=== PATIENT | female | born 1960 | race Caucasian/White ===

== ENCOUNTER 2021-01-24 18:21 | Inpatient (IN) | payer OTHER, SELFPAY ==
--- NOTE | ~2021-01-24 | XR_ITS ---
EXAMINATION: XR surgery orthopedic DATE: 01/25/2021 13:10 INDICATION: Intertrochanteric fracture of proximal left femur. TECHNIQUE: 4 intraoperative fluoroscopic spot views of proximal left femur were obtained. I was not p resent. Fluoroscopy exposure time was 99 seconds. COMPARISON: Left hip radiographs 01/24/2021 FINDINGS: There is a comminuted intertrochanteric fracture of proximal left femur status post open re duction internal fixation with antegrade intramedullary ken, femoral head/neck screw, and distal inte rlocking screw. The main distal fracture fragment demonstrates near-anatomic alignment. There is mild left hip osteoarthritis. IMPRESSION: 1. Comminuted intertrochanteric fracture of proximal left femur status post open reduction internal f ixation. Reviewed, dictated and finalized at location A. IMPRESSION: 1. Comminuted intertrochanteric fracture of proximal left femur status post ope n reduction internal fixation.
--- NOTE | ~2021-01-24 | US_ITS ---
US abdomen limited INDICATION: Elevated liver function tests PROCEDURE: Realtime right upper abdominal ultrasound. COMPARISON: No prior studies for comparison. FINDINGS: The pancreas is normal without focal mass or pancreatic ductal dilation. Liver echotexture is increased, consistent with fatty infiltration. Liver is enlarged. There is normal directional fl ow in the portal vein. The gallbladder is normal without stones, gallbladder wall thickening or pericholecystic fluid. Comm on bile duct measures 4 mm. No sonographic Solis's sign. There is a 1.9 cm right renal cyst. IMPRESSION: 1: Hepatomegaly with fatty infiltration. Reviewed, dictated and finalized at location A.
--- NOTE | ~2021-01-24 | CT_ITS ---
EXAMINATION: CTA abdomen pelvis DATE: 01/28/2021 21:22 INDICATION: Blood loss following left hip surgery. TECHNIQUE: Computed tomographic angiography (CTA) of the abdomen and pelvis was performed with 100 mL Omnipaque-350 intravenous contrast. Additional 3D reconstructions utilizing rotating maximum intensi ty projection (MIP) were performed. Automated exposure control and iterative reconstruction technique were employed. The dose-length product was 1033.35 mGy-cm. COMPARISON: None FINDINGS: Respiratory motion and some dependent basilar atelectasis at the bilateral lower lungs. Heart size is normal. No pericardial or pleural effusion. Diffuse hepatic steatosis. Gallbladder, spleen, pancreas , bilateral adrenal glands and kidneys are normal. Bowels including the appendix are normal. Small fa t-containing umbilical hernia. Bladder, anteverted uterus and bilateral adnexa are unremarkable. No f ree intraperitoneal gas or fluid. No pathologically enlarged abdominal or pelvic lymphadenopathy. Sev ere lower lumbar facet osteoarthritis. Minimal atherosclerotic plaque along the mild caliber abdominal aorta and bilateral common iliac isamar nate without hemodynamically significant stenosis. Tiny accessory right renal artery and early bifurc ation of the left renal artery essentially at the origin. Celiac, superior mesenteric and inferior me senteric arteries are normal. Prominent soft tissue swelling and subcutaneous edema, with some postoperative subcutaneous gas about the left hip. Antegrade intramedullary ken and interlocking femoral neck screw fixation of a comminu brendon intertrochanteric fracture the proximal left femur. There is superomedial distraction of both les ser trochanteric and greater trochanteric fragments which are not included within the fixation. While there May be a small amount of blood in the region of the fracture, no large likely hematomas apprec iated. No evident active contrast extravasation. IMPRESSION: 1. Expected appearance of postoperative change from an internally fixed comminuted intertrochanteric fracture the proximal left femur. No large hematoma appreciated. 2. Minimal atherosclerotic plaque along the normal caliber abdominal aorta and common iliac arteries. Otherwise unremarkable CT angiogram of the abdomen and pelvis. 3. Diffuse hepatic steatosis. 4. Small fat-containing umbilical hernia. Reviewed, dictated and finalized at location A. IMPRESSION: 1. Expected appearance of postoperative change from an internally fixed comminu brendon intertrochanteric fracture the proximal left femur. No large hematoma appre ciated. 2. Minimal atherosclerotic plaque along the normal caliber abdominal aorta and common iliac arteries. Otherwise unremarkable CT angiogram of the abdomen and p lu. 3. Diffuse hepatic steatosis. 4. Small fat-containing umbilical hernia.
--- NOTE | ~2021-01-24 | XR_ITS ---
EXAMINATION: XR hip LT 2V w AP pelvis DATE: 01/24/2021 19:00 INDICATION: g TECHNIQUE: Anteroposterior view of the pelvis and anteroposterior and cross-table lateral views of th e left hip were obtained. COMPARISON: None. FINDINGS: Comminuted intratrochanteric fracture of the proximal left femur with proximal migration and approxim ately 40 degrees varus angulation of the main distal diaphyseal fragment. There is also partially a f ew centimeter of proximal and medial distraction of both lesser trochanteric and greater trochanteric fragments. No other fractures identified. Mild bilateral hip osteoarthritis. Severe lower lumbar spo ndylosis. IMPRESSION: 1. Displaced and angulated comminuted intratrochanteric fracture of the proximal left femur. Reviewed, dictated and finalized at location A. IMPRESSION: 1. Displaced and angulated comminuted intratrochanteric fracture of the proxima l left femur.
--- NOTE | ~2021-01-24 | XR_ITS ---
EXAMINATION: XR hip LT min 2V DATE: 01/28/2021 13:54 INDICATION: Left hip pain and swelling 3 days post internal fixation of a comminuted fracture of the right hip TECHNIQUE: Anteroposterior and cross-table lateral views of the left hip were obtained. COMPARISON: Intraoperative images of the left hip from 01/25/2021 FINDINGS: Again seen is internal fixation of a comminuted intratrochanteric fracture of the proximal left hip w ith antegrade intramedullary ken, femoral neck dynamic compression screw and distal interlocking scre w fixation. Alignment of the femoral head neck and diaphyseal fragments remains near-anatomic. There is superomedial distraction of a separate lesser trochanteric and greater trochanteric fragments whic h are not included within the fixation. Mild left hip osteoarthritis. No other fractures identified. Skin herlinda along the lateral proximal left thigh with expected small amount of underlying postopera tive soft tissue gas. IMPRESSION: 1. Expected appearance post open reduction internal fixation of a comminuted intertrochanteric fractu re the proximal left femur. Reviewed, dictated and finalized at location A. IMPRESSION: 1. Expected appearance post open reduction internal fixation of a comminuted in tertrochanteric fracture the proximal left femur.
--- NOTE | ~2021-01-24 | US_ITS ---
EXAMINATION:US venous doppler LE BI INDICATION:Bilateral leg swelling TECHNIQUE: Multiple grayscale, color flow and Doppler images of the right and left lower extremity de ep venous systems were obtained and reviewed. COMPARISON:No prior studies for comparison. FINDINGS: The common femoral, superficial femoral and popliteal veins demonstrate normal respiratory variation, augmentation and compressibility. Color flow is also seen within the posterior tibial, pe roneal, greater saphenous and profunda veins. IMPRESSION: 1: No lower extremity deep venous thrombosis. Reviewed, dictated and finalized at location A.
--- NOTE | ~2021-01-24 | XR_ITS ---
EXAMINATION: XR chest 1V DATE: 01/24/2021 19:00 INDICATION: Fall TECHNIQUE: frontal view of the chest was obtained. COMPARISON: None FINDINGS: Small lung volumes with mild elevation of the left hemidiaphragm with minimal bibasilar atelectasis. No other airspace opacities, pulmonary edema, pleural effusion or pneumothorax. The cardiomediastinal silhouette is normal. No acute osseous abnormality. IMPRESSION: 1. Small lung volumes with minimal bibasilar atelectasis. Reviewed, dictated and finalized at location A.
[2021-01-24 18:25] VITALS: BP 125/85; PULSE 109; RESP 16; TEMP 36.7; O2SAT 96
[2021-01-24 18:38] VITALS: BP 132/85; PULSE 87; RESP 18; O2SAT 96
--- NOTE | 2021-01-24 19:01 | ECG_ITS ---
Measurements Intervals [place] Rate: 98 P: 62 MT: 158 QRS: 16 QRSD: 64 T: 9 QT: 331 QTc: 423 Interpretive Statements SINUS RHYTHM EARLY PRECORDIAL R/S TRANSITION LOW VOLTAGE- PRECORDIAL LEADS BASELINE ARTIFACT- I, II, III, AVR, AVL, AVF, V1-V6 BORDERLINE ECG Electronically Signed On 01-24-2021 20:11:21 CDT by Raúl Crocker D.O.
[2021-01-24] MEDS: HYDROcodone/acetaminophen (*CRX) 5-325 MG TABLET 1 TAB PO (19:08)
--- NOTE | 2021-01-24 19:08 | ED.FALL ---
HPI - Fall General Chief Complaint: Fall Stated Complaint: fall, left hip pain Time Seen by Provider: 01/24/21 18:36 Source: RN notes reviewed History of Present Illness HPI Narrative: Patient presents emergency department from home for left hip pain. Patient states she has been outside and pulling got out of her problems walking inside when she tripped over a crack in her patio she states she fell directly on her left hip at that time she states since that time she is been able to get up and ambulate on her left hip she denies taking medication for the pain she denies striking her head or any loss of consciousness she states she had mild scraping her left elbow but denies pain to the elbow patient denies any blood thinner use states she has seen Dr. Fatima before in the past Related Data Home Medications Medication Instructions Recorded Confirmed No Home Medications 01/24/21 01/24/21 Allergies Allergy/AdvReac Type Severity Reaction Status Date / Time aspirin Allergy Intermediate HIVES Verified 01/24/21 18:44 NSAIDS (Non-Steroidal Allergy Intermediate HIVES Verified 01/24/21 18:44 Anti-Inflamma Review of Systems Review of Systems: Gen.: Denies fevers or chills Eyes: Denies eye pain or visual change ENT: Denies congestion Respiratory: Denies shortness of breath or cough CV: Denies chest pain GI: Denies abdominal pain nausea, emesis or diarrhea Musculoskeletal: See HPI Neuro: Denies numbness, tingling, weakness or focal weakness Skin: Denies rash Except as documented, all other systems reviewed and negative PMFSH Past Medical History Medical History (Updated 01/24/21 @ 20:02 by Se Bowens DO) Patient denies significant medical history Social History Social History (Updated 01/24/21 @ 19:10 by Se Bowens DO) Smoking status: Never smoker Exam Narrative: APPEARANCE: No acute distress, nontoxic, resting in bed EYES: EOMI HEENT: Normocephalic, atraumatic, OMM RESPIRATORY: No respiratory distress Clear to auscultation bilaterally with no rhonchi wheezing or rales. CARDIOVASCULAR: Regular rate and rhythm without murmurs rubs or gallops. ABDOMINAL: Soft, nontender, nondistended, no rebound or guarding MUSCULOSKELETAl: Moves all extremities. No clubbing, cyanosis or edema. No tenderness of the bilateral upper extremities and the right lower extremity, tender palpation of the left hip pain with any movement of the hip, no tenderness left knee or ankle, dorsalis pedis pulse 2+ neurovascular intact NEURO: Awake and alert. Following commands, speech normal, no focal deficits SKIN:: Warm, dry. No rashes lesions superficial abrasion over the left posterior elbow no active bleeding or signs of infection PSYCHIATRIC: Normal affect/mood, Course Course Emergency Course: Called discussed with Dr. Fatima presentation work-up not currently available for orthopedic consult Discussed Dr. Seaman presentation and work-up agrees with consult at this time Discussed with TELLY Murrieta for Dr. Guzman presentation work-up agrees with admission at this time Discussed with patient her elevated LFTs. Repeat abdominal exam is soft nontender states she does drink daily beer and wine when asked how much she states enough states she only had one beer today Discussed with patient and family results of workup and diagnosis. Discussed need for admission. Patient and family understand and agree to current treatment plan Vital Signs Vital signs: Vital Signs Temperature 98.1 F 01/24/21 18:25 Pulse Rate 109 H 01/24/21 18:25 Respiratory Rate 16 01/24/21 18:25 Blood Pressure 125/85 01/24/21 18:25 Pulse Oximetry 96 01/24/21 18:25 Temperature 98.1 F 01/24/21 18:25 Pulse Rate 87 01/24/21 18:38 Respiratory Rate 18 01/24/21 18:38 Blood Pressure 132/85 01/24/21 18:38 Pulse Oximetry 96 01/24/21 18:38 MDM - Fall Lab Data Result diagrams: 01/24/21 19:36 01/24/21 19:36
[2021-01-24 19:44] LABS: Basophils Absolute Auto 0.1 K/mm3 (0.0-0.1); Basophils Percent Auto 1.8 % (0.2-1.2); Eosinophils Percent Auto 0.3 % (0-4.4); Immature Granulocyte Absolute 0.05 K/mm3 (0.00-0.031); Immature Granulocyte Percent A 0.8 % (0-0.5); Lymphocytes Absolute Auto 1.86 K/mm3 (0.9-3.2); Lymphocytes Percent Auto 30.8 % (18.3-44.2); Mean Corpuscular HGB Conc 32.6 g/dl (32-36); Mean Corpuscular Hemoglobin 32.4 pg (26-34); Mean Corpuscular Volume 99.5 fl (80-100); Mean Platelet Volume 9.9 fl (7.4-10.4); Monocytes Absolute Auto 0.6 K/mm3 (0.1-0.6); Monocytes Percent Auto 9.3 % (2.6-8.5); Neutrophils Absolute Auto 3.4 K/mm3 (1.3-6.7); Platelet Count Result 148 k/mm3 (150-375); Red Blood Count 4.32 M/mm3 (4.2-5.4); Red Cell Distribution Width 14.5 % (11.5-14.5)
[2021-01-24 19:53] LABS: Alanine Aminotransferase 73 U/L (4-35); Alkaline Phosphatase 153 U/L (38-126); Anion Gap 18 mmol/L (8-16); Aspartate Amino Transferase 161 U/L (14-36); Bilirubin,Total 1.3 mg/dL (0.2-1.3); Blood Urea Nitrogen 7 mg/dL (7-17); Calcium 8.9 mg/dL (8.4-10.2); Carbon Dioxide 23 mmol/L (22-30); Chloride 96 mmol/L (98-107); Estimated CRCL calculation 82 ml/min; Estimated Glomerular Filt Rate > 60; Glucose 95 mg/dL (65-110); Potassium 3.7 mmol/L (3.4-5.0); Sodium 137 mmol/L (137-145)
[2021-01-24 19:55] LABS: INR 0.9; Prothrombin Time 12.3 Seconds (11.1-14.7)
[2021-01-24 19:56] LABS: Partial Thromboplastin Time 25.4 SECONDS (22.3-36.8)
--- NOTE | 2021-01-24 20:23 | PC.NURSE ---
attempted to call report to floor. nurse unable to take report
--- NOTE | 2021-01-24 20:41 | PC.NURSE ---
attempted to call report to floor. nurse would not take report
--- NOTE | 2021-01-24 21:30 | PM.IMHP ---
H&P: HPI History of Present Illness Date/Time: 01/24/21 21:30 Chief Complaint: Left hip pain after fall. Narrative: This is a previously healthy 60-year-old female who presented to the emergency department earlier today via private vehicle from home for evaluation of left hip pain after a fall. While getting out of her swimming pool today she tripped on a crack in the deck causing her to fall directly onto her left hip. She was able to get up with help but could not bear weight due to pain and family members drove her to the hospital where she was found to have an acute displaced and angulated comminuted inter trochanteric fracture of the left proximal femur and she is being admitted in this setting. She sustained no other injuries in the fall and denies head trauma and loss of consciousness. No paresthesias, skin color, or temperature changes distal to the fracture site. Labs done on arrival to the emergency department showed elevation of her AST and ALT and with further questioning she does admit that she drinks daily and has had elevated LFTs in the past. She typically drinks 2 to 3 alcoholic beverages in evening but will drink quite a bit more on the weekends though she does not qualify. She denies ever having signs of symptoms of alcohol withdrawal. No history of seizures. No known history of cirrhosis or hepatitis. Review of Systems Review of Systems: Twelve systems were reviewed with pertinent positives and negatives as per HPI. No fever, chills, or sweats. No recent cold or flu symptoms. She denies exertional chest pain shortness of breath. No orthopnea or PND. She denies nausea, vomiting, diarrhea, and dysuria. No history of venous thromboembolism. Except as documented, all other systems were reviewed and are negative. [facility] Past Medical History Medical History (Updated 01/24/21 @ 23:50 by Glenny Hanna PA-C) Anxiety and depression Arthritis Daily consumption of alcohol Gastroesophageal reflux disease Hearing loss Surgical History Surgical History (Updated 01/24/21 @ 23:50 by Glenny Hanna PA-C) History of cataract extraction Family History Family History Father Pulmonary embolism Hypertension Diabetes mellitus Acute myocardial infarction Mother Hypercholesterolemia Social History Social History (Updated 01/24/21 @ 23:51 by Glenny Hanna PA-C) Social History: The patient lives in [place] with her . She smoked 1 to 1.5 packs of cigarettes a day for about 20 years and quit in 1999. She drinks 2 to 3 alcoholic beverages a night, typically beer or wine. She drinks heavier on the weekends, typically drinking mixed drinks although she does not quantify the amount that she typically drinks. No illicit substance use. She designates her Julis as her surrogate decision maker and she wishes to be a full code. Meds Home Medications and Allergies Home Medications Medication Instructions Recorded Confirmed Type No Home Medications 01/24/21 01/24/21 History Allergies Allergy/AdvReac Type Severity Reaction Status Date / Time aspirin Allergy Intermediate HIVES Verified 01/24/21 22:10 NSAIDS (Non-Steroidal Allergy Intermediate HIVES Verified 01/24/21 22:10 Anti-Inflamma Vital Signs Vital Signs - 24 hr 01/24/21 18:25 01/24/21 18:38 Temperature 98.1 F Pulse Rate 109 H 87 Respiratory Rate 16 18 Blood Pressure 125/85 132/85 Pulse Oximetry 96 96 Exam Narrative: General: Well-developed female supine in bed. She is hard of hearing. Weight: 77.9 kg. BMI: 29.5. HEENT: Normocephalic, atraumatic. PERRL, EOMI. Sclerae anicteric. Oral mucosa moist. Oropharynx clear. Neck: Supple. Respiratory: Lungs are clear to auscultation bilaterally. Cardiovascular: Regular rate and rhythm with S1-S2. Gastrointestinal: Abdomen is soft, protuberant, and nontender with positive bowel sounds. No obvious organome
--- NOTE | 2021-01-24 21:57 | ADMGEN ---
This patient, Reginaldo Morgan, was admitted to Medical Room 248-01. Patient/family oriented to hospital policies and general routines including ID bracelet, bed and alarms, visiting hours, pain management, procedures, bathroom and other care routines, personal items, smoking policy, room service/diet, and visiting hours. Information on how to activate the Rapid Response Team has been discussed. Patient/Family are encouraged to report perceived risks to care and to ask questions if they do not understand what they are told or what they should do.
[2021-01-24 22:00] VITALS: BP 128/68; PULSE 103; RESP 18; TEMP 36.7; O2SAT 95; BMI 29.5
[2021-01-24 22:19] LABS: Ethanol 199 mg/dL (<10)
[2021-01-24] MEDS: SODIUM CHLORIDE 0.9% IV 1,000 ML 80 ML IV CONT (22:25)
--- NOTE | 2021-01-24 22:38 | PM.CNOR ---
Assessment and Plan Assessment and plan (1) Closed displaced intertrochanteric fracture of left femur: Qualifiers: Encounter type: initial encounter Qualified Code(s): S72.142A - Displaced intertrochanteric fracture of left femur, initial encounter for closed fracture Code(s): S72.142A - Displaced intertrochanteric fracture of left femur, initial encounter for closed fracture Status: Acute Assessment and Plan: New patient evaluation for chief complaint left hip pain after fall. History, physical exam and radiographs reviewed with the patient.LT hip intertrochanteric fx. Discussed the condition, nature, etiology and course of natural history with the patient. Treatment options including surgical and nonoperative treatment were reviewed. Risks and benefits of each as well as alternatives reviewed. The patient's questions were answered. Conservative treatment ice, mechanical dvt px. Pt desires operative tx. Discussed nonoperative and operative treatment options with the patient. Risks and benefits of each as well as alternatives were reviewed. All of the patient's questions were answered. The risks of surgery reviewed including but not limited to: Neurovascular damage, wound complication, infection, blood clot, pulmonary embolus, stroke, myocardial infarction, and anesthetic risks up to and including . Continued pain and possible dysfunction were explained. Specific risks of the procedure including later recurrence of deformity. No guarantees were offered. If hardware used, discussed risk of failure/ breakage and possible need for removal. If complications occur, the patient understands the need for further treatment, possible further surgery. Patient verbalizes understanding and wishes to proceed. PLAN: Left hip reduction internal fixation with IM nail History of Present Illness HPI Consult date: 01/25/21 Requesting physician: Se Bowens DO Chief complaint: L Hip Fx Narrative: 60 yo woman fell at pool side at home on left hip. Unable to bear weight. No prior hip problems. Denies left leg numbness or tingling. Review of Systems Constitutional: Constitutional: Denies fever(s) Eyes: Eyes: Denies blurry vision ENT: Reports Normal hearing present Cardiovascular: Cardiovascular: Denies chest pain and Denies dyspnea Respiratory: Respiratory: Denies dyspnea and Denies wheezing Gastrointestinal: Gastrointestinal: Denies abdominal pain Genitourinary: Genitourinary: Denies urinary urgency Musculoskeletal: Musculoskeletal: Reports as per HPI and Denies numbness Integumentary/Breasts: Skin/Breast: Denies changing lesions and Denies sores Neurologic: Reports Normal hearing present, Denies behavioral changes, Denies confusion, Denies numbness and Denies convulsions Psychiatric: Psychiatric: Denies behavioral changes, Denies confusion and Denies hallucinations Endocrine: Endocrine: Denies heat intolerance Hematologic/Lymphatic: Hematologic/Lymphatic: Denies easy bleeding Allergic/Immunologic: Allergic/Immunologic: Denies wheezing [facility] Past Medical History Medical History Anxiety and depression Arthritis Daily consumption of alcohol Gastroesophageal reflux disease Hearing loss Surgical History Surgical History History of cataract extraction Family History Family History Father Pulmonary embolism Hypertension Diabetes mellitus Acute myocardial infarction Mother Hypercholesterolemia Social History Social History Social History: The patient lives in [place] with her . She smoked 1 to 1.5 packs of cigarettes a day for about 20 years and quit in 1999. She drinks 2 to 3 alcoholic beverages a night, typically beer or wine. She drinks heavier on
[2021-01-24 23:22] LABS: Hepatitis B Surface Antigen Negative (Negative)
[2021-01-24 23:28] LABS: HAV RESULT Negative (Negative); Hepatitis B Core IgM Result Negative (Negative)
[2021-01-24 23:40] LABS: Hepatitis C Virus Antibody Negative (Negative)
[2021-01-25] VITALS (11 sets, daily range): BP systolic 118–165; BP diastolic 52–92; PULSE 92–112; RESP 8–18; TEMP 36.1–36.9; O2SAT 93–100
[2021-01-25 00:33] LABS: Add Urine Microscopic? YES; Appearance Urine Clear (Clear); Bacteria Urine Trace /hpf; Bilirubin Urine Negative (Negative); Blood Urine 1+ (Negative); Color Urine Amber (Yellow); Glucose Urine UA Negative (Negative); Ketones Urine 1+ mg/dL (Negative); Leukocyte Esterase Ur 1+ LEU/UL (Negative); Mucus Urine Rare /lpf; Nitrate Urine Positive (Negative); Protein Urine 1+ mg/dL (Negative); Specific Grav Ur 1.016 (1.001-1.035); Squamous Epithelial Cell Urine Few /hpf (Few)
[2021-01-25 05:56] LABS: Basophils Absolute Auto 0.1 K/mm3 (0.0-0.1); Hematocrit 36.5 % (37.0-47.0); Hemoglobin 12.2 g/dL (12.0-15.0); Immature Granulocyte Absolute 0.05 K/mm3 (0.00-0.031); Immature Granulocyte Percent A 0.6 % (0-0.5); Lymphocytes Absolute Auto 1.53 K/mm3 (0.9-3.2); Lymphocytes Percent Auto 19.5 % (18.3-44.2); Mean Corpuscular HGB Conc 33.4 g/dl (32-36); Mean Corpuscular Hemoglobin 32.6 pg (26-34); Mean Corpuscular Volume 97.6 fl (80-100); Mean Platelet Volume 9.8 fl (7.4-10.4); Monocytes Absolute Auto 0.8 K/mm3 (0.1-0.6); Monocytes Percent Auto 9.8 % (2.6-8.5); Neutrophils Absolute Auto 5.4 K/mm3 (1.3-6.7); Neutrophils Percent Auto 69.1 % (45.5-73.1); Platelet Count Result 146 k/mm3 (150-375); Red Blood Count 3.74 M/mm3 (4.2-5.4); Red Cell Distribution Width 14.3 % (11.5-14.5); White Blood Count 7.9 K/mm3 (4.5-10.0)
[2021-01-25 06:05] LABS: Alanine Aminotransferase 62 U/L (4-35); Albumin Level 3.4 g/dL (3.5-5.1); Alkaline Phosphatase 122 U/L (38-126); Anion Gap 15 mmol/L (8-16); Aspartate Amino Transferase 114 U/L (14-36); Bilirubin,Total 1.2 mg/dL (0.2-1.3); Blood Urea Nitrogen 8 mg/dL (7-17); Calcium 8.8 mg/dL (8.4-10.2); Carbon Dioxide 19 mmol/L (22-30); Chloride 102 mmol/L (98-107); Estimated CRCL calculation 98 ml/min; Estimated Glomerular Filt Rate > 60; Glucose 69 mg/dL (65-110); Potassium 4.9 mmol/L (3.4-5.0); Sodium 136 mmol/L (137-145)
--- NOTE | 2021-01-25 07:32 | WPDHPUPDATE1 ---
History and Physical Update Update Date/Time: 01/25/21 07:32 History and Physical has been reviewed, including an updated exam of the patient. There are NO changes in the patient's condition. Risks, benefits, and alternatives have been discussed and questions answered. Patient agrees to proceed with procedure.
[2021-01-25] MEDS: MORPHINE SULFATE (*CRX) 4 MG/ML INJ IV PUSH ×2 (09:19→14:49)
[2021-01-25 10:07] LABS: Lactic Acid Reflex 2.6 mmol/L (0.7-2.1)
[2021-01-25] MEDS: TRANEXAMIC ACID 1,000MG/ISO100 1,000 MG/100 ML BAG 200 MG IVPB (11:46)
[2021-01-25] MEDS: ACETAMINOPHEN 500 MG TABLET 1000 MG PO (11:46)
--- NOTE | 2021-01-25 11:48 | WPDANESEPPF ---
Anes - Initial Pre Proc Eval Procedure: Operation Date: 01/25/21 12:00 Proposed Procedures p Left Intertrochanteric Nail(Left) - Jono Seaman MD Date/Time: 01/25/21 11:48 Surgeon: Divya Guzman MD Pre Op Diagnosis: L Hip Fx Patient Data Age: 60 Gender: F Height: 1.63 m Weight: 80.3 kg Last Vital Signs Temp 36.8 C 01/25/21 06:00 Pulse 97 01/25/21 06:00 Resp 18 01/25/21 06:00 BP 118/52 L 01/25/21 06:00 Pulse Ox 96 01/25/21 06:00 Allergies Allergy/AdvReac Type Severity Reaction Status Date / Time aspirin Allergy Intermediate HIVES Verified 01/24/21 22:10 NSAIDS (Non-Steroidal Allergy Intermediate HIVES Verified 01/24/21 22:10 Anti-Inflamma Home Medications Medication Instructions Recorded Confirmed Type No Home Medications 01/24/21 01/24/21 History Laboratory Tests 01/24/21 01/24/21 01/24/21 19:01 19:36 19:36 WBC 6.0 K/mm3 K/mm3 (4.5-10.0) RBC 4.32 M/mm3 M/mm3 (4.2-5.4) Hgb 14.0 g/dL g/dL (12.0-15.0) Hct 43.0 % % (37.0-47.0) MCV 99.5 fl fl (80-100) MCH 32.4 pg pg (26-34) MCHC 32.6 g/dl g/dl (32-36) RDW 14.5 % % (11.5-14.5) Plt Count 148 k/mm3 L k/mm3 (150-375) MPV 9.9 fl fl (7.4-10.4) Immature Gran % (Auto) 0.8 % H % (0-0.5) Neut % (Auto) 57.0 % % (45.5-73.1) Lymph % (Auto) 30.8 % % (18.3-44.2) [place] % (Auto) 9.3 % H % (2.6-8.5) Eos % (Auto) 0.3 % % (0-4.4) Baso % (Auto) 1.8 % H % (0.2-1.2) Lymph # (Auto) 1.86 K/mm3 K/mm3 (0.9-3.2) [place] # (Auto) 0.6 K/mm3 K/mm3 (0.1-0.6) Eos # (Auto) 0.0 K/mm3 K/mm3 (0-0.3) Baso # (Auto) 0.1 K/mm3 K/mm3 (0.0-0.1) Abs Immat Gran (auto) 0.05 K/mm3 H K/mm3 (0.00-0.031) Absolute Neuts (auto) 3.4 K/mm3 K/mm3 (1.3-6.7) Absolute Nucleated RBC 0.0 K/mm3 K/mm3 (0.0-0.012) Nucleated RBC % 0.0 % % (0.0-0.2) PT 12.3 Seconds Seconds (11.1-14.7) INR 0.9 APTT 25.4 SECONDS SECONDS (22.3-36.8) Sodium Potassium Chloride Carbon Dioxide Anion Gap BUN Creatinine Estim Creat Clear Calc Estimated GFR Glucose Lactic Acid Calcium Total Bilirubin Direct Bilirubin AST ALT Alkaline Phosphatase Total Protein Albumin Urine Color Urine Appearance Urine pH Ur Specific [place] Urine Protein Urine Glucose (UA) Urine Ketones Ur Blood (Man) Urine Nitrate Urine Bilirubin Urine Urobilinogen Leukocyte Esterase Rfl Urine RBC Urine WBC Ur Squamous Epith Cells Urine Bacteria Urine Mucus Ethyl Alcohol Hepatitis A IgM Ab Hep Bs Antigen Hep B Core IgM Ab Hepatitis C Ab Screen Blood Type B Positive Antibody Screen Negative 01/24/21 01/24/21 01/24/21 19:36 21:20 21:20 WBC RBC Hgb Hct MCV MCH MCHC RDW Plt Count MPV Immature Gran % (Auto) Neut % (Auto) Lymph % (Auto) [place] % (Auto) Eos % (Auto) Baso % (Auto) Lymph # (Auto) [place] # (Auto) Eos # (Auto) Baso # (Auto) Abs Immat Gran (auto) Absolute Neuts (auto) Absolute Nucleated RBC Nucleated RBC %
[2021-01-25] MEDS: LACTATED RINGERS 1,000 ML 30 ML IV CONT (11:49)
--- NOTE | 2021-01-25 11:50 | PC.NURSE ---
Patient to OR per bed at 1105 01/25/21.
[2021-01-25] MEDS: ceFAZolin 2 GM/D5W 50 ML 2 GM/50 ML BAG IVPB (12:00)
[2021-01-25] MEDS: BUPIVACAINE/EPINEPHRINE 0.5% 10 ML VIAL 50 ML INFILTRATE (12:26)
[2021-01-25 12:53] LABS: Reflex Lactic Acid Yes or No Add Lactic
[2021-01-25] MEDS: fentaNYL CITRATE INJ (*CRX) 100 MCG/2 ML VIAL 25 MCG IV PUSH (13:31)
--- NOTE | 2021-01-25 13:41 | W.PM.PROC2 ---
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 Intertrochanteric fracture with displacement. Patient desires operative treatment. Description of Procedure DESCRIPTION OF PROCEDURE: After informed consent the operative extremity was marked in the preoperative holding area. Patient received intravenous antibiotics. The patient was taken to the operative room, placed in the supine position, general anesthesia induced by the anesthesia team, and was placed on a fracture table with longitudinal traction applied to the left leg. The hip fracture was reduced to near anatomic position and verified with image intensification. A time-out was performed confirming the patient, site of the surgery and plan. The left lower extremity was prepped and draped sterilely from the knee to the iliac crest region using a ChloraPrep skin solution. Incision was made just proximal to greater trochanter down to the subcutaneous tissues. Hemostasis controlled with electrocautery. Blunt dissection through the fascia to the tip of the greater trochanter. A starter awl was placed at the tip of the greater trochanter into the medullary canal of the femur. This was checked with image intensification and was in good position. Intramedullary guide ken positioned. A one-step hand reaming done proximally. Intramedullary canal was reamed with a 12.5 millimeter flexible reamer. Measuring was then performed off of the guide ken. Neck angle selected off of preoperative radiographs temp plating. 125 degree 11.5 X 215mm Nail opened on the back table and assembled. This was then inserted over the guide ken to the correct depth. Guide ken removed. Lag screw was then placed with a stab incision over the lateral femur using a 10 blade knife. Blunt dissection down to the lateral side of the bone. Soft tissue protectors placed. Guide pin placed in the center center position of the femoral head and measured. 100millimeter x 10.5 millimeter lag screw placed to correct depth and verified with image intensification. Traction released from the leg and compression of the fracture performed with the external compression device. Proximal locking screw placed. Distal locking of the nail necessary due to instability in the intramedullary canal and proximal femur. Stab incision made lateral thigh. Blunt dissection down lateral side of the femur. Image intensification used to guide drill which was placed through the locking hole. Femur measured and the appropriate size screw placed. Image intensification confirmed the placement through the locking hole. Final image intensification confirm reduction of the fracture and placement of the hardware. Wounds then thoroughly irrigated with antibiotic solution. Fascia repaired with 0 Vicryl interrupted suture. Subcutaneous tissue repaired with 00 Vicryl interrupted suture and skin repaired with herlinda. Sterile dressings applied. Patient then awoke from anesthesia, extubated, taken to recovery room stable condition. All sponge, needle and instrument counts correct at the end the case. Implants Gabriele natural Nail 11.5 mm x 21.5 cm 125 degree angle, 10.5 x 100 mm lag screw, 5.0 x 35 mm locking screw Estimated Blood Loss 200 Drains No Packing No Pathology none sent Complications None Condition stable Disposition PACU
--- NOTE | 2021-01-25 13:46 | SUR.PHASEI ---
1343: Simple mask removed.
--- NOTE | 2021-01-25 14:01 | SUR.PREOP ---
1145; DR VARGAS NOTIFIED OF HOLDING PREOP DOSE OF KETOROLAC DUE TO PT REPORTS ALLERGY TO NSAIDS, HIVES.
[2021-01-25] MEDS: THIAMINE HCL INJ 100 MG, FOLIC ACID INJ 1 MG, MULTIVITAMINS-12 INJ VIAL 1 5 ML, MULTIVI... 125 MG IV CONT (14:48)
[2021-01-25] MEDS: NITROFURANTOIN MONOHYD MACROCR 100 MG CAP PO ×2 (14:49→20:15)
[2021-01-25 15:52] LABS: Lactic Acid 5.3 mmol/L (0.7-2.1)
[2021-01-25] MEDS: DOCUSATE SODIUM 100 MG CAPSULE PO (16:42)
[2021-01-25] MEDS: SODIUM CHLORIDE 0.9% IV 1,000 ML 999 ML IV CONT (16:42)
--- NOTE | 2021-01-25 19:50 | PM.IMPN ---
Progress Note: A&P Assessment and Plan (1) Gastroesophageal reflux disease: Code(s): K21.9 - Gastro-esophageal reflux disease without esophagitis Status: Acute (2) Elevated LFTs: Code(s): R79.89 - Other specified abnormal findings of blood chemistry Status: Acute (3) Daily consumption of alcohol: Code(s): Z78.9 - Other specified health status Status: Acute (4) Closed displaced intertrochanteric fracture of left femur: Qualifiers: Encounter type: initial encounter Qualified Code(s): S72.142A - Displaced intertrochanteric fracture of left femur, initial encounter for closed fracture Code(s): S72.142A - Displaced intertrochanteric fracture of left femur, initial encounter for closed fracture Status: Acute (5) Patient denies significant medical history: Status: Acute (6) Lactic acidosis: Code(s): E87.2 - Acidosis Status: Acute (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 She is hard of hearing. Weight: 77.9 kg. BMI: 29.5. HEENT: Normocephalic, atraumatic. PERRL, EOMI. Sclerae anicteric. Oral mucosa moist. Oropharynx clear. Neck: Supple. Respiratory: Lungs are clear to auscultation bilaterally. Cardiovascular: Regular rate and rhythm with S1-S2. Gastrointestinal: Abdomen is soft, protuberant, and nontender with positive bowel sounds. No obvious organomegaly. Skin: Warm and dry. Skin tear on the left elbow. Musculoskeletal: Tender to palpation in the left lateral hip. Left leg is short and externally rotated. She is neurovascular intact distal to the fracture site. Extremities: No cyanosis or clubbing. Trace lower extremity edema. Radial and pedal pulses intact. Neurological: Alert. Cranial nerves 2-12 are grossly intact. No gross focal deficits to casual conversation. Psychiatric: Appropriate mood and affect. Objective Data Vital Signs Vital Signs: Vital Signs - 24 hr 08/11/21 22:00 01/25/21 06:00 01/25/21 13:21 Temperature 98.0 F 98.2 F 97.0 F L Pulse Rate 103 H 97 108 H Respiratory Rate 18 18 14 Blood Pressure 128/68 118/52 L 146/85 H Pulse Oximetry 95 96 100 01/25/21 13:35 01/25/21 13:50 01/25/21 14:05 Temperature Pulse Rate 106 H 103 H 100 Respiratory Rate 8 L 12 12 Blood Pressure 156/84 H 165/86 H 153/86 H Pulse Oximetry 99 95 94 01/25/21 14:19 Temperature Pulse Rate 101 H Respiratory Rate 10 L Blood Pressure 154/80 H Pulse Oximetry 94 Intake/Output Intake/Output: Intake & Output 01/22/21 01/23/21 01/24/21 01/25/21 23:59 23:59 23:59 23:59 Intake Total 1250 Output Total 550 Balance 700 Meds/Results Medications: Active Medications Generic Name Dose Route Start Last Admin Trade Name Freq PRN Reason Stop Dose Admin Acetaminophen 650 mg 01/25/21 14:27 Acetaminophen 325 Mg Tablet PO Q6H PRN Mild Pain (1-3) or Fever Hydrocodone Bitart/Acetaminophen 1 tab 01/25/21 14:27 Hydrocodone/Acetaminophen (*Crx) 7.5-325 Mg Tablet PO Q3H PRN Pain Rated 4-6 Al Hydrox/Mg Hydrox/Simethicone 30 ml 01/25/21 14:27 Mag Hydrox/Al Hydrox/Simeth 30 Ml Udc PO Q6H PRN Indigestion Chlordiazepoxide HCl 25 mg 01/25/21 13:37 Chlordiazepoxide (*Crx) 25 Mg Capsule PO Q6H PRN Withdrawal Docusate Sodium 100 mg 01/25/21 17:00 01/25/21 16:42 Docusate Sodium 100 Mg Capsule PO 100 mg BID EMY Administration Famotidine 20 mg 01/25/21 21:00 Famotidine 20 Mg Tablet PO Q12HR [facility] Fondaparinux 2.5 mg
[2021-01-25 20:04] LABS: Lactic Acid Reflex 2.8 mmol/L (0.7-2.1)
[2021-01-25] MEDS: FAMOTIDINE 20 MG TABLET PO (20:15)
[2021-01-26 05:55] LABS: Basophils Percent Auto 0.2 % (0.2-1.2); Hematocrit 29.5 % (37.0-47.0); Hemoglobin 9.8 g/dL (12.0-15.0); Immature Granulocyte Absolute 0.11 K/mm3 (0.00-0.031); Immature Granulocyte Percent A 1.2 % (0-0.5); Lymphocytes Absolute Auto 1.14 K/mm3 (0.9-3.2); Mean Corpuscular HGB Conc 33.2 g/dl (32-36); Mean Corpuscular Hemoglobin 32.5 pg (26-34); Mean Corpuscular Volume 97.7 fl (80-100); Mean Platelet Volume 10.5 fl (7.4-10.4); Monocytes Absolute Auto 0.9 K/mm3 (0.1-0.6); Monocytes Percent Auto 9.4 % (2.6-8.5); Neutrophils Absolute Auto 7.3 K/mm3 (1.3-6.7); Neutrophils Percent Auto 77.2 % (45.5-73.1); Platelet Count Result 134 k/mm3 (150-375); Red Blood Count 3.02 M/mm3 (4.2-5.4); Red Cell Distribution Width 13.8 % (11.5-14.5); White Blood Count 9.5 K/mm3 (4.5-10.0)
[2021-01-26 06:00] VITALS: BP 140/73; PULSE 92; RESP 18; TEMP 36.5; O2SAT 96
[2021-01-26 06:10] LABS: Alanine Aminotransferase 43 U/L (4-35); Albumin Level 3.1 g/dL (3.5-5.1); Alkaline Phosphatase 99 U/L (38-126); Anion Gap 11 mmol/L (8-16); Aspartate Amino Transferase 65 U/L (14-36); Bilirubin,Total 1.3 mg/dL (0.2-1.3); Blood Urea Nitrogen 7 mg/dL (7-17); Calcium 7.9 mg/dL (8.4-10.2); Carbon Dioxide 21 mmol/L (22-30); Chloride 97 mmol/L (98-107); Estimated CRCL calculation 100 ml/min; Estimated Glomerular Filt Rate > 60; Glucose 115 mg/dL (65-110); Potassium 4.2 mmol/L (3.4-5.0); Sodium 129 mmol/L (137-145)
[2021-01-26] MEDS: MORPHINE SULFATE (*CRX) 4 MG/ML INJ IV PUSH (09:44)
[2021-01-26] MEDS: MAG HYDROX/AL HYDROX/SIMETH 30 ML UDC PO (09:48)
[2021-01-26] MEDS: chlordiazePOXIDE (*CRX) 25 MG CAPSULE 50 MG PO ×5 (09:48→21:23)
[2021-01-26] MEDS: THIAMINE HCL 200 MG/2 ML VIAL 100 MG IV PUSH ×3 (09:48→17:08)
[2021-01-26] MEDS: DOCUSATE SODIUM 100 MG CAPSULE PO (09:48)
[2021-01-26] MEDS: MAGNESIUM HYDROXIDE SUSP 30 ML UDC PO (09:48)
[2021-01-26] MEDS: FONDAPARINUX SODIUM 2.5 MG/0.5 ML SYRINGE SUB-Q (09:50)
[2021-01-26] MEDS: hydrOXYzine pamoate 25 MG CAPSULE 50 MG PO (09:50)
[2021-01-26] MEDS: FAMOTIDINE 20 MG TABLET PO ×2 (09:51→20:19)
[2021-01-26 10:00] VITALS: BP 148/74; PULSE 105; RESP 20; TEMP 36.5; O2SAT 99
[2021-01-26] MEDS: SODIUM CHLORIDE 0.9% IV 1,000 ML 100 ML IV CONT ×2 (10:17→20:18)
[2021-01-26 10:24] LABS: Magnesium 1.9 mg/dL (1.6-2.3); Phosphorus 1.5 mg/dL (2.5-4.5)
--- NOTE | 2021-01-26 10:43 | PM.PNORT ---
Progress Note: A&P Assessment and Plan (1) Closed displaced intertrochanteric fracture of left femur: Qualifiers: Encounter type: subsequent encounter Fracture healing: with routine healing Qualified Code(s): S72.142D - Displaced intertrochanteric fracture of left femur, subsequent encounter for closed fracture with routine healing Code(s): S72.142A - Displaced intertrochanteric fracture of left femur, initial encounter for closed fracture Status: Acute Assessment and Plan: Postoperative day 1 left hip intertrochanteric nail. Pain improved. Patient tolerating diet. Physical therapy / occupational therapy with weight-bearing as tolerated left leg. DVT prophylaxis. Pain control. Disposition when medically stable. Subjective Subjective Date/Time Seen: 01/26/21 10:43 Post Op day: 1 Principal diagnosis: Left hip fracture Interval history: patient awake and alert. Tolerating regular diet. Complains of mild left hip pain. Denies numbness or tingling. Exam Const: General: healthy appearing; No in distress or confusion Orientation/consciousness: patient oriented x3 and No confusion HENMT: Head: normal to inspection, normocephalic and atraumatic Eyes: Conjunctivae: conjunctivae normal Sclera: sclerae normal Resp: Effort & Inspection: normal respiratory effort and no audible wheezes Neuro: General: patient oriented x3 and No confusion Extrem: Left lower extremity: hip/thigh Details: tenderness Location: of the hip Location: laterally, swelling Location: of the hip ( Lateral, mild) and other ( dressing in place, clean dry and intact. Muscle soft.) and foot Details: toes with normal ROM, vascular exam Details: dorsalis pedis pulse present, posterior tibial pulse present and normal capillary refill and motor-sensory exam light-touch normal in all toes Psych: Affect: normal affect Objective Data Vital Signs Vital Signs: Vital Signs - 24 hr 01/25/21 13:21 01/25/21 13:35 01/25/21 13:50 Temperature 97.0 F L Pulse Rate 108 H 106 H 103 H Respiratory Rate 14 8 L 12 Blood Pressure 146/85 H 156/84 H 165/86 H Pulse Oximetry 100 99 95 01/25/21 14:05 01/25/21 14:19 01/25/21 14:40 Temperature 97.7 F Pulse Rate 100 101 H 100 Respiratory Rate 12 10 L 14 Blood Pressure 153/86 H 154/80 H 143/76 H Pulse Oximetry 94 94 93 01/25/21 14:55 01/25/21 15:25 01/25/21 16:25 Temperature 97.7 F 97.4 F L 97.7 F Pulse Rate 107 H 101 H 107 H Respiratory Rate 16 16 16 Blood Pressure 141/89 H 146/85 H 152/92 H Pulse Oximetry 96 95 99 01/25/21 22:00 01/26/21 06:00 01/26/21 10:00 Temperature 98.5 F 97.7 F 97.7 F Pulse Rate 112 H 92 105 H Respiratory Rate 18 18 20 Blood Pressure 139/63 140/73 148/74 H Pulse Oximetry 96 96 99 Intake/Output Intake/Output: Intake & Output 01/23/21 01/24/21 01/25/21 01/26/21 23:59 23:59 23:59 23:59 Intake Total 2800 690 Output Total 1350 550 Balance 1450 140 Meds/Results Medications: Active Medications Generic Name Dose Route Start Last Admin Trade Name Freq PRN Reason Stop Dose Admin Acetaminophen 650 mg 01/25/21 14:27 Acetaminophen 325 Mg Tablet PO Q6H PRN Mild Pain (1-3) or Fever Hydrocodone Bitart/Acetaminophen 1 tab 01/25/21 14:27 Hydrocodone/Acetaminophen (*Crx) 7.5-325 Mg Tablet PO Q3H PRN Pain Rated 4-6 Al Hydrox/Mg Hydrox/Simethicone 30 ml 01/25/21 14:27 01/26/21 09:48 Mag Hydrox/Al Hydrox/Simeth 30 Ml Udc PO 30 ml Q6H PRN Administration Indigestion Chlordiazepoxide HCl 50 mg 01/26/21 09:00 01/26/21 09:48 Chlordiazepoxide (*Crx) 25 Mg Capsule PO 01/27/21 07:00 50 mg QID EMY Administration Chlordiazepoxide HCl 50 mg 01/27/21 12:00 Chlordiazepoxide (*Crx) 25 Mg Capsule PO 01/28/21 12:00 TID EMY Chlordiazepoxide HCl 25 mg 01/28/21 16:00 Chlordiazepoxide (*Crx) 25 Mg Capsule PO 01/29/21 16:00 TID EMY Chlordiazepoxide HCl 25 mg 01/30/21 20
[2021-01-26 12:33] LABS: Anion Gap 11 mmol/L (8-16); Blood Urea Nitrogen 10 mg/dL (7-17); Calcium 8.3 mg/dL (8.4-10.2); Carbon Dioxide 20 mmol/L (22-30); Chloride 100 mmol/L (98-107); Estimated CRCL calculation 85 ml/min; Estimated Glomerular Filt Rate > 60; Glucose 169 mg/dL (65-110); Sodium 131 mmol/L (137-145)
[2021-01-26 13:05] LABS: Reflex Lactic Acid Yes or No Add Lactic
[2021-01-26 14:00] VITALS: BP 139/74; PULSE 105; RESP 18; TEMP 36.7; O2SAT 98
[2021-01-26 14:34] LABS: Lactic Acid 2.3 mmol/L (0.7-2.1)
--- NOTE | 2021-01-26 15:36 | WPDANESPN ---
Anes - Prog Note Post-Op Date/Time: 01/26/21 15:36 Cardiovascular status: normal Respiratory status: normal Airway patency: baseline Mental status: baseline Post-Op hydration status: normal Vital Signs: Last Vital Signs Temp 36.7 C 01/26/21 14:00 Pulse 105 H 01/26/21 14:00 Resp 18 01/26/21 14:00 BP 139/74 01/26/21 14:00 Pulse Ox 98 01/26/21 14:00 Pain Score (VAS): 06/25 I/O: Intake & Output 01/25/21 01/26/21 01/26/21 23:59 07:59 15:59 Intake Total 2510 450 480 Output Total 250 550 Balance 2260 -100 480 Laboratory Tests 01/26/21 05:07 01/26/21 09:46 01/25/21 01/25/21 01/26/21 15:20 19:39 05:07 WBC 9.5 RBC 3.02 L Hgb 9.8 L Hct 29.5 L MCV 97.7 MCH 32.5 MCHC 33.2 RDW 13.8 Plt Count 134 L MPV 10.5 H Immature Gran % (Auto) 1.2 H Neut % (Auto) 77.2 H Lymph % (Auto) 12.0 L Chaves % (Auto) 9.4 H Eos % (Auto) 0.0 Baso % (Auto) 0.2 Lymph # (Auto) 1.14 Chaves # (Auto) 0.9 H Eos # (Auto) 0.0 Baso # (Auto) 0.0 Abs Immat Gran (auto) 0.11 H Absolute Neuts (auto) 7.3 H Absolute Nucleated RBC 0.0 Nucleated RBC % 0.0 Sodium Potassium Chloride Carbon Dioxide Anion Gap BUN Creatinine Estim Creat Clear Calc Estimated GFR Glucose Lactic Acid 5.3 H* 2.8 H Calcium Phosphorus Magnesium Total Bilirubin AST ALT Alkaline Phosphatase Total Protein Albumin 01/26/21 01/26/21 01/26/21 05:07 09:46 09:53 WBC RBC Hgb Hct MCV MCH MCHC RDW Plt Count MPV Immature Gran % (Auto) Neut % (Auto) Lymph % (Auto) Chaves % (Auto) Eos % (Auto) Baso % (Auto) Lymph # (Auto) Chaves # (Auto) Eos # (Auto) Baso # (Auto) Abs Immat Gran (auto) Absolute Neuts (auto) Absolute Nucleated RBC Nucleated RBC % Sodium 129 L 131 L Potassium 4.2 4.0 Chloride 97 L 100 Carbon Dioxide 21 L 20 L Anion Gap 11 11 BUN 7 10 Creatinine 0.50 L 0.60 L Estim Creat Clear Calc 100 85 Estimated GFR > 60 > 60 Glucose 115 H 169 H Lactic Acid 3.0 H Calcium 7.9 L 8.3 L Phosphorus Magnesium Total Bilirubin 1.3 AST 65 H ALT 43 H Alkaline Phosphatase 99 Total Protein 6.0 L Albumin 3.1 L 01/26/21 01/26/21 09:53 14:12 WBC RBC Hgb Hct MCV MCH MCHC RDW Plt Count MPV Immature Gran % (Auto) Neut % (Auto) Lymph % (Auto) Chaves % (Auto) Eos % (Auto) Baso % (Auto) Lymph # (Auto) Chaves # (Auto) Eos # (Auto) Baso # (Auto) Abs Immat Gran (auto) Absolute Neuts (auto) Absolute Nucleated RBC Nucleated RBC % Sodium Potassium Chloride Carbon Dioxide Anion Gap BUN Creatinine Estim Creat Clear Calc Estimated GFR Glucose Lactic Acid 2.3 H Calcium Phosphorus 1.5 L Magnesium 1.9 Total Bilirubin AST ALT Alkaline Phosphatase Total Protein Albumin Microbiology 01/25/21 00:05 Urine Clean Catch Urine Culture - Final Escherichia Coli Post-procedural complaints: none Patient Feedback: Patient satisfied with anesthetic care.
[2021-01-26 16:00] VITALS: BP 139/74; PULSE 95
[2021-01-26 17:53] VITALS: BP 115/65; PULSE 102; RESP 18; TEMP 37.1; O2SAT 97
--- NOTE | 2021-01-26 17:56 | PM.IMPN ---
Progress Note: A&P Assessment and Plan (1) Dehydration: Code(s): E86.0 - Dehydration Status: Acute (2) Lactic acidosis: Code(s): E87.2 - Acidosis Status: Acute (3) Gastroesophageal reflux disease: Qualifiers: Esophagitis presence: with esophagitis Esophagitis bleeding: unspecified whether hemorrhage Qualified Code(s): K21.00 - Gastro-esophageal reflux disease with esophagitis, without bleeding Code(s): K21.9 - Gastro-esophageal reflux disease without esophagitis Status: Acute (4) Elevated LFTs: Code(s): R79.89 - Other specified abnormal findings of blood chemistry Status: Acute (5) Closed displaced intertrochanteric fracture of left femur: Qualifiers: Encounter type: subsequent encounter Fracture healing: with routine healing Qualified Code(s): S72.142D - Displaced intertrochanteric fracture of left femur, subsequent encounter for closed fracture with routine healing Code(s): S72.142A - Displaced intertrochanteric fracture of left femur, initial encounter for closed fracture Status: Acute (6) Hypophosphatemia: Code(s): E83.39 - Other disorders of phosphorus metabolism Status: Acute (7) UTI (urinary tract infection): Qualifiers: Urinary tract infection type: acute cystitis Hematuria presence: without hematuria Qualified Code(s): N30.00 - Acute cystitis without hematuria Code(s): N39.0 - Urinary tract infection, site not specified Status: Acute (8) Acute blood loss anemia: Code(s): D62 - Acute posthemorrhagic anemia Status: Acute (9) Tachycardia: Code(s): R00.0 - Tachycardia, unspecified Status: Acute Additional Plan Postop day status post left hip intramedullary nail to Intertrochanteric fracture with displacement: Continue pain medications Patient working with PT and OT and recommended home health therapy Please discuss with orthopedic surgery if the patient would need DVT prophylaxis post her surgery after going home Acute blood loss anemia: Will check hemoglobin in evening and a further decline is noted patient will be transfused 1 unit of PRBCs Possibly tachycardic because of above Hypophosphatemia: Will replace Lactic acidosis secondary to dehydration: Status post fluid replacement Noted to be down trending Will repeat anything as well UTI: Urinalysis concerning for urine infection patient reports my urinary symptoms as well Because of recent procedure requiring catheterization patient will be treated with IV Rocephin for 3 days Should the patient leave earlier she can be converted to p.o. antibiotics Alcohol withdrawal: Started on Librium taper Please discharge on tapering doses of Librium over a span of 5 days Time Spent With Patient Time with patient: 25 - 35 minutes Subjective Date/time seen: 01/26/21 17:56 60-year-old female with past medical history significant for alcohol abuse presented status post fall and resultant hip fracture. She is now status post surgery postop day 1. She appears to be now showing signs of withdrawal the tachycardia, and tremors. She is now being started on Librium taper and p.r.n. IV Ativan for elevated CIWA scores. Patient is being seen by Physical therapy and Occupational therapy and is being recommended home with home health therapy. She was also noted to have significant decline hemoglobin down to 9.8. If this continues to further drop then it is reasonable to consider secondary to acute blood loss anemia and not to hemodilution. He would need transfusion if tomorrow the hemoglobin further drops. She was also noted to have lactic acidosis secondary to dehydration and alcohol consumption. Which is not noted to be down trending. Transaminitis is also improving. She is also complaining of some urinary symptoms and will be started on Rocephin for UTI. E coli was seen to be growing in the urine. It is also reas
[2021-01-26 18:58] LABS: Hematocrit 23.8 % (37.0-47.0); Hemoglobin 8.1 g/dL (12.0-15.0)
[2021-01-26 21:40] VITALS: BP 119/59; PULSE 99; RESP 16; TEMP 36.6; O2SAT 96
[2021-01-27 02:00] VITALS: BP 110/59; PULSE 97; RESP 16; TEMP 36.9; O2SAT 95
[2021-01-27 05:45] VITALS: BP 122/63; PULSE 96; RESP 16; TEMP 36.7; O2SAT 95
[2021-01-27] MEDS: FONDAPARINUX SODIUM 2.5 MG/0.5 ML SYRINGE SUB-Q (09:41)
[2021-01-27] MEDS: FAMOTIDINE 20 MG TABLET PO ×2 (09:41→20:44)
[2021-01-27] MEDS: THIAMINE HCL 200 MG/2 ML VIAL 100 MG IV PUSH ×3 (09:41→16:53)
[2021-01-27] MEDS: SODIUM CHLORIDE 0.9% IV 1,000 ML 100 ML IV CONT ×3 (09:42→22:17)
[2021-01-27 10:31] LABS: Basophils Absolute Auto 0.1 K/mm3 (0.0-0.1); Basophils Percent Auto 0.8 % (0.2-1.2); Eosinophils Percent Auto 0.4 % (0-4.4); Hemoglobin 8.7 g/dL (12.0-15.0); Immature Granulocyte Absolute 0.13 K/mm3 (0.00-0.031); Immature Granulocyte Percent A 1.8 % (0-0.5); Immature Platelet Fraction Pct 4.9 % (0.9-11.2); Lymphocytes Absolute Auto 1.42 K/mm3 (0.9-3.2); Lymphocytes Percent Auto 19.4 % (18.3-44.2); Mean Corpuscular HGB Conc 33.5 g/dl (32-36); Mean Corpuscular Hemoglobin 33.5 pg (26-34); Mean Platelet Volume 10.3 fl (7.4-10.4); Monocytes Absolute Auto 0.7 K/mm3 (0.1-0.6); Monocytes Percent Auto 8.9 % (2.6-8.5); Neutrophils Percent Auto 68.7 % (45.5-73.1); Nucleated Red Blood Cells Perc 0.4 % (0.0-0.2); Platelet Count Result 134 k/mm3 (150-375); Red Cell Distribution Width 14.4 % (11.5-14.5); White Blood Count 7.3 K/mm3 (4.5-10.0)
[2021-01-27] MEDS: chlordiazePOXIDE (*CRX) 25 MG CAPSULE 50 MG PO ×2 (12:36→16:52)
[2021-01-27] MEDS: HYDROcodone/acetaminophen (*CRX) 7.5-325 MG TABLET 1 TAB PO ×2 (12:36→20:44)
[2021-01-27 13:37] VITALS: BP 113/61; PULSE 110; RESP 18; TEMP 37; O2SAT 100
--- NOTE | 2021-01-27 18:19 | PM.IMPN ---
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 Status: Acute (5) Lactic acidosis: Code(s): E87.2 - Acidosis Status: Acute (6) Gastroesophageal reflux disease: Qualifiers: Esophagitis presence: with esophagitis Esophagitis bleeding: unspecified whether hemorrhage Qualified Code(s): K21.00 - Gastro-esophageal reflux disease with esophagitis, without bleeding Code(s): K21.9 - Gastro-esophageal reflux disease without esophagitis Status: Acute (7) Daily consumption of alcohol: Code(s): Z78.9 - Other specified health status Status: Acute (8) Elevated LFTs: Code(s): R79.89 - Other specified abnormal findings of blood chemistry Status: Acute Additional Plan S/p left hip surgery with placement of inter trochanteric nail Postop day 2 Physical therapy and occupational therapy working with patient, to improve weight-bearing Advancing diet as tolerated, ondansetron p.r.n. 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 Subjective Date/time seen: 01/27/21 18:19 Interval history: Denies headache belly pain chest pain shortness of breath, bedbound, pain is severe but improving Review of Systems Review of Systems: All systems reviewed & are unremarkable except as noted in HPI and below Exam Narrative: General: healthy appearing; No in distress or confusion Orientation/consciousness: patient oriented x3 and No confusion HENMT Head: normal to inspection, normocephalic and atraumatic Eyes Conjunctivae: conjunctivae normal Sclera: sclerae normal Resp Effort & Inspection: normal respiratory effort and no audible wheezes Neuro General: patient oriented x3 and No confusion Extremity: Left lower extremity: hip/thigh Details: tenderness Location: of the hip Location: laterally, swelling Location: of the hip ( Lateral, mild) and other ( dressing in place, clean dry and intact. Muscle soft.) and foot Details: toes with normal ROM, vascular exam Details: dorsalis pedis pulse present, posterior tibial pulse present and normal capillary refill and motor-sensory exam light-touch normal in all toes Psych Affect: normal affect Objective Data Vital Signs Vital Signs: Vital Signs - 24 hr 01/26/21 21:40 01/27/21 02:00 01/27/21 05:45 Temperature 97.8 F 98.5 F 98.0 F Pulse Rate 99 97 96 Respiratory Rate 16 16 16 Blood Pressure 119/59 L 110/59 L 122/63 Pulse Oximetry 96 95 95 01/27/21 13:37 Temperature 98.6 F Pulse Rate 110 H Respiratory Rate 18 Blood Pressure 113/61 Pulse Oximetry 100 Intake/Output Intake/Output: Intake & Output 01/24/21 01/25/21 01/26/21 01/27/21 23:59 23:59 23:59 23:59 Intake Total 2800 2570 3480 Output Total 9341 283 9866 Balance 1450 2020 2180 Meds/Results Medications: Active Medications Generic Name Dose Route Start Last Admin Trade Name Freq PRN Reason Stop Dose Admin Acetaminophen 650 mg 01/25/21 14:27 Rudy
[2021-01-27 22:00] VITALS: BP 129/66; PULSE 99; RESP 16; TEMP 36.7; O2SAT 97
[2021-01-28] VITALS (15 sets, daily range): BP systolic 104–131; BP diastolic 60–72; PULSE 94–110; RESP 14–16; TEMP 36–38.3; O2SAT 90–100
[2021-01-28 05:55] LABS: Basophils Absolute Auto 0.1 K/mm3 (0.0-0.1); Basophils Percent Auto 1.1 % (0.2-1.2); Eosinophils Percent Auto 0.9 % (0-4.4); Immature Granulocyte Absolute 0.11 K/mm3 (0.00-0.031); Immature Granulocyte Percent A 2.4 % (0-0.5); Lymphocytes Absolute Auto 1.27 K/mm3 (0.9-3.2); Lymphocytes Percent Auto 27.5 % (18.3-44.2); Mean Corpuscular HGB Conc 33.7 g/dl (32-36); Mean Corpuscular Hemoglobin 32.9 pg (26-34); Mean Corpuscular Volume 97.6 fl (80-100); Monocytes Absolute Auto 0.5 K/mm3 (0.1-0.6); Monocytes Percent Auto 10.8 % (2.6-8.5); Neutrophils Absolute Auto 2.7 K/mm3 (1.3-6.7); Neutrophils Percent Auto 57.3 % (45.5-73.1); Nucleated Red Blood Cells Perc 0.6 % (0.0-0.2); Platelet Count Result 94 k/mm3 (150-375); Red Blood Count 2.07 M/mm3 (4.2-5.4); Red Cell Distribution Width 14.1 % (11.5-14.5); White Blood Count 4.6 K/mm3 (4.5-10.0)
[2021-01-28 06:05] LABS: Alanine Aminotransferase 27 U/L (4-35); Albumin Level 2.4 g/dL (3.5-5.1); Alkaline Phosphatase 95 U/L (38-126); Anion Gap 2 mmol/L (8-16); Aspartate Amino Transferase 60 U/L (14-36); Bilirubin,Total 0.8 mg/dL (0.2-1.3); Blood Urea Nitrogen 8 mg/dL (7-17); Calcium 7.4 mg/dL (8.4-10.2); Carbon Dioxide 27 mmol/L (22-30); Chloride 102 mmol/L (98-107); Estimated CRCL calculation 121 ml/min; Estimated Glomerular Filt Rate > 60; Glucose 92 mg/dL (65-110); Phosphorus 1.6 mg/dL (2.5-4.5); Potassium 3.1 mmol/L (3.4-5.0); Sodium 131 mmol/L (137-145)
[2021-01-28 06:07] LABS: Hematocrit 20.2 % (37.0-47.0); Hemoglobin 6.8 g/dL (12.0-15.0)
[2021-01-28] MEDS: POTASSIUM PHOS,M-BASIC-D-BASIC 20 MMOL in SODIUM CHLORIDE 0.9% IV 250 ML 64.17 MMOL IVPB (07:32)
[2021-01-28] MEDS: FAMOTIDINE 20 MG TABLET PO ×2 (08:44→21:30)
[2021-01-28] MEDS: THIAMINE HCL 200 MG/2 ML VIAL 100 MG IV PUSH ×3 (08:45→17:57)
[2021-01-28] MEDS: FONDAPARINUX SODIUM 2.5 MG/0.5 ML SYRINGE SUB-Q (08:45)
[2021-01-28] MEDS: chlordiazePOXIDE (*CRX) 25 MG CAPSULE 50 MG PO (08:46)
[2021-01-28] MEDS: SODIUM CHLORIDE 0.9% IV 250 ML 30 ML IV CONT ×2 (11:15→18:42)
[2021-01-28] MEDS: HYDROcodone/acetaminophen (*CRX) 7.5-325 MG TABLET 1 TAB PO (11:15)
--- NOTE | 2021-01-28 12:28 | PC.NURSE ---
Notified Dr Seaman of pt's increased pain in left hip, swelling, & drainage to dressing.
[2021-01-28] MEDS: chlordiazePOXIDE (*CRX) 25 MG CAPSULE PO ×2 (15:04→17:56)
--- NOTE | 2021-01-28 16:01 | PCPTNOTE ---
Attempted to see patient at 1330, patient preparing to have xray. Physical Therapist advised to wait until xray has been read to continue with physical therapy treatments. Will attempt therapy again tomorrow.
--- NOTE | 2021-01-28 16:20 | PM.IMPN ---
Progress Note: A&P Assessment and Plan (1) UTI (urinary tract infection): Qualifiers: Urinary tract infection type: acute cystitis Hematuria presence: without hematuria Qualified Code(s): N30.00 - Acute cystitis without hematuria Code(s): N39.0 - Urinary tract infection, site not specified Status: Acute (2) Gastroesophageal reflux disease: Qualifiers: Esophagitis presence: with esophagitis Esophagitis bleeding: unspecified whether hemorrhage Qualified Code(s): K21.00 - Gastro-esophageal reflux disease with esophagitis, without bleeding Code(s): K21.9 - Gastro-esophageal reflux disease without esophagitis Status: Acute (3) Daily consumption of alcohol: Code(s): Z78.9 - Other specified health status Status: Acute (4) Anemia: Code(s): D64.9 - Anemia, unspecified Status: Acute Additional Plan Normocytic anemia -Hemoglobin dropped from 8.1 to 6.8 today. no obvious sign of bleeding, denies melena hematochezia, hematuria hematemesis hemoptysis or epistaxis -After stabilizing yesterday, patient overnight had another drop in hemoglobin, transfused another 2 units today, will obtain several labs to workup anemia including Ferritin TIBC total bili reticulocyte count etc. -Some concern regarding operative site, and as such will obtain contrast enhanced CT to investigate internal bleeding; also angiogram to investigate vascular wall compromise or other source of bleed -hold anticoagulation in setting of active bleed from unknown origin S/p left hip surgery with placement of inter trochanteric nail Postop day 3 Physical therapy and occupational therapy working with patient, to improve weight-bearing Advancing diet as tolerated, ondansetron p.r.n. Morphine on for pain hold anticoagulation given active bleed UTI, symptomatic Leukocyte esterase in urinalysis, however no growth in culture Continue ceftriaxone daily, to complete 7 day course History of alcoholism Unaware of exact date of last drink [facility] protocol ordered for withdrawal symptoms Subjective Date/time seen: 01/28/21 16:20 no acute medical complaints, lying comfortably in bed, denies seeing any blood in stool or urine Review of Systems Review of Systems: All systems reviewed & are unremarkable except as noted in HPI and below Exam Narrative: General: healthy appearing; No in distress or confusion Orientation/consciousness: patient oriented x3 and No confusion HENMT Head: normal to inspection, normocephalic and atraumatic Eyes Conjunctivae: conjunctivae normal Sclera: sclerae normal Resp Effort & Inspection: normal respiratory effort and no audible wheezes Neuro General: patient oriented x3 and No confusion Extremity: Left lower extremity: hip/thigh Details: tenderness Location: of the hip Location: laterally, swelling Location: of the hip ( Lateral, mild) and other ( dressing in place, clean dry and intact. Muscle soft.) and foot Details: toes with normal ROM, vascular exam Details: dorsalis pedis pulse present, posterior tibial pulse present and normal capillary refill and motor-sensory exam light-touch normal in all toes Psych Affect: normal affect Objective Data Vital Signs Vital Signs: Vital Signs - 24 hr 01/27/21 22:00 01/28/21 06:00 01/28/21 11:10 Temperature 98.0 F 96.8 F L 98 F Pulse Rate 99 97 110 H Pulse Rate [Left Pedal (Dorsalis Pedis)] Pulse Rate [Left Posterior Tibial Palpation] Respiratory Rate 16 16 16 Blood Pressure 129/66 104/60 123/65 Pulse Oximetry 97 90 100 01/28/21 11:20 01/28/21 11:26 01/28/21 12:00 Temperature 98.6 F Pulse Rate 110 H 107 H Pulse Rate [Left Pedal (Dorsalis Pedis)] 95 95 Pulse Rate [Left Posterior Tibial Palpation] 95 95 Respiratory Rate 16 16 Blood Pressure 123/65 121/62 121/62 Pulse Oximetry 100 97 01/28/21 12:15 01/28/21 14:05 Temperature 98.6 F 98.6 F Pulse Rate 94 Pulse Rate [Left Pedal (Dorsalis Pedis)] Pulse
[2021-01-28] MEDS: SODIUM CHLORIDE 0.9% IV 1,000 ML 100 ML IV CONT (17:54)
[2021-01-28] MEDS: POTASSIUM CHLORIDE 20 MEQ TABLET 40 MEQ PO (17:55)
[2021-01-28] MEDS: DOCUSATE SODIUM 100 MG CAPSULE PO (17:57)
[2021-01-28 18:04] LABS: Basophils Percent Auto 0.8 % (0.2-1.2); Eosinophils Percent Auto 0.6 % (0-4.4); Hematocrit 26.8 % (37.0-47.0); Hemoglobin 8.7 g/dL (12.0-15.0); Immature Granulocyte Absolute 0.12 K/mm3 (0.00-0.031); Immature Granulocyte Percent A 2.3 % (0-0.5); Lymphocytes Absolute Auto 1.56 K/mm3 (0.9-3.2); Lymphocytes Percent Auto 30.3 % (18.3-44.2); Mean Corpuscular HGB Conc 32.5 g/dl (32-36); Mean Corpuscular Hemoglobin 31.8 pg (26-34); Mean Corpuscular Volume 97.8 fl (80-100); Mean Platelet Volume 9.6 fl (7.4-10.4); Monocytes Absolute Auto 0.5 K/mm3 (0.1-0.6); Monocytes Percent Auto 8.7 % (2.6-8.5); Neutrophils Percent Auto 57.3 % (45.5-73.1); Nucleated Red Blood Cells Perc 0.4 % (0.0-0.2); Platelet Count Result 99 k/mm3 (150-375); Red Blood Count 2.74 M/mm3 (4.2-5.4); Red Cell Distribution Width 16.7 % (11.5-14.5); White Blood Count 5.2 K/mm3 (4.5-10.0)
[2021-01-28 18:05] LABS: Immature Reticulocyte Fraction 40.7 % (3.0-15.9); Reticulocyte Hemoglobin Conten 37.3 pg (28.2-35.7); Reticulocyte Percent 3.22 % (0.7-4.3); Reticulocytes Absolute 0.09 B/L (32.2-175.7)
[2021-01-28 18:12] LABS: Bilirubin,Total 1.3 mg/dL (0.2-1.3); Lactate Dehydrogenase 745 U/L (313-618)
[2021-01-28 19:02] LABS: Iron 49 ug/dL (37-170)
[2021-01-28 19:10] LABS: Percent Iron Saturation 26 % (20-50)
[2021-01-28 20:06] LABS: Folic Acid 2.8 ng/mL (2.76->20)
[2021-01-29 00:03] VITALS: TEMP 37.3
[2021-01-29] MEDS: HYDROcodone/acetaminophen (*CRX) 7.5-325 MG TABLET 1 TAB PO (03:34)
[2021-01-29 03:59] LABS: Free T4 Free Thyroxine Reflex 1.22 ng/dL (0.78-2.19)
[2021-01-29 05:08] LABS: Total Triiodothyronine (T3) 1.19 NG/ML (0.97-1.69)
[2021-01-29 06:00] VITALS: BP 103/56; PULSE 77; RESP 16; TEMP 36.3; O2SAT 94
[2021-01-29 06:07] LABS: Basophils Absolute Auto 0.1 K/mm3 (0.0-0.1); Basophils Percent Auto 1.4 % (0.2-1.2); Eosinophils Percent Auto 0.8 % (0-4.4); Hematocrit 28.1 % (37.0-47.0); Hemoglobin 9.4 g/dL (12.0-15.0); Immature Granulocyte Absolute 0.17 K/mm3 (0.00-0.031); Immature Granulocyte Percent A 3.3 % (0-0.5); Lymphocytes Absolute Auto 1.22 K/mm3 (0.9-3.2); Lymphocytes Percent Auto 23.7 % (18.3-44.2); Mean Corpuscular HGB Conc 33.5 g/dl (32-36); Mean Corpuscular Hemoglobin 32.1 pg (26-34); Mean Corpuscular Volume 95.9 fl (80-100); Mean Platelet Volume 9.8 fl (7.4-10.4); Monocytes Absolute Auto 0.8 K/mm3 (0.1-0.6); Monocytes Percent Auto 14.6 % (2.6-8.5); Neutrophils Absolute Auto 2.9 K/mm3 (1.3-6.7); Neutrophils Percent Auto 56.2 % (45.5-73.1); Platelet Count Result 110 k/mm3 (150-375); Red Blood Count 2.93 M/mm3 (4.2-5.4); Red Cell Distribution Width 17.4 % (11.5-14.5); White Blood Count 5.1 K/mm3 (4.5-10.0)
[2021-01-29 06:30] LABS: Alanine Aminotransferase 27 U/L (4-35); Albumin Level 2.4 g/dL (3.5-5.1); Alkaline Phosphatase 102 U/L (38-126); Anion Gap 2 mmol/L (8-16); Aspartate Amino Transferase 58 U/L (14-36); Bilirubin,Total 1.2 mg/dL (0.2-1.3); Blood Urea Nitrogen 9 mg/dL (7-17); Calcium 8.1 mg/dL (8.4-10.2); Carbon Dioxide 24 mmol/L (22-30); Chloride 106 mmol/L (98-107); Estimated CRCL calculation 121 ml/min; Estimated Glomerular Filt Rate > 60; Glucose 92 mg/dL (65-110); Magnesium 1.8 mg/dL (1.6-2.3); Phosphorus 3.3 mg/dL (2.5-4.5); Potassium 3.7 mmol/L (3.4-5.0); Sodium 132 mmol/L (137-145)
--- NOTE | 2021-01-29 07:50 | PM.IMPN ---
Progress Note: A&P Assessment and Plan (1) UTI (urinary tract infection): Qualifiers: Urinary tract infection type: acute cystitis Hematuria presence: without hematuria Qualified Code(s): N30.00 - Acute cystitis without hematuria Code(s): N39.0 - Urinary tract infection, site not specified Status: Acute (2) Gastroesophageal reflux disease: Qualifiers: Esophagitis presence: with esophagitis Esophagitis bleeding: unspecified whether hemorrhage Qualified Code(s): K21.00 - Gastro-esophageal reflux disease with esophagitis, without bleeding Code(s): K21.9 - Gastro-esophageal reflux disease without esophagitis Status: Acute (3) Daily consumption of alcohol: Code(s): Z78.9 - Other specified health status Status: Acute (4) Anemia: Code(s): D64.9 - Anemia, unspecified Status: Acute Additional Plan Acute Normocytic anemia, unclear etiology Chronic Anemia - possibly related to hepatic steatosis & chronic alcoholism -Hemoglobin has been variable over hospital course -no obvious sign of external bleeding, denies melena hematochezia, hematuria hematemesis hemoptysis or epistaxis; nursing staff has not noted bleeding -CT angiogram not identified any source of bleed, and also did not appreciate any hematoma -Iron studies do not indicate iron deficiency, reticulocyte count elevated -LDH elevated, and haptoglobin pending -not leukopenic, and platelets 100-150 -will obtain autoimmune studies for hemolysis w/up and if unremarkable, possible hematology consult for bone marrow biopsy -hold anticoagulation in setting of acute on chronic anemia of unknown etiology S/p left hip surgery with placement of inter trochanteric nail Postop day 3 Physical therapy and occupational therapy working with patient, to improve weight-bearing Advancing diet as tolerated, ondansetron p.r.n. Morphine on for pain hold anticoagulation given active bleed UTI, symptomatic Leukocyte esterase in urinalysis, however no growth in culture Continue ceftriaxone daily, to complete 7 day course, currently day 4 History of alcoholism Unaware of exact date of last drink [facility] protocol ordered for withdrawal symptoms no signs of withdrawal today Subjective Date/time seen: 01/29/21 07:50 No acute medical complaints. No overt signs of bleeding Review of Systems Review of Systems: All systems reviewed & are unremarkable except as noted in HPI and below Exam Narrative: General: healthy appearing; No in distress or confusion Orientation/consciousness: patient oriented x3 and No confusion HENWA Head: normal to inspection, normocephalic and atraumatic Eyes Conjunctivae: conjunctivae normal Sclera: sclerae normal Resp Effort & Inspection: normal respiratory effort and no audible wheezes Neuro General: patient oriented x3 and No confusion Extremity: Left lower extremity: hip/thigh Details: tenderness Location: of the hip Location: laterally, swelling Location: of the hip ( Lateral, mild) and other ( dressing in place, clean dry and intact. Muscle soft.) and foot Details: toes with normal ROM, vascular exam Details: dorsalis pedis pulse present, posterior tibial pulse present and normal capillary refill and motor-sensory exam light-touch normal in all toes Psych Affect: normal affect Objective Data Vital Signs Vital Signs: Vital Signs - 24 hr 01/28/21 11:10 01/28/21 11:20 01/28/21 11:26 Temperature 98 F 98.6 F Pulse Rate 110 H 110 H 107 H Pulse Rate [Left Pedal (Dorsalis Pedis)] 95 Pulse Rate [Left Posterior Tibial Palpation] 95 Respiratory Rate 16 16 16 Blood Pressure 123/65 123/65 121/62 Pulse Oximetry 100 100 97 01/28/21 12:00 01/28/21 12:15 01/28/21 14:00 Temperature 98.6 F 98.3 F Pulse Rate 94 Pulse Rate [Left Pedal (Dorsalis Pedis)] 95 Pulse Rate [Left Posterior Tibial Palpation] 95 Respiratory Rate 16 Blood Pressure 121/62 115/61 Pulse Oximetry 97 01/28/21 14:0
[2021-01-29] MEDS: MORPHINE SULFATE (*CRX) 4 MG/ML INJ IV PUSH ×2 (09:41→13:50)
[2021-01-29] MEDS: chlordiazePOXIDE (*CRX) 25 MG CAPSULE PO ×2 (09:42→17:15)
[2021-01-29] MEDS: FAMOTIDINE 20 MG TABLET PO ×2 (09:42→20:38)
[2021-01-29] MEDS: DOCUSATE SODIUM 100 MG CAPSULE PO ×2 (09:43→17:16)
[2021-01-29] MEDS: THIAMINE HCL 200 MG/2 ML VIAL 100 MG IV PUSH ×3 (09:43→17:16)
[2021-01-29] MEDS: SODIUM CHLORIDE 0.9% IV 1,000 ML 100 ML IV CONT (09:43)
[2021-01-29] MEDS: PHARMACIST COMMUNICATION ORDER 1 EACH XX (12:38)
[2021-01-29 13:54] VITALS: BP 117/94; PULSE 97; RESP 18; TEMP 36.6; O2SAT 98
--- NOTE | 2021-01-29 14:32 | PM.PNORT ---
Progress Note: A&P Assessment and Plan (1) Closed displaced intertrochanteric fracture of left femur: Qualifiers: Encounter type: subsequent encounter Fracture healing: with routine healing Qualified Code(s): S72.142D - Displaced intertrochanteric fracture of left femur, subsequent encounter for closed fracture with routine healing Code(s): S72.142A - Displaced intertrochanteric fracture of left femur, initial encounter for closed fracture Status: Acute Assessment and Plan: POD 4, left hip intertrochanteric nail. Pain with therapy and ambulation. Patient tolerating diet. Xrays yesterday- good alignment, no interval changes. Physical therapy / occupational therapy with weight-bearing as tolerated left leg. DVT prophylaxis on hold due to anemia and wound drainage- should help decrease drainage. H/H stable at this point after transfusion. Suspect acute blood loss from fracture and surgery. Pain control. Appears to be muscle pain from fx. Hold ordering muscle relaxant due to Librium. Disposition when medically stable. may benefit from rehab prior to going home due to weakness and inability to progress to independent ambulation Subjective Subjective Date/Time Seen: 01/29/21 14:32 Post Op day: 4 Principal diagnosis: LT hip fx Interval history: Awake, alert. C/O pain left hip witth movement and weight bearing. Slow progress with PT/OT. Exam Const: General: healthy appearing; No in distress or confusion Orientation/consciousness: patient oriented x3 and No confusion HENMT: Head: normal to inspection, normocephalic and atraumatic Eyes: Conjunctivae: conjunctivae normal Sclera: sclerae normal Resp: Effort & Inspection: normal respiratory effort and no audible wheezes Neuro: General: patient oriented x3 and No confusion Extrem: Left lower extremity: hip/thigh Details: tenderness Location: of the hip Location: laterally, swelling Location: of the hip ( Lateral, mild) and other ( dressing in place, serous drainage noted. Muscle soft.) and foot Details: toes with normal ROM, vascular exam Details: dorsalis pedis pulse present, posterior tibial pulse present and normal capillary refill and motor-sensory exam light-touch normal in all toes Psych: Affect: normal affect Objective Data Vital Signs Vital Signs: Vital Signs - 24 hr 01/28/21 18:25 01/28/21 18:30 01/28/21 18:45 Temperature 98.6 F 99.3 F 98.4 F Pulse Rate 94 100 98 Pulse Rate [Left Posterior Tibial Palpation] Respiratory Rate 14 14 14 Blood Pressure 115/61 131/65 125/67 Pulse Oximetry 97 98 97 01/28/21 20:00 01/28/21 20:30 01/28/21 22:00 Temperature 100.9 F H 100.9 F H Pulse Rate 94 94 Pulse Rate [Left Posterior Tibial Palpation] 95 Respiratory Rate 16 16 Blood Pressure 131/72 131/72 Pulse Oximetry 99 99 01/28/21 22:26 01/29/21 00:03 01/29/21 06:00 Temperature 100.2 F H 99.2 F 97.3 F L Pulse Rate 77 Pulse Rate [Left Posterior Tibial Palpation] Respiratory Rate 16 Blood Pressure 103/56 L Pulse Oximetry 94 01/29/21 13:54 Temperature 97.9 F Pulse Rate 97 Pulse Rate [Left Posterior Tibial Palpation] Respiratory Rate 18 Blood Pressure 117/94 H Pulse Oximetry 98 Intake/Output Intake/Output: Intake & Output 01/26/21 01/27/21 01/28/21 01/29/21 23:59 23:59 23:59 23:59 Intake Total 2570 4770 3120 1560 Output Total 550 1500 550 400 Balance 2020 3270 2570 1160 Meds/Results Medications: Active Medications Generic Name Dose Route Start Last Admin Trade Name Freq PRN Reason Stop Dose Admin Acetaminophen 650 mg 01/25/21 14:27 Acetaminophen 325 Mg Tablet PO Q6H PRN Mild Pain (1-3) or Fever Hydrocodone Bitart/Acetaminophen 1 tab 01/25/21 14:27 01/29/21 03:34 Hydrocodone/Acetaminophen (*Crx) 7.5-325 Mg Tablet PO 1 tab Q3H PRN Administration Pain Rated 4-6 Al Hydrox/Mg Hydrox/Simethicone 30 ml 01/25/21 14:27 01/26/21 09:48 Mag Hydrox/Al Hydrox/Simeth
--- NOTE | 2021-01-29 14:38 | PCPTNOTE ---
Attempted to see patient for PT, however patient refused. Patient reported she can't right now and that she just wants to rest. Encouraged patient to participate in exercises, patient continued to refuse.
[2021-01-29 22:00] VITALS: BP 114/58; PULSE 108; RESP 20; TEMP 36.4; O2SAT 97
[2021-01-30] VITALS (7 sets, daily range): BP systolic 114–130; BP diastolic 61–65; PULSE 69–100; RESP 16–18; TEMP 36.1–37.9; O2SAT 97–100
[2021-01-30] MEDS: SODIUM CHLORIDE 0.9% IV 1,000 ML 100 ML IV CONT (04:52)
[2021-01-30 05:45] LABS: Basophils Absolute Auto 0.1 K/mm3 (0.0-0.1); Basophils Percent Auto 0.8 % (0.2-1.2); Eosinophils Absolute Auto 0.1 K/mm3 (0-0.3); Eosinophils Percent Auto 1.1 % (0-4.4); Hematocrit 32.6 % (37.0-47.0); Hemoglobin 10.4 g/dL (12.0-15.0); Immature Granulocyte Percent A 1.4 % (0-0.5); Lymphocytes Percent Auto 21.6 % (18.3-44.2); Mean Corpuscular HGB Conc 31.9 g/dl (32-36); Mean Corpuscular Hemoglobin 31.6 pg (26-34); Mean Corpuscular Volume 99.1 fl (80-100); Mean Platelet Volume 9.8 fl (7.4-10.4); Monocytes Absolute Auto 0.8 K/mm3 (0.1-0.6); Monocytes Percent Auto 10.4 % (2.6-8.5); Neutrophils Absolute Auto 4.8 K/mm3 (1.3-6.7); Neutrophils Percent Auto 64.7 % (45.5-73.1); Platelet Count Result 154 k/mm3 (150-375); Red Blood Count 3.29 M/mm3 (4.2-5.4); Red Cell Distribution Width 17.7 % (11.5-14.5); White Blood Count 7.4 K/mm3 (4.5-10.0)
[2021-01-30 06:09] LABS: Alanine Aminotransferase 30 U/L (4-35); Alkaline Phosphatase 121 U/L (38-126); Anion Gap 7 mmol/L (8-16); Aspartate Amino Transferase 60 U/L (14-36); Bilirubin,Total 1.4 mg/dL (0.2-1.3); Blood Urea Nitrogen 6 mg/dL (7-17); Calcium 8.2 mg/dL (8.4-10.2); Carbon Dioxide 24 mmol/L (22-30); Chloride 100 mmol/L (98-107); Estimated CRCL calculation 100 ml/min; Estimated Glomerular Filt Rate > 60; Glucose 93 mg/dL (65-110); Magnesium 1.9 mg/dL (1.6-2.3); Phosphorus 3.3 mg/dL (2.5-4.5); Potassium 3.6 mmol/L (3.4-5.0); Sodium 131 mmol/L (137-145)
[2021-01-30] MEDS: DOCUSATE SODIUM 100 MG CAPSULE PO ×2 (08:06→17:42)
[2021-01-30] MEDS: FAMOTIDINE 20 MG TABLET PO ×2 (08:06→20:31)
[2021-01-30] MEDS: THIAMINE HCL 200 MG/2 ML VIAL 100 MG IV PUSH (08:07)
[2021-01-30] MEDS: chlordiazePOXIDE (*CRX) 25 MG CAPSULE PO (08:10)
[2021-01-30] MEDS: HYDROcodone/acetaminophen (*CRX) 7.5-325 MG TABLET 1 TAB PO (08:10)
--- NOTE | 2021-01-30 12:23 | PM.IMPN ---
Progress Note: A&P Assessment and Plan (1) UTI (urinary tract infection): Qualifiers: Urinary tract infection type: acute cystitis Hematuria presence: without hematuria Qualified Code(s): N30.00 - Acute cystitis without hematuria Code(s): N39.0 - Urinary tract infection, site not specified Status: Acute (2) Gastroesophageal reflux disease: Qualifiers: Esophagitis presence: with esophagitis Esophagitis bleeding: unspecified whether hemorrhage Qualified Code(s): K21.00 - Gastro-esophageal reflux disease with esophagitis, without bleeding Code(s): K21.9 - Gastro-esophageal reflux disease without esophagitis Status: Acute (3) Daily consumption of alcohol: Code(s): Z78.9 - Other specified health status Status: Acute (4) Anemia: Code(s): D64.9 - Anemia, unspecified Status: Acute Additional Plan Acute Normocytic anemia, unclear etiology Chronic Anemia - possibly related to hepatic steatosis & chronic alcoholism -Hemoglobin has been variable over hospital course -no obvious sign of external bleeding, denies melena hematochezia, hematuria hematemesis hemoptysis or epistaxis; nursing staff has not noted bleeding -CT angiogram not identified any source of bleed, and also did not appreciate any hematoma -Iron studies do not indicate iron deficiency, reticulocyte count elevated -LDH elevated, and haptoglobin pending -not leukopenic, and platelets 100-150 -will obtain autoimmune studies for hemolysis w/up and if unremarkable, possible hematology consult for bone marrow biopsy -hold anticoagulation in setting of acute on chronic anemia of unknown etiology S/p left hip surgery with placement of inter trochanteric nail Postop day 3 Physical therapy and occupational therapy working with patient, to improve weight-bearing Advancing diet as tolerated, ondansetron p.r.n. Morphine on for pain hold anticoagulation given active bleed UTI, symptomatic Leukocyte esterase in urinalysis, however no growth in culture Continue ceftriaxone daily, to complete 7 day course, currently day 4 History of alcoholism Unaware of exact date of last drink [facility] protocol ordered for withdrawal symptoms no signs of withdrawal today 01/30/21 12:23 patient is 60-year-old female status post fall and fracture of the left hip CT scan showed an acute displaced and angulated comminuted inter trochanteric fracture of the left proximal femur patient was seen by surgery and had a left hip intertrochanteric nail POD#4 today patient states she was able to ambulate in the room and to the door but it was painful, patient is encouraged to participate in physical therapy and patient will benefit acute rehab before going home, patient also has a history of alcohol being monitor with CIWA protocol and Librium, no sign of withdrawal, will continue to monitor will have PT OT work with the patient, patient will benefit going to rehab before going home. Subjective Date/time seen: 01/30/21 12:23 patient is 60-year-old female status post fall and fracture of the left hip CT scan showed an acute displaced and angulated comminuted inter trochanteric fracture of the left proximal femur patient was seen by surgery and had a left hip intertrochanteric nail POD#4 today patient states she was able to ambulate in the room and to the door but it was painful, patient is encouraged to participate in physical therapy and patient will benefit acute rehab before going home, patient also has a history of alcohol being monitor with [facility]WA protocol and Librium, no sign of withdrawal, will continue to monitor will have PT OT work with the patient, patient will benefit going to rehab before going home. Review of Systems Review of Systems: All systems reviewed & are unremarkable except as noted in HPI and below Exam Narrative: Patient is comfortable, NAD HEENT: eyes are clear and none icteric LUNGS:normal respiratory efforts HEART: ABD
--- NOTE | 2021-01-30 16:20 | PM.PNORT ---
Progress Note: A&P Assessment and Plan (1) Closed displaced intertrochanteric fracture of left femur: Qualifiers: Encounter type: subsequent encounter Fracture healing: with routine healing Qualified Code(s): S72.142D - Displaced intertrochanteric fracture of left femur, subsequent encounter for closed fracture with routine healing Code(s): S72.142A - Displaced intertrochanteric fracture of left femur, initial encounter for closed fracture Status: Acute Assessment and Plan: POD 5, left hip intertrochanteric nail. Pain with therapy and ambulation. now complains of pain at night with sleep. Patient tolerating diet. Physical therapy / occupational therapy with weight-bearing as tolerated left leg. DVT prophylaxis on hold due to anemia and wound drainage- should help decrease drainage. Wound drainage slightly improved. H/H stable at this point after transfusion. Suspect acute blood loss from fracture and surgery. Pain control. Appears to be muscle pain from fx. Hold ordering muscle relaxant due to Librium. We will see about adding something for sleep. Disposition when medically stable. may benefit from rehab prior to going home due to weakness and inability to progress to independent ambulation Subjective Subjective Date/Time Seen: 01/30/21 16:20 Post Op day: 5 Principal diagnosis: Left hip intertrochanteric fracture Interval history: pain at night with sleeping. Exam Const: General: healthy appearing; No in distress or confusion Orientation/consciousness: patient oriented x3 and No confusion HENMT: Head: normal to inspection, normocephalic and atraumatic Eyes: Conjunctivae: conjunctivae normal Sclera: sclerae normal Resp: Effort & Inspection: normal respiratory effort and no audible wheezes Neuro: General: patient oriented x3 and No confusion Extrem: Left lower extremity: hip/thigh Details: tenderness Location: of the hip Location: laterally, swelling Location: of the hip ( Lateral, mild) and other ( dressing in place, serous drainage noted. Muscle soft.) and foot Details: toes with normal ROM, vascular exam Details: dorsalis pedis pulse present, posterior tibial pulse present and normal capillary refill and motor-sensory exam light-touch normal in all toes Psych: Affect: normal affect Objective Data Vital Signs Vital Signs: Vital Signs - 24 hr 01/29/21 22:00 01/30/21 06:00 01/30/21 08:00 Temperature 97.6 F 98.9 F Pulse Rate 108 H 69 Pulse Rate [Left Pedal (Dorsalis Pedis)] 80 Pulse Rate [Left Posterior Tibial Palpation] 80 Respiratory Rate 20 18 Blood Pressure 114/58 L 114/65 Pulse Oximetry 97 97 01/30/21 14:30 Temperature 97.0 F L Pulse Rate 88 Pulse Rate [Left Pedal (Dorsalis Pedis)] Pulse Rate [Left Posterior Tibial Palpation] Respiratory Rate 16 Blood Pressure 130/65 Pulse Oximetry 100 Intake/Output Intake/Output: Intake & Output 01/27/21 01/28/21 01/29/21 01/30/21 23:59 23:59 23:59 23:59 Intake Total 4770 3120 3250 880 Output Total 9782 019 6842 2050 Balance 3270 2570 2200 -1170 Meds/Results Medications: Active Medications Generic Name Dose Route Start Last Admin Trade Name Freq PRN Reason Stop Dose Admin Acetaminophen 650 mg 01/25/21 14:27 Acetaminophen 325 Mg Tablet PO Q6H PRN Mild Pain (1-3) or Fever Hydrocodone Bitart/Acetaminophen 1 tab 01/25/21 14:27 01/30/21 08:10 Hydrocodone/Acetaminophen (*Crx) 7.5-325 Mg Tablet PO 1 tab Q3H PRN Administration Pain Rated 4-6 Al Hydrox/Mg Hydrox/Simethicone 30 ml 01/25/21 14:27 01/26/21 09:48 Mag Hydrox/Al Hydrox/Simeth 30 Ml Udc PO 30 ml Q6H PRN Administration Indigestion Chlordiazepoxide HCl 25 mg 01/30/21 09:00 01/30/21 08:10 Chlordiazepoxide (*Crx) 25 Mg Capsule PO 25 mg DAILY EMY Administration Docusate Sodium 100 mg 01/25/21 17:00 01/30/21 08:06 Docusate Sodium 100 Mg Capsule PO 100 mg BID EMY Administration Famot
[2021-01-30] MEDS: ACETAMINOPHEN 325 MG TABLET 650 MG PO (21:53)
[2021-01-31 02:34] LABS: IFOB Positive Control Positive; Immunochemical Fecal Occult Bl Negative (N)
[2021-01-31 06:00] VITALS: BP 115/70; PULSE 92; RESP 14; TEMP 36.9; O2SAT 99
[2021-01-31 08:10] LABS: Glucose Point of Care 103 mg/dl (65-105)
[2021-01-31 08:44] LABS: Hematocrit 30.1 % (37.0-47.0); Hemoglobin 9.6 g/dL (12.0-15.0); Mean Corpuscular HGB Conc 31.9 g/dl (32-36); Mean Corpuscular Volume 100.3 fl (80-100); Mean Platelet Volume 9.8 fl (7.4-10.4); Platelet Count Result 151 k/mm3 (150-375); White Blood Count 5.4 K/mm3 (4.5-10.0)
--- NOTE | 2021-01-31 08:46 | PCPTNOTE ---
Attempted to see patient for PT, however patient refused due to wanting to eat her breakfast.
[2021-01-31 09:00] LABS: Anion Gap 4 mmol/L (8-16); Blood Urea Nitrogen 4 mg/dL (7-17); Calcium 8.2 mg/dL (8.4-10.2); Carbon Dioxide 24 mmol/L (22-30); Chloride 104 mmol/L (98-107); Estimated CRCL calculation 121 ml/min; Estimated Glomerular Filt Rate > 60; Glucose 100 mg/dL (65-110); Magnesium 1.7 mg/dL (1.6-2.3); Potassium 3.5 mmol/L (3.4-5.0); Sodium 132 mmol/L (137-145)
[2021-01-31] MEDS: HYDROcodone/acetaminophen (*CRX) 7.5-325 MG TABLET 1 TAB PO ×3 (09:39→18:30)
[2021-01-31] MEDS: THIAMINE HCL 100 MG TABLET PO (09:39)
[2021-01-31] MEDS: FAMOTIDINE 20 MG TABLET PO (09:40)
[2021-01-31] MEDS: DOCUSATE SODIUM 100 MG CAPSULE PO ×2 (09:40→16:59)
[2021-01-31] MEDS: chlordiazePOXIDE (*CRX) 25 MG CAPSULE PO (09:42)
[2021-01-31] MEDS: SODIUM CHLORIDE 0.9% IV 1,000 ML 100 ML IV CONT (12:59)
[2021-01-31 14:00] VITALS: BP 122/69; PULSE 85; RESP 14; TEMP 36.5; O2SAT 99
--- NOTE | 2021-01-31 15:50 | PM.DS ---
DS: Admitting Diagnosis Admitting Diagnosis Chief Complaint: Left hip pain after fall. DS: Discharge Diagnosis Discharge Diagnosis (1) UTI (urinary tract infection): Qualifiers: Urinary tract infection type: acute cystitis Hematuria presence: without hematuria Qualified Code(s): N30.00 - Acute cystitis without hematuria Code(s): N39.0 - Urinary tract infection, site not specified Status: Acute (2) Gastroesophageal reflux disease: Qualifiers: Esophagitis presence: with esophagitis Esophagitis bleeding: unspecified whether hemorrhage Qualified Code(s): K21.00 - Gastro-esophageal reflux disease with esophagitis, without bleeding Code(s): K21.9 - Gastro-esophageal reflux disease without esophagitis Status: Acute (3) Daily consumption of alcohol: Code(s): Z78.9 - Other specified health status Status: Acute (4) Anemia: Code(s): D64.9 - Anemia, unspecified Status: Acute DS: Summary Hospital Course Reason for hospitalization: Chief Complaint: Left hip pain after fall. Narrative: This is a previously healthy 60-year-old female who presented to the emergency department earlier today via private vehicle from home for evaluation of left hip pain after a fall. While getting out of her swimming pool today she tripped on a crack in the deck causing her to fall directly onto her left hip. She was able to get up with help but could not bear weight due to pain and family members drove her to the hospital where she was found to have an acute displaced and angulated comminuted inter trochanteric fracture of the left proximal femur and she is being admitted in this setting. She sustained no other injuries in the fall and denies head trauma and loss of consciousness. No paresthesias, skin color, or temperature changes distal to the fracture site. Labs done on arrival to the emergency department showed elevation of her AST and ALT and with further questioning she does admit that she drinks daily and has had elevated LFTs in the past. She typically drinks 2 to 3 alcoholic beverages in evening but will drink quite a bit more on the weekends though she does not qualify. She denies ever having signs of symptoms of alcohol withdrawal. No history of seizures. No known history of cirrhosis or hepatitis. Hospital Course: Acute Normocytic anemia, unclear etiology Chronic Anemia - possibly related to hepatic steatosis & chronic alcoholism -Hemoglobin has been variable over hospital course -no obvious sign of external bleeding, denies melena hematochezia, hematuria hematemesis hemoptysis or epistaxis; nursing staff has not noted bleeding -CT angiogram not identified any source of bleed, and also did not appreciate any hematoma -Iron studies do not indicate iron deficiency, reticulocyte count elevated -LDH elevated, and haptoglobin pending -not leukopenic, and platelets 100-150 -will obtain autoimmune studies for hemolysis w/up and if unremarkable, possible hematology consult for bone marrow biopsy -hold anticoagulation in setting of acute on chronic anemia of unknown etiology S/p left hip surgery with placement of inter trochanteric nail Postop day 3 Physical therapy and occupational therapy working with patient, to improve weight-bearing Advancing diet as tolerated, ondansetron p.r.n. Morphine on for pain hold anticoagulation given active bleed UTI, symptomatic Leukocyte esterase in urinalysis, however no growth in culture Continue ceftriaxone daily, to complete 7 day course, currently day 4 History of alcoholism Unaware of exact date of last drink [facility] protocol ordered for withdrawal symptoms no signs of withdrawal today 01/30/21 12:23 patient is 60-year-old female status post fall and fracture of the left hip CT scan showed an acute displaced and angulated comminuted inter trochanteric fracture of the left proximal femur patient was seen by surgery and had a left hip intertrochanteric nail POD#4
[2021-01-31 16:12] LABS: EDCOVIDSCREEN Negative (Negative)
[2021-01-31 20:24] LABS: Haptoglobin 240 mg/dL (43-212)
[2021-02-02 01:32] LABS: Osmolality, Urine 584 mOsm/kg (50-1200)
== END 2021-01-31 18:30 | DRG 481 ==
LOC: ANHED 18:49 → ANH2MED 19:50
PROVIDERS: Internal Medicine; Orthopaedic Surgery; Physician Assistant; Admitting Provider Hospitalist; Emergency Provider Emergency Medicine; Visit Provider Family Medicine
PROC: 0QS736Z Reposition Left Upper Femur with Intramedullary Internal Fixation Device, Percutaneous Approach (ICD-10-PCS; CPT 27245; principal; 2021-01-25 12:00)
DX: S72.142A Displaced intertrochanteric fracture of left femur, initial encounter for closed fracture (principal); E87.2 Acidosis; D68.2 Hereditary deficiency of other clotting factors; F10.139 Alcohol abuse with withdrawal, unspecified; N30.00 Acute cystitis without hematuria; B96.20 Unspecified Escherichia coli [E. coli] as the cause of diseases classified elsewhere; W01.0XXA Fall on same level from slipping, tripping and stumbling without subsequent striking against object, initial encounter; Z20.822 Contact with and (suspected) exposure to COVID-19; D64.9 Anemia, unspecified; E83.39 Other disorders of phosphorus metabolism; R00.0 Tachycardia, unspecified; E86.0 Dehydration; M19.90 Unspecified osteoarthritis, unspecified site; K21.00 Gastro-esophageal reflux disease with esophagitis, without bleeding; R79.89 Other specified abnormal findings of blood chemistry; Z78.9 Other specified health status; Z87.891 Personal history of nicotine dependence
CPT/HCPCS: 36415; 36430; 71045; 73502; 74174; 76705; 80048; 80053; 80074; 80076; 80307; 81001; 82247; 82274; 82607; 82728; 82746; 82948; 83010; 83540; 83550; 83605; 83615; 83735; 83935; 84100; 84439; 84443; 84480; 85014; 85018; 85025; 85027; 85046; 85055; 85610; 85730; 86850; 86880; 86900; 86901; 86920; 87040; 87077; 87086; 87088; 87186; 87426; 93005; 93970; 97110; 97116; 97161; 97165; 97530; 97535; 99285; A9270; C1713; C9803; G0378; J0690; J0696; J1100; J1652; J2270; J2405; J2704; J3010; J3411; J3475; J7030; J7050; J7120; P9016; Q9967

== ENCOUNTER → 2022-09-20 12:53 | Outpatient (CLI) | payer OTHER, SELFPAY ==
--- NOTE | ~2022-09-20 | US_ITS ---
EXAMINATION:US venous doppler LE LT INDICATION:Localized edema TECHNIQUE: Multiple grayscale, color flow and Doppler images of the left lower extremity deep venous systems were obtained and reviewed. COMPARISON:02/01/2020 FINDINGS: The common femoral, superficial femoral and popliteal veins demonstrate normal respiratory variation, augmentation and compressibility. Color flow is also seen within the posterior tibial, pe roneal, greater saphenous and profunda veins. IMPRESSION: 1: No lower extremity deep venous thrombosis. Reviewed, dictated and finalized at location A.
== END ==
PROVIDERS: PCP Family Medicine; Visit Provider Physician Assistant Medical
DX: R60.0 Localized edema (principal)
CPT/HCPCS: 93971

== ENCOUNTER 2022-10-24 10:21 | Outpatient (CLI) | payer OTHER, SELFPAY ==
--- NOTE | 2022-10-24 12:00 | NEURO_ITS ---
Impression: Patient reports a history of numbness in bilateral lower extremities. 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 # Chronic neurogenic changes in bilateral EDB, which also supports presence of axonal involvement. # Clinical correlation recommended. Nerve Conduction Studies Anti Sensory Summary Table Stim Site NR Peak (ms) P-T Amp (?V) Site1 Site2 Delta-P (ms) Dist (cm) Noe (m/s) Left Sup Fibular Anti Sensory (Ant Lat Mall) 14 cm 3.7 3.6 14 cm Ant Lat Mall 3.7 16.0 43 Right Sup Fibular Anti Sensory (Ant Lat Mall) 14 cm 4.0 18.3 14 cm Ant Lat Mall 4.0 16.0 40 Left Sural Anti Sensory (Lat Mall) Calf 4.8 3.8 Calf Lat Mall 4.8 16.0 33 Right Sural Anti Sensory (Lat Mall) Calf 3.8 4.9 Calf Lat Mall 3.8 16.0 42 Motor Summary Table Stim Site NR Onset (ms) O-P Amp (mV) Site1 Site2 Delta-0 (ms) Dist (cm) Noe (m/s) Left Peroneal Motor (Vastus Med) Ankle 3.9 1.2 Popit Ankle 48.0 Popit NR B Fib Ankle 6.5 35.0 54 B Fib 10.4 0.5 Right Peroneal Motor (Vastus Med) Ankle 4.7 1.0 Popit Ankle 10.1 44.0 44 Popit 14.8 1.1 B Fib Ankle 6.9 33.0 48 B Fib 11.6 1.0 Left Tibial Motor (Abd Pisano Brev) Ankle 4.5 2.1 Knee Ankle 9.6 42.0 44 Knee 14.1 1.5 Right Tibial Motor (Abd Pisano Brev) Ankle 4.7 1.1 Knee Ankle 9.2 44.0 48 Knee 13.9 0.9 F Wave Studies NR F-Lat (ms) L-R F-Lat (ms) Left Peroneal (Mrkrs) (EDB) 53.86 0.35 Right Peroneal (Mrkrs) (EDB) 53.51 0.35 Left Tibial (Mrkrs) (Abd Hallucis) 54.05 0.24 Right Tibial (Mrkrs) (Abd Hallucis) 53.80 0.24 EMG Side Muscle Nerve Root Ins Act Fibs Amp Dur Recrt Comment Right AntTibialis Dp Br Fibular L4-5 Nml Nml Nml Nml Nml Right Gastroc Tibial S1-2 Nml Nml Nml Nml Nml Right Fibularis Long Sup Br Fibular L5-S1 Nml Nml Nml Nml Nml Right Flex Dig Long Tibial L5-S2 Nml Nml Nml Nml Nml Right Ext Dig Brev Dp Br Fibular L5, S1 Nml Nml Nml Nml Reduced Left AntTibialis Dp Br Fibular L4-5 Nml Nml Nml Nml Nml Left Gastroc Tibial S1-2 Nml Nml Nml Nml Nml Left Fibularis Long Sup Br Fibular L5-S1 Nml Nml Nml Nml Nml Left Flex Dig Long Tibial L5-S2 Nml Nml Nml Nml Nml Left Ext Dig Brev Dp Br Fibular L5, S1 Nml Nml Nml Nml Reduced MTDD
== END 2022-10-24 10:22 | disposition home or self-care (01) ==
LOC: ANHNEURO 10:22
PROVIDERS: PCP Family Medicine; Visit Provider Physician Assistant Medical
DX: R20.0 Anesthesia of skin (principal); R20.2 Paresthesia of skin
CPT/HCPCS: 95886; 95910

== ENCOUNTER 2022-10-29 13:52 | Outpatient (CLI) | payer OTHER, SELFPAY ==
--- NOTE | ~2022-10-29 | US_ITS ---
US arterial ankle brachial ind INDICATION: Right foot pain TECHNIQUE: Segmental pressures and plethysmographic and Doppler waveforms of the brachial and lower e xtremity arteries were obtained. COMPARISON: None. FINDINGS: Right and left brachial artery pressures of 127 mm Hg and 133 mm Hg, respectively, are concordant (no rmal difference <= 30 mmHg). The right ankle-brachial index (GEENA) is 1.02 (normal >= 0.9-1.0). The right great toe-brachial index (TBI) is 0.51 (normal >= 0.60). The left GEENA is 1.05. The left TBI is 0.38. IMPRESSION: 1. Normal bilateral ankle-brachial indices. 2: Diminished bilateral toe brachial indices, consistent with peripheral arterial disease. Reviewed, dictated and finalized at location L. IMPRESSION: 1. Normal bilateral ankle-brachial indices. 2: Diminished bilateral toe brachial indices, consistent with peripheral arteri al disease.
== END 2022-10-29 13:53 | disposition home or self-care (01) ==
PROVIDERS: PCP Family Medicine; Visit Provider Physician Assistant Medical
DX: M79.671 Pain in right foot (principal); M79.672 Pain in left foot; R20.0 Anesthesia of skin; R20.2 Paresthesia of skin
CPT/HCPCS: 93922

== ENCOUNTER 2022-12-12 06:55 | Day surgery (SDC) | payer OTHER, SELFPAY ==
[2022-11-08 09:48] VITALS: BMI 25.4
[2022-11-20 13:27] VITALS: BMI 23.8
--- NOTE | 2022-11-20 13:50 | PC.NURSE ---
Pt sounded possibly under the influence during preop interview.
--- NOTE | 2022-12-11 12:41 | WPDANESEPPF ---
Anes - Initial Pre Proc Eval Procedure: Operation Date: 12/12/22 08:30 Proposed Procedures p Colonoscopy - César Ybarra MD Date/Time: 12/11/22 12:41 Surgeon: César Ybarra MD Pre Op Diagnosis: History of Colon Polyps Patient Data Age: 62 Gender: F Height: 1.63 m Weight: 63 kg Allergies Allergy/AdvReac Type Severity Reaction Status Date / Time aspirin Allergy Intermediate HIVES Verified 12/12/22 07:35 NSAIDS (Non-Steroidal Allergy Intermediate HIVES Verified 12/12/22 07:35 Anti-Inflamma Home Medications Medication Instructions Recorded Confirmed Type calcium carb-vit D3-magnesium 1 tab-cap PO DAILY 03/29/21 12/12/22 History multivitamin 1 tablet PO DAILY 09/17/22 12/12/22 History tumeric 100 mg-jarod 150 mg-olive 1 cap PO DAILY 09/17/22 12/12/22 History 50 mg-oreg 150 mg-caprylate capsule sodium,potassium,mag sulfates 17.5 See Rx Instructions PO .COMPLEX 11/08/22 12/12/22 Rx gram-3.13 gram-1.6 gram oral soln #354 mL (Suprep Bowel Prep Kit) Patient hx anesthesia problems: none Family hx anesthesia problems: none Results Review: All pre-operative results and documents have been reviewed as part of the pre-operative evaluation. FORMERLY [facility], [facility] Past Medical History Medical History Alcoholism Anxiety Anxiety and depression Arthritis Bilateral lower extremity edema Daily consumption of alcohol Degenerative arthritis of left knee Gastroesophageal reflux disease Hearing loss Sprain of collateral ligament of left knee Vision loss Surgical History Surgical History History of cataract extraction History of hip surgery Left Hip fracture surgery IM nail on 01/25/[address] Seaman Family History Family History Father Pulmonary embolism Hypertension Diabetes mellitus Acute myocardial infarction Alcoholism Mother Hypercholesterolemia Sibling Alcoholism Grandparent Alcoholism Other Arthritis Asthma Carcinoma of colon Cerebrovascular accident Depression HLD (hyperlipidemia) Heart disease Skin cancer Social History Social History Social History: The patient lives in [place] with her . She smoked 1/2 pack of cigarettes a day for about 20 years and quit in 12/1999. She drinks 2 to 3 alcoholic beverages a night, typically beer or wine. She drinks heavier on the weekends, typically drinking mixed drinks although she does not quantify the amount that she typically drinks. No illicit substance use. She designates her Jluis as her surrogate decision maker and she wishes to be a full code. Smoking packs per day: 1 Smoking cigarettes per day: 20.0 Years smoked: 25 Smoking pack-years: 25.00 Smoking status: Former smoker Tobacco type: cigarettes Second hand tobacco smoke exposure: No Alcohol intake: current Alcohol use details: PT HAS ALCOHOLISM, STATES SHE CURRENTLY QUIT AND ONLY DRINKS 2-3 TIMES PER WEEK. PT SOUNDED UNDER THE INFLUENCE DURING PREOP INTERVIEW Substance use: former Substance use type: marijuana Last use: 1984 Lack of Transportation: No Lack of Food: Never True Current Housing: I Have Housing Concerned About Future Housing: No Difficulty Paying Gas/Electric Bills: No Difficulty Paying for Meds: No Currently Unemployed: No Education: High School Diploma/GED Difficulty w/ Childcare or Family Care: No Living arrangements: with family Occupation/Education: other Gender identity (if verbalized by the patient): Female Sexual Orientation (if Verbalized by the Patient): Straight or Heterosexual Spiritual care concerns: No Agree to blood products: Yes Adrián French Final PreProcedure Day of Procedure 12/11/22 12:41 Patient weight: normal Heart: regular rate and rhyt
[2022-12-12 07:36] VITALS: BP 163/93; PULSE 85; RESP 18; TEMP 37.2; O2SAT 100
[2022-12-12] MEDS: LACTATED RINGERS 1,000 ML 150 ML IV CONT (07:46)
--- NOTE | 2022-12-12 08:07 | PM.HPGS ---
History of Present Illness History of Present Illness Consent: Risks, benefits, and alternatives have been discussed and questions answered. Patient agrees to proceed with procedure. Chief complaint: History of Colon Polyps Narrative: Reginaldo Morgan is a 62 year old female Presents for screening colonoscopy. Patient has a history of benign adenomatous colon polyp removed from the colon in 2017. Patient's current weight appetite and bowel movements are normal. She denies abdominal pain. She has had no bleeding. Family history is significant for grandparent that had colon cancer. Patient presents today for screening colonoscopy. Review of Systems Review of Systems: Review of systems noncontributory. [facility] Past Medical History Medical History Alcoholism Anxiety Anxiety and depression Arthritis Bilateral lower extremity edema Daily consumption of alcohol Degenerative arthritis of left knee Gastroesophageal reflux disease Hearing loss Sprain of collateral ligament of left knee Vision loss Surgical History Surgical History History of cataract extraction History of hip surgery Left Hip fracture surgery IM nail on 01/25/[address] 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 She smoked 1/2 pack of cigarettes a day for about 20 years and quit in 12/1999. She drinks 2 to 3 alcoholic beverages a night, typically beer or wine. She drinks heavier on the weekends, typically drinking mixed drinks although she does not quantify the amount that she typically drinks. No illicit substance use. She designates her Jluis as her surrogate decision maker and she wishes to be a full code. Smoking packs per day: 1 Smoking cigarettes per day: 20.0 Years smoked: 25 Smoking pack-years: 25.00 Smoking status: Former smoker Tobacco type: cigarettes Second hand tobacco smoke exposure: No Alcohol intake: current Alcohol use details: PT HAS ALCOHOLISM, STATES SHE CURRENTLY QUIT AND ONLY DRINKS 2-3 TIMES PER WEEK. PT SOUNDED UNDER THE INFLUENCE DURING PREOP INTERVIEW Substance use: former Substance use type: marijuana Last use: 1984 Lack of Transportation: No Lack of Food: Never True Current Housing: I Have Housing Concerned About Future Housing: No Difficulty Paying Gas/Electric Bills: No Difficulty Paying for Meds: No Currently Unemployed: No Education: High School Diploma/GED Difficulty w/ Childcare or Family Care: No Living arrangements: with family Occupation/Education: other Gender identity (if verbalized by the patient): Female Sexual Orientation (if Verbalized by the Patient): Straight or Heterosexual Spiritual care concerns: No Agree to blood products: Yes Meds Home Medications and Allergies Home Medications Medication Instructions Recorded Confirmed Type calcium carb-vit D3-magnesium 1 tab-cap PO DAILY 03/29/21 12/12/22 History multivitamin 1 tablet PO DAILY 09/17/22 12/12/22 History tumeric 100 mg-jarod 150 mg-olive 1 cap PO DAILY 09/17/22 12/12/22 History 50 mg-oreg 150 mg-caprylate capsule sodium,potassium,mag sulfates 17.5 See Rx Instructions PO .COMPLEX 11/08/22 12/12/22 Rx gram-3.13 gram-1.6 gram oral soln #354 mL (Suprep Bowel Prep Kit) Allergies Allergy/AdvReac Type Severity Reaction Status Date / Time aspir
[2022-12-12 08:54] VITALS: BP 113/85; PULSE 97; RESP 16; O2SAT 98
[2022-12-12 09:04] VITALS: BP 142/86; PULSE 88; RESP 16; O2SAT 100
[2022-12-12 09:14] VITALS: BP 151/83; PULSE 82; RESP 18; O2SAT 100
--- NOTE | 2022-12-12 13:36 | WPDANESPN ---
Anes - Prog Note Post-Op Date/Time: 12/12/22 13:36 Cardiovascular status: normal Respiratory status: normal Airway patency: baseline Mental status: baseline Post-Op hydration status: normal Vital Signs: Last Vital Signs Temp 37.2 C 12/12/22 07:36 Pulse 82 12/12/22 09:14 Resp 18 12/12/22 09:14 BP 151/83 H 12/12/22 09:14 Pulse Ox 100 12/12/22 09:14 O2 Del Method Room Air 12/12/22 09:14 Pain Score (VAS): 0 I/O: Intake & Output 12/11/22 12/12/22 12/12/22 23:59 07:59 15:59 Intake Total 850 Balance 850 Post-procedural complaints: none Patient Feedback: Patient satisfied with anesthetic care. Other Findings: Patient vital signs back to baseline. Patient denies nausea and vomiting. Patient's pain under control. Patient OK for discharge.
== END 2022-12-12 09:30 | disposition home or self-care (01) ==
PROVIDERS: Visit Provider Internal Medicine Gastroenterology
PROC: 0DJD8ZZ Inspection of Lower Intestinal Tract, Via Natural or Artificial Opening Endoscopic (ICD-10-PCS; CPT 45378; principal; 2022-12-12 08:30)
DX: Z86.010 Personal history of colon polyps (principal)
CPT/HCPCS: 45385

== ENCOUNTER 2022-12-12 09:00 | Outpatient (NON) | payer OTHER, SELFPAY | END 2022-12-12 09:01 | disposition home or self-care (01) | LOC: ANHLAB 12-13 07:23 | PROVIDERS: Visit Provider Internal Medicine Gastroenterology | DX: Z86.010 Personal history of colon polyps (principal) | CPT/HCPCS: 88305 ==

== ENCOUNTER 2023-01-15 13:01 | Outpatient (CLI) | payer OTHER, SELFPAY ==
--- NOTE | ~2023-01-15 | DEXA_ITS ---
Bone Density Report Name: HA BROCK Age: 62 Sex: Female Ethnicity: White Date of : 1960 Indication: postmenopausal; screening for osteoporosis; height loss; prior fracture; Referring Provider: MARCOS MONAE Study: Bone densitometry was performed. Exam Date: January 15, 2023 Accession number: [id number] Bone Density: Region BMD T-score Z-score Classification AP Spine(L1, L3) 1.013 0.0 1.6 Normal Femoral Neck (Right) 0.634 -1.9 -0.5 Osteopenia Total Hip (Right) 0.833 -0.9 0.3 Normal World Health Organization criteria for BMD impression classify patients as: Normal (T-score at or above -1.0), Osteopenia (T-score between -1.0 and -2.5), or Osteoporosis (T-score at or below -2.5). 10-year Fracture Risk(1): Major Osteoporotic Fracture 17% Hip Fracture 2.4% Reported Risk Factors: [place] (), Neck BMD=0.634, BMI=24.6, previous fracture (1) FRAX(R) Version 3.08. Fracture probability calculated for an untreated patient. Fracture probability may be lower if the patient has received treatment. Clinical Information Provided by Patient: Has had a low trauma fracture Patient maximum height was 67 Menopause Age: 51 No regular weight bearing exercise Drinks caffeinated beverages Onset of menses at age 10 Number of children 0 Impression: The patient has low bone mass, based on the Right Femoral Neck T-score. The patient has an estimated ten-year risk of hip fracture of 2.4% and an estimated ten-year risk of major fracture of 17%, based on the WHO FRAX algorithm. The patient has risk factors, including: previous fracture. Discussion: BONE DENSITY IS LOW AT ONE OR MORE SKELETAL SITES. This patient's lowest T-score is low at one or more skeletal sites. It meets the World Health Organization's (WHO) criteria for ?low bone mass? (T-score between -1.0 and -2.5). The patient's 10-year risk of fracture as calculated by FRAX is less than the threshold where pharmacological therapy is recommended by the National Osteoporosis Foundation (NOF). However, all treatment decisions require clinical judgment and consideration of individual patient factors, including patient preferences, comorbidities, previous drug use, risk factors not captured in the FRAX model (e.g., frailty, falls, vitamin D deficiency, increased bone turnover, interval significant decline in bone density) and possible under or overestimation of fracture risk by FRAX. The patient should follow a healthful lifestyle (good nutrition with adequate calcium and vitamin D, and appropriate weight-bearing exercise). Follow-Up: Consider repeating this study in 2 to 3 years to reassess this patient's status, or sooner if there is some new clinical indication. Reported by: JOSE on 01/15/2023 1:44:00 PM. Reviewed, dictated an
--- NOTE | ~2023-01-15 | MM_ITS ---
EXAMINATION: MM screening tisha BI w erna HISTORY: Screening mammogram TECHNIQUE: Craniocaudal and mediolateral oblique 3-D tomosynthesis images were obtained and synthetic 2-D images were generated. CAD analysis was submitted and interpreted. COMPARISON: No prior mammogram is available for comparison at this institution. BREAST PARENCHYMAL COMPOSITION: The breasts are heterogeneously dense, which may obscure small masses . FINDINGS: There is no evidence of suspicious mass, calcification, or architectural distortion to sugg est malignancy in either breast. There has been no suspicious interval change. IMPRESSION: 1. No mammographic evidence of malignancy. 2. Recommend routine screening mammography in one year. BI-RADS Category 1: Negative Reviewed, dictated and finalized at location A.
== END 2023-01-15 13:02 | disposition home or self-care (01) ==
LOC: ANHIMG 13:03
PROVIDERS: PCP Family Medicine; Visit Provider Physician Assistant Medical
DX: Z12.31 Encounter for screening mammogram for malignant neoplasm of breast (principal); N95.1 Menopausal and female climacteric states; M85.851 Other specified disorders of bone density and structure, right thigh
CPT/HCPCS: 77063; 77067; 77080

== ENCOUNTER 2023-12-10 11:27 | Inpatient (IN) | payer MEDICARE, SELFPAY ==
[2023-12-10] VITALS (18 sets, daily range): BP systolic 126–164; BP diastolic 66–89; PULSE 101–104; RESP 17–20; TEMP 37.2–37.5; O2SAT 92–97
--- NOTE | ~2023-12-10 | CT_ITS ---
EXAMINATION: CT lumbar spine wo con DATE: 12/10/2023 14:11 INDICATION: Fall. Left hip pain. TECHNIQUE: Computed tomography (CT) of the lumbar spine was performed without intravenous contrast. A utomated exposure control and iterative reconstruction technique were employed. The dose-length produ ct was 467.02 mGy-cm. COMPARISON: None FINDINGS: There is diffuse hepatic steatosis. There is a 2 mm stone in left kidney. There is a fractu re of left L5 transverse process. There is a nondisplaced fracture of the left sacral ala. There is a nondisplaced fracture of the adjacent left ilium. Bone alignment is normal. Vertebral body heights a re normal. There is mildly decreased disc height at L4-L5. The following disc levels are specifically discussed: L1-L2: There is a left foraminal protrusion. There is mild bilateral facet joint osteoarthritis. Ther e is mild left neural foraminal stenosis. There is no central canal stenosis. L2-L3: The disc is bulging. There is moderate bilateral facet joint osteoarthritis. There is mild lukas ateral neural foraminal stenosis. There is mild central canal stenosis. L3-L4: The disc is bulging. There is severe bilateral facet joint osteoarthritis. There is moderate r ight and mild left neural foraminal stenosis. There is moderate central canal stenosis. L4-L5: The disc is bulging. There is severe bilateral facet joint osteoarthritis. There is mild bilat eral neural foraminal stenosis. There is mild central canal stenosis. L5-S1: The disc does not extend beyond the endplate margin. There is severe bilateral facet joint ost eoarthritis. There is no neural foraminal stenosis. There is no central canal stenosis. IMPRESSION: 1. Fractures of the left L5 transverse process, left sacral ala, and left ilium. 2. Mild lumbar spondylosis. Reviewed, dictated and finalized at location A. IMPRESSION: 1. Fractures of the left L5 transverse process, left sacral ala, and left ilium . 2. Mild lumbar spondylosis.
--- NOTE | ~2023-12-10 | CT_ITS ---
EXAMINATION: CT hip LT wo con DATE: 12/10/2023 14:12 INDICATION: Left hip pain. Fall. TECHNIQUE: Computed tomography (CT) of the left hip was performed without intravenous contrast. Autom ated exposure control and iterative reconstruction technique were employed. The dose-length product w as 713.16 mGy-cm. COMPARISON: Left hip radiographs 12/10/2023 FINDINGS: There is an old healed fracture of proximal left femur with internal fixation. There are no ndisplaced fractures of the left sacral ala and left ilium. There is moderate left hip osteoarthritis . There are fractures of the left superior and inferior pubic rami. IMPRESSION: 1. Nondisplaced fractures of the left sacral ala and left ilium. 2. Fractures of left superior and inferior pubic rami. 3. Moderate left hip osteoarthritis. Reviewed, dictated and finalized at location A.
--- NOTE | ~2023-12-10 | US_ITS ---
EXAMINATION: US abdomen complete DATE: 12/12/2023 07:44 INDICATION: Thrombocytopenia TECHNIQUE: Multiple grayscale and Doppler ultrasound images of the abdomen were obtained. COMPARISON: None FINDINGS: The pancreatic head and body are normal in appearance. The pancreatic tail is not visualized. Visual ized proximal to mid abdominal aorta and inferior vena cava are normal. Liver has normal contour, wit h a smooth surface. There is increased parenchymal echogenicity and coarsened echotexture consistent with diffuse hepatic steatosis. No liver lesion identified. No intrahepatic biliary duct dilation diaz spected. Portal venous flow was seen in the hepatopetal, normal direction and has normal Doppler wave form. The gallbladder is normal in appearance. There is no cholelithiasis. The common bile duct santosh ures 2 mm, which is normal. Sonographic Solis sign was reported as positive by the cancellation clerk. Ther e is normal renal contour and echogenicity bilaterally. The right kidney measures 11.5 x 6.1 x 5.1 cm and the left 10.7 x 2.9 x 4.8 cm. There are couple anechoic exophytic cysts at the right kidney santosh uring up to 1.4 cm. There is no hydronephrosis. Normal spleen measuring up to 9.3 cm in maximal lengt h. IMPRESSION: 1. Nonspecific positive sonographic Solis sign but with normal gallbladder with no cholelithiasis. T here is continued clinical concern for acute cholecystitis could consider HIDA scan for further evalu ation. 2. Diffuse hepatic steatosis. Reviewed, dictated and finalized at location B. IMPRESSION: 1. Nonspecific positive sonographic Solis sign but with normal gallbladder wit h no cholelithiasis. There is continued clinical concern for acute cholecystiti s could consider HIDA scan for further evaluation. 2. Diffuse hepatic steatosis.
--- NOTE | ~2023-12-10 | XR_ITS ---
EXAMINATION: XR hip LT min 2V DATE: 12/10/2023 11:59 INDICATION: Left hip pain post fall TECHNIQUE: Anteroposterior and frog-leg lateral views of the left hip were obtained. COMPARISON: 05/09/2021 FINDINGS: Prominent soft tissue swelling with increased subfalcine is density overlying the lateral malleolus s uggesting subcutaneous hematoma related to reported trauma. Stable appearance of couple old healed in tertrochanteric fracture the proximal left femur which is fixed with an antegrade intramedullary ken and femoral neck dynamic compression screw and distal interlocking screw fixation. No acute fractures identified. Mild left hip and sacroiliac osteoarthritis. Severe lower lumbar facet osteoarthritis. IMPRESSION: 1. Stable appearance of an old healed internally fixed intertrochanteric fracture the proximal left f emur. No acute osseous abnormality. 2. Prominent soft tissue swelling with likely subcutaneous hematoma overlying the left greater trocha nter. Reviewed, dictated and finalized at location B. IMPRESSION: 1. Stable appearance of an old healed internally fixed intertrochanteric fractu re the proximal left femur. No acute osseous abnormality. 2. Prominent soft tissue swelling with likely subcutaneous hematoma overlying t he left greater trochanter.
[2023-12-10] MEDS: MORPHINE SULFATE (*CRX) 4 MG/ML INJ IV PUSH (12:46)
[2023-12-10] MEDS: ONDANSETRON INJ 4 MG/2 ML VIAL IV PUSH (12:47)
--- NOTE | 2023-12-10 12:47 | ED.FALL ---
HPI - Fall General Chief Complaint: Fall Stated Complaint: L hip pain, fall Time Seen by Provider: 12/10/23 12:09 History of Present Illness HPI Narrative: Patient is a 63-year-old female who presents to the emergency department this afternoon complaining of lower left-sided back pain and left hip pain. Patient states that yesterday she fell while she was out running errands. Patient was going down a ramp and accidentally stepped on a crack in the pavement causing her to fall backward. Patient landed on her left hip. She admits that she hit the left side of her glasses on the ground and sustained a small abrasion to the corner of her left eyebrow but denies any loss of consciousness, denies any headaches and denies any blood thinner use. Patient states that yesterday she was fine and she was ambulating using her can like she normally does without any difficulty but this morning she woke up and she was in a lot of pain limits arm her mobility. She denies any additional symptoms or concerns at this time. Related Data Home Medications Medication Instructions Recorded Confirmed calcium carb-vit D3-magnesium 1 tab-cap PO DAILY 03/29/21 12/12/22 multivitamin 1 tablet PO DAILY 09/17/22 12/12/22 turmeric 100 mg-jarod 150 1 cap PO DAILY 09/17/22 12/12/22 mg-olive 50 mg-oreg 150 mg-capryl capsule Allergies Allergy/AdvReac Type Severity Reaction Status Date / Time aspirin Allergy Intermediate HIVES Verified 12/10/23 11:41 NSAIDS (Non-Steroidal Allergy Intermediate HIVES Verified 12/10/23 11:41 Anti-Inflamma Review of Systems Review of Systems: All systems are reviewed and are negative unless stated otherwise in the HPI. FORMERLY [facility] Past Medical History Medical History Alcoholism Anxiety Anxiety and depression Arthritis Bilateral lower extremity edema Daily consumption of alcohol Degenerative arthritis of left knee Gastroesophageal reflux disease Hearing loss Sprain of collateral ligament of left knee Vision loss Surgical History Surgical History History of cataract extraction History of hip surgery Left Hip fracture surgery IM nail on 01/25/[address] Seaman Family History Family History Father Pulmonary embolism Hypertension Diabetes mellitus Acute myocardial infarction Alcoholism Mother Hypercholesterolemia Sibling Alcoholism Grandparent Alcoholism Other Arthritis Asthma Carcinoma of colon Cerebrovascular accident Depression HLD (hyperlipidemia) Heart disease Skin cancer Social History Social History Social History: The patient lives in [place] with her . She smoked 1/2 pack of cigarettes a day for about 20 years and quit in 12/1999. She drinks 2 to 3 alcoholic beverages a night, typically beer or wine. She drinks heavier on the weekends, typically drinking mixed drinks although she does not quantify the amount that she typically drinks. No illicit substance use. She designates her Jluis as her surrogate decision maker and she wishes to be a full code. Smoking packs per day: 1 Smoking cigarettes per day: 20.0 Years smoked: 25 Smoking pack-years: 25.00 Smoking status: Former smoker Tobacco type: cigarettes Second hand tobacco smoke exposure: No Alcohol intake: current Alcohol use details: PT HAS ALCOHOLISM, STATES SHE CURRENTLY QUIT AND ONLY DRINKS 2-3 TIMES PER WEEK. PT SOUNDED UNDER THE INFLUENCE DURING PREOP INTERVIEW Substance use: former Substance use type: marijuana Last use: 1984 Lack of Transportation: No Lack of Food: Never True Current Housing: I Have Housing Concerned About Future Housing: No Difficulty Paying Gas/Electric Bills: No Difficulty Paying for Meds: No Currently Unemployed: N
--- NOTE | 2023-12-10 13:47 | PC.NURSE ---
Patient reports being in too much pain to walk.
--- NOTE | 2023-12-10 15:48 | PM.IMHP ---
H&P: HPI History of Present Illness Date/Time: 12/10/23 15:48 Chief Complaint: Fall Narrative: 63 y/o F presents here with left hip swelling and lower back pain post-fall with PMH of heavy alcohol use, anxiety/depression, and GERD. The patient presents here from home for further evaluation of left hip swelling and lower left-sided back pain. Patient reports that she was out running errands yesterday when she slipped on a crack (foot or cane caught it) in the pavement causing her to fall forwards. Fell onto her left side. Has abrasion to her left elbow. She reports falling onto her left hip, hit her glasses but not her head on the pavement, and no loss of consciousness. She reports she was able to ambulate yesterday after the fall, uses a cane at baseline, but began having difficulty this morning when she woke up she tried to get up to the restroom she required assistance from her . Unable to ambulate on her own. The patient is not on a blood thinner. She denies headaches, nausea, vomiting, or syncope. Reports 1 glass of wine daily, occasionally has an additional beer on the weekend, last drank heavily in 2020. Denies history of tremor, hallucinations, seizures with alcohol cessation. Last drink on 12/06. Initial VS at presentation: 99? F, HR 102, RR 17 164/89, and 97% on RA. ED workup showed: hip XR showed stable appearance of an old healing internally fixed intratrochanteric fracture of the proximal left femur and prominent soft tissue swelling with likely subcutaneous hematoma overlying the left greater trochanter. CT lumbar spine showed fractures of the left L5 transverse process fracture, left sacral ala, and left iliac and mild lumbar spondylosis. CT of the hip showed nondisplaced fractures of the left sacral ala in the left ilium, fractures the left superior and inferior pubic rami, and moderate left hip osteoarthritis. Review of Systems Review of Systems: All systems reviewed & are unremarkable except as noted in HPI and below PMFSH Past Medical History Medical History Anxiety Anxiety and depression Arthritis Bilateral lower extremity edema Daily consumption of alcohol Degenerative arthritis of left knee Gastroesophageal reflux disease Hearing loss History of heavy alcohol consumption Sprain of collateral ligament of left knee Vision loss Surgical History Surgical History History of cataract extraction History of hip surgery Left Hip fracture surgery IM nail on 01/25/[address] Seaman Family History Family History Father Pulmonary embolism Hypertension Diabetes mellitus Acute myocardial infarction Alcoholism Mother Hypercholesterolemia Sibling Alcoholism Grandparent Alcoholism Other Arthritis Asthma Carcinoma of colon Cerebrovascular accident Depression HLD (hyperlipidemia) Heart disease Skin cancer Social History Social History Social History: The patient lives in [place] with her . She smoked 1/2 pack of cigarettes a day for about 20 years and quit in 12/1999. She drinks 2 to 3 alcoholic beverages a night, typically beer or wine. She drinks heavier on the weekends, typically drinking mixed drinks although she does not quantify the amount that she typically drinks. No illicit substance use. She designates her Jluis as her surrogate decision maker and she wishes to be a full code. Smoking packs per day: 1 Smoking cigarettes per day: 20.0 Years smoked: 20 Smoking pack-years: 20.00 Smoking status: Former smoker Tobacco type: cigarettes Second hand tobacco smoke exposure: No Alcohol intake: current Drinks per week: 9 Alcohol use details: PT HAS ALCOHOLISM, STATES SHE CURRENTLY QUIT AND ONLY DRINKS 2-3 TIMES PER WEEK. PT
--- NOTE | 2023-12-10 17:23 | ADMGEN ---
This patient, Reginaldo Morgan, was admitted to [facility] Surg Room 324-02. Patient/family oriented to hospital policies and general routines including ID bracelet, bed and alarms, visiting hours, pain management, procedures, bathroom and other care routines, personal items, smoking policy, room service/diet, and visiting hours. Information on how to activate the Rapid Response Team has been discussed. Patient/Family are encouraged to report perceived risks to care and to ask questions if they do not understand what they are told or what they should do.
--- NOTE | 2023-12-10 19:31 | WPDNEUROSGCN ---
Assessment and Plan Assessment and plan (1) Lumbar transverse process fracture: Code(s): S32.009A - Unspecified fracture of unspecified lumbar vertebra, initial encounter for closed fracture Status: Acute Assessment and Plan: Reginaldo is a 63-year-old female with pelvic and sacral fractures and also a left L5 transverse process fracture. The transverse process fracture is meaningless clinically other than the potential for it to cause pain. A brace can be helpful for pain control but does not really affect healing. There are no restrictions with regards to the transverse process fracture and treatment is symptomatic with medications and time for it to heal and become less painful. Consult date: 12/10/23 Reason for consult: Left L5 transverse process fracture HPI: Reginaldo Morgan is a 63 year old female who experienced a fall the day before admission while she was running errands. She tripped on a crack in the sidewalk a ramp and fell backwards. She fell onto her buttocks and hip area on the left and she is complaining of pain in that location mostly. She was brought to the emergency room at [facility] where evaluation revealed a sacral alar fracture on the left and various pelvic fractures as well as a L5 transverse process fracture on the left. She has not been able to ambulate because of the discomfort. She is not experiencing new bowel or bladder difficulty or other constitutional problems. She does not note any difference in strength or sensation in either lower extremity. She states that she has some neuropathy and a relative stocking distribution numbness. Pain is severe and limiting especially if she tries to bear weight. Review of Systems Review of Systems: Patient denies shortness of breath, cough, fever, chills, nausea, vomiting, weight loss, weight gain, chest pain, dysuria. She has back, pelvic and hip pain left greater than right. Her review systems is otherwise negative on 12 systems except as noted elsewhere. 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 She smoked 1/2 pack of cigarettes a day for about 20 years and quit in 12/1999. She drinks 2 to 3 alcoholic beverages a night, typically beer or wine. She drinks heavier on the weekends, typically drinking mixed drinks although she does not quantify the amount that she typically drinks. No illicit substance use. She designates her Jluis as her surrogate decision maker and she wishes to be a full code. Smoking packs per day: 1 Smoking cigarettes per day: 20.0 Years smoked: 20 Smoking pack-years: 20.00 Smoking status: Former smoker Tobacco type: cigarettes Second hand tobacco smoke exposure: No Alcohol intake: current Drinks per week: 9 Alcohol use details: PT HAS ALCOHOLISM, STATES SHE CURRENTLY QUIT AND ONLY DRINKS 2-3 TIMES PER WEEK. PT SOUNDED UNDER T
[2023-12-10] MEDS: HYDROcodone/acetaminophen (*CRX) 5-325 MG TABLET 1 TAB PO (20:18)
[2023-12-11] MEDS: HYDROcodone/acetaminophen (*CRX) 5-325 MG TABLET 1 TAB PO ×2 (04:17→12:17)
[2023-12-11 05:15] LABS: Basophils Absolute Auto 0.1 K/mm3 (0.0-0.1); Basophils Percent Auto 1.3 % (0.2-1.2); Eosinophils Absolute Auto 0.1 K/mm3 (0-0.3); Eosinophils Percent Auto 1.7 % (0-4.4); Hematocrit 31.5 % (37.0-47.0); Hemoglobin 10.5 g/dL (12.0-15.0); Immature Granulocyte Absolute 0.03 K/mm3 (0.00-0.031); Immature Granulocyte Percent A 0.6 % (0-0.5); Immature Platelet Fraction Pct 5.4 % (0.9-11.2); Lymphocytes Absolute Auto 0.74 K/mm3 (0.9-3.2); Lymphocytes Percent Auto 15.9 % (18.3-44.2); Mean Corpuscular HGB Conc 33.3 g/dl (32-36); Mean Corpuscular Hemoglobin 32.2 pg (26-34); Mean Corpuscular Volume 96.6 fl (80-100); Mean Platelet Volume 10.4 fl (7.4-10.4); Monocytes Absolute Auto 0.6 K/mm3 (0.1-0.6); Neutrophils Absolute Auto 3.2 K/mm3 (1.3-6.7); Neutrophils Percent Auto 68.5 % (45.5-73.1); Platelet Count Result 94 k/mm3 (150-375); Red Blood Count 3.26 M/mm3 (4.2-5.4); White Blood Count 4.7 K/mm3 (4.5-10.0)
[2023-12-11 05:23] LABS: Anion Gap 5 mmol/L (4-12); Blood Urea Nitrogen 8 mg/dL (7-17); Calcium 8.4 mg/dL (8.4-10.2); Carbon Dioxide 30 mmol/L (22-30); Chloride 97 mmol/L (98-107); Estimated CRCL calculation 98 ml/min; Estimated Glomerular Filt Rate > 60; Glucose 106 mg/dL (65-110); Potassium 3.1 mmol/L (3.4-5.0); Sodium 132 mmol/L (137-145)
[2023-12-11 06:00] VITALS: BP 114/68; PULSE 90; RESP 18; TEMP 37; O2SAT 96
--- NOTE | 2023-12-11 07:34 | PM.IMPN ---
Progress Note: A&P Assessment and Plan (1) Fall: Code(s): W19.XXXA - Unspecified fall, initial encounter Status: Acute Assessment and Plan: Patient had a mechanical ground level fall while running errands when she tripped on a crack of the pavement. She denies LOC, hitting her head, and lightheadedness/dizziness prior to fall. - Hip XR 1. Stable appearance of an old healed internally fixed intertrochanteric fracture the proximal left femur. No acute osseous abnormality. 2. Prominent soft tissue swelling with likely subcutaneous hematoma overlying the left greater trochanter. - Hip CT 1. Nondisplaced fractures of the left sacral ala and left ilium. 2. Fractures of left superior and inferior pubic rami. 3. Moderate left hip osteoarthritis. - Lumbar CT 1. Fractures of the left L5 transverse process, left sacral ala, and left ilium. 2. Mild lumbar spondylosis. - PT/OT (2) Closed fracture of left inferior pubic ramus: Qualifiers: Encounter type: initial encounter Qualified Code(s): S32.592A - Other specified fracture of left pubis, initial encounter for closed fracture Code(s): S32.592A - Other specified fracture of left pubis, initial encounter for closed fracture Status: Acute Assessment and Plan: Patient had a mechanical ground level fall while running errands. - Hip XR 1. Stable appearance of an old healed internally fixed intertrochanteric fracture the proximal left femur. No acute osseous abnormality. 2. Prominent soft tissue swelling with likely subcutaneous hematoma overlying the left greater trochanter. - Hip CT 1. Nondisplaced fractures of the left sacral ala and left ilium. 2. Fractures of left superior and inferior pubic rami. 3. Moderate left hip osteoarthritis. - ortho consulted. ED spoke with on-call ortho provider, nonoperative at this time, pain control - pain control: Tylenol, [place], Morphine - PT/OT eval and treat (3) Closed fracture of left superior pubic ramus: Qualifiers: Encounter type: initial encounter Qualified Code(s): S32.512A - Fracture of superior rim of left pubis, initial encounter for closed fracture Code(s): S32.512A - Fracture of superior rim of left pubis, initial encounter for closed fracture Status: Acute Assessment and Plan: - see closed fracture of left inferior pubic ramus #1 (4) Fracture of ilium, left: Qualifiers: Encounter type: initial encounter Fracture alignment: nondisplaced Fracture morphology: unspecified fracture morphology Fracture type: closed Qualified Code(s): S32.302A - Unspecified fracture of left ilium, initial encounter for closed fracture Code(s): S32.302A - Unspecified fracture of left ilium, initial encounter for closed fracture Status: Acute Assessment and Plan: - see closed fracture of left inferior pubic ramus #1 (5) Lumbar transverse process fracture: Qualifiers: Encounter type: initial encounter Fracture type: closed Qualified Code(s): S32.009A - Unspecified fracture of unspecified lumbar vertebra, initial encounter for closed fracture Code(s): S32.009A - Unspecified fracture of unspecified lumbar vertebra, initial encounter for closed fracture Status: Acute Assessment and Plan: - Lumbar CT 1. Fractures of the left L5 transverse process, left sacral ala, and left ilium. 2. Mild lumbar spondylosis. - Neurosurgery consulted. - States brace can be helpful for pain control, but does not affect healing. No restrictions at this time. Treatment remains symptomatic. - Pain control: Tylenol, [place], Morphine - PT/OT Time Spent With Patient Time with patient: 25 - 35 minutes Subjective Date/time seen: 12/11/23 07:34 Interval history: 63 year old female with past medical history of anxiety/depression, GERD, osteopenia, and alcohol use presents to the hospital for left hip swelling, lower back pain, an
[2023-12-11] MEDS: MULTIVITAMINS THERAPEUTIC TAB (*BKC) 1 TABLET PO (08:51)
[2023-12-11] MEDS: VITAMIN B COMPLEX CAPSULE 1 CAP PO (08:52)
[2023-12-11] MEDS: FOLIC ACID 1 MG TABLET PO (08:52)
[2023-12-11] MEDS: TAMSULOSIN HCL 0.4 MG CAPSULE PO (08:52)
[2023-12-11 09:00] VITALS: PULSE 90; RESP 18; O2SAT 95
[2023-12-11 09:12] VITALS: O2SAT 95
[2023-12-11 14:00] VITALS: BP 132/63; PULSE 99; RESP 18; TEMP 37.2; O2SAT 96
[2023-12-11 14:12] LABS: INR 1.1; Prothrombin Time 14.1 Seconds (11.1-14.7)
[2023-12-11 14:32] LABS: Vitamin D 25 Hydroxy 17.7 ng/mL
[2023-12-11 16:47] LABS: Appearance Urine Clear (Clear); Bacteria Urine Rare /hpf; Bilirubin Urine Negative (Negative); Blood Urine Negative (Negative); Color Urine Yellow (Yellow); Glucose Urine UA Negative (Negative); Ketones Urine Negative (Negative); Leukocyte Esterase Ur Trace LEU/UL (Negative); Need Manual Microscopic Reviewed; Nitrate Urine Negative (Negative); Non Pathogenic Casts 0-2; Protein Urine Negative (Negative); RBC Urine 0-2 /hpf (0-2); Specific Grav Ur 1.006 (1.001-1.035); Squamous Epithelial Cell Urine None Seen /hpf (Few); WBC Urine 0-5 /hpf (0-3)
[2023-12-11 16:48] LABS: Add Urine Microscopic? YES
--- NOTE | 2023-12-11 17:07 | PM.CNOR ---
Assessment and Plan Assessment and plan (1) Closed fracture of left inferior pubic ramus: Qualifiers: Encounter type: initial encounter Qualified Code(s): S32.592A - Other specified fracture of left pubis, initial encounter for closed fracture Code(s): S32.592A - Other specified fracture of left pubis, initial encounter for closed fracture Status: Acute Assessment and Plan: Patient is a 63-year-old female who came to the emergency room yesterday reporting that she had fallen on the sidewalk the day before and following this she was able to move around a bit but then yesterday her pain became excruciating and she found she could bear weight on left leg. In the emergency room she had x-rays and CT scan of left hip which demonstrated a mildly distracted complete fracture of the left sacral ala vertical and nondisplaced fractures of the medial aspect of the left superior and inferior pubic rami. She also had a transverse process fracture at L5-5 believe and the neurosurgery department is watching that. On exam today she reports that she has a moderate amount of pain and she would like to have something stronger for pain. I have put her on scheduled Tylenol 650 mg Q 6 hours and oxycodone 2.5 mg q.4 hours scheduled and 5 mg additional oxycodone q.4 hours p.r.n. pain 710. She is able wiggle her toes on the left she has normal sensation and 2+ dorsalis pedis pulse. She had minimal swelling over lateral aspect left hip but apparently yesterday she had a fair amount of swelling patient reports that has gone down. She has healed incisions from where she underwent trochanteric nail fixation in 2020 which did well clinically. I have recommended that she be touch weight-bearing and explained to her that this will take approximately 6 weeks heal. I do not know how well she will be able to cope with this restriction at home and we will see how she does over the next couple of days with therapy. She may require group home placement for care while she recovers and physical therapy. She has a history of alcoholism. Her protime was normal at 14.1 INR 1.1. Renal function was normal. Her last CMP was 1 year ago at least on the [facility] EMR and will ask for a repeat CMP tomorrow recheck for her liver enzymes bilirubin. Her hemoglobin is low again at 10.5. In September 2022 of was 12.9. Two thousand twenty-one she had severe anemia and required multiple transfusions. Her platelets are low at only 94,000. Check another CBC tomorrow. Anticoagulation may carry risk of bleeding with her low platelets and anemia but with no anticoagulation she is at high risk for DVT. I would predict she is going to be fairly in mobile for several weeks. I would recommend that we ask Dr. Ingram loft rigger to give his recommendation on with the best strategy for DVT prophylaxis will be in this patient. She is wearing SCDs at this time for mechanical prophylaxis. Her 25 hydroxy vitamin-D level was very low at 17.7. Will initiate ergo calciferol treatment and also start calcium plus vitamin-D. The computer notes there is a risk of cross reactivity between ergo calciferol and aspirin in patients with a history of hives with aspirin. I think it would be appropriate to try this and see as not giving her aspirin increases her risk of nonunion of these fractures and she may have no allergic reaction. The patient does have a reaction than the ergo calciferol will have to be stopped (2) Closed fracture of left superior pubic ramus: Qualifiers: Encounter type: initial encounter Qualified Code(s): S32.512A - Fracture of superior rim of left pubis, initial encounter for closed fracture Code(s): S32.512A - Fracture of superior rim of left pubis, initial encounter for closed fracture Status: Acute (3) Fracture of sacrum: Qualifiers: Encounter type: initial encounter Zone of sacrum fracture: unspecified portion of sacrum Fracture
[2023-12-11] MEDS: ACETAMINOPHEN 325 MG TABLET 650 MG PO ×2 (18:11→21:46)
[2023-12-11] MEDS: oxyCODONE HCL (*CRX) 2.5 MG TAB IR PO ×2 (18:11→21:46)
[2023-12-11 21:32] VITALS: BP 125/68; PULSE 106; RESP 16; TEMP 36.6; O2SAT 96
[2023-12-12] MEDS: oxyCODONE HCL (*CRX) 2.5 MG TAB IR PO ×6 (01:40→20:47)
[2023-12-12 04:35] VITALS: BP 138/78; PULSE 97; RESP 18; TEMP 36.1; O2SAT 95
[2023-12-12] MEDS: ACETAMINOPHEN 325 MG TABLET 650 MG PO ×3 (05:50→21:13)
[2023-12-12 06:15] LABS: Basophils Absolute Auto 0.1 K/mm3 (0.0-0.1); Basophils Percent Auto 1.1 % (0.2-1.2); Eosinophils Absolute Auto 0.1 K/mm3 (0-0.3); Eosinophils Percent Auto 1.7 % (0-4.4); Hematocrit 33.7 % (37.0-47.0); Hemoglobin 11.3 g/dL (12.0-15.0); Immature Granulocyte Absolute 0.04 K/mm3 (0.00-0.031); Immature Granulocyte Percent A 0.9 % (0-0.5); Immature Platelet Fraction Pct 6.9 % (0.9-11.2); Lymphocytes Absolute Auto 0.89 K/mm3 (0.9-3.2); Mean Corpuscular HGB Conc 33.5 g/dl (32-36); Mean Corpuscular Hemoglobin 32.5 pg (26-34); Mean Corpuscular Volume 96.8 fl (80-100); Mean Platelet Volume 10.5 fl (7.4-10.4); Monocytes Absolute Auto 0.5 K/mm3 (0.1-0.6); Monocytes Percent Auto 10.9 % (2.6-8.5); Neutrophils Absolute Auto 3.1 K/mm3 (1.3-6.7); Neutrophils Percent Auto 66.4 % (45.5-73.1); Platelet Count Result 108 k/mm3 (150-375); Red Blood Count 3.48 M/mm3 (4.2-5.4); Red Cell Distribution Width 13.8 % (11.5-14.5); White Blood Count 4.7 K/mm3 (4.5-10.0)
[2023-12-12 06:31] LABS: Alanine Aminotransferase 25 U/L (6-35); Albumin Level 3.6 g/dL (3.5-5.1); Alkaline Phosphatase 107 U/L (38-126); Anion Gap 9 mmol/L (4-12); Aspartate Amino Transferase 46 U/L (14-36); Bilirubin,Total 1.7 mg/dL (0.2-1.3); Blood Urea Nitrogen 6 mg/dL (7-17); Calcium 8.8 mg/dL (8.4-10.2); Carbon Dioxide 29 mmol/L (22-30); Chloride 95 mmol/L (98-107); Estimated CRCL calculation 98 ml/min; Estimated Glomerular Filt Rate > 60; Glucose 93 mg/dL (65-110); Potassium 3.4 mmol/L (3.4-5.0); Sodium 133 mmol/L (137-145)
--- NOTE | 2023-12-12 07:10 | PM.IMPN ---
Progress Note: A&P Assessment and Plan (1) Fall: Code(s): W19.XXXA - Unspecified fall, initial encounter Status: Acute Assessment and Plan: Patient had a mechanical ground level fall while running errands when she tripped on a crack of the pavement. She denies LOC, hitting her head, and lightheadedness/dizziness prior to fall. - Hip XR 1. Stable appearance of an old healed internally fixed intertrochanteric fracture the proximal left femur. No acute osseous abnormality. 2. Prominent soft tissue swelling with likely subcutaneous hematoma overlying the left greater trochanter. - Hip CT 1. Nondisplaced fractures of the left sacral ala and left ilium. 2. Fractures of left superior and inferior pubic rami. 3. Moderate left hip osteoarthritis. - Lumbar CT 1. Fractures of the left L5 transverse process, left sacral ala, and left ilium. 2. Mild lumbar spondylosis. - PT/OT recommending SNF, care coordination following (2) Closed fracture of left inferior pubic ramus: Qualifiers: Encounter type: initial encounter Qualified Code(s): S32.592A - Other specified fracture of left pubis, initial encounter for closed fracture Code(s): S32.592A - Other specified fracture of left pubis, initial encounter for closed fracture Status: Acute Assessment and Plan: Patient had a mechanical ground level fall while running errands. - Hip XR 1. Stable appearance of an old healed internally fixed intertrochanteric fracture the proximal left femur. No acute osseous abnormality. 2. Prominent soft tissue swelling with likely subcutaneous hematoma overlying the left greater trochanter. - Hip CT 1. Nondisplaced fractures of the left sacral ala and left ilium. 2. Fractures of left superior and inferior pubic rami. 3. Moderate left hip osteoarthritis. - ortho consulted. N - Nonoperative at this time, pain control, PT/OT - pain control: Tylenol, Morphine, oxy - PT/OT eval and treat, touch weight-bearing per ortho - Care coordination following for potential placement (3) Closed fracture of left superior pubic ramus: Qualifiers: Encounter type: initial encounter Qualified Code(s): S32.512A - Fracture of superior rim of left pubis, initial encounter for closed fracture Code(s): S32.512A - Fracture of superior rim of left pubis, initial encounter for closed fracture Status: Acute Assessment and Plan: - see closed fracture of left inferior pubic ramus #1 (4) Fracture of ilium, left: Qualifiers: Encounter type: initial encounter Fracture alignment: nondisplaced Fracture morphology: unspecified fracture morphology Fracture type: closed Qualified Code(s): S32.302A - Unspecified fracture of left ilium, initial encounter for closed fracture Code(s): S32.302A - Unspecified fracture of left ilium, initial encounter for closed fracture Status: Acute Assessment and Plan: - see closed fracture of left inferior pubic ramus #1 (5) Lumbar transverse process fracture: Qualifiers: Encounter type: initial encounter Fracture type: closed Qualified Code(s): S32.009A - Unspecified fracture of unspecified lumbar vertebra, initial encounter for closed fracture Code(s): S32.009A - Unspecified fracture of unspecified lumbar vertebra, initial encounter for closed fracture Status: Acute Assessment and Plan: - Lumbar CT 1. Fractures of the left L5 transverse process, left sacral ala, and left ilium. 2. Mild lumbar spondylosis. - Neurosurgery consulted. - States brace can be helpful for pain control, but does not affect healing. No restrictions at this time. Treatment remains symptomatic. - Pain control: Tylenol, Morphine, Oxy - PT/OT (6) Thrombocytopenia: Code(s): D69.6 - Thrombocytopenia, unspecified Status: Acute Assessment and Plan: Appears chronic, as patient is noted to have thrombocytopenia all the
[2023-12-12 07:40] LABS: Iron 28 ug/dL (37-170)
[2023-12-12 08:16] LABS: Percent Iron Saturation 17 % (20-50)
[2023-12-12] MEDS: MULTIVITAMINS THERAPEUTIC TAB (*BKC) 1 TABLET PO (08:40)
[2023-12-12] MEDS: VITAMIN B COMPLEX CAPSULE 1 CAP PO (08:40)
[2023-12-12] MEDS: TAMSULOSIN HCL 0.4 MG CAPSULE PO (08:40)
[2023-12-12] MEDS: FOLIC ACID 1 MG TABLET PO (08:40)
[2023-12-12] MEDS: CALCIUM CITRATE 315 MG/VITAMIN D 6.25 MCG (250 UNITS) TAB 1 TABLET PO ×2 (08:41→16:22)
[2023-12-12] MEDS: ERGOCALCIFEROL 50,000 UNITS CAPSULE 50000 UNITS PO (08:41)
[2023-12-12 08:47] LABS: Folic Acid 8.6 ng/mL (2.76->20)
--- NOTE | 2023-12-12 09:54 | PDONCCN ---
HPI - Date of Consult Date/Time: 12/12/23 14:42 <CindyTristanAllison - 12/12/23 14:47> 12/12/23 09:54 <Yu Ibrahim 12/12/23 10:03> Requesting Physician: Sofia Ball PA-C <CindyTristanAllison - 12/12/23 14:47> Sofia Ball PA-C <Yu Ibrahim 12/12/23 10:03> Primary Care Provider: UNKNOWN,DOCTOR <CindyTristanAllison - 12/12/23 14:47> UNKNOWN,DOCTOR <Yu Ibrahim 12/12/23 10:03> - Consult Narrative Reason for consult: Thrombocytopenia, Anemia, DVT prophylaxis <Yu Ibrahim 12/12/23 10:03> Narrative: Reginaldo Morgan is a 63 year old female <CindyTristanAllison - 12/12/23 14:47> Reginaldo Morgan is a 63 year old female with a past medical history of GERD, anxiety/depression, CURYUNG, who was admitted s/p fall. She was found to have multiple fractures in the lumbar spine, and hip with spondylosis. Surgery is recommending brace and time for healing, but there is concern for immobility and potential risk of DVT formation. She allergic to aspirin. She has a history of heavy alcohol use in the past and reports daily alcohol use now. She is unsure of her history of thrombocytopenia, and denies seeing a GI specialist for past diagnoses of hepatomegaly. She reports having iron deficiency in the past, but has not been on iron supplements. She states her last colonoscopy was a few months ago without any findings of bleeding. Labs today are notable for WBC 4.7, Hgb 11.3, Hct 33.7, Plt 108,000, Iron 28 % sat 17 Ferritin 464. <Yu Ibrahim 12/12/23 13:00> Review of Systems - Review of Systems All systems reviewed & are unremarkable except as noted in HPI and bel <Yu Ibrahim 12/12/23 10:03> [facility] Medical History: Medical History (Last Reviewed 12/10/23 @ 23:42 by Haily Powers APRN) Anxiety Anxiety and depression Arthritis Bilateral lower extremity edema Daily consumption of alcohol Degenerative arthritis of left knee Gastroesophageal reflux disease Hearing loss History of heavy alcohol consumption Sprain of collateral ligament of left knee Vision loss <Tristan White - 12/12/23 14:47> Medical History (Last Reviewed 12/10/23 @ 23:42 by Haily Powers APRN) Anxiety Anxiety and depression Arthritis Bilateral lower extremity edema Daily consumption of alcohol Degenerative arthritis of left knee Gastroesophageal reflux disease Hearing loss History of heavy alcohol consumption Sprain of collateral ligament of left knee Vision loss <Yu Ibrahim - 12/12/23 10:03> Surgical History: Surgical History (Last Reviewed 12/10/23 @ 23:42 by Haily Powers APRN) History of cataract extraction History of hip surgery Left Hip fracture surgery IM nail on 01/25/[address] Seaman <Tristan White - 12/12/23 14:47> Surgical History (Last Reviewed 12/10/23 @ 23:42 by Haily Powers APRN) History of cataract extraction History of hip surgery Left Hip fracture surgery IM nail on 01/25/[address] Seaman <Yu Ibrahim - 12/12/23 10:03> Family History: Family History (Last Reviewed 12/10/23 @ 23:42 by Haily Powers APRN) Father Pulmonary embolism Hypertension Diabetes mellitus Acute myocardial infarction Alcoholism Mother Hypercholesterolemia Sibling Alcoholism Grandparent Alcoholism Other Arthritis Asthma Carcinoma of colon Cerebrovascular accident Depression HLD (hyperlipidemia) Heart disease Skin cancer <Tristan White - 12/12/23 14:47> Family History (Last Reviewed 12/10/23 @ 23:42 by Haily Powers APRN) Father Pulmonary embolism Hypertension Diabetes mellitus Acute myocardial infarction Alcoholism Mother Hypercholesterolemia Sibling Alcoholism Grandparent Alcoholism Other Arthritis Asthma Carcinoma of colon Cerebrovascular accident Depression HLD (hyperlipidemia) Heart disease
[2023-12-12 14:00] VITALS: BP 132/61; PULSE 113; RESP 18; TEMP 36.8; O2SAT 94
[2023-12-12] MEDS: IRON SUCROSE COMPLEX 400 MG, IRON SUCROSE COMPLEX 100 MG in SODIUM CHLORIDE 0.9% IV 250 ML 78.57 MG IVPB (14:02)
[2023-12-12] MEDS: FERROUS SULFATE 325 MG TABLET DR PO (16:22)
[2023-12-12 20:40] VITALS: BP 111/73; PULSE 95; RESP 20; TEMP 36; O2SAT 93
[2023-12-12 20:45] VITALS: PULSE 113; RESP 18; O2SAT 94
[2023-12-12] MEDS: APIXABAN 2.5 MG TABLET PO (20:47)
[2023-12-12 23:11] VITALS: O2SAT 93
[2023-12-13] MEDS: oxyCODONE HCL (*CRX) 2.5 MG TAB IR PO ×6 (01:44→20:20)
[2023-12-13 05:00] VITALS: BP 128/92; PULSE 92; RESP 20; TEMP 37.2; O2SAT 94
[2023-12-13 06:43] LABS: Alanine Aminotransferase 21 U/L (6-35); Albumin Level 3.2 g/dL (3.5-5.1); Alkaline Phosphatase 100 U/L (38-126); Anion Gap 6 mmol/L (4-12); Aspartate Amino Transferase 42 U/L (14-36); Bilirubin,Total 1.4 mg/dL (0.2-1.3); Blood Urea Nitrogen 6 mg/dL (7-17); Calcium 8.9 mg/dL (8.4-10.2); Carbon Dioxide 30 mmol/L (22-30); Chloride 97 mmol/L (98-107); Estimated CRCL calculation 98 ml/min; Estimated Glomerular Filt Rate > 60; Glucose 98 mg/dL (65-110); Potassium 3.6 mmol/L (3.4-5.0); Sodium 133 mmol/L (137-145)
[2023-12-13 06:46] LABS: Basophils Absolute Auto 0.1 K/mm3 (0.0-0.1); Basophils Percent Auto 1.4 % (0.2-1.2); Eosinophils Absolute Auto 0.1 K/mm3 (0-0.3); Eosinophils Percent Auto 2.1 % (0-4.4); Hematocrit 32.2 % (37.0-47.0); Immature Granulocyte Absolute 0.03 K/mm3 (0.00-0.031); Immature Granulocyte Percent A 0.7 % (0-0.5); Immature Platelet Fraction Pct 6.6 % (0.9-11.2); Lymphocytes Absolute Auto 0.74 K/mm3 (0.9-3.2); Lymphocytes Percent Auto 17.5 % (18.3-44.2); Mean Corpuscular HGB Conc 34.2 g/dl (32-36); Mean Corpuscular Hemoglobin 32.9 pg (26-34); Mean Corpuscular Volume 96.4 fl (80-100); Mean Platelet Volume 10.9 fl (7.4-10.4); Monocytes Absolute Auto 0.6 K/mm3 (0.1-0.6); Monocytes Percent Auto 14.7 % (2.6-8.5); Neutrophils Absolute Auto 2.7 K/mm3 (1.3-6.7); Neutrophils Percent Auto 63.6 % (45.5-73.1); Platelet Count Result 123 k/mm3 (150-375); Red Blood Count 3.34 M/mm3 (4.2-5.4); Red Cell Distribution Width 13.6 % (11.5-14.5); White Blood Count 4.2 K/mm3 (4.5-10.0)
--- NOTE | 2023-12-13 07:51 | P.PNIM_ITS ---
Progress Note: A&P Assessment and Plan (1) Fall: Code(s): W19.XXXA - Unspecified fall, initial encounter Status: Acute Assessment and Plan: Patient had a mechanical ground level fall while running errands when she tripped on a crack of the pavement. She denies LOC, hitting her head, and lightheadedness/dizziness prior to fall. - Hip XR 1. Stable appearance of an old healed internally fixed intertrochanteric fracture the proximal left femur. No acute osseous abnormality. 2. Prominent soft tissue swelling with likely subcutaneous hematoma overlying the left greater trochanter. - Hip CT 1. Nondisplaced fractures of the left sacral ala and left ilium. 2. Fractures of left superior and inferior pubic rami. 3. Moderate left hip osteoarthritis. - Lumbar CT 1. Fractures of the left L5 transverse process, left sacral ala, and left ilium. 2. Mild lumbar spondylosis. - PT/OT recommending SNF, care coordination following (2) Closed fracture of left inferior pubic ramus: Qualifiers: Encounter type: initial encounter Qualified Code(s): S32.592A - Other specified fracture of left pubis, initial encounter for closed fracture Code(s): S32.592A - Other specified fracture of left pubis, initial encounter for closed fracture Status: Acute Assessment and Plan: Patient had a mechanical ground level fall while running errands. - Hip XR 1. Stable appearance of an old healed internally fixed intertrochanteric fracture the proximal left femur. No acute osseous abnormality. 2. Prominent soft tissue swelling with likely subcutaneous hematoma overlying the left greater trochanter. - Hip CT 1. Nondisplaced fractures of the left sacral ala and left ilium. 2. Fractures of left superior and inferior pubic rami. 3. Moderate left hip osteoarthritis. - ortho consulted. - Nonoperative at this time, pain control, PT/OT - pain control: Tylenol, Morphine, oxy - PT/OT eval and treat, touch weight-bearing per ortho - Care coordination following for potential placement (3) Closed fracture of left superior pubic ramus: Qualifiers: Encounter type: initial encounter Qualified Code(s): S32.512A - Fracture of superior rim of left pubis, initial encounter for closed fracture Code(s): S32.512A - Fracture of superior rim of left pubis, initial encounter for closed fracture Status: Acute Assessment and Plan: - see closed fracture of left inferior pubic ramus #2 (4) Fracture of ilium, left: Qualifiers: Encounter type: initial encounter Fracture alignment: nondisplaced Fracture morphology: unspecified fracture morphology Fracture type: closed Qualified Code(s): S32.302A - Unspecified fracture of left ilium, initial encounter for closed fracture Code(s): S32.302A - Unspecified fracture of left ilium, initial encounter for closed fracture Status: Acute Assessment and Plan: - see closed fracture of left inferior pubic ramus #2 (5) Lumbar transverse process fracture: Qualifiers: Encounter type: initial encounter Fracture type: closed Qualified Code(s): S32.009A - Unspecified fracture of unspecified lumbar vertebra, initial encounter for closed fracture Code(s): S32.009A - Unspecified fracture of unspecified lumbar vertebra, initial encounter for closed fracture Status: Acute Assessment and Plan: - Lumbar CT 1. Fractures of the left L5 transverse process, left sacral ala, and left ilium. 2. Mild lumbar spondylosis. - Neurosurgery consulted. - States brace
[2023-12-13] MEDS: CALCIUM CITRATE 315 MG/VITAMIN D 6.25 MCG (250 UNITS) TAB 1 TABLET PO ×2 (08:49→17:33)
[2023-12-13] MEDS: FOLIC ACID 1 MG TABLET PO (08:49)
[2023-12-13] MEDS: FERROUS SULFATE 325 MG TABLET DR PO ×2 (08:49→17:33)
[2023-12-13] MEDS: APIXABAN 2.5 MG TABLET PO ×2 (08:49→20:20)
[2023-12-13] MEDS: VITAMIN B COMPLEX CAPSULE 1 CAP PO (08:49)
[2023-12-13] MEDS: MULTIVITAMINS THERAPEUTIC TAB (*BKC) 1 TABLET PO (08:49)
[2023-12-13] MEDS: TAMSULOSIN HCL 0.4 MG CAPSULE PO (08:49)
[2023-12-13] MEDS: ACETAMINOPHEN 325 MG TABLET 650 MG PO (10:48)
--- NOTE | 2023-12-13 11:59 | PM.PNORT ---
Progress Note: A&P Assessment and Plan (1) Fracture of sacrum: Qualifiers: Encounter type: initial encounter Fracture type: closed Zone of sacrum fracture: unspecified portion of sacrum Qualified Code(s): S32.10XA - Unspecified fracture of sacrum, initial encounter for closed fracture Code(s): S32.10XA - Unspecified fracture of sacrum, initial encounter for closed fracture Status: Acute Assessment and Plan: Patient is hospital day number we are following her left sacral ala fracture which is mildly by 2 or 3 mm and non the medial aspects of left inferior and superior pubic rami. States her pain is much better controlled. She has been receiving the oxycodone 2.5 mg every 4 hours on a scheduled basis. She has not needed any oxycodone therefore we will discontinue that supplement as well as the morphine at this time. Significant steatosis of the liver this mild elevation of bili and AST is slightly elevated. I am going to reduce her Tylenol a little bit and recommend 500 mg 3 times a day and we will order this as needed at time of discharge but continue scheduled here Her platelets have improved to 123,000 hundred twenty three thousand now. Her hemoglobin has been stable. Dr. Ingram has recommended Eliquis 2.5 mg q.12 hours for DVT prophylaxis and I have entered that in the discharge summary for 6 weeks and I have ordered Ali CBC. If the platelets drop below 100,000 the Eliquis should be held. Unfortunately that would put her at increased risk for DVT. This will need to be monitored closely. Patient has not had a bowel movement yet. I have lacks and scheduled Colace. She does not feel distended or constipated at this time and her belly feels normal currently. She is actually up in the chair eating. She states she is able to transfer and pivot touch weight-bearing on the left leg independently with observe in sub the nurse or physical therapist. She is planning to go to the rehab facility for her convalescence. She states there is no way that she could be at home she would not have enough help. I have ordered the CT code own 2.5 mg tablets. I have also ordered 3 more doses of 50,000 ergo calciferol as she had low 25 hydroxy vitamin-D and we will order Citracal plus D twice daily discharge as well. I would like to see her in the office in 3 and half weeks. 35 minutes were spent in total care of this patient today . (2) Closed fracture of left inferior pubic ramus: Qualifiers: Encounter type: initial encounter Qualified Code(s): S32.592A - Other specified fracture of left pubis, initial encounter for closed fracture Code(s): S32.592A - Other specified fracture of left pubis, initial encounter for closed fracture Status: Acute (3) Closed fracture of left superior pubic ramus: Qualifiers: Encounter type: initial encounter Qualified Code(s): S32.512A - Fracture of superior rim of left pubis, initial encounter for closed fracture Code(s): S32.512A - Fracture of superior rim of left pubis, initial encounter for closed fracture Status: Acute Subjective Subjective Date/Time Seen: 12/13/23 11:59 Objective Data Vital Signs Vital Signs: Vital Signs - 24 hr 12/12/23 14:00 12/12/23 20:45 12/12/23 20:40 Temperature 36.8 C 36.0 C L Pulse Rate 113 H 113 H 95 Respiratory Rate 18 18 20 Blood Pressure 132/61 111/73 Pulse Oximetry 94 94 93 Oxygen Delivery Room Air 12/12/23 23:11 12/13/23 05:00 12/13/23 08:50 Temperature 37.2 C Pulse Rate 92 Respiratory Rate 20 Blood Pressure 128/92 H Pulse Oximetry 93 94 Oxygen Delivery Room Air Room Air Intake/Output Intake/Output: Intake & Output 12/10/23 12/11/23 12/12/23 12/13/23 23:59 23:59 23:59 23:59 Intake Total 1440 0 440 Output Total 1999 850 600 Balance -560 1200 -160 Meds/Results Medications: Active Medications Generic Name Dose Route Start Last Admin
[2023-12-13 14:00] VITALS: BP 129/78; PULSE 98; RESP 18; TEMP 36.1; O2SAT 94
[2023-12-13] MEDS: ACETAMINOPHEN 500 MG TABLET PO ×2 (14:00→22:35)
[2023-12-13 19:47] VITALS: BP 128/78; PULSE 100; RESP 16; TEMP 36.6; O2SAT 97
[2023-12-13 20:18] VITALS: PULSE 100; RESP 16; O2SAT 97
[2023-12-13] MEDS: DOCUSATE SODIUM 100 MG CAPSULE PO (20:20)
[2023-12-14] MEDS: oxyCODONE HCL (*CRX) 2.5 MG TAB IR PO ×5 (04:10→20:10)
[2023-12-14 04:51] VITALS: BP 153/78; PULSE 94; RESP 18; TEMP 36.4; O2SAT 95
[2023-12-14 06:15] LABS: Basophils Absolute Auto 0.1 K/mm3 (0.0-0.1); Basophils Percent Auto 1.5 % (0.2-1.2); Eosinophils Absolute Auto 0.1 K/mm3 (0-0.3); Hemoglobin 10.8 g/dL (12.0-15.0); Immature Granulocyte Absolute 0.03 K/mm3 (0.00-0.031); Immature Granulocyte Percent A 0.8 % (0-0.5); Immature Platelet Fraction Pct 5.8 % (0.9-11.2); Lymphocytes Absolute Auto 0.73 K/mm3 (0.9-3.2); Lymphocytes Percent Auto 18.6 % (18.3-44.2); Mean Corpuscular HGB Conc 33.8 g/dl (32-36); Mean Corpuscular Hemoglobin 32.4 pg (26-34); Mean Corpuscular Volume 96.1 fl (80-100); Mean Platelet Volume 10.6 fl (7.4-10.4); Monocytes Absolute Auto 0.5 K/mm3 (0.1-0.6); Monocytes Percent Auto 13.5 % (2.6-8.5); Neutrophils Absolute Auto 2.5 K/mm3 (1.3-6.7); Neutrophils Percent Auto 63.6 % (45.5-73.1); Platelet Count Result 138 k/mm3 (150-375); Red Blood Count 3.33 M/mm3 (4.2-5.4); Red Cell Distribution Width 13.8 % (11.5-14.5); White Blood Count 3.9 K/mm3 (4.5-10.0)
[2023-12-14] MEDS: ACETAMINOPHEN 500 MG TABLET PO ×3 (06:22→20:10)
[2023-12-14 06:45] LABS: Alanine Aminotransferase 19 U/L (6-35); Albumin Level 3.2 g/dL (3.5-5.1); Alkaline Phosphatase 105 U/L (38-126); Anion Gap 5 mmol/L (4-12); Aspartate Amino Transferase 43 U/L (14-36); Bilirubin,Total 1.1 mg/dL (0.2-1.3); Blood Urea Nitrogen 6 mg/dL (7-17); Carbon Dioxide 31 mmol/L (22-30); Chloride 99 mmol/L (98-107); Estimated CRCL calculation 98 ml/min; Estimated Glomerular Filt Rate > 60; Glucose 101 mg/dL (65-110); Potassium 3.2 mmol/L (3.4-5.0); Sodium 135 mmol/L (137-145)
[2023-12-14] MEDS: polyethylene glycoL 3350 17 GM POWD.PACK PO (08:49)
[2023-12-14] MEDS: POTASSIUM CHLORIDE 20 MEQ ER TABLET 40 MEQ PO (08:49)
[2023-12-14] MEDS: DOCUSATE SODIUM 100 MG CAPSULE PO ×2 (08:50→20:10)
[2023-12-14] MEDS: TAMSULOSIN HCL 0.4 MG CAPSULE PO (08:50)
[2023-12-14] MEDS: MULTIVITAMINS THERAPEUTIC TAB (*BKC) 1 TABLET PO (08:50)
[2023-12-14] MEDS: VITAMIN B COMPLEX CAPSULE 1 CAP PO (08:50)
[2023-12-14] MEDS: FOLIC ACID 1 MG TABLET PO (08:50)
[2023-12-14] MEDS: CALCIUM CITRATE 315 MG/VITAMIN D 6.25 MCG (250 UNITS) TAB 1 TABLET PO ×2 (08:50→16:29)
[2023-12-14] MEDS: FERROUS SULFATE 325 MG TABLET DR PO ×2 (08:50→16:29)
[2023-12-14] MEDS: APIXABAN 2.5 MG TABLET PO ×2 (08:50→20:10)
--- NOTE | 2023-12-14 13:57 | PM.IMPN ---
Progress Note: A&P Assessment and Plan (1) Fall: Code(s): W19.XXXA - Unspecified fall, initial encounter Status: Acute Assessment and Plan: Patient had a mechanical ground level fall while running errands when she tripped on a crack of the pavement. She denies LOC, hitting her head, and lightheadedness/dizziness prior to fall. - Hip XR 1. Stable appearance of an old healed internally fixed intertrochanteric fracture the proximal left femur. No acute osseous abnormality. 2. Prominent soft tissue swelling with likely subcutaneous hematoma overlying the left greater trochanter. - Hip CT 1. Nondisplaced fractures of the left sacral ala and left ilium. 2. Fractures of left superior and inferior pubic rami. 3. Moderate left hip osteoarthritis. - Lumbar CT 1. Fractures of the left L5 transverse process, left sacral ala, and left ilium. 2. Mild lumbar spondylosis. - PT/OT recommending SNF vs [facility], care coordination following (2) Closed fracture of left inferior pubic ramus: Qualifiers: Encounter type: initial encounter Qualified Code(s): S32.592A - Other specified fracture of left pubis, initial encounter for closed fracture Code(s): S32.592A - Other specified fracture of left pubis, initial encounter for closed fracture Status: Acute Assessment and Plan: Patient had a mechanical ground level fall while running errands. - Hip XR 1. Stable appearance of an old healed internally fixed intertrochanteric fracture the proximal left femur. No acute osseous abnormality. 2. Prominent soft tissue swelling with likely subcutaneous hematoma overlying the left greater trochanter. - Hip CT 1. Nondisplaced fractures of the left sacral ala and left ilium. 2. Fractures of left superior and inferior pubic rami. 3. Moderate left hip osteoarthritis. - ortho consulted. - Nonoperative at this time, pain control, PT/OT - pain control: Tylenol, Morphine, oxy - PT/OT eval and treat, touch weight-bearing per ortho - Care coordination following for potential placement (3) Closed fracture of left superior pubic ramus: Qualifiers: Encounter type: initial encounter Qualified Code(s): S32.512A - Fracture of superior rim of left pubis, initial encounter for closed fracture Code(s): S32.512A - Fracture of superior rim of left pubis, initial encounter for closed fracture Status: Acute Assessment and Plan: - see closed fracture of left inferior pubic ramus #2 (4) Fracture of ilium, left: Qualifiers: Encounter type: initial encounter Fracture alignment: nondisplaced Fracture morphology: unspecified fracture morphology Fracture type: closed Qualified Code(s): S32.302A - Unspecified fracture of left ilium, initial encounter for closed fracture Code(s): S32.302A - Unspecified fracture of left ilium, initial encounter for closed fracture Status: Acute Assessment and Plan: - see closed fracture of left inferior pubic ramus #2 (5) Lumbar transverse process fracture: Qualifiers: Encounter type: initial encounter Fracture type: closed Qualified Code(s): S32.009A - Unspecified fracture of unspecified lumbar vertebra, initial encounter for closed fracture Code(s): S32.009A - Unspecified fracture of unspecified lumbar vertebra, initial encounter for closed fracture Status: Acute Assessment and Plan: - Lumbar CT 1. Fractures of the left L5 transverse process, left sacral ala, and left ilium. 2. Mild lumbar spondylosis. - Neurosurgery consulted. - States brace can be helpful for pain control, but does not affect healing. No restrictions at this time. Treatment remains symptomatic. - Pain control: Tylenol, Morphine, Oxy - PT/OT (6) Thrombocytopenia: Code(s): D69.6 - Thrombocytopenia, unspecified Status: Acute Assessment and Plan: Appears chronic, as patient is noted to have thrombocytopenia all
[2023-12-14 14:00] VITALS: BP 148/68; PULSE 86; RESP 19; TEMP 36.4; O2SAT 95
[2023-12-14 20:08] VITALS: BP 130/70; PULSE 99; RESP 20; TEMP 36.4; O2SAT 98
[2023-12-15] MEDS: oxyCODONE HCL (*CRX) 2.5 MG TAB IR PO ×4 (01:20→13:22)
[2023-12-15 03:37] VITALS: BP 128/68; PULSE 84; RESP 16; TEMP 36.9; O2SAT 96
[2023-12-15 04:20] LABS: Basophils Absolute Auto 0.1 K/mm3 (0.0-0.1); Basophils Percent Auto 1.7 % (0.2-1.2); Eosinophils Absolute Auto 0.1 K/mm3 (0-0.3); Eosinophils Percent Auto 3.1 % (0-4.4); Hematocrit 30.6 % (37.0-47.0); Hemoglobin 10.2 g/dL (12.0-15.0); Immature Granulocyte Absolute 0.02 K/mm3 (0.00-0.031); Immature Granulocyte Percent A 0.6 % (0-0.5); Lymphocytes Absolute Auto 0.97 K/mm3 (0.9-3.2); Lymphocytes Percent Auto 27.1 % (18.3-44.2); Mean Corpuscular HGB Conc 33.3 g/dl (32-36); Mean Corpuscular Hemoglobin 32.2 pg (26-34); Mean Corpuscular Volume 96.5 fl (80-100); Mean Platelet Volume 10.7 fl (7.4-10.4); Monocytes Absolute Auto 0.5 K/mm3 (0.1-0.6); Neutrophils Absolute Auto 1.9 K/mm3 (1.3-6.7); Neutrophils Percent Auto 53.5 % (45.5-73.1); Platelet Count Result 144 k/mm3 (150-375); Red Blood Count 3.17 M/mm3 (4.2-5.4); Red Cell Distribution Width 14.1 % (11.5-14.5); White Blood Count 3.6 K/mm3 (4.5-10.0)
[2023-12-15 04:37] LABS: Alanine Aminotransferase 19 U/L (6-35); Albumin Level 2.9 g/dL (3.5-5.1); Alkaline Phosphatase 113 U/L (38-126); Anion Gap 3 mmol/L (4-12); Aspartate Amino Transferase 44 U/L (14-36); Blood Urea Nitrogen 6 mg/dL (7-17); Calcium 8.9 mg/dL (8.4-10.2); Carbon Dioxide 30 mmol/L (22-30); Chloride 101 mmol/L (98-107); Estimated CRCL calculation 81 ml/min; Estimated Glomerular Filt Rate > 60; Glucose 101 mg/dL (65-110); Sodium 134 mmol/L (137-145)
[2023-12-15] MEDS: ACETAMINOPHEN 500 MG TABLET PO (05:47)
[2023-12-15 08:00] VITALS: PULSE 84; RESP 16; O2SAT 96
[2023-12-15] MEDS: TAMSULOSIN HCL 0.4 MG CAPSULE PO (09:27)
[2023-12-15] MEDS: MULTIVITAMINS THERAPEUTIC TAB (*BKC) 1 TABLET PO (09:27)
[2023-12-15] MEDS: APIXABAN 2.5 MG TABLET PO (09:27)
[2023-12-15] MEDS: CALCIUM CITRATE 315 MG/VITAMIN D 6.25 MCG (250 UNITS) TAB 1 TABLET PO (09:27)
[2023-12-15] MEDS: VITAMIN B COMPLEX CAPSULE 1 CAP PO (09:27)
[2023-12-15] MEDS: FOLIC ACID 1 MG TABLET PO (09:27)
[2023-12-15] MEDS: LACTULOSE 20 GM/30 ML UDC PO (09:27)
[2023-12-15] MEDS: DOCUSATE SODIUM 100 MG CAPSULE PO (09:27)
[2023-12-15] MEDS: FERROUS SULFATE 325 MG TABLET DR PO (09:27)
[2023-12-15] MEDS: polyethylene glycoL 3350 17 GM POWD.PACK PO (09:27)
--- NOTE | 2023-12-15 11:14 | PM.PNORT ---
Progress Note: A&P Assessment and Plan (1) Closed fracture of left inferior pubic ramus: Qualifiers: Encounter type: initial encounter Qualified Code(s): S32.592A - Other specified fracture of left pubis, initial encounter for closed fracture Code(s): S32.592A - Other specified fracture of left pubis, initial encounter for closed fracture Status: Acute Assessment and Plan: Patient is doing well. Complains that she was up in the chair little bit too much yesterday 7 hours and became a little bit stiff but otherwise she is transferring well. Her platelets have been stable and they are now 144,000. White count 3.6 mildly low hemoglobin 10.2 and stable. Patient is on Eliquis 2.5 mg q.12 hours for DVT prophylaxis. I would like to see her in the office in approximately 3 and half weeks. (2) Closed fracture of left superior pubic ramus: Qualifiers: Encounter type: initial encounter Qualified Code(s): S32.512A - Fracture of superior rim of left pubis, initial encounter for closed fracture Code(s): S32.512A - Fracture of superior rim of left pubis, initial encounter for closed fracture Status: Acute (3) Fracture of sacrum: Qualifiers: Encounter type: initial encounter Zone of sacrum fracture: unspecified portion of sacrum Fracture type: closed Qualified Code(s): S32.10XA - Unspecified fracture of sacrum, initial encounter for closed fracture Code(s): S32.10XA - Unspecified fracture of sacrum, initial encounter for closed fracture Status: Acute Subjective Subjective Date/Time Seen: 12/15/23 11:14 Objective Data Vital Signs Vital Signs: Vital Signs - 24 hr 12/14/23 14:00 12/14/23 20:08 12/15/23 03:37 Temperature 36.4 C 36.4 C 36.9 C Pulse Rate 86 99 84 Respiratory Rate 19 20 16 Blood Pressure 148/68 H 130/70 128/68 Pulse Oximetry 95 98 96 Intake/Output Intake/Output: Intake & Output 12/12/23 12/13/23 12/14/23 12/15/23 23:59 23:59 23:59 23:59 Intake Total 2050 1283 610 510 Output Total 378 561 8472 600 Balance 1200 683 -570 -90 Meds/Results Medications: Active Medications Generic Name Dose Route Start Last Admin Trade Name Radha PRN Reason Stop Dose Admin Acetaminophen 500 mg 12/13/23 15:00 12/15/23 05:47 Acetaminophen 500 Mg Tablet PO 500 mg Q8HR EMY Administration Apixaban 2.5 mg 12/12/23 21:00 12/15/23 09:27 Apixaban 2.5 Mg Tablet PO 2.5 mg Q12HR EMY Administration Calcium Citrate 1 tablet 12/12/23 09:00 12/15/23 09:27 Calcium Citrate 315 Mg/Vitamin D 6.25 Mcg (250 Units) Tab PO 1 tablet BID EMY Administration Docusate Sodium 100 mg 12/13/23 21:00 12/15/23 09:27 Docusate Sodium 100 Mg Capsule PO 100 mg Q12HR EMY Administration Ergocalciferol 50,000 units 12/12/23 09:00 12/12/23 08:41 Ergocalciferol 50,000 Units Capsule PO 12/26/23 09:01 50,000 units WEEKLY EMY Administration Ferrous Sulfate 325 mg 12/12/23 17:00 12/15/23 09:27 Ferrous Sulfate [address] PO 325 mg BID EMY Administration Folic Acid 1 mg 12/11/23 09:00 12/15/23 09:27 Folic Acid 1 Mg Tablet PO 1 mg DAILY EMY Administration Lactulose 20 gm 12/15/23 09:00 12/15/23 09:27 Lactulose 20 Gm/30 Ml Udc PO 20 gm QAM EMY Administration Multivitamins Therapeutic 1 tablet 12/11/23 09:00 12/15/23 09:27 Multivitamins Therapeutic Tab (*Bkc) PO 1 tablet DAILY EMY Administration Oxycodone HCl 2.5 mg 12/11/23 17:00 12/15/23 09:27 Oxycodone Hcl (*Crx) 2.5 Mg Tab Ir PO 2.5 mg Q4H EMY Administration Polyethylene Glycol 17 gm 12/14/23 09:00 12/15/23 09:27 Polyethylene Glycol 3350 17 Gm Powd.Pack PO 17 gm QAM EMY Administration Tamsulosin HCl 0.4 mg 12/11/23 09:00 12/15/23 09:27 Tamsulosin Hcl 0.4 Mg Capsule PO 0.4 mg QAM EMY Administration Vitamin B Complex 1 cap 12/11/23 09:00 12/15/23 09:27 Vitamin B Complex Capsule PO
--- NOTE | 2023-12-15 13:36 | PM.DS ---
DS: Admitting Diagnosis Discharge Date 12/15/23 Admitting Diagnosis Fall Closed fracture of left inferior pubic ramus Closed fracture of left superior pubic ramus Fracture of ileum, left Lumbar transverse process fracture Thrombocytopenia Iron deficiency anemia DS: Discharge Diagnosis Discharge Diagnosis (1) Fall: Code(s): W19.XXXA - Unspecified fall, initial encounter Status: Acute (2) Closed fracture of left inferior pubic ramus: Qualifiers: Encounter type: initial encounter Qualified Code(s): S32.592A - Other specified fracture of left pubis, initial encounter for closed fracture Code(s): S32.592A - Other specified fracture of left pubis, initial encounter for closed fracture Status: Acute (3) Closed fracture of left superior pubic ramus: Qualifiers: Encounter type: initial encounter Qualified Code(s): S32.512A - Fracture of superior rim of left pubis, initial encounter for closed fracture Code(s): S32.512A - Fracture of superior rim of left pubis, initial encounter for closed fracture Status: Acute (4) Fracture of ilium, left: Qualifiers: Encounter type: initial encounter Fracture alignment: nondisplaced Fracture morphology: unspecified fracture morphology Fracture type: closed Qualified Code(s): S32.302A - Unspecified fracture of left ilium, initial encounter for closed fracture Code(s): S32.302A - Unspecified fracture of left ilium, initial encounter for closed fracture Status: Acute (5) Lumbar transverse process fracture: Qualifiers: Encounter type: initial encounter Fracture type: closed Qualified Code(s): S32.009A - Unspecified fracture of unspecified lumbar vertebra, initial encounter for closed fracture Code(s): S32.009A - Unspecified fracture of unspecified lumbar vertebra, initial encounter for closed fracture Status: Acute (6) Thrombocytopenia: Code(s): D69.6 - Thrombocytopenia, unspecified Status: Acute (7) Iron deficiency anemia: Code(s): D50.9 - Iron deficiency anemia, unspecified Status: Acute DS: Summary Hospital Course Reason for hospitalization: Fall Closed fracture of left inferior pubic ramus Closed fracture of left superior pubic ramus Fracture of ileum, left Lumbar transverse process fracture Thrombocytopenia Iron deficiency anemia Hospital Course: 63 year old female with past medical history of anxiety/depression, GERD, osteopenia, and alcohol use presents to the hospital for left hip swelling, lower back pain, and decreased mobility following a fall. Imaging revealed nondisplaced fractures of the left sacral ala and left ilium and fractures of left superior and inferior pubic rami. As well as a left L5 transverse process fracture. Ortho and neurosurgery were consulted and recommended nonoperative management of pain control and PT/OT for all fractures. Throughout admission patient continued to work with PT/OT and her pain was well controlled on the pain regimen. Per ortho patient is to continue touch weight-bearing on left foot and quad sets, but no heel slides yet. Patient continued to have thrombocytopenia on daily labs. Heme/onc consulted for DVT ppx recommendations and to further evaluate. Patient was started on Eliquis 2.5 mg BID as DVT ppx. This medication is to be held if her platelets < 100,000. She is to undergo weekly CBC to assess platelet levels. Patient was also noted to have iron deficiency anemia and started on iron supplements. She is to call for an appointment to follow up with heme/onc outpatient. Patient is to follow up with Dr. Moya in the office in 3.5 weeks. Prior to discharge patient had stable vital signs and denied chest pain, shortness of breath, nausea/vomiting, and changes in bowel/bladder. Patient discharged to [facility] in stable condition. She is to follow up with her PCP in 1 week, Dr. Moya in 3.5 weeks and call to follow up with Dr. Head
[2023-12-15 14:00] VITALS: BP 138/78; PULSE 100; RESP 16; TEMP 37.1; O2SAT 97
[2023-12-16 11:28] LABS: Methylmalonic Acid 74 nmol/L (69-390)
[2023-12-17 17:23] LABS: Platelet Antibody, Direct NEGATIVE (NEGATIVE)
[2023-12-19 13:02] LABS: Soluble Transferrin Receptor 1.16 mg/L (0.76-1.76)
== END 2023-12-15 17:00 | DRG 552 ==
LOC: ANHED 15:36 → ANH3MEDSUR 16:19
PROVIDERS: Nurse Practitioner Family; Orthopaedic Surgery; Physician Assistant Surgical; Student in an Organized Health Care Education/Training Program; Admitting Provider Hospitalist; Emergency Provider Emergency Medicine; Visit Provider Internal Medicine
DX: S32.059A Unspecified fracture of fifth lumbar vertebra, initial encounter for closed fracture (principal); S32.512A Fracture of superior rim of left pubis, initial encounter for closed fracture; S32.592A Other specified fracture of left pubis, initial encounter for closed fracture; S32.302A Unspecified fracture of left ilium, initial encounter for closed fracture; S00.212A Abrasion of left eyelid and periocular area, initial encounter; D69.6 Thrombocytopenia, unspecified; D50.9 Iron deficiency anemia, unspecified; W18.39XA Other fall on same level, initial encounter; F41.8 Other specified anxiety disorders; K21.9 Gastro-esophageal reflux disease without esophagitis; M85.80 Other specified disorders of bone density and structure, unspecified site; M19.90 Unspecified osteoarthritis, unspecified site; F10.20 Alcohol dependence, uncomplicated; Z98.49 Cataract extraction status, unspecified eye; Z87.891 Personal history of nicotine dependence
CPT/HCPCS: 36415; 72131; 73502; 73700; 76700; 80048; 80053; 81001; 82306; 82607; 82728; 82746; 83540; 83550; 83921; 84238; 85025; 85055; 85610; 86023; 96374; 96375; 97110; 97161; 97166; 97530; 97535; 99285; A9270; J1756; J2270; J2405; J7050

== ENCOUNTER 2024-02-10 14:44 | Outpatient (CLI) | payer MEDICARE, SELFPAY ==
[2024-02-10 15:16] LABS: Basophils Absolute Auto 0.1 K/mm3 (0.0-0.1); Basophils Percent Auto 0.8 % (0.2-1.2); Eosinophils Absolute Auto 0.1 K/mm3 (0-0.3); Eosinophils Percent Auto 1.1 % (0-4.4); Hematocrit 37.1 % (37.0-47.0); Hemoglobin 12.2 g/dL (12.0-15.0); Immature Granulocyte Absolute 0.02 K/mm3 (0.00-0.031); Immature Granulocyte Percent A 0.2 % (0-0.5); Lymphocytes Absolute Auto 2.29 K/mm3 (0.9-3.2); Lymphocytes Percent Auto 25.7 % (18.3-44.2); Mean Corpuscular HGB Conc 32.9 g/dl (32-36); Mean Corpuscular Hemoglobin 29.8 pg (26-34); Mean Corpuscular Volume 90.5 fl (80-100); Monocytes Absolute Auto 0.5 K/mm3 (0.1-0.6); Monocytes Percent Auto 5.2 % (2.6-8.5); Platelet Count Result 233 k/mm3 (150-375); Red Cell Distribution Width 12.9 % (11.5-14.5); White Blood Count 8.9 K/mm3 (4.5-10.0)
[2024-02-10 16:32] LABS: Alanine Aminotransferase 13 U/L (6-35); Albumin Level 4.6 g/dL (3.5-5.1); Alkaline Phosphatase 110 U/L (38-126); Anion Gap 11 mmol/L (4-12); Aspartate Amino Transferase 32 U/L (14-36); Bilirubin,Total 0.5 mg/dL (0.2-1.3); Blood Urea Nitrogen 9 mg/dL (7-17); Calcium 9.8 mg/dL (8.4-10.2); Carbon Dioxide 30 mmol/L (22-30); Chloride 97 mmol/L (98-107); Cholesterol 248 mg/dL (0-200); Estimated Glomerular Filt Rate > 60; Glucose 103 mg/dL (65-110); HDL Direct 62 mg/dL; Iron 57 ug/dL (37-170); Potassium 3.8 mmol/L (3.4-5.0); Sodium 138 mmol/L (137-145); Triglycerides 168 mg/dL (<150)
[2024-02-10 16:33] LABS: Lactate Dehydrogenase 182 U/L (120-246)
[2024-02-10 16:44] LABS: LDL Cholesterol Direct 130 mg/dL
[2024-02-10 16:45] LABS: Percent Iron Saturation 26 % (20-50)
[2024-02-10 16:48] LABS: Free T4 Free Thyroxine 1.33 ng/mL (0.78-2.19)
[2024-02-10 19:49] LABS: Folic Acid > 20.0 ng/mL (2.76->20)
[2024-02-13 12:32] LABS: Methylmalonic Acid 155 nmol/L (69-390)
[2024-02-16 11:18] LABS: Soluble Transferrin Receptor 1.46 mg/L (0.76-1.76)
== END 2024-02-10 14:45 | disposition home or self-care (01) ==
LOC: ANHLAB 14:49
PROVIDERS: Nurse Practitioner Family; Student in an Organized Health Care Education/Training Program; PCP Family Medicine; Visit Provider Internal Medicine Hematology & Oncology
DX: D69.6 Thrombocytopenia, unspecified (principal); D50.9 Iron deficiency anemia, unspecified; R53.83 Other fatigue; F10.20 Alcohol dependence, uncomplicated
CPT/HCPCS: 36415; 80053; 80061; 82607; 82728; 82746; 83540; 83550; 83615; 83921; 84238; 84439; 84443; 85025

== ENCOUNTER 2024-05-18 10:52 | Outpatient (CLI) | payer MEDICARE, SELFPAY ==
[2024-05-18 11:12] LABS: Basophils Absolute Auto 0.1 K/mm3 (0.0-0.1); Basophils Percent Auto 1.2 % (0.2-1.2); Eosinophils Absolute Auto 0.1 K/mm3 (0-0.3); Eosinophils Percent Auto 1.2 % (0-4.4); Hematocrit 39.9 % (37.0-47.0); Hemoglobin 13.4 g/dL (12.0-15.0); Immature Granulocyte Absolute 0.02 K/mm3 (0.00-0.031); Immature Granulocyte Percent A 0.3 % (0-0.5); Immature Platelet Fraction Pct 4.7 % (0.9-11.2); Lymphocytes Absolute Auto 1.46 K/mm3 (0.9-3.2); Mean Corpuscular HGB Conc 33.6 g/dl (32-36); Mean Corpuscular Hemoglobin 32.1 pg (26-34); Mean Corpuscular Volume 95.7 fl (80-100); Mean Platelet Volume 9.7 fl (7.4-10.4); Monocytes Absolute Auto 0.6 K/mm3 (0.1-0.6); Monocytes Percent Auto 10.1 % (2.6-8.5); Neutrophils Absolute Auto 3.6 K/mm3 (1.3-6.7); Neutrophils Percent Auto 62.2 % (45.5-73.1); Platelet Count Result 135 k/mm3 (150-375); Red Blood Count 4.17 M/mm3 (4.2-5.4); Red Cell Distribution Width 13.9 % (11.5-14.5); White Blood Count 5.8 K/mm3 (4.5-10.0)
[2024-05-18 12:58] LABS: Iron 99 ug/dL (37-170)
[2024-05-18 13:01] LABS: Alanine Aminotransferase 45 U/L (6-35); Albumin Level 4.4 g/dL (3.5-5.1); Alkaline Phosphatase 120 U/L (38-126); Anion Gap 5 mmol/L (4-12); Aspartate Amino Transferase 106 U/L (14-36); Bilirubin,Total 1.2 mg/dL (0.2-1.3); Blood Urea Nitrogen 10 mg/dL (7-17); Calcium 9.4 mg/dL (8.4-10.2); Carbon Dioxide 31 mmol/L (22-30); Chloride 99 mmol/L (98-107); Estimated Glomerular Filt Rate > 60; Glucose 95 mg/dL (65-110); Lactate Dehydrogenase 244 U/L (120-246); Potassium 3.7 mmol/L (3.4-5.0); Sodium 135 mmol/L (137-145)
[2024-05-18 13:08] LABS: Percent Iron Saturation 41 % (20-50)
[2024-05-18 14:08] LABS: Folic Acid > 20.0 ng/mL (2.76->20)
[2024-05-22 05:49] LABS: Methylmalonic Acid 99 nmol/L (69-390)
== END 2024-05-18 10:53 | disposition home or self-care (01) ==
LOC: ANHLAB 10:53
PROVIDERS: PCP Family Medicine; Visit Provider Internal Medicine Hematology & Oncology
DX: D69.6 Thrombocytopenia, unspecified (principal); D50.9 Iron deficiency anemia, unspecified
CPT/HCPCS: 36415; 80053; 82607; 82728; 82746; 83540; 83550; 83615; 83921; 84238; 85025; 85055

== ENCOUNTER 2024-06-02 15:43 | Emergency (ER) | payer MEDICARE, SELFPAY ==
--- NOTE | ~2024-06-02 | CT_ITS ---
EXAMINATION: CT lumbar spine wo con DATE: 06/02/2024 16:50 INDICATION: Low back pain. Trauma. TECHNIQUE: Computed tomography (CT) of the lumbar spine was performed without intravenous contrast. A utomated exposure control and iterative reconstruction technique were employed. The dose-length produ ct was 727.56 mGy-cm. COMPARISON: CT lumbar spine 12/10/2023 FINDINGS: There is 12 degrees levoscoliosis of lumbar spine. There is a burst fracture of L4 with hor izontal cleft, 3/5 loss of height, and retropulsion of bone 3 mm into central spinal canal. There is mildly decreased disc height at L4-L5. Epidural lipomatosis is noted. The following disc levels are s pecifically discussed: L1-L2: The disc is bulging. There is mild bilateral facet joint osteoarthritis. There is mild bilater al neural foraminal stenosis. There is no central canal stenosis. L2-L3: The disc is bulging. There is severe bilateral facet joint osteoarthritis. There is mild bilat eral neural foraminal stenosis. There is mild central canal stenosis. L3-L4: The disc is bulging. There is severe bilateral facet joint osteoarthritis. There is moderate r ight and mild left neural foraminal stenosis. There is moderate central canal stenosis. L4-L5: The disc is bulging. There is severe bilateral facet joint osteoarthritis. There is mild bilat eral neural foraminal stenosis. There is mild central canal stenosis. L5-S1: The disc is bulging. There is severe bilateral facet joint osteoarthritis. There is mild bilat eral neural foraminal stenosis. There is no central canal stenosis. IMPRESSION: 1. Acute versus subacute L3 burst fracture. 2. Moderate lumbar spondylosis. 3. Lumbar levoscoliosis. Reviewed, dictated and finalized at location A. ING HOME ASSISTANT ADMINISTRATOR
--- NOTE | ~2024-06-02 | CT_ITS ---
CT pelvis wo con Ordering provider: David Lee MD History: . Low back pain, trauma . Comparison: None. Technique: CT pelvis without oral and IV contrast. . Automated exposure control and iterative recons truction technique were employed. The dose-length product was 256.93 mGy-cm. Findings: BONES: No pelvic fracture or hip dislocation. Postoperative changes in the left femoral neck and prox imal femur. Age appropriate degenerative changes of the visualized lower lumbar spine. Bilateral sacroiliitis with possible fusion anteriorly. Bilateral hip osteoarthritic changes. Healed fracture in the left pubic bone. SUPERFICIAL SOFT TISSUES: Normal. PELVIC ORGANS: The bladder is normal. VISUALIZED BOWEL AND MESENTERY: Normal. No free air or free fluid. No lymphadenopathy. RETROPERITONEUM: Mild atheromatous disease. IMPRESSION: No evidence of acute osseous abnormality. Old healed fractures in the left pubic bone and left femur. Degenerative changes of the spine. Reviewed, dictated and finalized at location A. EDURAL NURSE
[2024-06-02 15:44] VITALS: BP 175/91; PULSE 100; RESP 18; TEMP 36.4; O2SAT 98
--- NOTE | 2024-06-02 16:39 | ED.FALL ---
HPI - Fall General Chief Complaint: Fall Stated Complaint: fall Time Seen by Provider: 06/02/24 15:49 History of Present Illness HPI Narrative: 63-year-old female present to the emergency department for evaluation after having a ground level fall on . Patient reports that she stood up quickly and ended up tripping over the rug causing her to fall backwards. Patient states she did injure her lower back but denies striking head denies any loss of consciousness. Patient states that over the course of the week the lower back pain has worsened and does not radiate down the legs bilaterally when standing. Patient denies any loss of bowel or bladder control. Patient denies any numbness or weakness of the lower extremities and only reports the pain happens when she has been standing for greater than 5 minutes. Related Data Allergies Allergy/AdvReac Type Severity Reaction Status Date / Time aspirin Allergy Intermediate HIVES Verified 06/02/24 15:44 NSAIDS (Non-Steroidal Allergy Intermediate HIVES Verified 06/02/24 15:44 Anti-Inflamma Review of Systems Review of Systems: All systems reviewed & are unremarkable except as noted in HPI and below PMFSH Past Medical History Medical History Anxiety Anxiety and depression Arthritis Bilateral lower extremity edema Daily consumption of alcohol Degenerative arthritis of left knee Gastroesophageal reflux disease Hearing loss History of heavy alcohol consumption Sprain of collateral ligament of left knee Vision loss Surgical History Surgical History History of cataract extraction History of hip surgery Left Hip fracture surgery IM nail on 01/25/[address] 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 She smoked 1/2 pack of cigarettes a day for about 20 years and quit in 12/1999. She drinks 2 to 3 alcoholic beverages a night, typically beer or wine. She drinks heavier on the weekends, typically drinking mixed drinks although she does not quantify the amount that she typically drinks. No illicit substance use. She designates her Jluis as her surrogate decision maker and she wishes to be a full code. Smoking packs per day: 0.5 Smoking cigarettes per day: 10.0 Years smoked: 24 Smoking pack-years: 12.00 Smoking status: Former smoker Tobacco type: cigarettes Second hand tobacco smoke exposure: No Smoking end date: 06/16/99 Alcohol intake: current Drinks per week: 7 Alcohol use details: PT HAS ALCOHOLISM, STATES SHE CURRENTLY QUIT AND ONLY DRINKS 2-3 TIMES PER WEEK. 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 HEAD: normocephalic, atraumatic. EYES: PERRLA/EOMI, conjunctivae clear. NOSE: Normal no drainage EARS:TMS clear with good light reflex. THROAT: Pharynx clear, no exudate. NECK: Supple. No adenopathy, no masses. RESPIRATORY: Airway patent, respirations nonlabored. Clear to auscultation bilaterally, no rales, rhonchi, wheezing. CARDIOVASCULAR: Regular rate and rhythm without murmurs rubs or gallops. ABDOMINAL: Soft, nontender, nondistended, normal bowel sounds MUSCULOSKELETAL: Moves all extremities. Strength/ROM intact, No edema, No calf tenderness. NEURO: Alert. Cranial nerves II through XII intact. Grossly intact SKIN: Warm, dry. Normal Color Course Vital Signs Vital signs: Vital Signs Temperature 97.6 F 06/02/24 15:44 Pulse Rate 100 06/02/24 15:44 Respiratory Rate 18 06/02/24 15:44 Blood Pressure 175/91 H 06/02/24 15:44 Pulse Oximetry 98 06/02/24 15:44 Oxygen Delivery Room Air 06/02/24 15:44 Temperature 98.9 F 06/02/24 18:55 Pulse Rate 87 06/02/24 18:55 Respiratory Rate 20 06/02/24 18:55 Blood Pressure 173/96 H 06/02/24 18:55 Pulse Oximetry 98 06/02/24 18:55 Oxygen Delivery Room Air 06/02/24 15:44 MDM - Fall MDM Narrative Medical decision making narrative: 63-year-old female presents to the emergency department for evaluation for lower back pain bilateral leg pain after having a ground level fall approximately 1 week ago. Differential Diagnosis Differential diagnosis: Likely other ( sciatica, back fracture) Imaging Data Radiologist's impression: Impressions Lumbar Spine CT 06/02/24 16:54 IMPRESSION: 1. Acute versus subacute L3 burst fracture. 2. Moderate lumbar spondylosis. 3. Lumbar levoscoliosis. Pelvis CT 06/02/24 17:00 IMPRESSION: No evidence of acute osseous abnormality. Old healed fractures in the left pubic bone and left femur. Degenerative changes of the spine. Discharge Plan Discharge Clinical Impression: Closed L3 vertebral fracture Patient Disposition: Home, Self-Care Condition: Stable Instructions: Antibiotic Form, Thoracolumbar Fracture (ED), Lumbar Brace (DC) Additional Instructions: Back brace as directed. [place] for pain control. Flexeril for muscle spasm. Have close follow-up with Neurosurgery, the you should call them soon to schedule an appointment for 2 weeks. if you have any worsening symptoms then please call or return to the emergency department. Patient Language: Sami Prescriptions: New (DME) back brace Misc See Rx Instructions .Route Qty: 1 0RF Rx Instructions: LSO brace as directed hydrocodone-acetaminophen 5-325 mg tablet 1 tablet PO Q8H PRN (Reason: pain) Qty: 14 0RF cyclobenzaprine 10 mg tablet 10 mg PO BID PRN (Reason: muscle spasm) Qty: 14 0RF No Action calcium citrate-vitamin D3 315 mg-5 mcg (200 unit) tablet 1 tablet PO BID Qty: 100 0RF folic acid 1 mg Tablet 1 mg PO DAILY Qty: 30 0RF ferrous sulfate 325 mg (65 mg iron) Tablet,Delayed Release (Dr/Ec) 325 mg PO [id number] Qty: 60 0RF multivitamin with folic acid [Thera] 400 mcg Tablet 1 tablet PO DAILY Qty: 30 0RF Follow-up/Referrals: Meera Patel MD [Primary Care Provider] - Lino Guthrie MD [Physician] -
[2024-06-02] MEDS: HYDROcodone/acetaminophen (*CRX) 5-325 MG TABLET 1 TAB PO (18:53)
[2024-06-02 18:55] VITALS: BP 173/96; PULSE 87; RESP 20; TEMP 37.2; O2SAT 98
== END 2024-06-02 19:06 | disposition home or self-care (01) ==
PROVIDERS: Emergency Provider Emergency Medicine; PCP Family Medicine
DX: S32.039A Unspecified fracture of third lumbar vertebra, initial encounter for closed fracture (principal); W18.09XA Striking against other object with subsequent fall, initial encounter; F41.8 Other specified anxiety disorders; K21.9 Gastro-esophageal reflux disease without esophagitis; Z87.891 Personal history of nicotine dependence
CPT/HCPCS: 72131; 72192; 99284; A9270

== ENCOUNTER 2024-07-13 11:14 | Outpatient (CLI) | payer MEDICARE, SELFPAY ==
--- NOTE | ~2024-07-13 | XR_ITS ---
Lumbosacral Spine: AP and lateral views Clinical History: Pain Findings: Severe L3 compression fracture is similar to prior CT dated 06/02/2024. There is mild degen erative disc changes throughout the lumbar spine. There is severe facet arthropathy throughout the tessie mbar spine. The intervertebral disc spaces are preserved. The sacroiliac joints are normally outline d. Impression: Stable severe L3 compression fracture. Advanced degenerative spondylitic changes, as above. Reviewed, dictated and finalized at location M. ATRIC DENTAL ASSISTANT Impression: Stable severe L3 compression fracture. Advanced degenerative spondylitic changes, as above.
--- OUTSIDE RECORDS SUMMARY | 2024-07-13 12:25 | XMS_ITS | Patient Health Summary ---
Author Organization [facility] Address [address] [place] [address] Care Team Providers Care Cigar Making Supervisor Name Role Phone Snehal Paulino Unavailable [phone] Meera Del Toro Primary Care Provider [phone] Note from [facility],non-owned Affiliates and Associated Physician Practices is amultiple site organization consisting of ambulatory clinics and hospital sitesin [place], [place], [place] and [place]. This disclosure is being madepursuant to the Care Everywhere program and may not contain all information available regarding this patient. Last updated 18.[facility] Social History Tobacco Use Types Packs/Day Years Used Date Smoking Tobacco: Never Assessed Sex and Gender Information Value Date Recorded Sex Assigned at Not on file Gender Identity Not on file Sexual Orientation Not on file Care Teams Cigar Making Supervisor Relationship Specialty Start Date End Date Snehal Paulino APRN-CNP [address] [facility] [phone] PCP - Attributed-[facility] JAZZY 01/15/24 , Meera Patel [address] [place] [id number] PCP - General 03/10/24
--- OUTSIDE RECORDS SUMMARY | 2024-07-13 12:25 | XMS_ITS | Referral Summary ---
Author Organization [facility] Address [address] [place] [address] Care Team Providers Care Back Sizer Name Role Phone Snehal Paulino Unavailable [phone] , Meera Patel Primary Care Provider [phone] Source Comments [facility],non-owned Affiliates and Associated Physician Practices is amultiple site organization consisting of ambulatory clinics and hospital sitesin [place], [place], [place] and [place]. This disclosure is being madepursuant to the Care Everywhere program and may not contain all information available regarding this patient. Last updated 18.[facility] Social History Tobacco Use Types Packs/Day Years Used Date Smoking Tobacco: Never Assessed Sex and Gender Information Value Date Recorded Sex Assigned at Not on file Gender Identity Not on file Sexual Orientation Not on file Plan of Treatment Not on file Care Teams Back Sizer Relationship Specialty Start Date End Date Snehal Paulino APRN-CNP [address] [id number] PCP - Attributed-[facility]ZZ[facility] 01/15/24 , Meera Patel [address] [place] [address] PCP - General 03/10/24
--- OUTSIDE RECORDS SUMMARY | 2024-07-13 12:25 | XMS_ITS | Clinical Summary ---
Author Organization [facility] Address [address] [place] [address]. [place] [address] Care Team Providers Care Rotary Drill Operator Name Role Phone Unavailable Primary Care Provider Unavailabl e Social History Tobacco Use Types Packs/Day Years Used Date Smoking Tobacco: Never Assessed Comments Unknown Sex and Gender Information Value Date Recorded Sex Assigned at Not on file Legal Sex Female 2:41 PM CDT Gender Identity Not on file Sexual Orientation Not on file Plan of Treatment Health Maintenance Due Date Last Done Comments Colorectal Cancer Screening Colonoscopy (10 Years) 1958 Hepatitis C 1976 DTaP, Tdap and Td Vaccines ( 1 - Tdap) 1977 Mammogram Screening 1998 Zoster Vaccines (1 of 2) 2008 Dexa Scan (General) 12/04/2023 Pneumococcal Vaccine: 65+ Ye ars (1 of 1 - PCV) 12/04/2023 COVID-19 Vaccine ( - 2023-2 5 season) 2024 Influenza Adult (#1) 2024 RSV Immunization or 60+ Years (1 - 1-dose 75+ series) 2033 Meningococcal B Vaccine Aged Out No l onger eligible based on patient's age to complete this topic Meningococcal Vaccine Aged Out No kelli solis eligible based on patient's age to complete this topic Pneumococcal Vaccine: Pediat rics (0 to 5 Years) and At-Risk Patients (6 to 64 Years) Aged Out No longer eligible b ased on patient's age to complete this topic RSV Immunizations Under 20 Months Aged Out No longer eligible based on patient's age to complete this topic
--- OUTSIDE RECORDS SUMMARY | 2024-07-13 12:25 | XMS_ITS | Clinical Summary ---
Author Organization [facility] Address [address] [place] [address] Care Team Providers Care Catch Basin Cleaner Name Role Phone Snehal Paulino SAEED-BODY MAN Unavailable [phone] , Meera Patel Primary Care Provider [phone] Source Comments [facility],non-owned Affiliates and Associated Physician Practices is amultiple site organization consisting of ambulatory clinics and hospital sitesin [place], [place], [place] and [place]. This disclosure is being madepursuant to the Care Everywhere program and may not contain all information available regarding this patient. Last updated 18.[facility] [employer] [facility] [employer] Social History Tobacco Use Types Packs/Day Years Used Date Smoking Tobacco: Never Assessed Sex and Gender Information Value Date Recorded Sex Assigned at Not on file Gender Identity Not on file Sexual Orientation Not on file Plan of Treatment Health Maintenance Due Date Last Done Comments BONE DENSITY TESTING 1958 COLOGUARD (AGES 45-75) - COL ON CA SCREENING 1958 COLON MONITORING 1958 COLONOSCOPY - COLON CA SCREENING 1958 CT COLONOGRAPHY - COLON CA SCREENING 1958 Colorectal Cancer Screening 1958 FIT - COLON CA SCREENING 1958 FLEX SIG - COLON CA SCREENING 1958 LIPID TESTING 1958 MAMMOGRAM 1958 PAP SMEAR 1958 HIV SCREENING 1973 HEPATITIS C SCREENING 11/28/1976 DTAP/TDAP/TD VACCINES (1 - Tdap) 1977 PNEUMOCOCCAL VACCINE 50+ (1 of 1 - PCV) 2008 ZOSTER VACCINE (1 of 2) 2008 COVID-19 VACCINE ( - 2023-2 5 season) 2024 INFLUENZA VACCINE (#1) 2024 DEPRESSION SCREENING 06/16/2024 Respiratory Syncytial Virus (RSV) Vaccine Pt: or over 60 yrs (1 - 1-dose 75+ series) 2033 HEPATITIS B VACCINE Aged Out No longe r eligible based on patient's age to complete this topic HIB VACCINE Aged Out No longer eligi ble based on patient's age to complete this topic HPV VACCINE Aged Out No longer eligi ble based on patient's age to complete this topic MENINGOCOCCAL (Group B) VACCINE Aged Out No longer eligible based on patient's age to complete this topic MENINGOCOCCAL VACCINE Aged Out No kelli solis eligible based on patient's age to complete this topic Care Teams Catch Basin Cleaner Relationship Specialty Start Date End Date Snehal Paulino, PRODUCT SAFETY LEAD-BODY MAN [address] [place] [phone] PCP - Attributed-[facility]Y 01/15/24 Meera Del Toro [facility] [place] [address] PCP - General 03/10/24
--- OUTSIDE RECORDS SUMMARY | 2024-07-13 12:25 | XMS_ITS | Clinical Summary ---
Author Organization [facility] Address [address] [place] [address] Care Team Providers Care Buckle Stringer Name Role Phone Meera Patel MD Primary Care Provider [phone] Allergies Active Allergy Reactions Criticality Noted Date Comments Aspirin Hives High 11/20/2022 Nsaids (Non-Steroidal Anti-I nflammatory Drug) Hives High 11/20/2022 Medications apixaban (Eliquis) 2.5 mg tablet Take 2.5 mg by mouth 2 times daily. Active CALCIUM CARBONATE ORAL Take by mouth. Active folic acid (FOLVITE) 1 mg tablet Take 1 mg by mouth daily. Active ferrous fumarate (FERRETTS) 325 mg (106 mg iron) Tablet Take 325 mg by mouth. Active ferrous sulfate 325 mg (65 mg iron) tablet Take 325 mg by mouth daily. Active multivitamin (DAILY-SHERICE) tablet Take 1 Tablet by mouth daily. Active Active Problems No known active problems Encounters Date Type Department Care Team Description 07/07/2024 External Device Data STL ABSTRACTION Provider, Abstract 07/06/2024 External Device Data STL ABSTRACTION Provider, Abstract 06/30/2024 External Device Data STL ABSTRACTION Provider, Abstract 06/22/2024 External Device Data STL ABSTRACTION Provider, Abstract 05/25/2024 Orders Only [facility] [address] [place] [address] Tristan White MD 05/24/2024 1:15 PM TALENT ACQUISITION ADMINISTRATOR Office Visit [facility] [address] [place] [address] Tristan White MD Chronic anemia (Primary Dx) 05/18/2024 Orders Only [facility] [address] [place] [phone] Tristan White MD 04/14/2024 External Device Data STL ABSTRACTION Provider, Abstract from Last 3 Months Family History Medical History Relation Name Comments No Known Problems Brother Diabetes Father Heart Disease Father Heart Disease Mother Skin Cancer Mother Melanoma Sister 1 No Known Problems Sister 2 No Known Problems Sister 3 Relation Name Status Comments Brother Alive Father Mother Sister 1 Alive Sister 2 Alive Sister 3 Alive Social History Tobacco Use Types Packs/Day Years Used Date Smoking Tobacco: Former Cigarettes 0.5 20 0 06/16/1979 - 06/16/1999 Smokeless Tobacco: Never Alcohol Use Standard Drinks/Week Comments Yes 0 (1 standard drink = 0.6 oz pur e alcohol) Socially Comments Unknown Sex and Gender Information Value Date Recorded Sex Assigned at Not on file Legal Sex Female 9:16 AM CDT Gender Identity Not on file Sexual Orientation Not on file Last Filed Vital Signs Vital Sign Reading Time Taken Comments Blood Pressure 130/77 05/24/2024 1:07 PM TALENT ACQUISITION ADMINISTRATOR Pulse 85 05/24/2024 1:07 PM TALENT ACQUISITION ADMINISTRATOR Temperature 36.8 ??C (98.2 ??F) 05/24/2024 1 :07 PM TALENT ACQUISITION ADMINISTRATOR Respiratory Rate 16 05/24/2024 1:07 PM TALENT ACQUISITION ADMINISTRATOR Oxygen Saturation 95% 05/24/2024 1:0 7 PM TALENT ACQUISITION ADMINISTRATOR Inhaled Oxygen Concentration - - Weight 70.4 kg (155 lb 3.2 oz) 05/24/2024 1:07 PM TALENT ACQUISITION ADMINISTRATOR Patient stated that she has gain weight since last appointment Height 162.6 cm (5' 4 ) 02/10/2024 2:01 PM CDT Body Mass Index 26.64 02/10/2024 2:01 PM CDT Plan of Treatment Upcoming Encounters Date Type Department Care Team (Late st Contact Info) Description 08/27/2024 11:00 AM CDT Office Visit [facility] [address] [place] [phone] Tristan White MD [address] [facility] [address] [place] [address] Health Maintenance Due Date Last Done Comments Pre-Diabetes and Diabetes Screening 1958 DTAP/TDAP/TD VACCINES (1 - Tdap) 1977 BREAST CANCER SCREENING 1998 COLORECTAL SCREENING 12/04/2003 Colorectal Cancer Screening 12/04/2003 FIT-DNA Q 3 years 12/04/2003 FIT/FOBT Q 1 year 12/04/2003 Flex Sig/CT Colonography Q 5 years 12/04/2003 PNEUMOCOCCAL VACCINE 65+ YEARS (1 of 1 - PCV) 12/04/19 09 ZOSTER VACCINE (1 of 2) 2008 OSTEOPOROSIS SCREENING 12/04/2023 INFLUENZA VACCINE (#1) 2024 RSV VACCINE (60+ or ) (1 - 1-dose 75+ series) 2033 Procedures Procedure Name Priority Date/Time Associated Diagnosis Comments COMPREHENSIVE METABOLIC PANEL Routine 05/18/2024 4:18 PM TALENT ACQUISITION ADMINISTRATOR TRANSFERRIN RECEPTOR TFR SOLUBLE Routine 05/18/2024 2:23 PM TALENT ACQUISITION ADMINISTRATOR from Last 3 Months Results * COMPREHENSIVE METABOLIC PANEL (05/18/2024 4:18 PM TALENT ACQUISITION ADMINISTRATOR) Blood Tristan White MD CHEMISTRY ORDERABLES Final Resu lt * TRANSFERRIN RECEPTOR TFR SOLUBLE (05/18/2024 2:23 PM TALENT ACQUISITION ADMINISTRATOR) Blood Tristan White MD CHEMISTRY ORDERABLES Final Resu lt from Last [address] [place] [address] [place] [id number] [place] [id number] Care Teams Buckle Stringer Relationship Specialty Start Date End Date Meera Patel MD [address] [place] [address] PCP - General Family Practice 02/10/24
--- OUTSIDE RECORDS SUMMARY | 2024-07-13 12:25 | XMS_ITS | Clinical Summary ---
Author Organization [facility] Address [address] [place] [address] Care Team Providers Care Data Lead Name Role Phone Anay Moser Primary Care Provider [phone] Allergies Active Allergy Reactions Criticality Noted Date Comments Aspirin Hives Medium 11/20/2022 Nsaids (Non-Steroidal Anti-I nflammatory Drug) Hives High 11/20/2022 Medications sodium, potassium & mag sulfates (SUPREP BOWEL KIT) 17.5-3.13-1.6 gram recon soln as directed 11/08/2022 A ctive Active Problems Problem Noted Date Diagnosed Date Lower extremity edema 11/26/2022 Assessment & Plan (11/26/2022 11:07 AM CDT): Left lower extremity 1+ pitting edema noted compared to the right. Both lower extremities are warm well perfused with palpable distal pulses. No open ulcerations noted. Discussed patient with Dr. Woodward. Plan: Follow-up in the next few weeks with a lower extremity arterial Doppler. Family History Medical History Relation Name Comments Varicose veins Mother Relation Name Status Comments Mother Social History Tobacco Use Types Packs/Day Years Used Date Smoking Tobacco: Former Cigarettes 0.8 20 Passive Smoke Exposure: Past Smokeless Tobacco: Never Tobacco Cessation:Counseling Given: No Personal Safety Answer Date Recorded Getting School Help Needed Not on file 08/30 Comments Unknown Sex and Gender Information Value Date Recorded Sex Assigned at Not on file Legal Sex Female 2:36 PM CDT Gender Identity Not on file Sexual Orientation Not on file Obstetrics History Last Filed Vital Signs Vital Sign Reading Time Taken Comments Blood Pressure - - Pulse - - Temperature - - Respiratory Rate - - Oxygen Saturation - - Inhaled Oxygen Concentration - - Weight 63.5 kg (140 lb) 12/23/2022 1:15 PM CDT Height 162.6 cm (5' 4 ) 12/23/2022 1:15 PM CDT Body Mass Index 24.03 12/23/2022 1:15 PM CDT Plan of Treatment Health Maintenance Due Date Last Done Comments Breast Cancer Screening-Mammogram 1960 Cervical Cancer Screening 1958 Colon Cancer Screening-Colonoscopy 1958 Depression Screening 1958 Fall Risk Assessment 1958 Hepatitis C Screening 1958 Osteoporosis Screening-Bone Density Scan 1958 DTaP/Tdap/Td Vaccine (1 - Tdap) 1969 Hepatitis B Screening 1976 Zoster Vaccine (1 of 2) 2008 Pneumococcal vaccine 65+ (1 of 1 - PCV) 12/04/2023 Well Visit 65+ 12/04/2023 Covid-19 Vaccine (5 - 2023-2 5 season) 2024 06/05/2022, 06/18/2021, 10/07/2020, Additional history exists Influenza Vaccine Completed 05/05/2024, 04/12/2022 Insurance [facility] [facility] Member Subscriber Plan / Payer (Ef fective 2022-Present) Name:Reginaldo Morgan Relation to Subscriber:Spouse Name:Jluis Morgan Date of :1961 (Home) Address: [address] [place] [id number] Payer ID:[id number] (NAIC) Type:[employer] HMO/PPO Address: [place] [phone] Care Teams Data Lead Relationship Specialty Start Date End Date Anay Moser PA [address] [place] [address] PCP - General Family Medicine 11/05/22
--- OUTSIDE RECORDS SUMMARY | 2024-07-13 12:25 | XMS_ITS | Referral Summary ---
Author Organization [facility] Address [address] [place] [address] Care Team Providers Care Mechanical Shop Laborer Name Role Phone Anay Moser Primary Care Provider [phone] Allergies Active Allergy Reactions Criticality Noted Date [...] weeks with a lower extremity arterial Doppler. Social History Tobacco Use Types Packs/Day Years [...] 12/23/2022 1:15 PM CDT Plan of Treatment Not on file Insurance [facility] Address: [address] [place] [phone] [facility] H[facility]/PPO Address: [address] [address] [place] [address] Care Teams Mechanical Shop Laborer Relationship Specialty Start Date End Date Anay Moser PA [address] [place] [address] PCP - General Family Medicine 11/05/22
--- OUTSIDE RECORDS SUMMARY | 2024-07-13 12:25 | XMS_ITS | Encounter Summary ---
Author Organization [facility] Address [address] [place] [address] Care Team Providers Care Financial Reporting Consultant Name Role Phone Meera Patel MD Primary Care Provider [phone] Encounter Details Date Type Department Care Team (Late st Contact Info) Description 12/11/2023 [facility] Oncology and Hematology - [place] [address] [facility] [address] [place] [address] Tristan White MD [address] [facility] [address] [place] [address] Thrombocytopenia, unspecified (Primary Dx) Social History Tobacco Use Types Packs/Day Years [...] on file Sexual Orientation Not on file documented as of this encounter Progress Notes * Georgette Yang - 12/12/2023 9:29 AM CDT See Attached Consult note in high school library media specialist, [facility] does not use [employer] as EHR documented in this encounter Plan of Treatment Upcoming Encounters Date Type Department Care Team (Late st Contact Info) Description 08/27/2024 11:00 AM CDT Office Visit [facility] Oncology and Hematology - Kushal [address] [facility] [address] [place] [address] Tristan White MD [address] [facility] [address] [place] [address] documented as of this encounter Visit Diagnoses Diagnosis Thrombocytopenia, unspecified- Primary documented in this encounter Care Teams Financial Reporting Consultant Relationship Specialty Start Date End Date Meera Patel MD [address] [place] [phone] PCP - General Family Practice 02/10/24 documented as of this encounter
== END 2024-07-13 11:15 | disposition home or self-care (01) ==
PROVIDERS: PCP Family Medicine; Visit Provider Nurse Practitioner Adult Health
DX: S32.001A Stable burst fracture of unspecified lumbar vertebra, initial encounter for closed fracture (principal); X58.XXXA Exposure to other specified factors, initial encounter
CPT/HCPCS: 72100

== ENCOUNTER 2024-08-20 09:25 | Outpatient (CLI) | payer MEDICARE, SELFPAY ==
[2024-08-20 09:52] LABS: Basophils Absolute Auto 0.1 K/mm3 (0.0-0.1); Basophils Percent Auto 1.5 % (0.2-1.2); Eosinophils Absolute Auto 0.1 K/mm3 (0-0.3); Eosinophils Percent Auto 1.5 % (0-4.4); Hematocrit 37.8 % (37.0-47.0); Hemoglobin 12.8 g/dL (12.0-15.0); Immature Granulocyte Absolute 0.02 K/mm3 (0.00-0.031); Immature Granulocyte Percent A 0.3 % (0-0.5); Lymphocytes Absolute Auto 2.39 K/mm3 (0.9-3.2); Lymphocytes Percent Auto 32.7 % (18.3-44.2); Mean Corpuscular HGB Conc 33.9 g/dl (32-36); Mean Corpuscular Hemoglobin 30.4 pg (26-34); Mean Corpuscular Volume 89.8 fl (80-100); Mean Platelet Volume 10.2 fl (7.4-10.4); Monocytes Absolute Auto 0.4 K/mm3 (0.1-0.6); Monocytes Percent Auto 5.2 % (2.6-8.5); Neutrophils Absolute Auto 4.3 K/mm3 (1.3-6.7); Neutrophils Percent Auto 58.8 % (45.5-73.1); Platelet Count Result 184 k/mm3 (150-375); Red Blood Count 4.21 M/mm3 (4.2-5.4); Red Cell Distribution Width 12.4 % (11.5-14.5); White Blood Count 7.3 K/mm3 (4.5-10.0)
--- OUTSIDE RECORDS SUMMARY | 2024-08-20 09:58 | XMS_ITS | Clinical Summary ---
Author Organization [facility] Address [address] [place] [address] Care Team Providers Care Service Department Manager Name Role Phone Unavailable Primary Care Provider [...]
--- OUTSIDE RECORDS SUMMARY | 2024-08-20 09:58 | XMS_ITS | Referral Summary ---
Author Organization [facility] Address [address] [place] [address] Care Team Providers Care Substance Abuse Counselor Name Role Phone Anay Moser Primary Care Provider [phone] Allergies Active Allergy Reactions Criticality Noted Date [...] Not on file Insurance [facility] H[facility]PPO Address: [address] [place] [id number] [facility] HMO/PPO Address: [address] [address] [place] [address] Care Teams Substance Abuse Counselor Relationship Specialty Start Date End Date Anay Moser PA [address] [place] [address] PCP - General Family Medicine 11/05/22
--- OUTSIDE RECORDS SUMMARY | 2024-08-20 09:58 | XMS_ITS | Clinical Summary ---
Author Organization [facility] Address [address] [facility] [address] [facility] [place] [address] Care Team Providers Care Assistant Finance Director Name Role Phone Meera DelT oro Primary Care Provider [phone] Source Comments [facility],non-owned Affiliates and Associated Physician Practices is amultiple site organization consisting of ambulatory clinics and hospital sitesin [place], [place], [place] and [place]. This disclosure is being madepursuant to the Care Everywhere program and may not contain all information available regarding this patient. Last updated 18.[facility] [employer] Social History Tobacco Use Types Packs/Day Years [...] age to complete this topic Care Teams Assistant Finance Director Relationship Specialty Start Date End Date Meera Del Toro [address] [place] [address] PCP - General 03/10/24
--- OUTSIDE RECORDS SUMMARY | 2024-08-20 09:58 | XMS_ITS | Referral Summary ---
Author Organization [facility] Address [address] [place] [address] Care Team Providers Care Powered Bridge Specialist Name Role Phone Meera Del Toro Primary Care Provider Source Comments [facility],non-owned Affiliates and Associated Physician Practices is amultiple site organization consisting of ambulatory clinics and hospital sitesin [place], [place], [place] and [place]. This disclosure is being madepursuant to the Care Everywhere program and may not contain all information available regarding this patient. Last updated 18.[facility] Social History Tobacco Use Types Packs/Day Years Used Date Smoking Tobacco: Never Assessed Sex and Gender Information Value Date Recorded Sex Assigned at Not on file Gender Identity Not on file Sexual Orientation Not on file Plan of Treatment Not on file Care Teams Powered Bridge Specialist Relationship Specialty Start Date End Date Meera Del Toro [address] [place] [address] PCP - General 03/10/24
--- OUTSIDE RECORDS SUMMARY | 2024-08-20 09:58 | XMS_ITS | Patient Health Summary ---
Author Organization [facility] Address [address] [facility] [place] [address] Care Team Providers Care Fly Frame Tender Name Role Phone Meera Del Toro Primary Care Provider Note from [facility][note 3],non-owned Affiliates and Associated Physician Practices is amultiple site organization consisting of ambulatory clinics and hospital sitesin [place], [place], [place] and [place]. This disclosure is being madepursuant to the Care Everywhere program and may not contain all information available regarding this patient. Last updated 18.[facility] Social History Tobacco Use Types Packs/Day Years Used Date Smoking Tobacco: Never Assessed Sex and Gender Information Value Date Recorded Sex Assigned at Not on file Gender Identity Not on file Sexual Orientation Not on file Care Teams Fly Frame Tender Relationship Specialty Start Date End Date Meera Del Toro [address] [place] [address] PCP - General 03/10/24
--- OUTSIDE RECORDS SUMMARY | 2024-08-20 09:58 | XMS_ITS | Encounter Summary ---
Author Organization [facility] Address [address] [place] [address] Care Team Providers Care Science Job Titles Name Role Phone Meera Patel MD Primary Care Provider [phone] Encounter Details Date Type Department Care Team (Late st Contact Info) Description 12/11/2023 [facility] Oncology and Hematology - Kushal [address] [facility] [address] [place] [address] Tristan White MD [address] [facility] [address] [place] [address] Thrombocytopenia, unspecified (Primary Dx) Social [...] AM CDT See Attached Consult note in web content & social media manager, [facility] does not use [employer] as EHR documented in this encounter Plan of Treatment Upcoming Encounters Date Type Department Care Team (Late st Contact Info) Description 08/27/2024 11:00 AM CDT Office Visit [facility] Oncology and Hematology - Kushal [address] [facility] [address] [place] [address] Tristan White MD [address] [facility] [address] [place] [address] documented as of this encounter Visit Diagnoses Diagnosis Thrombocytopenia, unspecified- Primary documented in this encounter Care Teams Science Job Titles Relationship Specialty Start Date End Date Meera Patel MD [address] [place] [phone] PCP - General Family Practice 02/10/24 documented as of this encounter
--- OUTSIDE RECORDS SUMMARY | 2024-08-20 09:58 | XMS_ITS | Clinical Summary ---
Author Organization [facility] Address [address] [place] [address] Care Team Providers Care Alarm Signaler Name Role Phone Anay Moser Primary Care Provider [phone] Allergies Active Allergy Reactions Criticality Noted Date [...] - Tdap) 1969 Hepatitis B Screening 1976 Pneumococcal vaccine 65+ (1 of 1 - PCV) 2008 Zoster Vaccine (1 of 2) 2008 Well Visit 65+ 12/04/2023 Covid-19 Vaccine (5 - 2023-2 5 season) 2024 06/05/2022, 06/18/2021, 10/07/2020, Additional history exists Influenza Vaccine Completed 05/05/2024, 04/12/2022 Insurance [facility] CHO[facility] PLUS [facility] CHO[facility] PL[facility] Care Teams Alarm Signaler Relationship Specialty Start Date End Date Anay Moser PA [address] [place] [address] PCP - General Family Medicine 11/05/22
--- OUTSIDE RECORDS SUMMARY | 2024-08-20 09:58 | XMS_ITS | Clinical Summary ---
Author Organization [facility] [employer] Address [address] [place] [address] Care Team Providers Care Leaf Blender Name Role Phone Meera Patel MD Primary Care Provider [phone] Allergies Active Allergy Reactions Criticality Noted Date [...] Encounters Date Type Department Care Team Description 08/17/2024 External Device Data STL ABSTRACTION Provider, Abstract 08/04/2024 External Device Data STL ABSTRACTION Provider, Abstract 08/03/2024 External Device Data [facility] ABSTRACTION Provider, Abstract 07/07/2024 External Device Data STL ABSTRACTION Provider, Abstract 07/06/2024 External Device Data STL ABSTRACTION Provider, Abstract 06/30/2024 External Device Data STL ABSTRACTION Provider, Abstract 06/22/2024 External Device Data STL ABSTRACTION Provider, Abstract 05/25/[address] [facility] Oncology and Hematology - Kushal [address] [place] [address] Tristan White MD 05/24/2024 1:15 PM ART THERAPY SPECIALIST Office Visit [facility] Oncology and Hematology [facility] [address] [place] [address] Tristan White MD Chronic anemia (Primary Dx) from Last 3 Months Family History Medical [...] Comments Blood Pressure 130/77 05/24/2024 1:07 PM ART THERAPY SPECIALIST Pulse 85 05/24/2024 1:07 PM ART THERAPY SPECIALIST Temperature 36.8 C (98.2 F) 05/24/2024 1:07 PM ART THERAPY SPECIALIST Respiratory Rate 16 05/24/2024 1:07 PM ART THERAPY SPECIALIST Oxygen Saturation 95% 05/24/2024 1:0 7 PM ART THERAPY SPECIALIST Inhaled Oxygen Concentration - - Weight 70.4 kg (155 lb 3.2 oz) 05/24/2024 1:07 PM ART THERAPY SPECIALIST Patient stated that she has gain weight since last appointment Height 162.6 cm (5' 4 ) 02/10/2024 2:01 PM CDT Body Mass Index 26.64 02/10/2024 2:01 PM CDT Plan of Treatment Upcoming Encounters Date Type Department Care Team (Late st Contact Info) Description 08/27/2024 11:00 AM CDT Office Visit [facility] Oncology and Hematology [facility] [address] [place] [address] Tristan White MD [address] [facility] [address] [place] [address] Health Maintenance Due Date Last Done Comments Pre-Diabetes and Diabetes Screening 1958 DTAP/TDAP/TD VACCINES (1 - Tdap) 1977 BREAST CANCER SCREENING 1998 COLORECTAL SCREENING 12/04/2003 Colorectal Cancer Screening 12/04/2003 FIT-DNA Q 3 years 12/04/2003 FIT/FOBT Q 1 year 12/04/2003 Flex Sig/CT Colonography Q 5 years 12/04/2003 PNEUMOCOCCAL VACCINE 50+ YEARS (1 of 1 - PCV) 12/04/19 09 ZOSTER VACCINE (1 of 2) 2008 OSTEOPOROSIS SCREENING 12/04/2023 INFLUENZA VACCINE (#1) 2024 Medicare Advantage ([place]) Prev entative Visit/Annual Wellness Visit 06/16/2024 RSV VACCINE (60+ or ) (1 - 1-dose 75+ series) 2033 Insurance Care Teams Leaf Blender Relationship Specialty Start Date End Date Meera Patel MD [address] [place] [phone] PCP - General Family Practice 02/10/24
[2024-08-20 10:30] LABS: Alanine Aminotransferase 14 U/L (6-35); Albumin Level 4.6 g/dL (3.5-5.1); Alkaline Phosphatase 110 U/L (38-126); Anion Gap 9 mmol/L (4-12); Aspartate Amino Transferase 26 U/L (14-36); Bilirubin,Total 0.7 mg/dL (0.2-1.3); Blood Urea Nitrogen 7 mg/dL (7-17); Calcium 10.2 mg/dL (8.4-10.2); Carbon Dioxide 31 mmol/L (22-30); Chloride 99 mmol/L (98-107); Cholesterol 220 mg/dL (0-200); Estimated Glomerular Filt Rate > 60; Glucose 104 mg/dL (65-110); HDL Direct 79 mg/dL; Iron 85 ug/dL (37-170); Potassium 4.1 mmol/L (3.4-5.0); Sodium 139 mmol/L (137-145); Triglycerides 147 mg/dL (<150)
[2024-08-20 10:42] LABS: LDL Cholesterol Direct 92 mg/dL
[2024-08-20 10:50] LABS: Percent Iron Saturation 36 % (20-50)
== END 2024-08-20 09:26 | disposition home or self-care (01) ==
LOC: ANHLAB 09:27
PROVIDERS: Student in an Organized Health Care Education/Training Program; PCP Family Medicine; Visit Provider Internal Medicine Hematology & Oncology
DX: R79.89 Other specified abnormal findings of blood chemistry (principal); E78.5 Hyperlipidemia, unspecified; Z87.898 Personal history of other specified conditions
CPT/HCPCS: 36415; 80053; 80061; 82728; 83540; 83550; 85025

== ENCOUNTER 2024-08-23 14:30 | Outpatient (CLI) | payer MEDICARE, SELFPAY ==
--- NOTE | ~2024-08-23 | MM_ITS ---
EXAMINATION: MM screening tisha BI w erna HISTORY: Screening mammogram TECHNIQUE: Craniocaudal and mediolateral oblique 3-D tomosynthesis images were obtained and synthetic 2-D images were generated. CAD analysis was submitted and interpreted. COMPARISON: 01/15/2023 BREAST PARENCHYMAL COMPOSITION:Dense: The breasts are heterogeneously dense, which may obscure small masses. FINDINGS: No suspicious mass, calcification, or architectural distortion are identified in either carlos ast to suggest malignancy. There has been no suspicious interval change. IMPRESSION: No mammographic evidence of malignancy. Recommend routine screening mammography in one year. BI-RADS Category 1: Negative Reviewed, dictated and finalized at location .
--- OUTSIDE RECORDS SUMMARY | 2024-08-23 16:58 | XMS_ITS | Clinical Summary ---
Author Organization [facility] Address [address] [place] [address] Care Team Providers Care Neurological Surgeon Name Role Phone Unavailable Primary Care Provider [...]
--- OUTSIDE RECORDS SUMMARY | 2024-08-23 16:58 | XMS_ITS | Patient Health Summary ---
Author Organization [facility] Address [address] [facility] [address] [place] [address] Care Team Providers Care Senior Graduate Advisor Name Role Phone Meera Del Toro Primary Care Provider [phone] [facility],non-owned Affiliates and Associated Physician Practices is amultiple site organization consisting of ambulatory clinics and hospital sitesin [place], [place], [place] and [place]. This disclosure is being madepursuant [...] Sexual Orientation Not on file Care Teams Senior Graduate Advisor Relationship Specialty Start Date End Date Meera Del Toro [address] [place] [address] PCP - General 03/10/24
--- OUTSIDE RECORDS SUMMARY | 2024-08-23 16:58 | XMS_ITS | Encounter Summary ---
Author Organization [facility] [employer] [facility] Address [address] [place] [address] Care Team Providers Care Toolsmith Name Role Phone Meera Patel MD Primary Care Provider [phone] Encounter Details Date Type Department Care Team (Late Contact Info) Description 08/20/2024 Orders Only [facility] Oncology and Hematology - Kushal [address] [place] [address] Tristan White MD [address] [employer] [address] [place] [address] Social History Tobacco Use Types Packs/Day Years [...] on file documented as of this encounter Plan of Treatment Upcoming Encounters Date Type Department Care Team (Late st Contact Info) Description 08/27/2024 11:00 AM CDT Office Visit [facility] Oncology and Hematology - [address]al [address] [place] [address] Tristan White MD [address] [employer] [address] [place] [address] documented as of this encounter Procedures Procedure Name Priority Date/Time Associated Diagnosis Comments COMPREHENSIVE METABOLIC PANEL Routine 08/20/2024 1:01 PM PEDIATRIC REGISTERED NURSE documented in this encounter Results * COMPREHENSIVE METABOLIC PANEL (08/20/2024 1:01 PM PEDIATRIC REGISTERED NURSE) Blood Tristan White MD CHEMISTRY ORDERABLES Final Resu lt documented in this encounter Visit Diagnoses Not on filedocumented in this encounter Care Teams Toolsmith Relationship Specialty Start Date End Date Meera Patel MD [address] [place] [phone] PCP - General Family Practice 02/10/24 documented as of this encounter
--- OUTSIDE RECORDS SUMMARY | 2024-08-23 16:58 | XMS_ITS | Encounter Summary ---
Author Organization [facility] [employer] [facility] Address [address] [place] [address] Care Team Providers Care Wireless Sales Representative Name Role Phone Meera Patel MD Primary Care Provider [phone] Encounter Details Date Type Department Care Team (Late Contact Info) Description 08/23/2024 Orders Only [facility] Oncology and Hematology - [place] [address] [place] [address] Tristan White MD [address] [email or web address] [address] [place] [address] Social History Tobacco Use Types Packs/Day [...] Description 08/27/2024 11:00 AM CDT Office Visit [facility] Oncology and Hematology - Kushal [address] [place] [address] Tristan White MD [address] [email or web address] [address] [place] [address] documented as of this encounter Procedures Procedure Name Priority Date/Time Associated Diagnosis Comments IRON, TIBC, AND PERCENT SATURATION Routine 08/20/2024 11:32 AM DIRECTOR OF CASEWORK documented in this encounter Results * IRON, TIBC, AND PERCENT SATURATION (08/20/2024 11:32 AM DIRECTOR OF CASEWORK) Blood Tristan White MD CHEMISTRY ORDERABLES Final Resu lt documented in this encounter Visit Diagnoses Not on filedocumented in this encounter Care Teams Wireless Sales Representative Relationship Specialty Start Date End Date Meera Patel MD [address] [place] [address] PCP - General Family Practice 02/10/24 documented as of this encounter
--- OUTSIDE RECORDS SUMMARY | 2024-08-23 16:58 | XMS_ITS | Encounter Summary ---
Author Organization [facility] Address [address] [place] [address] Care Team Providers Care Latex Fashions Designer Name Role Phone Meera Patel MD Primary Care Provider [phone] Encounter Details Date Type Department Care Team (Late st Contact Info) Description 08/21/2024 External Device Data STL ABSTRACTION Provider, Abstract NO ADDRESS ON FILE Social History Tobacco Use Types Packs/Day Years [...] Description 08/27/2024 11:00 AM CDT Office Visit [facility] Oncology and Hematology - Kushal [address] [facility] [address] [address] Tristan White MD [address] [facility] [address] [place] [address] documented as of this encounter Visit Diagnoses Not on filedocumented in this encounter Care Teams Latex Fashions Designer Relationship Specialty Start Date End Date Meera Patel MD [address] [place] [address] PCP - General Family Practice 02/10/24 documented as of this encounter
--- OUTSIDE RECORDS SUMMARY | 2024-08-23 16:58 | XMS_ITS | Encounter Summary ---
Author Organization [facility] [employer] [facility] Address [address] [place] [address] Care Team Providers Care Dictaphone Technician Name Role Phone Meera Patel MD Primary Care Provider Encounter Details Date Type Department Care Team (Late st Contact Info) Description 12/11/2023 [facility] Oncology and Hematology - Kushal [address] [facility] [address] [place] [address] Tristan White MD [address] [facility] [address] [place] [address] Thrombocytopenia, unspecified (Primary Dx) Social [...] AM CDT See Attached Consult note in multimedia project manager, [facility] does not use [employer] as EHR documented in this encounter Plan of Treatment Upcoming Encounters Date Type Department Care Team (Late st Contact Info) Description 08/27/2024 11:00 AM CDT Office Visit [facility] Oncology and Hematology - Kushal [address] [facility] [address] [place] [address] Tristan White MD [address] [facility] [address] [place] [address] documented as of this encounter Visit Diagnoses Diagnosis Thrombocytopenia, unspecified- Primary documented in this encounter Care Teams Dictaphone Technician Relationship Specialty Start Date End Date Meera Patel MD [address] [place] [phone] PCP - General Family Practice 02/10/24 documented as of this encounter
--- OUTSIDE RECORDS SUMMARY | 2024-08-23 16:58 | XMS_ITS | Clinical Summary ---
Author Organization [facility] Address [address] [place] [address] Care Team Providers Care In Processing Instructor Name Role Phone Meera Del Toro Primary Care Provider [phone] Source Comments [facility],non-owned Affiliates and Associated Physician Practices is amultiple site organization consisting of ambulatory clinics and hospital sitesin [place], [place], [place] and [place]. This disclosure is being madepursuant to the Care Everywhere program and may not contain all information available regarding this patient. Last updated 18.[facility] PrivacyProtector Social History Tobacco Use Types Packs/Day Years [...] age to complete this topic Care Teams In Processing Instructor Relationship Specialty Start Date End Date Meera Del Toro [address] [place] [address] PCP - General 03/10/24
--- OUTSIDE RECORDS SUMMARY | 2024-08-23 16:58 | XMS_ITS | Referral Summary ---
Author Organization [facility] Address [address] [place] [address] Care Team Providers Care Educational Adviser Name Role Phone Meera Del Toro Primary Care Provider [phone] Source Comments [facility],non-owned Affiliates and Associated Physician Practices is amultiple site organization consisting of ambulatory clinics and hospital sitesin [place], [place], [place] and [place]. This disclosure is being madepursuant to the Care Everywhere program and may not contain all information available regarding this patient. Last updated 18.[facility] Social History Tobacco Use Types Packs/Day Years Used Date Smoking Tobacco: Never Assessed Sex and Gender Information Value Date Recorded Sex Assigned at Not on file Gender Identity Not on file Sexual Orientation Not on file Plan of Treatment Not on file Care Teams Educational Adviser Relationship Specialty Start Date End Date Meera Del Toro [address] [place] [address] PCP - General 03/10/24
--- OUTSIDE RECORDS SUMMARY | 2024-08-23 16:58 | XMS_ITS | Clinical Summary ---
Author Organization [facility] Dalia chavez Dax Address [address] [place] [address] Care Team Providers Care Publications Designer Name Role Phone Meera Patel MD Primary Care Provider [phone] Allergies Active Allergy Reactions Criticality Noted Date [...] Encounters Date Type Department Care Team Description 08/23/2024 Orders Only [facility] Oncology and Hematology - Kushal [address] [place] [address] Tristan White MD 08/21/2024 External Device Data STL ABSTRACTION Provider, Abstract 08/20/2024 External Device Data STL ABSTRACTION Provider, Abstract 08/20/2024 Orders Only [facility] Oncology and Hematology - Kushal [address] [place] [address] Tristan White MD 08/17/2024 External Device Data STL ABSTRACTION Provider, Abstract 08/04/2024 External Device Data STL ABSTRACTION Provider, Abstract 08/03/2024 External Device Data STL ABSTRACTION Provider, Abstract 07/07/2024 External Device Data STL ABSTRACTION Provider, Abstract 07/06/2024 External Device Data STL ABSTRACTION Provider, Abstract 06/30/2024 External Device Data STL ABSTRACTION Provider, Abstract 06/22/2024 External Device Data STL ABSTRACTION Provider, Abstract 05/25/2024 Orders Only [facility] Oncology and Hematology - Kushal [facility] [address] [place] [id number] Tristan White MD from Last 3 Months Family History Medical [...] Comments Blood Pressure 130/77 05/24/2024 1:07 PM GAS DISTRIBUTION SUPERVISOR Pulse 85 05/24/2024 1:07 PM GAS DISTRIBUTION SUPERVISOR Temperature 36.8 C (98.2 F) 05/24/2024 1:07 PM GAS DISTRIBUTION SUPERVISOR Respiratory Rate 16 05/24/2024 1:07 PM GAS DISTRIBUTION SUPERVISOR Oxygen Saturation 95% 05/24/2024 1:0 7 PM GAS DISTRIBUTION SUPERVISOR Inhaled Oxygen Concentration - - Weight 70.4 kg (155 lb 3.2 oz) 05/24/2024 1:07 PM GAS DISTRIBUTION SUPERVISOR Patient stated that she has gain weight since last appointment Height 162.6 cm (5' 4 ) 02/10/2024 2:01 PM CDT Body Mass Index 26.64 02/10/2024 2:01 PM CDT Plan of Treatment Upcoming Encounters Date Type Department Care Team (Late st Contact Info) Description 08/27/2024 11:00 AM CDT Office Visit [facility] Oncology and Hematology - Kushal [address] [facility] [address] [place] [address] Tristan White MD [address] [facility] [address] [place] [address] Health Maintenance Due Date Last [...] COMPREHENSIVE METABOLIC PANEL Routine 08/20/2024 1:01 PM GAS DISTRIBUTION SUPERVISOR IRON, TIBC, AND PERCENT SATURATION Routine 08/20/2024 11:32 AM GAS DISTRIBUTION SUPERVISOR from Last 3 Months Results * COMPREHENSIVE METABOLIC PANEL (08/20/2024 1:01 PM GAS DISTRIBUTION SUPERVISOR) Blood Tristan White MD CHEMISTRY ORDERABLES Final Resu lt * IRON, TIBC, AND PERCENT SATURATION (08/20/2024 11:32 AM GAS DISTRIBUTION SUPERVISOR) Blood us Tristan White MD CHEMISTRY ORDERABLES Final Resu lt from Last 3 Months [place] [id number] [place] [id number] [place] [id number] Care Teams Publications Designer Relationship Specialty Start Date End Date Meera Patel MD [address] [place] [address] PCP - General Family Practice 02/10/24
--- OUTSIDE RECORDS SUMMARY | 2024-08-23 16:58 | XMS_ITS | Referral Summary ---
Author Organization [facility] Address [address] [place] [address] Care Team Providers Care Subway Train Operator Name Role Phone Anay Moser Primary Care Provider [phone] Allergies Active Allergy Reactions Criticality Noted Date [...] Treatment Not on file Insurance CHOICE PLUS CHOICE PLUS Care Teams Subway Train Operator Relationship Specialty Start Date End Date Anay Moser PA [address] [place] [address] PCP - General Family Medicine 11/05/22
--- OUTSIDE RECORDS SUMMARY | 2024-08-23 16:58 | XMS_ITS | Clinical Summary ---
Author Organization [facility] Address [address] [place] [address] Care Team Providers Care Animal Breeder Name Role Phone Anay Moser Primary Care Provider [phone] Allergies Active Allergy Reactions Criticality Noted Date [...] exists Influenza Vaccine Completed 05/05/2024, 04/12/2022 Insurance [facility] CHOICE PLUS [facility] CHOICE PLUS Care Teams Animal Breeder Relationship Specialty Start Date End Date Anay Moser PA [address] [place] [address] PCP - General Family Medicine 11/05/22
== END 2024-08-23 14:31 | disposition home or self-care (01) ==
LOC: ANHIMG 14:32
PROVIDERS: PCP Family Medicine; Visit Provider Student in an Organized Health Care Education/Training Program
DX: Z12.31 Encounter for screening mammogram for malignant neoplasm of breast (principal)
CPT/HCPCS: 77063; 77067

== ENCOUNTER 2024-08-25 13:24 | Outpatient (CLI) | payer MEDICARE, SELFPAY ==
--- NOTE | ~2024-08-25 | XR_ITS ---
3 VIEWS LUMBAR SPINE Ordering provider: Angy Beal APRN History: . S32.031A - Stable burst fracture of third lumbar vertebra... . Comparison: July 13, 2024 FINDINGS: VERTEBRAL BODIES: Compression fracture of L3 which is chronic. Mild dextroscoliosis. Degenerative changes of the spine. DISK SPACES: Narrowing of the disc L2-L3, L3-L4, and L5-S1 Facet joint disease at the level of L4-L5 and L5-S1. SOFT TISSUES: Normal. IMPRESSION: No acute osseous abnormality lumbar spine. Compression fracture of L3 unchanged from previous examination. Multilevel degenerative disc disease. Degenerative changes of the spine. Reviewed, dictated and finalized at location A.
--- OUTSIDE RECORDS SUMMARY | 2024-08-25 15:01 | XMS_ITS | Encounter Summary ---
Author Organization [facility] Address [address] [place] [address] Care Team Providers Care Commissioned Defence Force Officer Name Role Phone Meera Patel MD Primary Care Provider [phone] Encounter Details Date Type Department Care Team (Late Contact Info) Description 08/23/2024 Orders Only [facility] Oncology and Hematology - Kushal [address] [place] [address] Tristan White MD [address] [facility] [address] [place] [address] Social History Tobacco Use Types Packs/Day [...] and Hematology - Kushal [address] [place] [address] Tristan White MD [address] [facility] [address] [place] [address] documented as of this encounter Procedures Procedure Name Priority Date/Time Associated Diagnosis Comments IRON, TIBC, AND PERCENT SATURATION Routine 08/20/2024 11:32 AM FILE MACHINE OPERATOR documented in this encounter Results * IRON, TIBC, AND PERCENT SATURATION (08/20/2024 11:32 AM FILE MACHINE OPERATOR) Blood Tristan White MD CHEMISTRY ORDERABLES Final Resu lt documented in this encounter Visit Diagnoses Not on filedocumented in this encounter Care Teams Commissioned Defence Force Officer Relationship Specialty Start Date End Date Meera Patel MD [address] [place] [address] PCP - General Family Practice 02/10/24 documented as of this encounter
--- OUTSIDE RECORDS SUMMARY | 2024-08-25 15:01 | XMS_ITS | Clinical Summary ---
Author Organization [facility] Address [address] [place] [address] Care Team Providers Care Hall Tender Name Role Phone Meera Del Toro Primary Care Provider [phone] [facility],non-owned Affiliates and Associated Physician Practices is amultiple site organization consisting of ambulatory clinics and hospital sitesin [place], [place], [place]. This disclosure is being madepursuant to the Care Everywhere program and may not contain all information available regarding this patient. Last updated 18.[facility] [employer] Social History Tobacco Use Types Packs/Day Years [...] to complete this topic MENINGOCOCCAL (Group B) VACC INE SHARED DECISION-MAKING Aged Out No longer eligibl e based on patient's age to complete this topic MENINGOCOCCAL GROUPS A/C/Y/W VACCINE Aged Out No longer eligible b ased on patient's age to complete this topic Care Teams Hall Tender Relationship Specialty Start Date End Date Meera Del Toro [address] [place] [address] PCP - General 03/10/24
--- OUTSIDE RECORDS SUMMARY | 2024-08-25 15:01 | XMS_ITS | Clinical Summary ---
Author Organization [facility] Address [address] [place] [address] Care Team Providers Care Aids Counselor Name Role Phone Anay Moser Primary Care Provider [phone] Allergies Active Allergy Reactions Criticality Noted Date [...] exists Influenza Vaccine Completed 05/05/2024, 04/12/2022 Insurance [facility] CHOICE PLUS [facility] HMO/PPO Address: [facility] [address] [place] [address] [facility] CHOICE PLUS [facility] HMO/PPO Address: [facility] [address] [place] [address] Care Teams Aids Counselor Relationship Specialty Start Date End Date Anay Moser PA [address] [place] [address] PCP - General Family Medicine 11/05/22
--- OUTSIDE RECORDS SUMMARY | 2024-08-25 15:01 | XMS_ITS | Encounter Summary ---
Author Organization [facility] [employer] [facility] Address [address] [place] [address] Care Team Providers Care Multimedia Project Manager Name Role Phone Meera Patel MD Primary Care Provider [phone] Encounter Details Date Type Department Care Team (Late Contact Info) Description 08/20/2024 Orders Only [facility] Oncology and Hematology - Kushal [address] [place] [address] Tristan White MD [address] [employer] [address] [place] [address] Social History Tobacco Use Types Packs/Day [...] Description 08/27/2024 11:00 AM CDT Office Visit [facility] Oncology and Hematology - Kushal [address] [place] [address] Tristan White MD [address] [place] [address] documented as of this encounter Procedures Procedure Name Priority Date/Time Associated Diagnosis Comments COMPREHENSIVE METABOLIC PANEL Routine 08/20/2024 1:01 PM SWIMMING TEACHER documented in this encounter Results * COMPREHENSIVE METABOLIC PANEL (08/20/2024 1:01 PM SWIMMING TEACHER) Blood Tristan White MD CHEMISTRY ORDERABLES Final Resu lt documented in this encounter Visit Diagnoses Not on filedocumented in this encounter Care Teams Multimedia Project Manager Relationship Specialty Start Date End Date Meera Patel MD [address] [place] [phone] PCP - General Family Practice 02/10/24 documented as of this encounter
--- OUTSIDE RECORDS SUMMARY | 2024-08-25 15:01 | XMS_ITS | Clinical Summary ---
Author Organization [facility] Dalia chavez Dax Address [address] [place] [address] Care Team Providers Care Information Assurance Analyst Name Role Phone Meera Patel MD Primary Care Provider [phone] Allergies Active Allergy Reactions Criticality Noted Date [...] Encounters Date Type Department Care Team Description 08/24/2024 External Device Data STL ABSTRACTION Provider, Abstract 08/23/2024 Orders Only [facility] Oncology and Hematology - Kushal [address] [place] [address] Tristan White MD 08/21/2024 External Device Data STL ABSTRACTION Provider, Abstract 08/20/2024 External Device Data STL ABSTRACTION Provider, Abstract 08/20/2024 Orders Only [facility] Oncology and Hematology - Kushal [address] [place] [address] Tristan White MD 08/17/2024 External Device Data [...] Comments Blood Pressure 130/77 05/24/2024 1:07 PM PHYSICIAN OFFICE REP Pulse 85 05/24/2024 1:07 PM PHYSICIAN OFFICE REP Temperature 36.8 C (98.2 F) 05/24/2024 1:07 PM PHYSICIAN OFFICE REP Respiratory Rate 16 05/24/2024 1:07 PM PHYSICIAN OFFICE REP Oxygen Saturation 95% 05/24/2024 1:0 7 PM PHYSICIAN OFFICE REP Inhaled Oxygen Concentration - - Weight 70.4 kg (155 lb 3.2 oz) 05/24/2024 1:07 PM PHYSICIAN OFFICE REP Patient stated that she has gain weight since last appointment Height 162.6 cm (5' 4 ) 02/10/2024 2:01 PM CDT Body Mass Index 26.64 02/10/2024 2:01 PM CDT Plan of Treatment Upcoming Encounters Date Type Department Care Team (Late st Contact Info) Description 08/27/2024 11:00 AM CDT Office Visit [facility] Oncology and Hematology - Kushal [facility] [address] [place] [address] Tristan White MD [address] [facility] [address] [place] [address] Health Maintenance Due Date Last [...] COMPREHENSIVE METABOLIC PANEL Routine 08/20/2024 1:01 PM PHYSICIAN OFFICE REP IRON, TIBC, AND PERCENT SATURATION Routine 08/20/2024 11:32 AM PHYSICIAN OFFICE REP from Last 3 Months Results * COMPREHENSIVE METABOLIC PANEL (08/20/2024 1:01 PM PHYSICIAN OFFICE REP) Blood Tristan White MD CHEMISTRY ORDERABLES Final Resu lt * IRON, TIBC, AND PERCENT SATURATION (08/20/2024 11:32 AM PHYSICIAN OFFICE REP) Blood Tristan White MD CHEMISTRY ORDERABLES Final Resu lt from Last [address] [place] [id number] Care Teams Information Assurance Analyst Relationship Specialty Start Date End Date Meera Patel MD [address] [place] [id number] PCP - General Family Practice 02/10/24
--- OUTSIDE RECORDS SUMMARY | 2024-08-25 15:01 | XMS_ITS | Referral Summary ---
Author Organization [facility] Address [address] [place] [address] Care Team Providers Care Lead Bi Developer Name Role Phone Meera Del Toro Primary Care Provider Source Comments [facility],non-owned Affiliates and Associated Physician Practices is amultiple site organization consisting of ambulatory clinics and hospital sitesin [place], [place], [place] and [place]. This disclosure is being madepursuant to the Care Everywhere program and may not contain all information available regarding this patient. Last updated 18.[facility] Social History Tobacco Use Types Packs/Day Years Used Date Smoking Tobacco: Never Assessed Sex and Gender Information Value Date Recorded Sex Assigned at Not on file Gender Identity Not on file Sexual Orientation Not on file Plan of Treatment Not on file Care Teams Lead Bi Developer Relationship Specialty Start Date End Date Meera Del Toro [address] [place] [address] PCP - General 03/10/24
--- OUTSIDE RECORDS SUMMARY | 2024-08-25 15:01 | XMS_ITS | Referral Summary ---
Author Organization [facility] Address [address] [place] [address] Care Team Providers Care Support Coordinator Name Role Phone Anay Moser Primary Care Provider Allergies Active Allergy Reactions Criticality Noted Date [...] Insurance CHOICE PLUS CHOICE PLUS Care Teams Support Coordinator Relationship Specialty Start Date End Date Anay Moser PA [address] [address] PCP - General Family Medicine 11/05/22
--- OUTSIDE RECORDS SUMMARY | 2024-08-25 15:01 | XMS_ITS | Clinical Summary ---
Author Organization [facility] Address [address] [place] [address] Care Team Providers Care Loader Magazine Grinder Name Role Phone Unavailable Primary Care Provider [...]
--- OUTSIDE RECORDS SUMMARY | 2024-08-25 15:01 | XMS_ITS | Patient Health Summary ---
Author Organization [facility] Address [address] [facility] [place] [address] Care Team Providers Care Service Order Taker Name Role Phone Meera Del Toro Primary Care Provider [phone] Note from [facility],non-owned Affiliates and Associated Physician Practices is amultiple site organization consisting of ambulatory clinics and hospital sitesin [place], [place], [place] and [place]. This disclosure is being madepursuant to the Care Everywhere program and may not contain all information available regarding this patient. Last updated 18.[facility] Social History Tobacco Use Types Packs/Day Years Used Date Smoking Tobacco: Never Assessed Sex and Gender Information Value Date Recorded Sex Assigned at Not on file Gender Identity Not on file Sexual Orientation Not on file Care Teams Service Order Taker Relationship Specialty Start Date End Date Meera Del Toro [address] [place] [address] PCP - General 03/10/24
--- OUTSIDE RECORDS SUMMARY | 2024-08-25 15:01 | XMS_ITS | Encounter Summary ---
Author Organization [facility] Address [address] [place] [address] Care Team Providers Care Food Products Sales Representative Name Role Phone Meera Patel MD Primary Care Provider [phone] Encounter Details Date Type Department Care Team (Late st Contact Info) Description 08/24/2024 External Device Data STL ABSTRACTION [...] 08/27/2024 11:00 AM CDT Office Visit [facility] Oncology and Hematology - Kushal [address] [facility] [address] [address] Tristan White MD [address] [facility] [address] [place] [address] documented as of this encounter Visit Diagnoses Not on filedocumented in this encounter Care Teams Food Products Sales Representative Relationship Specialty Start Date End Date Meera Patel MD [address] [place] [address] PCP - General Family Practice 02/10/24 documented as of this encounter
--- OUTSIDE RECORDS SUMMARY | 2024-08-25 15:01 | XMS_ITS | Encounter Summary ---
Author Organization [facility] Address [address] [place] [address] Care Team Providers Care University Intern Name Role Phone Meera Patel MD Primary Care Provider [phone] Encounter Details Date Type Department Care Team (Late st Contact Info) Description 12/11/2023 [facility] Oncology and Hematology - Kushal [address] [facility] [address] [place] [address] Tristan White MD [address] [facility] [address] [place] [address] Thrombocytopenia, unspecified (Primary Dx) Social [...] CDT See Attached Consult note in multimedia author, [facility] does not use [employer] as EHR documented in this encounter Plan of Treatment Upcoming Encounters Date Type Department Care Team (Late st Contact Info) Description 08/27/2024 11:00 AM CDT Office Visit [facility] Oncology and Hematology - Kushal [address] [facility] [address] [place] [address] Tristan White MD [address] [facility] [address] [place] [address] documented as of this encounter Visit Diagnoses Diagnosis Thrombocytopenia, unspecified- Primary documented in this encounter Care Teams University Intern Relationship Specialty Start Date End Date Meera Patel MD [address] [place] [phone] PCP - General Family Practice 02/10/24 documented as of this encounter
== END 2024-08-25 13:25 | disposition home or self-care (01) ==
PROVIDERS: PCP Family Medicine; Visit Provider Nurse Practitioner Adult Health
DX: M51.369 Other intervertebral disc degeneration, lumbar region without mention of lumbar back pain or lower extremity pain (principal); S32.031D Stable burst fracture of third lumbar vertebra, subsequent encounter for fracture with routine healing; X58.XXXD Exposure to other specified factors, subsequent encounter
CPT/HCPCS: 72100

== ENCOUNTER 2024-09-16 09:25 | Outpatient (CLI) | payer MEDICARE, SELFPAY ==
--- NOTE | ~2024-09-16 | US_ITS ---
Limited Abdominal Sonogram: Real-time sonographic imaging of the right upper quadrant was performed. Clinical History: Abnormal findings of blood chemistry Findings: The liver appears echogenic, with no evidence of mass lesion or bile duct dilatation. Main portal vein demonstrates normal direction of flow. The gallbladder is well distended, and appears no rmal with no evidence of gallstone or wall thickening. The common bile duct measures 4 mm. The visua lized pancreas, aorta, and IVC are unremarkable. Impression: Diffuse fatty infiltration of the liver. Reviewed, dictated and finalized at location M. Impression: Diffuse fatty infiltration of the liver.
--- OUTSIDE RECORDS SUMMARY | 2024-09-16 09:46 | XMS_ITS | Clinical Summary ---
Author Organization [facility] Address [address] [place] [address] Care Team Providers Care Sales Property Manager Name Role Phone Meera Del Toro Primary Care Provider [phone] Source Comments [facility],non-owned Affiliates and Associated Physician Practices is amultiple site organization consisting of ambulatory clinics and hospital sitesin [place], [place], [place] and [place]. This disclosure is being madepursuant to the Care Everywhere program and may not contain all information available regarding this patient. Last updated 18.[facility] [employer] Social History Tobacco Use Types Packs/Day Years [...] VACCINE ( - 2023-2 5 season) 2024 DEPRESSION SCREENING 06/16/2024 INFLUENZA VACCINE (Season Ended) 2025 Respiratory Syncytial Virus (RSV) Vaccine Pt: or [...] age to complete this topic Care Teams Sales Property Manager Relationship Specialty Start Date End Date Meera Del Toro [address] [place] [address] PCP - General 03/10/24
--- OUTSIDE RECORDS SUMMARY | 2024-09-16 09:46 | XMS_ITS | Referral Summary ---
Author Organization [facility] Address [address] [place] [address] Care Team Providers Care Museum Informatics Specialist Name Role Phone Anay Moser Primary Care Provider [phone] Allergies Active Allergy Reactions Criticality Noted Date [...] Treatment Not on file Insurance [facility] H[facility]/PPO Address: [address] [place] [address] CHOICE PLUS [facility] HMO/PPO Address: [address] [address] [place] [address] Care Teams Museum Informatics Specialist Relationship Specialty Start Date End Date Anay Moser PA [address] [place] [address] PCP - General Family Medicine 11/05/22
--- OUTSIDE RECORDS SUMMARY | 2024-09-16 09:46 | XMS_ITS | Clinical Summary ---
Author Organization [facility] Address [address] [place] [address] Care Team Providers Care Assembler Finger Buffs Name Role Phone Unavailable Primary Care Provider [...]
--- OUTSIDE RECORDS SUMMARY | 2024-09-16 09:46 | XMS_ITS | Clinical Summary ---
Author Organization [facility] Address [address] [place] [address] Care Team Providers Care Endless Bed Drum Sander Name Role Phone Anay Moser Primary Care Provider [phone] Allergies Active Allergy Reactions Criticality Noted Date [...] exists Influenza Vaccine Completed 05/05/2024, 04/12/2022 Insurance [facility] Care Teams Endless Bed Drum Sander Relationship Specialty Start Date End Date Anay Moser PA [address] [place] [address] PCP - General Family Medicine 11/05/22
--- OUTSIDE RECORDS SUMMARY | 2024-09-16 09:46 | XMS_ITS | Clinical Summary ---
Author Organization [facility] Dalia chavez Dax Address [address] [place] [address] Care Team Providers Care Crm Administrator Name Role Phone Meera Patel MD Primary Care Provider [phone] Allergies Active Allergy Reactions Criticality Noted Date Comments Aspirin Hives High 11/20/2022 Nsaids (Non-Steroidal Anti-I nflammatory Drug) Hives High 11/20/2022 Medications CALCIUM CARBONATE ORAL Take by mouth. Active [...] Encounters Date Type Department Care Team Description 09/01/2024 External Device Data STL ABSTRACTION Provider, Abstract 08/27/2024 11:00 AM CDT Office Visit [facility] Oncology and Hematology - [place] [address] [place] [phone] Tristan White MD Chronic anemia (Primary Dx) 08/24/2024 External Device Data STL ABSTRACTION Provider, Abstract 08/24/2024 External Device Data STL ABSTRACTION Provider, Abstract 08/23/2024 Orders Only [facility] Oncology and Hematology - [place] [address] [place] [phone] Tristan White MD 08/21/2024 External Device Data STL ABSTRACTION Provider, Abstract 08/20/2024 External Device Data STL ABSTRACTION Provider, Abstract 08/20/2024 Orders Only [facility] Oncology and Hematology - [place] [address] [place] [address] Tristan White MD 08/17/2024 External Device [...] 0 06/16/1979 - 06/16/1999 Smokeless Tobacco: Never Tobacco Cessation:Counseling Given: Not Answered Alcohol Use Standard Drinks/Week Comments Yes 0 (1 standard drink = 0.6 oz pur e alcohol) Socially Comments Unknown Sex and Gender Information Value Date Recorded Sex Assigned at Not on file Legal Sex Female 9:16 AM CDT Gender Identity Not on file Sexual Orientation Not on file Last Filed Vital Signs Vital Sign Reading Time Taken Comments Blood Pressure 129/70 08/27/2024 11:09 AM CDT Pulse 98 08/27/2024 11:09 AM CDT Temperature 36.4 C (97.6 F) 08/27/2024 11:09 AM CDT Respiratory Rate 16 08/27/2024 11:09 AM CDT Oxygen Saturation 93% 08/27/2024 11:09 AM CDT Inhaled Oxygen Concentration - - Weight 66.8 kg (147 lb 3.2 oz) 08/27/2024 11:09 AM CDT Height 162.6 cm (5' 4 ) 02/10/2024 2:01 PM CDT Body Mass Index 25.27 02/10/2024 2:01 PM CDT Plan of Treatment Upcoming Encounters Date Type Department Care Team (Late st Contact Info) Description 03/04/2025 11:15 AM CDT Office Visit [facility] Oncology and Hematology - [place] [address] [facility] [address] [place] [address] Tristan White MD [address] [facility] [address] [place] [address] Health Maintenance Due Date Last [...] 12/04/2023 INFLUENZA VACCINE (#1) 2024 Medicare [place]vantage ([place]) Prev entative Visit/Annual Wellness Visit 06/16/2024 RSV VACCINE (60+ or ) (1 - 1-dose 75+ series) 2033 Procedures Procedure Name Priority Date/Time Associated Diagnosis Comments COMPREHENSIVE METABOLIC PANEL Routine 08/20/2024 1:01 PM SLEEVE IRONER IRON, TIBC, AND PERCENT SATURATION Routine 08/20/2024 11:32 AM SLEEVE IRONER from Last 3 Months Results * COMPREHENSIVE METABOLIC PANEL (08/20/2024 1:01 PM SLEEVE IRONER) Blood Tristan White MD CHEMISTRY ORDERABLES Final Resu lt * IRON, TIBC, AND PERCENT SATURATION (08/20/2024 11:32 AM SLEEVE IRONER) Blood us Tristan White MD CHEMISTRY ORDERABLES Final Resu lt from Last [address] [place] [id number] [place] [id number] Care Teams Crm Administrator Relationship Specialty Start Date End Date Meera Patel MD [address] [place] [address] PCP - General Family Practice 02/10/24
--- OUTSIDE RECORDS SUMMARY | 2024-09-16 09:46 | XMS_ITS | Encounter Summary ---
Author Organization [facility] [employer] [facility] Address [address] [place] [address] Care Team Providers Care Window Glazier Name Role Phone Meera Patel MD Primary Care Provider [phone] Encounter Details Date Type Department Care Team (Late st Contact Info) Description 12/11/2023 [facility] Oncology and Hematology - [place] [address] [facility] [address] [place] [address] Tristan White MD [address] [facility] [address] [place] [address] Thrombocytopenia, unspecified (Primary Dx) Social [...] AM CDT See Attached Consult note in environmental remediation specialist, [facility] does not use [employer] as EHR documented in this encounter Plan of Treatment Upcoming Encounters Date Type Department Care Team (Late st Contact Info) Description 03/04/2025 11:15 AM CDT Office Visit [facility] Oncology and Hematology - [place] [address] [facility] [address] [place] [address] Tristan White MD [address] [facility] [address] [place] [address] documented as of this encounter Visit Diagnoses Diagnosis Thrombocytopenia, unspecified- Primary documented in this encounter Care Teams Window Glazier Relationship Specialty Start Date End Date Meera Patel MD [address] [place] [phone] PCP - General Family Practice 02/10/24 documented as of this encounter
== END 2024-09-16 09:26 | disposition home or self-care (01) ==
PROVIDERS: PCP Family Medicine; Visit Provider Nurse Practitioner
DX: R79.89 Other specified abnormal findings of blood chemistry (principal); Z87.898 Personal history of other specified conditions; K70.0 Alcoholic fatty liver; K76.0 Fatty (change of) liver, not elsewhere classified
CPT/HCPCS: 76705

== ENCOUNTER 2025-02-25 10:56 | Outpatient (CLI) | payer MEDICARE, SELFPAY ==
[2025-02-25 11:43] LABS: Hematocrit 40.3 % (37.0-47.0); Hemoglobin 13.6 g/dL (12.0-15.0); Immature Granulocyte Percent A 0.3 % (0-0.5); Lymphocytes Absolute Auto 2.04 K/mm3 (0.9-3.2); Mean Corpuscular HGB Conc 33.7 g/dl (32-36); Mean Corpuscular Hemoglobin 31.1 pg (26-34); Mean Corpuscular Volume 92.2 fl (80-100); Nucleated Red Blood Cells Absolute Auto 0.000 K/mm3 (0.0-0.012); Nucleated Red Blood Cells Perc 0.0 % (0.0-0.2); Platelet Count Result 202 k/mm3 (150-375); Red Blood Count 4.37 M/mm3 (4.2-5.4); White Blood Count 6.7 K/mm3 (4.5-10.0)
[2025-02-25 11:48] LABS: Schistocytes None Seen
--- OUTSIDE RECORDS SUMMARY | 2025-02-25 11:58 | XMS_ITS | Clinical Summary ---
Author Organization [facility] Address [address] [place] [address] Care Team Providers Care Terrazzo Worker Apprentice Name Role Phone Unavailable Primary Care Provider [...] 1 - Tdap) 1977 Mammogram Screening 1998 Pneumococcal Vaccine: 50+ Ye ars (1 of 1 - PCV) 2008 Zoster Vaccines (1 of 2) 2008 Dexa Scan (General) 12/04/2023 COVID-19 Vaccine ( - 2023-2 5 season) 2025 RSV Immunization or 60+ Years (1 - [...]
--- OUTSIDE RECORDS SUMMARY | 2025-02-25 11:58 | XMS_ITS | Clinical Summary ---
Author Organization [facility] Dalia Verduzco Address [address] [place] [address] Care Team Providers Care 8Th Grade Mathematics Teacher Name Role Phone Meera Patel MD Primary Care Provider Allergies Active Allergy Reactions [...] Encounters Date Type Department Care Team Description 01/18/2025 External Device Data STL ABSTRACTION Provider, Abstract 12/29/2024 External Device Data STL ABSTRACTION Provider, Abstract 12/28/2024 External Device Data STL ABSTRACTION Provider, Abstract 12/07/2024 External Device Data STL ABSTRACTION Provider, Abstract 12/07/2024 External Device Data STL ABSTRACTION Provider, Abstract [...] 11:09 AM CDT Height 162.6 cm (5' 4) 02/10/2024 2:01 PM CDT Body Mass Index 25.27 02/10/2024 2:01 PM CDT Plan of Treatment Upcoming Encounters Date Type Department Care Team (Late st Contact Info) Description 03/04/2025 11:15 AM CDT Office Visit [facility] Oncology and Hematology - [place] [address] [place] [address] [facility] [address] [place] [address] Tristan White MD [address] [facility] [address] [place] [address] Health Maintenance Due Date Last [...] (1 of 2) 2008 OSTEOPOROSIS SCREENING 12/04/2023 Medicare Advantage (JAZZY) Prev entative Visit/Annual Wellness Visit 06/16/2024 INFLUENZA VACCINE (#1) 2025 RSV VACCINE (60+ or ) (1 - 1-dose 75+ series) 2033 Insurance Care Teams 8Th Grade Mathematics Teacher Relationship Specialty Start Date End Date Meera Patel MD [address] [place] [phone] PCP - General Family Practice 02/10/24
--- OUTSIDE RECORDS SUMMARY | 2025-02-25 11:58 | XMS_ITS | Clinical Summary ---
Author Organization [facility] Address [address] [place] [address] Care Team Providers Care Deckhand Name Role Phone Anay Moser Primary Care Provider [phone] Allergies Active Allergy Reactions Criticality Noted Date [...] 1:15 PM CDT Height 162.6 cm (5' 4) 12/23/2022 1:15 PM CDT Body Mass Index 24.03 12/23/2022 1:15 PM CDT Plan of Treatment Health Maintenance Due Date Last Done Comments Breast Cancer Screening-Mammogram 1960 Colon Cancer Screening-Colonoscopy 1960 Depression Screening [...] 06/18/2021, 10/07/2020, Additional history exists Influenza Vaccine (#1) 2025 05/05/2024, 2021 Insurance [facility] CHOICE PLUS [facility] HMO/PPO Address: [facility] [address] [place] [address] [facility] CHOICE PLUS [facility] HMO/PPO Address: [facility] [id number] [place] [address] Care Teams Deckhand Relationship Specialty Start Date End Date Anay Moser PA [address] [place] [address] PCP - General Family Medicine 11/05/22
--- OUTSIDE RECORDS SUMMARY | 2025-02-25 11:58 | XMS_ITS | Encounter Summary ---
Author Organization [facility] [employer] [facility] Address [address] [place] [address] Care Team Providers Care Syrup Mixer Helper Name Role Phone Meera Patel MD Primary Care Provider [phone] Encounter Details Date Type Department Care Team (Late st Contact Info) Description 12/11/2023 [facility] Oncology and Hematology - [place] [address] [facility] [address] [place] [address] Tristan White MD [address] [facility] [address] [place] [address] Thrombocytopenia, unspecified (Primary Dx) Social [...] AM CDT See Attached Consult note in social media sr strategy manager, [facility] does not use [employer] as EHR documented in this encounter Plan of Treatment Upcoming Encounters Date Type Department Care Team (Late st Contact Info) Description 03/04/2025 11:15 AM CDT Office Visit [facility] Oncology and Hematology - [place] [address] [facility] [address] [place] [address] Tristan White MD [address] [facility] [address] [place] [address] documented as of this encounter Visit Diagnoses Diagnosis Thrombocytopenia, unspecified- Primary documented in this encounter Care Teams Syrup Mixer Helper Relationship Specialty Start Date End Date Meera Patel MD [address] [place] [phone] PCP - General Family Practice 02/10/24 documented as of this encounter
--- OUTSIDE RECORDS SUMMARY | 2025-02-25 11:58 | XMS_ITS | Clinical Summary ---
Author Organization [facility] Address [address] [place] [address] Care Team Providers Care Manager Of Radiology Name Role Phone Meera Del Toro Primary Care Provider [phone] Source Comments [facility],non-owned Affiliates and Associated Physician Practices is amultiple site organization consisting of ambulatory clinics and hospital sitesin [place], [place], [place] and [place]. This disclosure is being madepursuant to the Care Everywhere program and may not contain all information available regarding this patient. 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
[2025-02-25 14:14] LABS: Iron 53 ug/dL (37-170)
[2025-02-25 14:16] LABS: Alanine Aminotransferase 22 U/L (6-35); Albumin Level 4.2 g/dL (3.5-5.1); Alkaline Phosphatase 97 U/L (38-126); Anion Gap 11 mmol/L (4-12); Aspartate Amino Transferase 45 U/L (14-36); Bilirubin,Total 0.5 mg/dL (0.2-1.3); Blood Urea Nitrogen 9 mg/dL (7-17); Calcium 9.5 mg/dL (8.4-10.2); Carbon Dioxide 28 mmol/L (22-30); Chloride 101 mmol/L (98-107); Cholesterol 210 mg/dL (0-200); Estimated Glomerular Filt Rate > 60; Glucose 88 mg/dL (65-110); HDL Direct 53 mg/dL; Potassium 4.1 mmol/L (3.4-5.0); Sodium 140 mmol/L (137-145); Total Protein 8.0 g/dL (6.3-8.2); Triglycerides 111 mg/dL (<150)
[2025-02-25 14:24] LABS: Percent Iron Saturation 22 % (20-50)
[2025-02-25 14:31] LABS: Free T4 Free Thyroxine 1.34 ng/dL (0.78-2.19)
[2025-02-25 14:52] LABS: Thyroid Stimulating Hormone 0.946 uIU/mL (0.465-4.680)
[2025-02-25 14:59] LABS: Ferritin 396.00 ng/mL (11.1-264)
== END 2025-02-25 10:57 | disposition home or self-care (01) ==
PROVIDERS: Student in an Organized Health Care Education/Training Program; PCP Family Medicine; Visit Provider Internal Medicine Hematology & Oncology
DX: E78.5 Hyperlipidemia, unspecified (principal); Z00.00 Encounter for general adult medical examination without abnormal findings; R53.83 Other fatigue; D64.9 Anemia, unspecified
CPT/HCPCS: 36415; 80053; 80061; 82728; 83540; 83550; 84439; 84443; 85025

== ENCOUNTER 2025-05-06 12:35 | Inpatient (IN) | payer MEDICARE, SELFPAY ==
--- NOTE | ~2025-05-06 | XR_ITS ---
Intraoperative images, fluoroscopy time 20 minutes Reviewed, dictated and finalized at location P. IESEL OPERATIONS MANAGER
--- NOTE | ~2025-05-06 | US_ITS ---
EXAMINATION: US venous doppler [facility], 05/13/2025 8:16 INSTRUMENTATION ENGINEERING TECHNICIAN HISTORY: edema BLE R>L, post-op COMPARISON: None Technique: Evans-scale and color Doppler images were attempted of the lower saphenofemoral junction, common femoral vein,superficial femoral vein, proximal deep femoral vein, proximal deep femoral vein, popliteal vein and posterior tibial veins. Findings: Deep Venous System:Normal flow, augmentation and compressibility. No echogenic thrombus identified. Superficial Venous SystemNo superficial thrombophlebitis. Soft tissues: Soft tissues are unremarkable. Impression: Negative for DVT. Reviewed, dictated and finalized at location P. RUMENTATION ENGINEERING TECHNICIAN Impression: Negative for DVT.
--- NOTE | ~2025-05-06 | XR_ITS ---
EXAMINATION: XR hip RT 2V w AP pelvis, 05/06/2025 13:10 CIGARETTE VENDOR HISTORY: fall COMPARISON: No comparisons available. Findings: Fixation of the left femur noted. There is a nondisplaced right intertrochanteric fracture. Moderate degenerative changes. Soft tissues unremarkable. Impression: Right intertrochanteric fracture Reviewed, dictated and finalized at location P. RETTE VENDOR Impression: Right intertrochanteric fracture
--- NOTE | ~2025-05-06 | XR_ITS ---
Examination: XR chest 1V Clinical History: Preop Comparison: 01/24/2021 Technique: Portable AP Findings: Heart size normal. Mild bibasilar atelectasis. Mild elevation left hemidiaphragm. No acute bony abnormality. IMPRESSION: 1. No acute cardiopulmonary findings given portable technique. Reviewed, dictated and finalized at location R. GE CONTROL OPERATOR
[2025-05-06 12:40] VITALS: BP 135/92; PULSE 86; RESP 13; TEMP 36.8; O2SAT 98
--- NOTE | 2025-05-06 12:45 | ED.LOWEXIN ---
HPI - Extremity Injury (Lower) General Chief Complaint: Extremity Injury, Lower Stated Complaint: hip deformity Source: patient and EMS Mode of arrival: EMS Limitations: no limitations History of Present Illness HPI Narrative: 64 years old white female came from home by ambulance with right hip pain after tripping and falling in the bathroom. She denies other injuries. Related Data Allergies Allergy/AdvReac Type Severity Reaction Status Date / Time aspirin Allergy Intermediate HIVES Verified 05/06/25 17:14 NSAIDS (Non-Steroidal Allergy Intermediate HIVES Verified 05/06/25 17:14 Anti-Inflamma Review of Systems Review of Systems: All systems reviewed & are unremarkable except as noted in HPI and below PMFSH Past Medical History Medical History History of heavy alcohol consumption Degenerative arthritis of left knee Sprain of collateral ligament of left knee Bilateral lower extremity edema Anxiety Vision loss Anxiety and depression Hearing loss Arthritis Gastroesophageal reflux disease Daily consumption of alcohol Surgical History Surgical History History of hip surgery Left Hip fracture surgery IM nail on 01/25/[address] Seaman History of cataract extraction Family History Family History Father Pulmonary embolism Hypertension Diabetes mellitus Acute myocardial infarction Alcoholism Mother Hypercholesterolemia Sibling Alcoholism Grandparent Alcoholism Other Arthritis Asthma Carcinoma of colon Cerebrovascular accident Depression HLD (hyperlipidemia) Heart disease Skin cancer Social History Social History Social History: The patient lives in [place] with her . She smoked 1/2 pack of cigarettes a day for about 20 years and quit in 12/1999. She drinks 2 to 3 alcoholic beverages a night, typically beer or wine. She drinks heavier on the weekends, typically drinking mixed drinks although she does not quantify the amount that she typically drinks. No illicit substance use. She designates her Jluis as her surrogate decision maker and she wishes to be a full code. Smoking packs per day: 0.5 Smoking cigarettes per day: 10.0 Years smoked: 24 Smoking pack-years: 12.00 Smoking status: Former smoker Tobacco type: cigarettes Second hand tobacco smoke exposure: No Alcohol intake: current Substance use: never Substance use type: does not use Do You Feel Safe in your Home?: Yes Lack of Transportation: No Lack of Food: Never True Current Housing: I Have Housing Concerned About Future Housing: No Difficulty Paying Gas/Electric Bills: No Difficulty Paying for Meds: No Currently Unemployed: No Education: Trade/Vocational Certificate Difficulty w/ Childcare or Family Care: No Living arrangements: with family Occupation/Education: retired 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 Gender identity (if verbalized by the patient): Female Sexual Orientation (if Verbalized by the Patient): Straight or Heterosexual Spiritual care concerns: No Agree to blood products: Yes Exam Narrative: General appearance: Well-developed, well-nourished Skin: Normal color Head: Normocephalic, nontraumatic Eyes: Clear conjunctiva ENT: Oropharynx normal, ears normal, nose normal Neck: Supple, nontender Chest and respiratory: Airway patent, no respiratory distress, no accessory muscle use Heart: Regular rate/rhythm Abdomen: Soft, nontender, no organomegaly, quiet bowel sounds Vascular: Normal peripheral pulses, normal capillary refill. Musculoskeletal: Right hip deformity, severe limited range of motion, severe diffuse tenderness, right lower extremity is shorter compared to the left 1 Neurologic: Alert and oriented ?3, ECHOMETER ENGINEER is normal as tested, no gross motor deficit Course Consultations Consultation #1: DR CEDENO Date: 05/06/25 Vital Signs Vital signs: Vital Signs Temperature 36.8 C 05/06/25 12:40 Pulse Rate 86 05/06/25 12:40 Respiratory Rate 13 05/06/25 12:40 Blood Pressure 135/92 H 05/06/25 12:40 Pulse Oximetry 98 05/06/25 12:40 Oxygen Delivery Room Air 05/06/25 12:40 Temperature 36.9 C 05/06/25 21:29 Pulse Rate 106 H 05/06/25 21:29 Respiratory Rate 19 05/06/25 21:29 Blood Pressure 140/70 05/06/25 21:29 Pulse Oximetry 96 05/06/25 21:29 Oxygen Delivery Room Air 05/06/25 12:40 MDM - Extremity Injury (Lower) MDM Narrative Medical decision making narrative: Tripped and fell at home prior to arrival with right hip pain and deformity Vital signs are stable Physical examination consistent with right hip fracture Differential diagnosis hip fracture, femoral fracture, dislocation, Blood workup today includes CBC, CMP, coags showed platelet count 123, AST 126 ALT 54 colitis is 138 Chest x-ray showed no acute abnormality EKG showed normal sinus rhythm X-ray of the right hip and pelvis showed right intertrochanteric fracture Admit to hospitalist Discussed with Differential Diagnosis Differential diagnosis: Likely other (As above) Medical Records Attestation: I reviewed the patient's medical records. Lab Data Attestation: I reviewed the patient's lab results. 05/06/25 13:03 05/06/25 13:03 Labs: Lab Results 05/06/25 Range/Units 13:03 WBC 5.5 (4.5-10.0) K/mm3 RBC 4.11 L (4.2-5.4) M/mm3 Hgb 13.0 (12.0-15.0) g/dL Hct 39.3 (37.0-47.0) % MCV 95.6 (80-100) fl MCH 31.6 (26-34) pg MCHC 33.1 (32-36) g/dl RDW 14.8 H (11.5-14.5) % Plt Count 123 L (150-375) k/mm3 MPV 10.1 (7.4-10.4) fl Immature Gran % (Auto) 0.7 H (0-0.5) % Neut % (Auto) 61.8 (45.5-73.1) % Lymph % (Auto) 27.9 (18.3-44.2) % Bleckley % (Auto) 6.1 (2.6-8.5) % Eos % (Auto) 1.1 (0-4.4) % Baso % (Auto) 2.4 H (0.2-1.2) % Lymph # (Auto) 1.52 (0.9-3.2) K/mm3 Bleckley # (Auto) 0.3 (0.1-0.6) K/mm3 Eos # (Auto) 0.1 (0-0.3) K/mm3 Baso # (Auto) 0.1 (0.0-0.1) K/mm3 Abs Immat Gran (auto) 0.04 H (0.00-0.031) K/mm3 Absolute Neuts (auto) 3.4 (1.3-6.7) K/mm3 Absolute Nucleated RBC 0.000 (0.0-0.012) K/mm3 Nucleated RBC % 0.0 (0.0-0.2) % % Immature Plt Fraction 4.3 (0.9-11.2) % PT 12.0 (11.1-14.7) Seconds INR 0.9 APTT 25.5 (22.3-36.8) Seconds Sodium 145 (137-145) mmol/L Potassium 4.4 (3.4-5.0) mmol/L Chloride 107 (98-107) mmol/L Carbon Dioxide 26 (22-30) mmol/L Anion Gap 12 (4-12) mmol/L BUN 15 D (7-17) mg/dL Creatinine 0.56 L (0.7-1.0) mg/dL Estim Creat Clear Calc 82 ml/min Estimated GFR > 60 (59 - ) Glucose 118 H (65-110) mg/dL Calcium 8.6 (8.4-10.2) mg/dL Total Bilirubin 0.5 (0.2-1.3) mg/dL AST 126 H (14-36) U/L ALT 54 H (6-35) U/L Alkaline Phosphatase 138 H (38-126) U/L Total Protein 8.1 (6.3-8.2) g/dL Albumin 4.4 (3.5-5.1) g/dL Imaging Data Radiologist's impression: Impressions Chest X-Ray 05/06/25 13:26 IMPRESSION: 1. No acute cardiopulmonary findings given portable technique. Hip/Pelvis X-Ray 05/06/25 13:26 Impression: Right intertrochanteric fracture ECG Data EKG #1: Attestation: I personally reviewed and interpreted this ECG as follows: ECG completion date: 05/06/25 Interpretation: Normal sinus rhythm at 98 beats per minute, no previous EKG available for comparison Critical Care Time Critical Care Time Critical Care Time: No Discharge Plan Discharge Clinical Impression: Fracture of hip, right, closed Patient Disposition: Still a Patient Condition: Stable
[2025-05-06 13:00] VITALS: BP 129/78; PULSE 100; RESP 18; O2SAT 95
[2025-05-06] MEDS: ONDANSETRON INJ 4 MG/2 ML VIAL IV PUSH ×3 (13:01→17:59)
[2025-05-06] MEDS: HYDROmorphone HCL INJ (*CRX) 1 MG/ML SYR 0.5 MG IV PUSH ×3 (13:01→20:47)
--- NOTE | 2025-05-06 13:07 | ECG_ITS ---
Test Date: 2025-05-06 13:56:03 Measurements Intervals Aubrey Rate: 98 P: 51 MI: 160 QRS: 5 QRSD: 69 T: 20 QT: 346 QTc: 443 Interpretive Statements SINUS TACHY INTERPRETATION BASED ON A DEFAULT AGE OF 40 YEARS No previous ECG available for comparison Electronically Signed On 05-06-2025 19:06:46 HOSPICE COMMUNITY LIAISON by Ángel Espinal M.D.
[2025-05-06 13:14] LABS: Hematocrit 39.3 % (37.0-47.0); Hemoglobin 13.0 g/dL (12.0-15.0); Immature Granulocyte Percent A 0.7 % (0-0.5); Immature Platelet Fraction Pct 4.3 % (0.9-11.2); Lymphocytes Absolute Auto 1.52 K/mm3 (0.9-3.2); Mean Corpuscular HGB Conc 33.1 g/dl (32-36); Mean Corpuscular Hemoglobin 31.6 pg (26-34); Mean Corpuscular Volume 95.6 fl (80-100); Nucleated Red Blood Cells Absolute Auto 0.000 K/mm3 (0.0-0.012); Nucleated Red Blood Cells Perc 0.0 % (0.0-0.2); Platelet Count Result 123 k/mm3 (150-375); Red Blood Count 4.11 M/mm3 (4.2-5.4); White Blood Count 5.5 K/mm3 (4.5-10.0)
[2025-05-06 13:24] LABS: Alanine Aminotransferase 54 U/L (6-35); Albumin Level 4.4 g/dL (3.5-5.1); Alkaline Phosphatase 138 U/L (38-126); Anion Gap 12 mmol/L (4-12); Aspartate Amino Transferase 126 U/L (14-36); Bilirubin,Total 0.5 mg/dL (0.2-1.3); Blood Urea Nitrogen 15 mg/dL (7-17); Calcium 8.6 mg/dL (8.4-10.2); Carbon Dioxide 26 mmol/L (22-30); Chloride 107 mmol/L (98-107); Estimated CRCL calculation 82 ml/min; Estimated Glomerular Filt Rate > 60; Glucose 118 mg/dL (65-110); Potassium 4.4 mmol/L (3.4-5.0); Sodium 145 mmol/L (137-145); Total Protein 8.1 g/dL (6.3-8.2)
[2025-05-06 13:32] LABS: INR 0.9; Prothrombin Time 12.0 Seconds (11.1-14.7)
[2025-05-06 13:33] LABS: Partial Thromboplastin Time 25.5 Seconds (22.3-36.8)
--- OUTSIDE RECORDS SUMMARY | 2025-05-06 13:39 | XMS_ITS | Encounter Summary ---
Author Organization [facility] [employer] [facility] Address [address] [place] [address] Care Team Providers Care Residential Mortgage Manager Name Role Phone Meera Patel MD Primary Care Provider [phone] Encounter Details Date Type Department Care Team (Late Contact Info) Description 12/11/2023 [facility] Oncology and Hematology - [place] [address] [facility] [address] [place] [address] Tristan White MD [address] [facility] [address] [place] [address] Thrombocytopenia, unspecified (Primary Dx) Social [...] AM CDT See Attached Consult note in media law faculty member, [facility] does not use [employer] as EHR documented in this encounter Plan of Treatment Upcoming Encounters Date Type Department Care Team (Late st Contact Info) Description 02/10/2026 12:00 PM CDT Office Visit [facility] Oncology and Hematology - [place] [address] [facility] [address] [place] [address] Tristan White MD [address] [facility] [address] [place] [address] documented as of this encounter Visit Diagnoses Diagnosis Thrombocytopenia, unspecified- Primary documented in this encounter Care Teams Residential Mortgage Manager Relationship Specialty Start Date End Date Meera Patel MD [address] [place] [phone] PCP - General Family Practice 02/10/24 documented as of this encounter
--- OUTSIDE RECORDS SUMMARY | 2025-05-06 13:39 | XMS_ITS | Clinical Summary ---
Author Organization [facility] Address [address] [place] [address] Care Team Providers Care Sleep Technologist Name Role Phone Unavailable Primary Care Provider [...] Scan (General) 12/04/2023 COVID-19 Vaccine ( - 2024-2 6 season) 2025 Influenza Adult (#1) 2025 RSV Immunization or 60+ Years (1 - 1-dose 75+ series) 2033 Hepatitis A Vaccines Aged Out No long er eligible based on patient's age to complete this topic Meningococcal B Vaccine Aged Out No l onger eligible based on patient's age to complete this topic Meningococcal Vaccine Aged Out No kelli solis eligible based on patient's age to complete this topic RSV Immunizations Under 20 Months Aged Out No longer eligible based on patient's age to complete this topic
--- OUTSIDE RECORDS SUMMARY | 2025-05-06 13:39 | XMS_ITS | Clinical Summary ---
Author Organization [facility] Address [address] [place] [address] Care Team Providers Care Hand Candle Dipper Name Role Phone Anay Moser Primary Care Provider [phone] Allergies Active Allergy Reactions Criticality Noted Date [...] Visit 65+ 12/04/2023 Covid-19 Vaccine (5 - 2024-2 6 season) 2025 06/05/2022, 06/18/2021, 10/07/2020, Additional history exists Influenza Vaccine (#1) 2025 05/05/2024, 2021 Insurance [facility] CHO[facility] PLUS [facility] CHO[facility] PLUS Care Teams Hand Candle Dipper Relationship Specialty Start Date End Date Anay Moser PA [address] [place] [address] PCP - General Family Medicine 11/05/22
--- OUTSIDE RECORDS SUMMARY | 2025-05-06 13:39 | XMS_ITS | Clinical Summary ---
Author Organization [facility] Dalia chavez Dax Address [address] [place] [address] Care Team Providers Care Portable Track Line Marker Name Role Phone Meera Patel MD Primary Care Provider Allergies Active Allergy Reactions Criticality Noted Date Comments Aspirin Hives High 11/20/2022 Nsaids (Non-Steroidal Anti-I nflammatory Drug) Hives High 11/20/2022 Medications CALCIUM CARBONATE ORAL Take by mouth. Active multivitamin (DAILY-SHERICE) tablet Take 1 Tablet by mouth daily. Active Active Problems No known active problems Encounters Date Type Department Care Team Description 05/03/2025 External Device Data STL ABSTRACTION Provider, Abstract 04/06/2025 External Device Data STL ABSTRACTION Provider, Abstract 04/05/2025 External Device Data STL ABSTRACTION Provider, Abstract 03/04/2025 11:15 AM CDT Office Visit [facility] - [place] [address] [address] Tristan White MD Chronic anemia (Primary Dx) 03/01/2025 External Device Data STL ABSTRACTION Provider, Abstract [...] Sign Reading Time Taken Comments Blood Pressure 138/82 03/04/2025 11:11 AM CDT Pulse 91 03/04/2025 11:09 AM CDT Temperature 37 C (98.6 F) 03/04/2025 11:09 AM CDT Respiratory Rate 15 03/04/2025 11:09 AM CDT Oxygen Saturation 94% 03/04/2025 11:09 AM CDT Inhaled Oxygen Concentration - - Weight 69.5 kg (153 lb 3.2 oz) 03/04/2025 11:09 AM CDT Height 162.6 cm (5' 4) 02/10/2024 2:01 PM CDT Body Mass Index 26.3 02/10/2024 2:01 PM CDT Plan of Treatment Upcoming Encounters Date Type Department Care Team (Late st Contact Info) Description 02/10/2026 12:00 PM CDT Office Visit [facility] [address] [place] [address] [address] Tristan White MD [address] [facility] [facility] [address] [place] [address] Health Maintenance Due Date Last [...] 2008 OSTEOPOROSIS SCREENING 12/04/2023 INFLUENZA VACCINE (#1) 2025 RSV VACCINE (60+ or ) (1 - 1-dose 75+ series) 2033 Insurance [facility] [id number] Care Teams Portable Track Line Marker Relationship Specialty Start Date End Date Meera Patel MD [address] [place] [address] PCP - General Family Practice 02/10/24
--- OUTSIDE RECORDS SUMMARY | 2025-05-06 13:39 | XMS_ITS | Clinical Summary ---
Author Organization [facility] Address [address] [place] [address] Care Team Providers Care Powertrain Engineer Name Role Phone Meera Del Toro Primary Care Provider [phone] Source Comments [facility],non-owned Affiliates and Associated Physician Practices is amultiple site organization consisting of ambulatory clinics and hospital sitesin [place], [place], [place] and [place]. This disclosure is being madepursuant to the Care Everywhere program and may not contain all information available regarding this patient. 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
[2025-05-06] MEDS: SODIUM CHLORIDE 0.9% IV 1,000 ML 125 ML IV CONT (15:20)
[2025-05-06 15:22] VITALS: BP 148/87; PULSE 102; RESP 12; O2SAT 93
--- NOTE | 2025-05-06 15:25 | WPCEDHO ---
ED Hand Off Checklist All vitals saved:yes IV Site documented:yes All med administrations documented:yes Triage Note Triage Note Patient coming from home, [place]. 05/06/25 12:40 Patient was going to take a shower and slipped in bathroom. Right hip deformity. Pt did not hit head, -thinner, -LOC EMS gave 50mcg Fentanyl at 12:20 and 50 mcg Fentanyl at 12:30 through PIV. 148/100, 94% RA, 83 HR Allergies aspirin Allergy (Intermediate, Verified 03/03/25 09:12) HIVES NSAIDS (Non-Steroidal Anti-Inflamma Allergy (Intermediate, Verified 03/03/25 09:12) HIVES Family History (Last Reviewed 05/06/25 @ 12:53 by Tania Galindo MD) Father Pulmonary embolism Hypertension Diabetes mellitus Acute myocardial infarction Alcoholism Mother Hypercholesterolemia Sibling Alcoholism Grandparent Alcoholism Other Arthritis Asthma Carcinoma of colon Cerebrovascular accident Depression HLD (hyperlipidemia) Heart disease Skin cancer Active Medications including assessments/comments Hydromorphone HCl (Hydromorphone Hcl Inj (*Crx) 1 Mg/Ml Syr) 0.5 mg IV PUSH Q4H PRN PRN Reason: Pain Rated 7-10 Last Admin: 05/06/25 15:21 Dose: 0.5 mg Documented By: KIM MAR Pain Assessment Document 05/06/25 15:21 [facility] (Rec: 05/06/25 15:21 [facility] [id number]) Pain Evaluation Pain Evaluation Assessment Pain Scale Pain Scale Used Numeric (1 - 10) Self Report Pain Assessment Reported Pain Level 5 Pain Score Pain Score 5: Self Report Sodium Chloride (Normal Saline Iv) 1,000 mls @ 125 mls/hr IV CONT .Q8H EMY Last Admin: 05/06/25 15:20 Dose: 125 mls/hr Documented By: KIM Infusion/Titration Document 05/06/25 15:20 [facility] (Rec: 05/06/25 15:20 [facility] [id number]) Intake IV Site Peripheral Access Left Antecubital Container Volume 1,000 Waste Amount 0 Dosing Infusion Rate 125 Cumulative Dose Not Applicable Increase/Decrease Started Elapsed Time Elapsed Time ( 0m minutes) Ondansetron HCl (Ondansetron Inj 4 Mg/2 Ml Vial) 4 mg IV PUSH Q4H PRN PRN Reason: Nausea Last Admin: 05/06/25 15:20 Dose: 4 mg Documented By: KIM Administered/Completed Medications Discontinued Medications Hydromorphone HCl (Hydromorphone Hcl Inj (*Crx) 1 Mg/Ml Syr) 0.5 mg IV PUSH ONCE STA Stop: 05/06/25 12:50 Last Admin: 05/06/25 13:01 Dose: 0.5 mg Documented By: KIM Ondansetron HCl (Ondansetron Inj 4 Mg/2 Ml Vial) 4 mg IV PUSH ONCE STA Stop: 05/06/25 12:50 Last Admin: 05/06/25 13:01 Dose: 4 mg Documented By: KIM Interventions/Assessments IV / Saline Lock, Insert Start: 05/06/25 12:50 Freq: STAT Status: Active Protocol: Document 05/06/25 13:05 [facility] (Rec: 05/06/25 13:05 [facility] [id number]) IV Assessment Peripheral Access Left Antecubital IV Catheter Access Initiated Before Arrival Catheter Gauge 18 IV Site Assessment WNL IV Care and WNL Maintenance Last Vital Signs Temperature 98.2 F 05/06/25 12:40 Pulse Rate 102 H 05/06/25 15:22 Respiratory Rate 12 05/06/25 15:22 Pulse Oximetry 93 05/06/25 15:22 Blood Pressure 148/87 H 05/06/25 15:22 Blood Pressure Mean 107 05/06/25 15:22 Oxygen Delivery Room Air 05/06/25 12:40 Weight 73.7 kg 05/06/25 12:40 Last Result - Abnormals Only RBC 4.11 M/mm3 (4.2-5.4) L 05/06/25 13:03 RDW 14.8 % (11.5-14.5) H 05/06/25 13:03 Plt Count 123 k/mm3 (150-375) L 05/06/25 13:03 Immature Gran % (Auto) 0.7 % (0-0.5) H 05/06/25 13:03 Baso % (Auto) 2.4 % (0.2-1.2) H 05/06/25 13:03 Abs Immat Gran (auto) 0.04 K/mm3 (0.00-0.031) H 05/06/25 13:03 Creatinine 0.56 mg/dL (0.7-1.0) L 05/06/25 13:03 Glucose 118 mg/dL (65-110) H 05/06/25 13:03 AST 126 U/L (14-36) H 05/06/25 13:03 ALT 54 U/L (6-35) H 05/06/25 13:03 Alkaline Phosphatase 138 U/L (38-126) H 05/06/25 13:03 Most Recent Suicide Severity Rating Suicide Severity Rating NO RISK INDICATED 05/06/25 12:40
[2025-05-06 15:56] VITALS: BP 133/75; PULSE 106; RESP 11; O2SAT 93
[2025-05-06 16:00] VITALS: BP 134/84; PULSE 108; RESP 16; TEMP 36.6; O2SAT 94
[2025-05-06 16:33] VITALS: BMI 27.0; BMI 27.8
--- NOTE | 2025-05-06 17:18 | ADMGEN ---
This patient, Reginaldo Morgan, was admitted to [facility] Surg Room 302-01. Patient/family oriented to hospital policies and general routines including ID bracelet, bed and alarms, visiting hours, pain management, procedures, bathroom and other care routines, personal items, smoking policy, room service/diet, and visiting hours. Information on how to activate the Rapid Response Team has been discussed. Patient/Family are encouraged to report perceived risks to care and to ask questions if they do not understand what they are told or what they should do.
--- NOTE | 2025-05-06 19:26 | PM.IMHP ---
H&P: HPI History of Present Illness Date/Time: 05/06/25 19:26 Chief Complaint: Right hip pain Narrative: 64-year-old female with past medical history of osteopenia, pelvic fracture, sacral fracture, fatty liver disease, past ETOH abuse, depression presents to the ED on 05/06/2025 with complaints of severe right hip pain after a fall. Patient tripped in her bathroom and landed on her right hip on the edge of the shower. She states she was unable to get up to the severe pain and required EMS assistance. Denies hitting her head or neck. Initial vitals 135/92, HR 86, respirations 13, afebrile and 98% on room air Labs unremarkable aside from baseline anemia, AST 126, ALT 54, alk-phos 138. EKG reveals sinus tach Chest x-ray with no acute cardiopulmonary findings. Right hip pelvis x-ray revealed right nondisplaced intertrochanteric fracture Review of Systems Review of Systems: All systems reviewed & are unremarkable except as noted in HPI and below PMFSH Past Medical History Medical History History of heavy alcohol consumption Degenerative arthritis of left knee Sprain of collateral ligament of left knee Bilateral lower extremity edema Anxiety Vision loss Anxiety and depression Hearing loss Arthritis Gastroesophageal reflux disease Daily consumption of alcohol Surgical History Surgical History History of hip surgery Left Hip fracture surgery IM nail on 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 She smoked 1/2 pack of cigarettes a day for about 20 years and quit in 12/1999. She drinks 2 to 3 alcoholic beverages a night, typically beer or wine. She drinks heavier on the weekends, typically drinking mixed drinks although she does not quantify the amount that she typically drinks. No illicit substance use. She designates her Jluis as her surrogate decision maker and she wishes to be a full code. Smoking packs per day: 0.5 Smoking cigarettes per day: 10.0 Years smoked: 24 Smoking pack-years: 12.00 Smoking status: Former smoker Tobacco type: cigarettes Second hand tobacco smoke exposure: No Alcohol intake: current Substance use: never Substance use type: does not use Do You Feel Safe in your Home?: Yes Lack of Transportation: No Lack of Food: Never True Current Housing: I Have Housing Concerned About Future Housing: No Difficulty Paying Gas/Electric Bills: No Difficulty Paying for Meds: No Currently Unemployed: No Education: Trade/Vocational Certificate Difficulty w/ Childcare or Family Care: No Living arrangements: with family Occupation/Education: retired 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 Gender identity (if verbalized by the patient): Female Sexual Orientation (if Verbalized by the Patient): Straight or Heterosexual Spiritual care concerns: No Agree to blood products: Yes Meds Home Medications and Allergies Home Medications ?Medication ?Instructions ?Recorded ?Confirmed ?Type calcium 315 mg (as 1 tablet PO BID #100 tabs 12/13/23 05/06/25 Rx citrate)-vitamin D3 5 mcg (200 unit) tablet multivitamin with folic acid 400 1 tablet PO DAILY #30 tabs 12/27/23 05/06/25 Rx mcg tablet (Thera) back brace #1 ea 06/02/24 02/09/25 Rx Allergies Allergy/AdvReac Type Severity Reaction Status Date / Time aspirin Allergy Intermediate HIVES Verified 05/06/25 17:14 NSAIDS (Non-Steroidal Allergy Intermediate HIVES Verified 05/06/25 17:14 Anti-Inflamma Vital Signs Vital Signs - 24 hr 05/06/25 12:40 05/06/25 13:00 05/06/25 15:22 Temperature 98.2 F Pulse Rate 86 100 102 H Respiratory Rate 13 18 12 Blood Pressure 135/92 H 129/78 148/87 H Pulse Oximetry 98 95 93 Oxygen Delivery Room Air 05/06/25 15:56 05/06/25 16:00 Temperature 97.8 F Pulse Rate 106 H 108 H Respiratory Rate 11 L 16 Blood Pressure 133/75 134/84 Pulse Oximetry 93 94 Oxygen Delivery Exam Narrative: GENERAL: non-toxic appearing, in no acute distress. HEAD: Normocephalic, atraumatic. EYES: PERRLA. Conjunctivae clear. EARS: Very hard of hearing NOSE: Normal no drainage. THROAT: Pharynx clear, no exudate. NECK: Trachea midline. No adenopathy, no masses. RESPIRATORY: Airway patent, respirations nonlabored. CTA. CARDIOVASCULAR: Regular rate and rhythm BREASTS: Defer GASTROINTESTINAL: Abdomen is soft and nontender. No organomegaly. Bowel sounds normal in all quadrants. GENITOURINARY: Defer MUSCULOSKELETAL: Tenderness to the right hip area. Unable to independently move the right leg without extreme pain SKIN: Warm, dry, normal color. NEURO: A&O X4. Speech clear PSYCHIATRIC: Normal interaction H&P: Results Labs Labs: Short CBC 05/06/25 Range/Units 13:03 WBC 5.5 (4.5-10.0) K/mm3 Hgb 13.0 (12.0-15.0) g/dL Hct 39.3 (37.0-47.0) % Plt Count 123 L (150-375) k/mm3 BMP 05/06/25 13:03 Sodium 145 Potassium 4.4 Chloride 107 Carbon Dioxide 26 BUN 15 D Creatinine 0.56 L Glucose 118 H Calcium 8.6 Liver Function 05/06/25 Range/Units 13:03 Total Bilirubin 0.5 (0.2-1.3) mg/dL AST 126 H (14-36) U/L ALT 54 H (6-35) U/L Alkaline Phosphatase 138 H (38-126) U/L Albumin 4.4 (3.5-5.1) g/dL Assessment and Plan Assessment and plan (1) Closed displaced intertrochanteric fracture of left femur: Qualifiers: Encounter type: sequela Qualified Code(s): S72.142S - Displaced intertrochanteric fracture of left femur, sequela Code(s): S72.142A - Displaced intertrochanteric fracture of left femur, initial encounter for closed fracture Status: Acute Assessment and Plan: Patient tripped in her bathroom and landed on her right hip on the edge of the shower. She states she was unable to get up to the severe pain and required EMS assistance. Denies hitting her head or neck. Right hip pelvis x-ray revealed right nondisplaced intertrochanteric fracture. -orthopedic consult -NPO midnight in anticipation of surgical intervention -pain control with hydromorphone (2) History of heavy alcohol consumption: Code(s): Z87.898 - Personal history of other specified conditions Status: Chronic Assessment and Plan: In remission. Patient denies current use of alcohol and denies history of alcohol withdrawal. -monitor her symptoms alcohol withdrawal Plan Diet: Regular-NPO at midnight GI prophylaxis: NA DVT prophylaxis: SCD lines/drains: PIV Fluids: NS at 125 Code status: Full Quality VTE Prophylaxis VTE prophylaxis: mechanical ordered Hospitalist MIPS Advance Care Plan I have confirmed that the patient's Advanced Care Plan is present, code status is documented, or surrogate decision maker is listed in patient medical record.: Yes Medication Reconciliation I have utilized all available resources to obtain, update and review the patients current medications (includes all prescriptions, OTC, herbals, cannabis, and nutritional supplements).: Yes
[2025-05-06 21:29] VITALS: BP 140/70; PULSE 106; RESP 19; TEMP 36.9; O2SAT 96
[2025-05-07] MEDS: HYDROmorphone HCL INJ (*CRX) 1 MG/ML SYR 0.5 MG IV PUSH ×3 (01:44→10:12)
[2025-05-07] MEDS: SODIUM CHLORIDE 0.9% IV 1,000 ML 125 ML IV CONT ×3 (01:49→17:37)
[2025-05-07 05:21] VITALS: BP 149/70; PULSE 98; RESP 19; TEMP 36.8; O2SAT 93
[2025-05-07 06:13] LABS: Hematocrit 30.3 % (37.0-47.0); Hemoglobin 9.7 g/dL (12.0-15.0); Immature Granulocyte Percent A 0.7 % (0-0.5); Immature Platelet Fraction Pct 4.2 % (0.9-11.2); Lymphocytes Absolute Auto 1.18 K/mm3 (0.9-3.2); Mean Corpuscular HGB Conc 32.0 g/dl (32-36); Mean Corpuscular Hemoglobin 31.3 pg (26-34); Mean Corpuscular Volume 97.7 fl (80-100); Nucleated Red Blood Cells Absolute Auto 0.000 K/mm3 (0.0-0.012); Nucleated Red Blood Cells Perc 0.0 % (0.0-0.2); Platelet Count Result 111 k/mm3 (150-375); Red Blood Count 3.10 M/mm3 (4.2-5.4); White Blood Count 7.5 K/mm3 (4.5-10.0)
[2025-05-07 06:27] LABS: Anion Gap 14 mmol/L (4-12); Blood Urea Nitrogen 11 mg/dL (7-17); Calcium 8.5 mg/dL (8.4-10.2); Carbon Dioxide 20 mmol/L (22-30); Chloride 102 mmol/L (98-107); Estimated CRCL calculation 79 ml/min; Estimated Glomerular Filt Rate > 60; Glucose 92 mg/dL (65-110); Potassium 4.4 mmol/L (3.4-5.0); Sodium 136 mmol/L (137-145)
[2025-05-07] MEDS: MULTIVITAMINS THERAPEUTIC TAB (*BKC) 1 TABLET PO (08:12)
[2025-05-07] MEDS: CALCIUM CITRATE 315 MG/VITAMIN D 6.25 MCG (250 UNITS) TAB 1 TABLET PO ×2 (08:12→17:38)
[2025-05-07 08:54] LABS: Cholesterol 219 mg/dL (0-200); Triglycerides 57 mg/dL (<150)
[2025-05-07 08:57] LABS: HDL Direct 134 mg/dL
[2025-05-07 10:51] LABS: Hematocrit 28.0 % (37.0-47.0); Hemoglobin 9.2 g/dL (12.0-15.0)
--- NOTE | 2025-05-07 13:06 | PM.CNOR ---
Assessment and Plan Assessment and plan (1) Intertrochanteric fracture of right femur: Code(s): S72.141A - Displaced intertrochanteric fracture of right femur, initial encounter for closed fracture Status: Acute Assessment and Plan: S/P RIGHT INTERTROCHANTERIC HIP FRACTURE AFTER A FALL. SHE WILL NEED INSERTION OF FEMORAL KALIA RIGHT HIP. HISTORY, EXAM AND RADIOGRAPHS REVIEWED WITH THE PATIENT. REFERRING PHYSICIAN RECORDS AND IMAGES REVIEWED. CONDITION, NATURE, ETIOLOGY AND COURSE OF NATURAL HISTORY REVIEWED. CONSERVATIVE AND OPERATIVE TREATMENT OPTIONS REVIEWED WELL THE RISKS AND BENEFITS OF EACH.DISCUSSED NONOPERATIVE AND OPERATIVE TREATMENT OPTIONS WITH THE PATIENT. THE PATIENT'S QUESTIONS WERE ANSWERED. THE PATIENT DESIRES OPERATIVE TREATMENT. DISCUSSED ___INSERTION INTERTROCHANTERIC KALIA RIGHT HIP . RISKS OF SURGERY INCLUDING BUT NOT LIMITED TO NEUROVASCULAR DAMAGE, WOUND COMPLICATIONS, BLOOD CLOT, PULMONARY EMBOLUS, STROKE, DC, ANESTHETIC RISKS UP TO AND INCLUDING WERE REVIEWED. CONTINUED PAIN AND POSSIBLE DYSFUNCTION WERE EXPLAINED. NO GUARANTEES WERE OFFERED. THE PATIENT UNDERSTANDS AND WISHES TO PROCEED. History of Present Illness HPI Consult date: 05/07/25 Chief complaint: Right Hip Fracture Narrative: HA HAD A FALL AND SUSTAINED INJURY TO HER RIGHT HIP. SHE WAS SEEN IN THE ED. SHE WAS DIAGNOSED WITH A RIGHT INTERTROCHANTERIC FEMUR FRACTURE. SHE DENIES ANY OTHER EXTREMITY OR NECK OR BACK PAIN. SHE HAS SEVERE RIGHT HIP PAIN. SHE DENIES ANY CHEST PAIN OR SOB. HISTORY, EXAM AND RADIOGRAPHS REVIEWED WITH THE PATIENT. REFERRING PHYSICIAN RECORDS AND IMAGES REVIEWED. CONDITION, NATURE, ETIOLOGY AND COURSE OF NATURAL HISTORY REVIEWED. CONSERVATIVE AND OPERATIVE TREATMENT OPTIONS REVIEWED WELL THE RISKS AND BENEFITS OF EACH. 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 She smoked 1/2 pack of cigarettes a day for about 20 years and quit in 12/1999. She drinks 2 to 3 alcoholic beverages a night, typically beer or wine. She drinks heavier on the weekends, typically drinking mixed drinks although she does not quantify the amount that she typically drinks. No illicit substance use. She designates her Jluis as her surrogate decision maker and she wishes to be a full code. Smoking packs per day: 0.5 Smoking cigarettes per day: 10.0 Years smoked: 24 Smoking pack-years: 12.00 Smoking status: Former smoker Tobacco type: cigarettes Second hand tobacco smoke exposure: No Alcohol intake: current Substance use: never Substance use type: does not use Do You Feel Safe in your Home?: Yes Lack of Transportation: No Lack of Food: Never True Current Housing: I Have Housing Concerned About Future Housing: No Difficulty Paying Gas/Electric Bills: No Difficulty Paying for Meds: No Currently Unemployed: No Education: Trade/Vocational Certificate Difficulty w/ Childcare or Family Care: No Living arrangements: with family Occupation/Education: retired 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 Gender identity (if verbalized by the patient): Female Sexual Orientation (if Verbalized by the Patient): Straight or Heterosexual Spiritual care concerns: No Agree to blood products: Yes Meds Home Medications and Allergies Home Medications ?Medication ?Instructions ?Recorded ?Confirmed ?Type calcium 315 mg (as 1 tablet PO BID #100 tabs 12/13/23 05/06/25 Rx citrate)-vitamin D3 5 mcg (200 unit) tablet multivitamin with folic acid 400 1 tablet PO DAILY #30 tabs 12/27/23 05/06/25 Rx mcg tablet (Thera) Allergies Allergy/AdvReac Type Severity Reaction Status Date / Time aspirin Allergy Intermediate HIVES Verified 05/06/25 17:14 NSAIDS (Non-Steroidal Allergy Intermediate HIVES Verified 05/06/25 17:14 Anti-Inflamma Vital Signs Vital Signs - 24 hr 05/06/25 15:22 05/06/25 15:56 05/06/25 16:00 Temperature 36.6 C Pulse Rate 102 H 106 H 108 H Respiratory Rate 12 11 L 16 Blood Pressure 148/87 H 133/75 134/84 Pulse Oximetry 93 93 94 Oxygen Delivery 05/06/25 21:29 05/07/25 05:21 05/07/25 08:15 Temperature 36.9 C 36.8 C Pulse Rate 106 H 98 Respiratory Rate 19 19 Blood Pressure 140/70 149/70 H Pulse Oximetry 96 93 Oxygen Delivery Room Air Exam Extrem: Right lower extremity: normal to inspection, full ROM, normal capillary refill, hip/thigh Details: abnormal to inspection, tenderness Location: of the hip Location: over the greater trochanter, abnormal ROM Details: pain with active ROM during Details: with ADduction, with ABduction, with extension, with flexion, to internal rotation and to external rotation and pain with passive ROM during Details: to ADduction, to ABduction, to extension, to flexion, to internal rotation and to external rotation, ecchymosis, crepitus, deformity and warmth; no swelling, no abrasions and no lacerations, knee Details: normal to inspection and normal ROM; no tenderness and no swelling, lower leg Details: normal to inspection and palpable cord; no tenderness, ankle Details: normal to inspection, no edema and normal ROM; no tenderness and no swelling and foot Details: normal capillary refill, normal to inspection, toes with normal ROM, vascular exam Details: dorsalis pedis pulse present and posterior tibial pulse present and tendon exam Details: active flexion normal and active extension normal; no tenderness; no cyanosis and no edema Left lower extremity: hip/thigh (LATERAL SCARS AT HIP HEALED) Details: normal to inspection and normal ROM; no tenderness, no swelling and no ecchymosis, knee Details: normal to inspection and normal ROM; no tenderness and no swelling, lower leg Details: normal to inspection and palpable cord; no tenderness, ankle Details: normal to inspection; no tenderness and no swelling and foot Details: normal capillary refill, toes with normal ROM, vascular exam Details: dorsalis pedis pulse present and posterior tibial pulse present and motor-sensory exam light-touch normal; no tenderness Results Labs 05/07/25 10:46 05/07/25 05:35 Labs: Abnormal lab results 05/06/25 05/07/25 05/07/25 Range/Units 13:03 05:35 10:46 RBC 4.11 L 3.10 L (4.2-5.4) M/mm3 Hgb 9.7 L D 9.2 L (12.0-15.0) g/dL Hct 30.3 L 28.0 L (37.0-47.0) % RDW 14.8 H 14.7 H (11.5-14.5) % Plt Count 123 L 111 L (150-375) k/mm3 Immature Gran % (Auto) 0.7 H 0.7 H (0-0.5) % Neut % (Auto) 73.3 H (45.5-73.1) % Lymph % (Auto) 15.8 L (18.3-44.2) % [place] % (Auto) 9.3 H (2.6-8.5) % Baso % (Auto) 2.4 H (0.2-1.2) % [place] # (Auto) 0.7 H (0.1-0.6) K/mm3 Abs Immat Gran (auto) 0.04 H 0.05 H (0.00-0.031) K/mm3 Sodium 136 L (137-145) mmol/L Carbon Dioxide 20 L (22-30) mmol/L Anion Gap 14 H (4-12) mmol/L Creatinine 0.56 L 0.58 L (0.7-1.0) mg/dL Glucose 118 H (65-110) mg/dL AST 126 H (14-36) U/L ALT 54 H (6-35) U/L Alkaline Phosphatase 138 H (38-126) U/L Cholesterol 219 H (0-200) mg/dL H & H 05/06/25 05/07/25 05/07/25 Range/Units 13:03 05:35 10:46 Hgb 13.0 9.7 L D 9.2 L (12.0-15.0) g/dL Hct 39.3 30.3 L 28.0 L (37.0-47.0) % Coagulation 05/06/25 Range/Units 13:03 INR 0.9 All other labs normal.
[2025-05-07] MEDS: oxyCODONE/ACETAMINOPHEN (*CRX) 5-325 MG TABLET 1 TABLET PO ×3 (13:46→22:02)
[2025-05-07 14:00] VITALS: BP 156/78; PULSE 98; RESP 16; TEMP 37.1; O2SAT 99
--- NOTE | 2025-05-07 15:50 | P.PNIM_ITS ---
Progress Note: A&P Assessment and Plan (1) Closed displaced intertrochanteric fracture of left femur: Qualifiers: Encounter type: sequela Qualified Code(s): S72.142S - Displaced intertrochanteric fracture of left femur, sequela Code(s): S72.142A - Displaced intertrochanteric fracture of left femur, initial encounter for closed fracture Status: Acute Assessment and Plan: Patient tripped in her bathroom and landed on her right hip on the edge of the shower. She states she was unable to get up to the severe pain and required EMS assistance. Denies hitting her head or neck. Right hip pelvis x-ray revealed right nondisplaced intertrochanteric fracture. * orthopedic following * NPO midnight in anticipation of surgical intervention 05/08/2025 * PO oxy and IV hydromorphone for pain management * SCD until post surgery patient with history of anemia will need to monitor closely when a pharmaceutical DVT is added * Bowel regiment * PT/OT post-op WB status per ortho * Neurovascular checks (2) History of heavy alcohol consumption: Code(s): Z87.898 - Personal history of other specified conditions Status: Chronic Assessment and Plan: In remission. Patient denies current use of alcohol and denies history of alcohol withdrawal. * monitor her symptoms alcohol withdrawal * Continued multi-vitamin * started Folic acid daily (3) Gastroesophageal reflux disease: Qualifiers: Esophagitis bleeding: unspecified whether hemorrhage Esophagitis presence: with esophagitis Qualified Code(s): K21.00 - Gastro-esophageal reflux disease with esophagitis, without bleeding Code(s): K21.9 - Gastro-esophageal reflux disease without esophagitis Status: Acute Assessment and Plan: * Continue PPI (4) Fatty liver, alcoholic: Code(s): K70.0 - Alcoholic fatty liver Status: Acute Assessment and Plan: Patient with HX of fatty liver and elevated enzymes on admission but improving. Patient reports she is in remission from ETOH. She follows with a racing driver outpatient for close monitoring * monitor liver enzymes (5) Iron deficiency anemia: Code(s): D50.9 - Iron deficiency anemia, unspecified Status: Acute Assessment and Plan: Patient reports HX of anemia follows with reservation clerk outpatient. She reports recently they discontinued her Ferrous sulfate but she has had iron infusions in the past. * Hgb 9.6 * Trend H&H * transfuse PRBC if Hgb <7.0 * Monitor for signs of bleeding Plan Code Status: Full DVT: SCD's until post op GI: Pantoprazole PT/OT: Post op per ortho Disposition: Patient continues admission to the medical unit for surgical repair of right femur fracture after a fall at home. PT/OT post op for discharge planning. Time Spent With Patient Time with patient: 15 - 25 minutes Subjective Date/time seen: 05/07/25 15:50 Interval history: Patient is a 64 year old female admitted after fall at home resulting in a intertronchatic fracture of the right femur with plans for surgical intervention 05/08/2025. 05/07/2025: Assumed Care Patient comfortable and pain controlled at this time but does report some constipation. Patient denies an CP, SOB, N/V. Review of Systems Review of Systems: All systems reviewed & are unremarkable except as noted in HPI and below Exam Const: General: comfortable and no acute distress Other: Pleasant female HENMT: Mouth: Yes moist mucous membranes Eyes: General: appearance normal, both eyes and all related structures Sclera: sclerae normal Pupils: Equal, round and reactive pupils present Neck: Neck: supple and no JVD Resp: Effort & Inspection: normal respiratory effort Auscultation: clear to auscultation bilaterally Cardio: Rate: regular rate Rhythm: regular rhythm GI: GI Palp: Yes Soft to palpation Auscultation: normal bowel sounds Urinary Catheter: Urinary Catheter: patent and draining and urine clear Skin: General skin exam: normal color and no rashes or lesions noted Wounds: no wounds Neuro: Speech: normal speech Extrem: General: normal exam except as noted Other: Right abnormal ROM, neurovascular intact, deformity, and ecchymosis Psych: Mental Status: mental status grossly normal Affect: normal affect Objective Data Vital Signs Vital Signs: Vital Signs - 24 hr 05/06/25 15:56 05/06/25 16:00 05/06/25 21:29 Temperature 97.8 F 98.4 F Pulse Rate 106 H 108 H 106 H Respiratory Rate 11 L 16 19 Blood Pressure 133/75 134/84 140/70 Pulse Oximetry 93 94 96 Oxygen Delivery 05/07/25 05:21 05/07/25 08:15 05/07/25 14:00 Temperature 98.3 F 98.7 F Pulse Rate 98 98 Respiratory Rate 19 16 Blood Pressure 149/70 H 156/78 H Pulse Oximetry 93 99 Oxygen Delivery Room Air Intake/Output Intake/Output: Intake & Output 05/04/25 05/05/25 05/06/25 05/07/25 23:59 23:59 23:59 23:59 Intake Total 1000 1944.5 Output Total 250 450 Balance 750 1494.5 Meds/Results Medications: Active Medications Generic Name Dose Route Start Last Admin Trade Name Freq PRN Reason Stop Dose Admin Calcium Citrate 1 tablet 05/07/25 09:00 05/07/25 08:12 Calcium Citrate 315 Mg/Vitamin D 6.25 Mcg (250 Units) Tab PO 1 tablet BID [facility] Administration Folic Acid 1 mg 05/08/25 09:00 Folic Acid 1 Mg Tablet PO DAILY EMY Hydromorphone HCl 0.5 mg 05/06/25 14:04 05/07/25 10:12 Hydromorphone Hcl Inj (*Crx) 1 Mg/Ml Syr IV PUSH 0.5 mg Q4H PRN Administration Pain Rated 7-10 Sodium Chloride 1,000 mls @ 125 mls/hr 05/06/25 14:05 05/07/25 09:43 Normal Saline Iv IV CONT 125 mls/hr .Q8H EMY Administration Multivitamins Therapeutic 1 tablet 05/07/25 09:00 05/07/25 08:12 Multivitamins Therapeutic Tab (*Bkc) PO 1 tablet DAILY EMY Administration Ondansetron HCl 4 mg 05/06/25 14:04 05/06/25 17:59 Ondansetron Inj 4 Mg/2 Ml Vial IV PUSH 4 mg Q4H PRN Administration Nausea Oxycodone/Acetaminophen 1 tablet 05/07/25 13:29 05/07/25 13:46 Oxycodone/Acetaminophen (*Crx) 5-325 Mg Tablet PO 1 tablet Q4H PRN Administration Pain Rated 7-10 Pantoprazole Sodium 40 mg 05/08/25 09:00 Pantoprazole 40 Mg Tablet PO QAM [facility] Polyethylene Glycol 17 gm 05/08/25 09:00 Polyethylene Glycol 3350 17 Gm Powd.Pack PO QAM [facility] Senna/Docusate Sodium 1 tab 05/07/25 21:00 Senna/Docusate Sodium Tablet PO HS [facility] Radiology Results: ITS Impressions Chest X-Ray 05/06/25 13:26 IMPRESSION: 1. No acute cardiopulmonary findings given portable technique. Hip/Pelvis X-Ray 05/06/25 13:26 Impression: Right intertrochanteric fracture Labs Labs: Laboratory Results - last 24 hr 05/07/25 05/07/25 05:35 10:46 WBC 7.5 RBC 3.10 L Hgb 9.7 L D 9.2 L Hct 30.3 L 28.0 L MCV 97.7 MCH 31.3 MCHC 32.0 RDW 14.7 H Plt Count 111 L MPV 10.4 Immature Gran % (Auto) 0.7 H Neut % (Auto) 73.3 H Lymph % (Auto) 15.8 L [place] % (Auto) 9.3 H Eos % (Auto) 0.0 Baso % (Auto) 0.9 Lymph # (Auto) 1.18 [place] # (Auto) 0.7 H Eos # (Auto) 0.0 Baso # (Auto) 0.1 Abs Immat Gran (auto) 0.05 H Absolute Neuts (auto) 5.5 Absolute Nucleated RBC 0.000 Nucleated RBC % 0.0 % Immature Plt Fraction 4.2 Sodium 136 L Potassium 4.4 Chloride 102 Carbon Dioxide 20 L Anion Gap 14 H BUN 11 Creatinine 0.58 L Estim Creat Clear Calc 79 Estimated GFR > 60 Glucose 92 Calcium 8.5 Triglycerides 57 Cholesterol 219 H LDL Cholesterol Direct 68 HDL Direct 134 Blood Type B Positive Antibody Screen Negative Quality VTE Prophylaxis VTE prophylaxis: mechanical ordered -Patient's previous records reviewed on admission -ER notes reviewed in detail on admission -discussed all findings and current treatment plan with patient/Family/POA -Consultations reviewed for recommendations -Patient's disposition for safe discharge discussed with patient case manager -radiology imaging, EKG and test results I have personally reviewed and interpreted unless otherwise specified Dictation performed by [employer] direct speech recognition software, therefore maintenance department manager variants and typographical errors may occur. Hospitalist MIPS Advance Care Plan I have confirmed that the patient's Advanced Care Plan is present, code status is documented, or surrogate decision maker is listed in patient medical record.: Yes Medication Reconciliation I have utilized all available resources to obtain, update and review the patients current medications (includes all prescriptions, OTC, herbals, cannabis, and nutritional supplements).: Yes The patient is not eligible for med reconciliation; the patient is in a emergent medical situation where delaying treatment would jeopardize the patients health.: No
[2025-05-07 19:35] VITALS: BP 151/65; PULSE 107; RESP 14; TEMP 37.1; O2SAT 95
[2025-05-07] MEDS: SENNA/DOCUSATE SODIUM TABLET 1 TAB PO (22:02)
[2025-05-08] VITALS (20 sets, daily range): BP systolic 96–149; BP diastolic 53–78; PULSE 82–110; RESP 12–18; TEMP 35.7–37.1; O2SAT 95–100
[2025-05-08] MEDS: SODIUM CHLORIDE 0.9% IV 1,000 ML 125 ML IV CONT ×3 (02:01→23:25)
[2025-05-08] MEDS: HYDROmorphone HCL INJ (*CRX) 1 MG/ML SYR 0.5 MG IV PUSH (02:02)
[2025-05-08] MEDS: oxyCODONE/ACETAMINOPHEN (*CRX) 5-325 MG TABLET 1 TABLET PO ×2 (03:54→16:46)
[2025-05-08 05:53] LABS: Hematocrit 25.0 % (37.0-47.0); Hemoglobin 8.2 g/dL (12.0-15.0); Immature Platelet Fraction Pct 4.9 % (0.9-11.2); Mean Corpuscular HGB Conc 32.8 g/dl (32-36); Mean Corpuscular Hemoglobin 31.9 pg (26-34); Mean Corpuscular Volume 97.3 fl (80-100); Red Blood Count 2.57 M/mm3 (4.2-5.4); White Blood Count 5.2 K/mm3 (4.5-10.0)
[2025-05-08 05:56] LABS: Platelet Count Result 74 k/mm3 (150-375)
[2025-05-08 06:14] LABS: Alanine Aminotransferase 28 U/L (6-35); Albumin Level 3.3 g/dL (3.5-5.1); Alkaline Phosphatase 84 U/L (38-126); Anion Gap 3 mmol/L (4-12); Aspartate Amino Transferase 43 U/L (14-36); Bilirubin,Total 0.9 mg/dL (0.2-1.3); Blood Urea Nitrogen 7 mg/dL (7-17); Calcium 8.5 mg/dL (8.4-10.2); Carbon Dioxide 27 mmol/L (22-30); Chloride 102 mmol/L (98-107); Estimated CRCL calculation 91 ml/min; Estimated Glomerular Filt Rate > 60; Glucose 108 mg/dL (65-110); Magnesium 1.9 mg/dL (1.6-2.3); Potassium 3.6 mmol/L (3.4-5.0); Sodium 132 mmol/L (137-145); Total Protein 6.1 g/dL (6.3-8.2)
--- NOTE | 2025-05-08 08:09 | WPDHPUPDATE1 ---
History and Physical Update Update Date/Time: 05/08/25 08:09 History and Physical has been reviewed, including an updated exam of the patient. There are NO changes in the patient's condition. Risks, benefits, and alternatives have been discussed and questions answered. Patient agrees to proceed with procedure.
[2025-05-08] MEDS: SODIUM CHLORIDE 0.9% IV 250 ML 30 ML IV CONT (08:50)
--- NOTE | 2025-05-08 08:51 | P.PNIM_ITS ---
Progress Note: A&P Assessment and Plan (1) Closed displaced intertrochanteric fracture of left femur: Qualifiers: Encounter type: sequela Qualified Code(s): S72.142S - Displaced intertrochanteric fracture of left femur, sequela Code(s): S72.142A - Displaced intertrochanteric fracture of left femur, initial encounter for closed fracture Status: Acute Assessment and Plan: Patient tripped in her bathroom and landed on her right hip on the edge of the shower. She states she was unable to get up to the severe pain and required EMS assistance. Denies hitting her head or neck. Right hip pelvis x-ray revealed right nondisplaced intertrochanteric fracture. * surgical intervention 05/08/2025 * Ortho following * PO oxy and IV hydromorphone for pain management * SCD until post surgery patient with history of anemia will need to monitor closely when a pharmaceutical DVT is added * Bowel regiment * PT/OT post-op WB status per ortho * Neurovascular checks (2) History of heavy alcohol consumption: Code(s): Z87.898 - Personal history of other specified conditions Status: Chronic Assessment and Plan: In remission. Patient denies current use of alcohol and denies history of alcohol withdrawal. * monitor her symptoms alcohol withdrawal * Continued multi-vitamin * started Folic acid daily (3) Gastroesophageal reflux disease: Qualifiers: Esophagitis bleeding: unspecified whether hemorrhage Esophagitis presence: with esophagitis Qualified Code(s): K21.00 - Gastro-esophageal reflux disease with esophagitis, without bleeding Code(s): K21.9 - Gastro-esophageal reflux disease without esophagitis Status: Acute Assessment and Plan: * Continue PPI (4) Fatty liver, alcoholic: Code(s): K70.0 - Alcoholic fatty liver Status: Acute Assessment and Plan: Patient with HX of fatty liver and elevated enzymes on admission but improving. Patient reports she is in remission from ETOH. She follows with a fruit and vegetable parer outpatient for close monitoring * monitor liver enzymes (5) Iron deficiency anemia: Code(s): D50.9 - Iron deficiency anemia, unspecified Status: Acute Assessment and Plan: Patient reports HX of anemia follows with coin purse framer outpatient. She reports recently they discontinued her Ferrous sulfate but she has had iron infusions in the past. * Hgb 9.6 * Trend H&H * transfuse PRBC if Hgb <7.0 * Monitor for signs of bleeding Plan Code Status: Full DVT: SCD's until post op GI: Pantoprazole PT/OT: Post op per ortho Disposition: Patient continues admission to the medical unit for surgical repair of right femur fracture after a fall at home. PT/OT post op for discharge planning. Time Spent With Patient Time with patient: 15 - 25 minutes Subjective Date/time seen: 05/08/25 08:51 Interval history: Patient is a 64 year old female admitted after fall at home resulting in a intertronchatic fracture of the right femur with plans for surgical intervention 05/08/2025. 05/08/2025: Patient was seen postop upon arrival to the medical unit. Patient did report some mild to moderate pain to right hip family bedside still with mild confusion post anesthesia. I patient denied chest pain, shortness a breath, nausea, vomiting. Review of Systems Review of Systems: All systems reviewed & are unremarkable except as noted in HPI and below Exam Const: General: comfortable and no acute distress Other: Pleasant female HENMT: Mouth: Yes moist mucous membranes Eyes: General: appearance normal, both eyes and all related structures Sclera: sclerae normal Pupils: Equal, round and reactive pupils present Neck: Neck: supple and no JVD Resp: Effort & Inspection: normal respiratory effort Auscultation: clear to auscultation bilaterally Cardio: Rate: regular rate Rhythm: regular rhythm GI: Auscultation: normal bowel sounds Urinary Catheter: Urinary Catheter: patent and draining and urine clear Skin: General skin exam: normal color and no rashes or lesions noted Wounds: no wounds Neuro: Cranial nerves: Yes Equal, round and reactive pupils present Speech: normal speech Extrem: General: normal exam except as noted Other: Right abnormal ROM, neurovascular intact, deformity, and ecchymosis Psych: Mental Status: mental status grossly normal Affect: normal affect Objective Data Vital Signs Vital Signs: Vital Signs - 24 hr 05/07/25 14:00 05/07/25 19:35 05/07/25 20:00 Temperature 98.7 F 98.8 F Pulse Rate 98 107 H Respiratory Rate 16 14 Blood Pressure 156/78 H 151/65 H Pulse Oximetry 99 95 Oxygen Delivery Room Air 05/08/25 04:10 05/08/25 08:49 Temperature 98.2 F 98.3 F Pulse Rate 96 97 Respiratory Rate 12 16 Blood Pressure 120/53 L 149/73 H Pulse Oximetry 97 97 Oxygen Delivery Room Air Intake/Output Intake/Output: Intake & Output 05/05/25 05/06/25 05/07/25 05/08/25 23:59 23:59 23:59 23:59 Intake Total 1000 3482.0 1000 Output Total 250 1050 550 Balance 750 2432.0 450 Meds/Results Medications: Active Medications Generic Name Dose Route Start Last Admin Trade Name Freq PRN Reason Stop Dose Admin Calcium Citrate 1 tablet 05/07/25 09:00 05/07/25 17:38 Calcium Citrate 315 Mg/Vitamin D 6.25 Mcg (250 Units) Tab PO 1 tablet BID EMY Administration Folic Acid 1 mg 05/08/25 09:00 Folic Acid 1 Mg Tablet PO DAILY EMY Hydromorphone HCl 0.5 mg 05/06/25 14:04 05/08/25 02:02 Hydromorphone Hcl Inj (*Crx) 1 Mg/Ml Syr IV PUSH 0.5 mg Q4H PRN Administration Pain Rated 7-10 Sodium Chloride 1,000 mls @ 125 mls/hr 05/06/25 14:05 05/08/25 02:01 Normal Saline Iv IV CONT 125 mls/hr .Q8H EMY Administration Sodium Chloride 250 mls @ 30 mls/hr 05/08/25 08:25 Normal Saline Iv IV CONT 05/08/25 16:44 .Q8H20M STA Multivitamins Therapeutic 1 tablet 05/07/25 09:00 05/07/25 08:12 Multivitamins Therapeutic Tab (*Bkc) PO 1 tablet DAILY EMY Administration Ondansetron HCl 4 mg 05/06/25 14:04 05/06/25 17:59 Ondansetron Inj 4 Mg/2 Ml Vial IV PUSH 4 mg Q4H PRN Administration Nausea Oxycodone/Acetaminophen 1 tablet 05/07/25 13:29 05/08/25 03:54 Oxycodone/Acetaminophen (*Crx) 5-325 Mg Tablet PO 1 tablet Q4H PRN Administration Pain Rated 7-10 Pantoprazole Sodium 40 mg 05/08/25 09:00 Pantoprazole 40 Mg Tablet PO QAM EMY Polyethylene Glycol 17 gm 05/08/25 09:00 Polyethylene Glycol 3350 17 Gm Powd.Pack PO QAM [facility] Senna/Docusate Sodium 1 tab 05/07/25 21:00 05/07/25 22:02 Senna/Docusate Sodium Tablet PO 1 tab HS EMY Administration Radiology Results: ITS Impressions Chest X-Ray 05/06/25 13:26 IMPRESSION: 1. No acute cardiopulmonary findings given portable technique. Hip/Pelvis X-Ray 05/06/25 13:26 Impression: Right intertrochanteric fracture Labs Labs: Laboratory Results - last 24 hr 05/07/25 05/07/25 05/08/25 05:35 10:46 05:27 WBC 5.2 RBC 2.57 L Hgb 9.2 L 8.2 L Hct 28.0 L 25.0 L MCV 97.3 MCH 31.9 MCHC 32.8 RDW 14.4 Plt Count 74 L MPV 10.4 % Immature Plt Fraction 4.9 Sodium 136 L 132 L Potassium 4.4 3.6 Chloride 102 102 Carbon Dioxide 20 L 27 Anion Gap 14 H 3 L BUN 11 7 Creatinine 0.58 L 0.50 L Estim Creat Clear Calc 79 91 Estimated GFR > 60 > 60 Glucose 92 108 Calcium 8.5 8.5 Magnesium 1.9 Total Bilirubin 0.9 AST 43 H ALT 28 Alkaline Phosphatase 84 Total Protein 6.1 L Albumin 3.3 L Triglycerides 57 Cholesterol 219 H LDL Cholesterol Direct 68 HDL Direct 134 Blood Type B Positive Antibody Screen Negative Crossmatch See Detail Quality VTE Prophylaxis VTE prophylaxis: mechanical ordered -Patient's previous records reviewed on admission -ER notes reviewed in detail on admission -discussed all findings and current treatment plan with patient/Family/POA -Consultations reviewed for recommendations -Patient's disposition for safe discharge discussed with correctional case manager -radiology imaging, EKG and test results I have personally reviewed and interpreted unless otherwise specified Dictation performed by [employer] direct speech recognition software, therefore litigation partner variants and typographical errors may occur. Hospitalist MIPS Advance Care Plan I have confirmed that the patient's Advanced Care Plan is present, code status is documented, or surrogate decision maker is listed in patient medical record.: Yes Medication Reconciliation I have utilized all available resources to obtain, update and review the patients current medications (includes all prescriptions, OTC, herbals, cannabis, and nutritional supplements).: Yes The patient is not eligible for med reconciliation; the patient is in a emergent medical situation where delaying treatment would jeopardize the patients health.: No
--- NOTE | 2025-05-08 09:43 | WPDANESEPPF ---
Anes - Initial Pre Proc Eval Procedure: Operation Date: 05/08/25 10:00 Proposed Procedures p Right Intertrochanteric Nail(Right) - Rigo Hernandez MD Date/Time: 05/08/25 09:43 Surgeon: Van Almeida MD Pre Op Diagnosis: Right Hip Fracture Patient Data Age: 64 Gender: F Height: 1.63 m Weight: 73.7 kg Last Vital Signs Temp 37.0 C 05/08/25 09:33 Pulse 84 05/08/25 09:33 Resp 16 05/08/25 09:33 BP 143/76 H 05/08/25 09:33 Pulse Ox 99 05/08/25 09:33 O2 Del Method Room Air 05/08/25 08:49 Allergies Allergy/AdvReac Type Severity Reaction Status Date / Time aspirin Allergy Intermediate HIVES Verified 05/06/25 17:14 NSAIDS (Non-Steroidal Allergy Intermediate HIVES Verified 05/06/25 17:14 Anti-Inflamma Home Medications ?Medication ?Instructions ?Recorded ?Confirmed ?Type calcium 315 mg (as 1 tablet PO BID #100 tabs 12/13/23 05/06/25 Rx citrate)-vitamin D3 5 mcg (200 unit) tablet multivitamin with folic acid 400 1 tablet PO DAILY #30 tabs 12/27/23 05/06/25 Rx mcg tablet (Thera) Laboratory Tests 05/07/25 05/08/25 10:46 05:27 WBC 5.2 K/mm3 (4.5-10.0) RBC 2.57 L M/mm3 (4.2-5.4) Hgb 9.2 L g/dL 8.2 L g/dL (12.0-15.0) (12.0-15.0) Hct 28.0 L % 25.0 L % (37.0-47.0) (37.0-47.0) MCV 97.3 fl (80-100) MCH 31.9 pg (26-34) MCHC 32.8 g/dl (32-36) RDW 14.4 % (11.5-14.5) Plt Count 74 L k/mm3 (150-375) MPV 10.4 fl (7.4-10.4) % Immature Plt Fraction 4.9 % (0.9-11.2) Sodium 132 L mmol/L (137-145) Potassium 3.6 mmol/L (3.4-5.0) Chloride 102 mmol/L (98-107) Carbon Dioxide 27 mmol/L (22-30) Anion Gap 3 L mmol/L (4-12) BUN 7 mg/dL (7-17) Creatinine 0.50 L mg/dL (0.7-1.0) Estim Creat Clear Calc 91 ml/min Estimated GFR > 60 (59 - ) Glucose 108 mg/dL (65-110) Calcium 8.5 mg/dL (8.4-10.2) Magnesium 1.9 mg/dL (1.6-2.3) Total Bilirubin 0.9 mg/dL (0.2-1.3) AST 43 H U/L (14-36) ALT 28 U/L (6-35) Alkaline Phosphatase 84 U/L (38-126) Total Protein 6.1 L g/dL (6.3-8.2) Albumin 3.3 L g/dL (3.5-5.1) Blood Type B Positive Antibody Screen Negative Crossmatch See Detail Patient hx anesthesia problems: none Family hx anesthesia problems: none Results Review: All pre-operative results and documents have been reviewed as part of the pre-operative evaluation. [facility] Past Medical History Medical History History of heavy alcohol consumption Degenerative arthritis of left knee Sprain of collateral ligament of left knee Bilateral lower extremity edema Anxiety Vision loss Anxiety and depression Hearing loss Arthritis Gastroesophageal reflux disease Daily consumption of alcohol Surgical History Surgical History History of hip surgery Left Hip fracture surgery IM nail on 01/25/[address] Seaman History of cataract extraction Family History Family History Father Pulmonary embolism Hypertension Diabetes mellitus Acute myocardial infarction Alcoholism Mother Hypercholesterolemia Sibling Alcoholism Grandparent Alcoholism Other Arthritis Asthma Carcinoma of colon Cerebrovascular accident Depression HLD (hyperlipidemia) Heart disease Skin cancer Social History Social History Social History: The patient lives in [place] with her . She smoked 1/2 pack of cigarettes a day for about 20 years and quit in 12/1999. She drinks 2 to 3 alcoholic beverages a night, typically beer or wine. She drinks heavier on the weekends, typically drinking mixed drinks although she does not quantify the amount that she typically drinks. No illicit substance use. She designates her Jluis as her surrogate decision maker and she wishes to be a full code. Smoking packs per day: 0.5 Smoking cigarettes per day: 10.0 Years smoked: 24 Smoking pack-years: 12.00 Smoking status: Former smoker Tobacco type: cigarettes Second hand tobacco smoke exposure: No Alcohol intake: current Substance use: never Substance use type: does not use Do You Feel Safe in your Home?: Yes Lack of Transportation: No Lack of Food: Never True Current Housing: I Have Housing Concerned About Future Housing: No Difficulty Paying Gas/Electric Bills: No Difficulty Paying for Meds: No Currently Unemployed: No Education: Trade/Vocational Certificate Difficulty w/ Childcare or Family Care: No Living arrangements: with family Occupation/Education: retired 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 Gender identity (if verbalized by the patient): Female Sexual Orientation (if Verbalized by the Patient): Straight or Heterosexual Spiritual care concerns: No Agree to blood products: Yes Anes - Eval Final PreProcedure Day of Procedure 05/08/25 09:43 Patient weight: overweight Heart: regular rate and rhythm Lungs: clear to auscultation Airway: Mallampati scale class II Neurological: alert and oriented Last oral intake: >/= 8 hours ASA classification: III Emergent: no Anesthetic plan: proceed Anesthesia type and monitoring: general LMA and standard monitoring Results Review: All pre-operative results and documents have been reviewed as part of the pre-operative evaluation. Informed Consent: The patient's anesthetic plan and its attendant risks and benefits were discussed with the patient/family/POA. Questions were solicited and answers provided to the satisfaction of the patient/family/POA.
[2025-05-08] MEDS: LACTATED RINGERS 1,000 ML 30 ML IV CONT ×2 (09:50→12:37)
[2025-05-08] MEDS: TRANEXAMIC ACID 1,000MG/ISO100 1,000 MG/100 ML BAG 200 MG IVPB (10:02)
[2025-05-08] MEDS: ceFAZolin 2 GM in SODIUM CHLORIDE 0.9% IV 50 ML 100 ML IVPB ×2 (10:02→16:46)
[2025-05-08] MEDS: TRANEXAMIC ACID 1,000 MG/10 ML AMPUL 1000 MG IV PUSH (11:59)
[2025-05-08] MEDS: fentaNYL CITRATE INJ (*CRX) 100 MCG/2 ML VIAL 25 MCG IV PUSH ×4 (12:51→13:13)
--- NOTE | 2025-05-08 13:22 | W.PM.PROC2 ---
Procedure Note - Detailed Date of Procedure 05/08/25 Pre-op Diagnosis Right Hip Fracture Post-op Diagnosis Same Procedure Performed INSERTION IT KALIA RIGHT HIP Surgeon Rigo Hernandez MD Anesthesia General Description of Procedure THE PATIENT WAS TAKEN TO THE OPERATING ROOM AND PLACED ON A FRACTURE TABLE AFTER GIVEN GENERAL ANESTHESIA. THE RIGHT LOWER EXTREMITY WAS PLACED IN A TRACTION BOOT AND USING SOME TRACTION AND INTERNAL ROTATION THE INTER TROCHANTERIC FRACTURE WAS REDUCED TO ANATOMIC POSITION. NEXT THE RIGHT LOWER EXTREMITY WAS PREPPED AND DRAPED IN THE STERILE FASHION. AN INCISION WAS MADE PROXIMAL TO THE TIP OF THE GREATER TROCHANTER AND DISSECTION CONTINUED TILL THE TIP OF THE GREATER TROCHANTER WAS PALPATED. A GUIDE PIN WAS PLACED DOWN THE FEMORAL CANAL AND PAST THE FRACTURE SITE. THIS WAS CHECKED ON FLUOROSCOPY AND FOUND TO BE IN GOOD POSITION. AN INITIAL REAMER WAS USED TO REAM THE FEMORAL CANAL. A 10 BY 200 MM ARTHREX IT KALIA WAS INSERTED TILL THE CORRECT POSITION WAS IDENTIFIED ON XRAY. A GUIDE PIN WAS INSERTED THROUGH THE FEMORAL NECK AT 125 DE[address] ANGLE TILL IT REACHED THE TIP OF THE SUB CHONDRAL BONE SEEN ON XRAY. AFTER REAMING, LAG SCREW WAS INSERTED MEASURING 95 MM. XRAYS SHOWED IT TO BE IN GOOD POSITION. THE LAG SCREW WAS LOCKED PROXIMALLY. NEXT A DISTAL LOCKING SCREW WAS PLACED ACROSS THE KALIA AND WAS IN GOOD POSITION ON XRAY. THE TRACTION WAS RELEASED. THE WOUNDS WERE WASHED. THE DEEP FASCIA WAS REPAIRED WITH #1 VICRYL SUTURE, THE SUB CUTANEOUS LAYER WITH 2-0 VICRYL, AND THE SKIN WITH ROBINSON. THE WOUNDS WERE WASHED AND THEN STERILE DRESSING WAS APPLIED. PATIENT WAS EXTUBATED AND SENT TO RECOVERY ROOM. Estimated Blood Loss 100 Urine Output 550 Complications No immediate complications Condition Stable Disposition PACU
[2025-05-08] MEDS: HYDROmorphone HCL INJ (*CRX) 1 MG/ML SYR IV PUSH (14:32)
[2025-05-08] MEDS: SENNA/DOCUSATE SODIUM TABLET 2 TAB PO (16:46)
[2025-05-08] MEDS: CALCIUM CITRATE 315 MG/VITAMIN D 6.25 MCG (250 UNITS) TAB 1 TABLET PO (16:47)
[2025-05-08] MEDS: oxyCODONE/ACETAMINOPHEN (*CRX) 10-325 MG TABLET 1 TAB PO (21:17)
[2025-05-09] VITALS (8 sets, daily range): BP systolic 112–124; BP diastolic 58–76; PULSE 98–104; RESP 16–24; TEMP 36.8–37.5; O2SAT 95–100
[2025-05-09] MEDS: ceFAZolin 2 GM in SODIUM CHLORIDE 0.9% IV 50 ML 100 ML IVPB ×2 (01:29→08:57)
[2025-05-09] MEDS: ACETAMINOPHEN 325 MG TABLET 650 MG PO ×4 (01:31→17:25)
[2025-05-09 06:14] LABS: Hematocrit 23.0 % (37.0-47.0); Hemoglobin 7.5 g/dL (12.0-15.0); Immature Granulocyte Percent A 0.8 % (0-0.5); Immature Platelet Fraction Pct 5.6 % (0.9-11.2); Lymphocytes Absolute Auto 0.91 K/mm3 (0.9-3.2); Mean Corpuscular HGB Conc 32.6 g/dl (32-36); Mean Corpuscular Hemoglobin 30.0 pg (26-34); Mean Corpuscular Volume 92.0 fl (80-100); Nucleated Red Blood Cells Absolute Auto 0.000 K/mm3 (0.0-0.012); Nucleated Red Blood Cells Perc 0.0 % (0.0-0.2); Platelet Count Result 71 k/mm3 (150-375); Red Blood Count 2.50 M/mm3 (4.2-5.4); White Blood Count 5.3 K/mm3 (4.5-10.0)
[2025-05-09 06:45] LABS: Anisocytosis Occasional; Hypochromasia 1+; Schistocytes None Seen
[2025-05-09 06:46] LABS: Alanine Aminotransferase 17 U/L (6-35); Albumin Level 2.6 g/dL (3.5-5.1); Alkaline Phosphatase 62 U/L (38-126); Anion Gap 2 mmol/L (4-12); Aspartate Amino Transferase 38 U/L (14-36); Bilirubin,Total 0.7 mg/dL (0.2-1.3); Blood Urea Nitrogen 5 mg/dL (7-17); Calcium 7.9 mg/dL (8.4-10.2); Carbon Dioxide 25 mmol/L (22-30); Chloride 103 mmol/L (98-107); Estimated CRCL calculation 96 ml/min; Estimated Glomerular Filt Rate > 60; Glucose 101 mg/dL (65-110); Magnesium 1.7 mg/dL (1.6-2.3); Potassium 3.3 mmol/L (3.4-5.0); Sodium 130 mmol/L (137-145); Total Protein 5.2 g/dL (6.3-8.2)
[2025-05-09] MEDS: SENNA/DOCUSATE SODIUM TABLET 2 TAB PO ×2 (08:56→17:25)
[2025-05-09] MEDS: oxyCODONE/ACETAMINOPHEN (*CRX) 10-325 MG TABLET 1 TAB PO (08:56)
[2025-05-09] MEDS: CALCIUM CITRATE 315 MG/VITAMIN D 6.25 MCG (250 UNITS) TAB 1 TABLET PO ×2 (08:56→17:25)
[2025-05-09] MEDS: PANTOPRAZOLE 40 MG TABLET PO (08:56)
[2025-05-09] MEDS: FOLIC ACID 1 MG TABLET PO (08:56)
[2025-05-09] MEDS: MULTIVITAMINS THERAPEUTIC TAB (*BKC) 1 TABLET PO (08:56)
--- NOTE | 2025-05-09 08:58 | PC.NURSE ---
RN stopped Lovenox order due to decreased platelet count and pharmacy request.
[2025-05-09] MEDS: FERROUS SULFATE 325 MG TABLET PO ×2 (09:01→17:25)
--- NOTE | 2025-05-09 09:39 | P.PNAN_ITS ---
Anes - Prog Note Post-Op Date/Time: 05/09/25 09:39 Cardiovascular status: normal Respiratory status: normal Airway patency: baseline Mental status: baseline Post-Op hydration status: normal Vital Signs: Last Vital Signs Temp 98.9 F 05/09/25 08:00 Pulse 102 H 05/09/25 08:00 Resp 20 05/09/25 08:00 BP 116/72 05/09/25 08:00 Pulse Ox 100 05/09/25 08:00 O2 Del Method Room Air 05/09/25 08:56 O2 Flow Rate 6 05/08/25 13:05 Pain Score (VAS): 0/10 I/O: Intake & Output 05/08/25 05/09/25 05/09/25 23:59 07:59 15:59 Intake Total 1272 550 118 Output Total 250 450 Balance 1022 100 118 Laboratory Tests 05/09/25 05:25 05/09/25 05:25 05/07/25 05/09/25 10:46 05:25 WBC 5.3 RBC 2.50 L Hgb 7.5 L Hct 23.0 L MCV 92.0 D MCH 30.0 D MCHC 32.6 RDW 16.3 H Plt Count 71 L MPV 11.0 H Immature Gran % (Auto) 0.8 H Neut % (Auto) 70.7 Lymph % (Auto) 17.1 L [place] % (Auto) 10.4 H Eos % (Auto) 0.2 Baso % (Auto) 0.8 Lymph # (Auto) 0.91 [place] # (Auto) 0.6 Eos # (Auto) 0.0 Baso # (Auto) 0.0 Abs Immat Gran (auto) 0.04 H Absolute Neuts (auto) 3.8 Absolute Nucleated RBC 0.000 Band Neutrophils % Not Reportable Nucleated RBC % 0.0 Platelet Estimate Decreased % Immature Plt Fraction 5.6 Hypochromasia 1+ Anisocytosis Occasional Schistocytes None seen Sodium 130 L Potassium 3.3 L Chloride 103 Carbon Dioxide 25 Anion Gap 2 L BUN 5 L Creatinine 0.47 L Estim Creat Clear Calc 96 Estimated GFR > 60 Glucose 101 Calcium 7.9 L Magnesium 1.7 Total Bilirubin 0.7 AST 38 H ALT 17 Alkaline Phosphatase 62 Total Protein 5.2 L Albumin 2.6 L Crossmatch See Detail Post-procedural complaints: none Patient Feedback: Patient satisfied with anesthetic care.
--- NOTE | 2025-05-09 10:23 | PM.PNORT ---
Progress Note: A&P Assessment and Plan (1) Intertrochanteric fracture of right femur: Qualifiers: Encounter type: subsequent encounter Fracture alignment: nondisplaced Fracture healing: with routine healing Fracture type: closed Qualified Code(s): S72.144D - Nondisplaced intertrochanteric fracture of right femur, subsequent encounter for closed fracture with routine healing Code(s): S72.141A - Displaced intertrochanteric fracture of right femur, initial encounter for closed fracture Status: Acute Assessment and Plan: POD #1: INSERTION IT KLAIA RIGHT HIP Continue PT/OT. PWB (50%). Walker. HIGH FALL RISK. Continue pain control. Ice Hip. Protect skin. DVT prophylaxis with Lovenox. SCDs. Incentive Spirometry Use reviewed. Monitor Dressing. Change prior to discharge. Bowel Regimen. Dispo: [facility] vs. Home with Home Health pending progress with PT/OT Time Spent With Patient Time: Reviewed history, exam, radiographs and current labs with attending MD and covering surgeon, Dr. Hernandez, who agrees with current plan as indicated above. No further recommendations from Dr. Hernandez at this time. Subjective Subjective Date/Time Seen: 05/09/25 0840 Post Op day: 1 Principal diagnosis: Right Hip Fracture Interval history: POD #1: INSERTION IT KALIA RIGHT HIP Patient doing well. C/o pain, pain well controlled. Concerned about discharge plans. Review of Systems Review of Systems: All systems reviewed & are unremarkable except as noted in HPI and below Constitutional: Constitutional: Denies chills, Denies fever(s), Denies headache(s), Denies lethargy and Reports weakness ENT: Denies headache(s) Cardiovascular: Cardiovascular: Denies chest pain, Denies diaphoresis, Denies lightheadedness, Denies palpitations, Denies dyspnea and Denies dyspnea on exertion Respiratory: Respiratory: Denies cough, Denies dyspnea and Denies dyspnea on exertion Gastrointestinal: Gastrointestinal: Denies constipation, Denies diarrhea, Denies nausea and Denies vomiting Genitourinary: Genitourinary: Reports urinary frequency, Denies dysuria and Denies urinary hesitancy Musculoskeletal: Musculoskeletal: Reports joint swelling (Right Hip ) and Reports limited range of motion (Right Hip due to recent surgery ) Neurologic: Denies headache(s) and Reports weakness Endocrine: Endocrine: Denies palpitations Exam Const: General: comfortable and no acute distress Resp: Effort & Inspection: normal respiratory effort Cardio: Rate: regular rate Rhythm: regular rhythm GI: Inspection: non-distended Skin: General skin exam: normal color Other: Incision right hip c/d/i. Surrounding tissue without redness/warmth. Mild swelling consistent with recent surgery. No drainage. Neuro: Cognition (Neuro): normal cognition Speech: normal speech Extrem: Right lower extremity: normal to inspection, normal capillary refill, hip/thigh Details: tenderness Location: of the hip (Thigh soft ) Location: laterally and anteriorly, swelling Location: at the hip, abnormal ROM (limited consistent with recent surgery ) Details: pain with active ROM during and pain with passive ROM during and other (Incision c/d/i. ); no deformity and no unusual warmth, knee Details: normal to inspection; no tenderness and no swelling, lower leg (Negative Pura's Sign ) Details: normal to inspection and no edema; no tenderness, ankle (+ankle dorsiflexion/plantarflexion) Details: normal to inspection and no edema; no tenderness, no swelling and no ecchymosis and foot Details: normal capillary refill, toes with normal ROM, vascular exam Details: dorsalis pedis pulse present and motor-sensory exam Details: light-touch normal; no tenderness Objective Data Vital Signs Vital Signs: Vital Signs - 24 hr 05/08/25 12:37 05/08/25 12:50 05/08/25 13:05 Temperature 35.7 C L 35.8 C L 35.8 C L Pulse Rate 86 82 85 Respiratory Rate 12 14 12 Blood Pressure 130/65 124/73 136/73 Pulse Oximetry 96 100 100 Oxygen Delivery Simple Face Mask Simple Face Mask Simple Face Mask Oxygen Flow Rate 6 6 6 05/08/25 13:15 05/08/25 13:20 05/08/25 13:35 Temperature 36.4 C 36.5 C Pulse Rate 97 92 Respiratory Rate 14 12 Blood Pressure 139/78 111/60 Pulse Oximetry 96 96 Oxygen Delivery Room Air Room Air Room Air Oxygen Flow Rate 05/08/25 13:45 05/08/25 13:55 05/08/25 14:10 Temperature 36.6 C 36.8 C 36.4 C L Pulse Rate 96 102 H 98 Respiratory Rate 14 16 12 Blood Pressure 101/58 L 107/57 L 96/55 L Pulse Oximetry 96 97 98 Oxygen Delivery Room Air Oxygen Flow Rate 05/08/25 14:40 05/08/25 15:40 05/08/25 19:40 Temperature 36.9 C 36.8 C 37.1 C Pulse Rate 103 H 103 H 110 H Respiratory Rate 12 12 18 Blood Pressure 118/58 L 110/58 L 118/59 L Pulse Oximetry 97 96 96 Oxygen Delivery Oxygen Flow Rate 05/08/25 20:00 05/08/25 23:40 05/08/25 23:48 Temperature 36.2 C L 36.2 C L Pulse Rate 107 H 107 H Respiratory Rate 16 16 Blood Pressure 120/60 120/60 Pulse Oximetry 95 95 Oxygen Delivery Room Air Oxygen Flow Rate 05/09/25 03:40 05/09/25 07:52 05/09/25 08:00 Temperature 37.5 C 37.2 C Pulse Rate 104 H 102 H Respiratory Rate 16 20 Blood Pressure 123/58 L 116/72 Pulse Oximetry 95 100 Oxygen Delivery Room Air Oxygen Flow Rate 05/09/25 08:27 05/09/25 08:56 Temperature Pulse Rate Respiratory Rate Blood Pressure Pulse Oximetry Oxygen Delivery Room Air Room Air Oxygen Flow Rate Intake/Output Intake/Output: Intake & Output 05/06/25 05/07/25 05/08/25 05/09/25 23:59 23:59 23:59 23:59 Intake Total 1000 3482.0 3422 668 Output Total 250 1050 2050 450 Balance 750 2432.0 1372 218 Meds/Results Medications: Active Medications Generic Name Dose Route Start Last Admin Trade Name Freq PRN Reason Stop Dose Admin Acetaminophen 650 mg 05/08/25 13:55 05/09/25 06:58 Acetaminophen 325 Mg Tablet PO 650 mg Q6HR EMY Administration Calcium Citrate 1 tablet 05/07/25 09:00 05/09/25 08:56 Calcium Citrate 315 Mg/Vitamin D 6.25 Mcg (250 Units) Tab PO 1 tablet BID EMY Administration Diazepam 5 mg 05/08/25 13:55 Diazepam (*Crx) 5 Mg Tablet PO Q8H PRN Muscle Spasm Ferrous Sulfate 325 mg 05/09/25 09:00 05/09/25 09:01 Ferrous Sulfate 325 Mg Tablet PO 325 mg BID EMY Administration Folic Acid 1 mg 05/08/25 09:00 05/09/25 08:56 Folic Acid 1 Mg Tablet PO 1 mg DAILY EMY Administration Hydromorphone HCl 1 mg 05/08/25 13:55 05/08/25 14:32 Hydromorphone Hcl Inj (*Crx) 1 Mg/Ml Syr IV PUSH 1 mg Q2H PRN Administration Breakthrough Pain Rated 7-10 or NPO Hydromorphone HCl 0.5 mg 05/08/25 13:55 Hydromorphone Hcl Inj (*Crx) 1 Mg/Ml Syr IV PUSH Q2H PRN Breakthrough Pain Rated 4-6 or NPO Hydroxyzine Pamoate 50 mg 05/08/25 13:55 Hydroxyzine Pamoate 25 Mg Capsule PO Q4H PRN Itching Multivitamins Therapeutic 1 tablet 05/07/25 09:00 05/09/25 08:56 Multivitamins Therapeutic Tab (*Bkc) PO 1 tablet DAILY EMY Administration Naloxone HCl 0.1 mg 05/08/25 13:55 Naloxone Hcl 0.4 Mg/Ml Vial IV PUSH Q2M PRN Opiate Reversal Ondansetron HCl 4 mg 05/08/25 13:55 Ondansetron Inj 4 Mg/2 Ml Vial IV PUSH Q4H PRN Nausea And Vomiting Oxycodone/Acetaminophen 1 tablet 05/08/25 13:55 05/08/25 16:46 Oxycodone/Acetaminophen (*Crx) 5-325 Mg Tablet PO 1 tablet Q4H PRN Administration Pain Rated 4-6 Oxycodone/Acetaminophen 1 tab 05/08/25 13:55 05/09/25 08:56 Oxycodone/Acetaminophen (*Crx) 10-325 Mg Tablet PO 1 tab Q6H PRN Administration Pain Rated 7-10 Pantoprazole Sodium 40 mg 05/08/25 09:00 05/09/25 08:56 Pantoprazole 40 Mg Tablet PO 40 mg QAM EMY Administration Polyethylene Glycol 17 gm 05/09/25 09:00 05/09/25 09:01 Polyethylene Glycol 3350 17 Gm Powd.Pack PO 17 gm QAM EMY Administration Senna/Docusate Sodium 2 tab 05/08/25 17:00 05/09/25 08:56 Senna/Docusate Sodium Tablet PO 2 tab BID EMY Administration Radiology Results: ITS Impressions Chest X-Ray 05/06/25 13:26 IMPRESSION: 1. No acute cardiopulmonary findings given portable technique. Hip/Pelvis X-Ray 05/06/25 13:26 Impression: Right intertrochanteric fracture Labs Labs: Laboratory Results - last 24 hr 05/09/25 05:25 WBC 5.3 RBC 2.50 L Hgb 7.5 L Hct 23.0 L MCV 92.0 D MCH 30.0 D MCHC 32.6 RDW 16.3 H Plt Count 71 L MPV 11.0 H Immature Gran % (Auto) 0.8 H Neut % (Auto) 70.7 Lymph % (Auto) 17.1 L [place] % (Auto) 10.4 H Eos % (Auto) 0.2 Baso % (Auto) 0.8 Lymph # (Auto) 0.91 [place] # (Auto) 0.6 Eos # (Auto) 0.0 Baso # (Auto) 0.0 Abs Immat Gran (auto) 0.04 H Absolute Neuts (auto) 3.8 Absolute Nucleated RBC 0.000 Band Neutrophils % Not Reportable Nucleated RBC % 0.0 Platelet Estimate Decreased % Immature Plt Fraction 5.6 Hypochromasia 1+ Anisocytosis Occasional Schistocytes None seen Sodium 130 L Potassium 3.3 L Chloride 103 Carbon Dioxide 25 Anion Gap 2 L BUN 5 L Creatinine 0.47 L Estim Creat Clear Calc 96 Estimated GFR > 60 Glucose 101 Calcium 7.9 L Magnesium 1.7 Total Bilirubin 0.7 AST 38 H ALT 17 Alkaline Phosphatase 62 Total Protein 5.2 L Albumin 2.6 L Quality VTE Prophylaxis VTE prophylaxis: mechanical ordered
--- NOTE | 2025-05-09 11:26 | P.PNIM_ITS ---
Progress Note: A&P Assessment and Plan (1) Closed displaced intertrochanteric fracture of left femur: Qualifiers: Encounter type: sequela Qualified Code(s): S72.142S - Displaced intertrochanteric fracture of left femur, sequela Code(s): S72.142A - Displaced intertrochanteric fracture of left femur, initial encounter for closed fracture Status: Acute Assessment and Plan: Patient tripped in her bathroom and landed on her right hip on the edge of the shower. She states she was unable to get up to the severe pain and required EMS assistance. Denies hitting her head or neck. Right hip pelvis x-ray revealed right nondisplaced intertrochanteric fracture. * Post-op day 1 * surgical intervention 05/08/2025 * Ortho following * PO oxy and IV hydromorphone for pain management * Lovenox DVT close monitoring Hgb HX anemia * Bowel regiment * PT/OT post-op WB status per ortho * Neurovascular checks (2) History of heavy alcohol consumption: Code(s): Z87.898 - Personal history of other specified conditions Status: Chronic Assessment and Plan: In remission. Patient denies current use of alcohol and denies history of alcohol withdrawal. * monitor her symptoms alcohol withdrawal * Continued multi-vitamin * started Folic acid daily (3) Gastroesophageal reflux disease: Qualifiers: Esophagitis bleeding: unspecified whether hemorrhage Esophagitis presence: with esophagitis Qualified Code(s): K21.00 - Gastro-esophageal reflux disease with esophagitis, without bleeding Code(s): K21.9 - Gastro-esophageal reflux disease without esophagitis Status: Acute Assessment and Plan: * Continue PPI (4) Fatty liver, alcoholic: Code(s): K70.0 - Alcoholic fatty liver Status: Acute Assessment and Plan: Patient with HX of fatty liver and elevated enzymes on admission but improving. Patient reports she is in remission from ETOH. She follows with a digestion operator outpatient for close monitoring * monitor liver enzymes (5) Iron deficiency anemia: Code(s): D50.9 - Iron deficiency anemia, unspecified Status: Acute Assessment and Plan: Patient reports HX of anemia follows with [facility] outpatient. She reports recently they discontinued her Ferrous sulfate but she has had iron infusions in the past. * Hgb 9.6 POA down to 7.5 post-op * Trend H&H * transfuse PRBC if Hgb <7.0 * Monitor for signs of bleeding * added Ferrous sulfate PO BID Plan Code Status: Full DVT: SCD's until post op GI: Pantoprazole PT/OT: Post op per ortho Disposition: Patient continues admission to the medical unit for surgical repair of right femur fracture after a fall at home. PT/OT post op for discharge planning likely need [facility]. Time Spent With Patient Time with patient: 15 - 25 minutes Subjective Date/time seen: 05/09/25 11:26 Interval history: Patient is a 64 year old female admitted after fall at home resulting in a intertronchatic fracture of the right femur with plans for surgical intervention 05/08/2025. 05/09/2025: Patient up in chair still with mild to moderate pain worse with ambulation. Patient still with no BM x 3 days on bowel regiment. Patient with no other complaints. Patient agrees with recommendation to rehab. Review of Systems Review of Systems: All systems reviewed & are unremarkable except as noted in HPI and below Exam Const: General: comfortable and no acute distress Other: Pleasant female HENMT: Mouth: Yes moist mucous membranes Eyes: General: appearance normal, both eyes and all related structures Sclera: sclerae normal Pupils: Equal, round and reactive pupils present Neck: Neck: supple and no JVD Resp: Effort & Inspection: normal respiratory effort Auscultation: clear to auscultation bilaterally Cardio: Rate: regular rate Rhythm: regular rhythm GI: Auscultation: normal bowel sounds Urinary Catheter: Urinary Catheter: patent and draining and urine clear Skin: General skin exam: normal color and no rashes or lesions noted Wounds: no wounds Neuro: Cranial nerves: Yes Equal, round and reactive pupils present Speech: normal speech Extrem: General: normal exam except as noted Other: Pain with ROM RLE/dressing to upper lateral thigh/hip Psych: Mental Status: mental status grossly normal Affect: normal affect Objective Data Vital Signs Vital Signs: Vital Signs - 24 hr 05/08/25 12:37 05/08/25 12:50 05/08/25 13:05 Temperature 96.3 F L 96.4 F L 96.4 F L Pulse Rate 86 82 85 Respiratory Rate 12 14 12 Blood Pressure 130/65 124/73 136/73 Pulse Oximetry 96 100 100 Oxygen Delivery Simple Face Mask Simple Face Mask Simple Face Mask Oxygen Flow Rate 6 6 6 05/08/25 13:15 05/08/25 13:20 05/08/25 13:35 Temperature 97.6 F 97.7 F Pulse Rate 97 92 Respiratory Rate 14 12 Blood Pressure 139/78 111/60 Pulse Oximetry 96 96 Oxygen Delivery Room Air Room Air Room Air Oxygen Flow Rate 05/08/25 13:45 05/08/25 13:55 05/08/25 14:10 Temperature 97.8 F 98.2 F 97.5 F L Pulse Rate 96 102 H 98 Respiratory Rate 14 16 12 Blood Pressure 101/58 L 107/57 L 96/55 L Pulse Oximetry 96 97 98 Oxygen Delivery Room Air Oxygen Flow Rate 05/08/25 14:40 05/08/25 15:40 05/08/25 19:40 Temperature 98.5 F 98.2 F 98.8 F Pulse Rate 103 H 103 H 110 H Respiratory Rate 12 12 18 Blood Pressure 118/58 L 110/58 L 118/59 L Pulse Oximetry 97 96 96 Oxygen Delivery Oxygen Flow Rate 05/08/25 20:00 05/08/25 23:40 05/08/25 23:48 Temperature 97.1 F L 97.1 F L Pulse Rate 107 H 107 H Respiratory Rate 16 16 Blood Pressure 120/60 120/60 Pulse Oximetry 95 95 Oxygen Delivery Room Air Oxygen Flow Rate 05/09/25 03:40 05/09/25 07:40 05/09/25 07:52 Temperature 99.5 F 98.9 F Pulse Rate 104 H 102 H Respiratory Rate 16 20 Blood Pressure 123/58 L 116/72 Pulse Oximetry 95 100 Oxygen Delivery Room Air Oxygen Flow Rate 05/09/25 08:00 05/09/25 08:27 05/09/25 08:56 Temperature 98.9 F Pulse Rate 102 H Respiratory Rate 20 Blood Pressure 116/72 Pulse Oximetry 100 Oxygen Delivery Room Air Room Air Oxygen Flow Rate Intake/Output Intake/Output: Intake & Output 05/06/25 05/07/25 05/08/25 05/09/25 23:59 23:59 23:59 23:59 Intake Total 1000 3482.0 3422 668 Output Total 250 1050 2050 450 Balance 750 2432.0 1372 218 Meds/Results Medications: Active Medications Generic Name Dose Route Start Last Admin Trade Name Freq PRN Reason Stop Dose Admin Acetaminophen 650 mg 05/08/25 13:55 05/09/25 06:58 Acetaminophen 325 Mg Tablet PO 650 mg Q6HR EMY Administration Calcium Citrate 1 tablet 05/07/25 09:00 05/09/25 08:56 Calcium Citrate 315 Mg/Vitamin D 6.25 Mcg (250 Units) Tab PO 1 tablet BID EMY Administration Diazepam 5 mg 05/08/25 13:55 Diazepam (*Crx) 5 Mg Tablet PO Q8H PRN Muscle Spasm Ferrous Sulfate 325 mg 05/09/25 09:00 05/09/25 09:01 Ferrous Sulfate 325 Mg Tablet PO 325 mg BID EMY Administration Folic Acid 1 mg 05/08/25 09:00 05/09/25 08:56 Folic Acid 1 Mg Tablet PO 1 mg DAILY EMY Administration Hydromorphone HCl 1 mg 05/08/25 13:55 05/08/25 14:32 Hydromorphone Hcl Inj (*Crx) 1 Mg/Ml Syr IV PUSH 1 mg Q2H PRN Administration Breakthrough Pain Rated 7-10 or NPO Hydromorphone HCl 0.5 mg 05/08/25 13:55 Hydromorphone Hcl Inj (*Crx) 1 Mg/Ml Syr IV PUSH Q2H PRN Breakthrough Pain Rated 4-6 or NPO Hydroxyzine Pamoate 50 mg 05/08/25 13:55 Hydroxyzine Pamoate 25 Mg Capsule PO Q4H PRN Itching Multivitamins Therapeutic 1 tablet 05/07/25 09:00 05/09/25 08:56 Multivitamins Therapeutic Tab (*Bkc) PO 1 tablet DAILY EMY Administration Naloxone HCl 0.1 mg 05/08/25 13:55 Naloxone Hcl 0.4 Mg/Ml Vial IV PUSH Q2M PRN Opiate Reversal Ondansetron HCl 4 mg 05/08/25 13:55 Ondansetron Inj 4 Mg/2 Ml Vial IV PUSH Q4H PRN Nausea And Vomiting Oxycodone/Acetaminophen 1 tablet 05/08/25 13:55 05/08/25 16:46 Oxycodone/Acetaminophen (*Crx) 5-325 Mg Tablet PO 1 tablet Q4H PRN Administration Pain Rated 4-6 Oxycodone/Acetaminophen 1 tab 05/08/25 13:55 05/09/25 08:56 Oxycodone/Acetaminophen (*Crx) 10-325 Mg Tablet PO 1 tab Q6H PRN Administration Pain Rated 7-10 Pantoprazole Sodium 40 mg 05/08/25 09:00 05/09/25 08:56 Pantoprazole 40 Mg Tablet PO 40 mg QAM EMY Administration Polyethylene Glycol 17 gm 05/09/25 09:00 05/09/25 09:01 Polyethylene Glycol 3350 17 Gm Powd.Pack PO 17 gm QAM EMY Administration Senna/Docusate Sodium 2 tab 05/08/25 17:00 05/09/25 08:56 Senna/Docusate Sodium Tablet PO 2 tab BID EMY Administration Radiology Results: ITS Impressions Chest X-Ray 05/06/25 13:26 IMPRESSION: 1. No acute cardiopulmonary findings given portable technique. Hip/Pelvis X-Ray 05/06/25 13:26 Impression: Right intertrochanteric fracture Labs Labs: Laboratory Results - last 24 hr 05/09/25 05:25 WBC 5.3 RBC 2.50 L Hgb 7.5 L Hct 23.0 L MCV 92.0 D MCH 30.0 D MCHC 32.6 RDW 16.3 H Plt Count 71 L MPV 11.0 H Immature Gran % (Auto) 0.8 H Neut % (Auto) 70.7 Lymph % (Auto) 17.1 L [place] % (Auto) 10.4 H Eos % (Auto) 0.2 Baso % (Auto) 0.8 Lymph # (Auto) 0.91 [place] # (Auto) 0.6 Eos # (Auto) 0.0 Baso # (Auto) 0.0 Abs Immat Gran (auto) 0.04 H Absolute Neuts (auto) 3.8 Absolute Nucleated RBC 0.000 Band Neutrophils % Not Reportable Nucleated RBC % 0.0 Platelet Estimate Decreased % Immature Plt Fraction 5.6 Hypochromasia 1+ Anisocytosis Occasional Schistocytes None seen Sodium 130 L Potassium 3.3 L Chloride 103 Carbon Dioxide 25 Anion Gap 2 L BUN 5 L Creatinine 0.47 L Estim Creat Clear Calc 96 Estimated GFR > 60 Glucose 101 Calcium 7.9 L Magnesium 1.7 Total Bilirubin 0.7 AST 38 H ALT 17 Alkaline Phosphatase 62 Total Protein 5.2 L Albumin 2.6 L Quality VTE Prophylaxis VTE prophylaxis: mechanical ordered -Patient's previous records reviewed on admission -ER notes reviewed in detail on admission -discussed all findings and current treatment plan with patient/Family/POA -Consultations reviewed for recommendations -Patient's disposition for safe discharge discussed with behavioral health case manager -radiology imaging, EKG and test results I have personally reviewed and interpreted unless otherwise specified Dictation performed by [employer] direct speech recognition software, therefore field operator variants and typographical errors may occur. Hospitalist MIPS Advance Care Plan I have confirmed that the patient's Advanced Care Plan is present, code status is documented, or surrogate decision maker is listed in patient medical record.: Yes Medication Reconciliation I have utilized all available resources to obtain, update and review the patients current medications (includes all prescriptions, OTC, herbals, cannabis, and nutritional supplements).: Yes The patient is not eligible for med reconciliation; the patient is in a emergent medical situation where delaying treatment would jeopardize the patients health.: No
[2025-05-09] MEDS: oxyCODONE/ACETAMINOPHEN (*CRX) 5-325 MG TABLET 1 TABLET PO (15:08)
[2025-05-10] VITALS (8 sets, daily range): BP systolic 114–131; BP diastolic 52–66; PULSE 91–100; RESP 16–18; TEMP 36.5–37; O2SAT 96–100
[2025-05-10] MEDS: ACETAMINOPHEN 325 MG TABLET 650 MG PO ×4 (00:01→23:19)
[2025-05-10 06:45] LABS: Immature Platelet Fraction Pct 6.0 % (0.9-11.2); Mean Corpuscular HGB Conc 33.7 g/dl (32-36); Mean Corpuscular Hemoglobin 30.8 pg (26-34); Mean Corpuscular Volume 91.4 fl (80-100); Platelet Count Result 79 k/mm3 (150-375); Red Blood Count 2.21 M/mm3 (4.2-5.4); White Blood Count 4.7 K/mm3 (4.5-10.0)
[2025-05-10 07:02] LABS: Hemoglobin 6.8 g/dL (12.0-15.0)
[2025-05-10 07:03] LABS: Hematocrit 20.2 % (37.0-47.0)
[2025-05-10 08:14] LABS: Alanine Aminotransferase 14 U/L (6-35); Albumin Level 2.7 g/dL (3.5-5.1); Alkaline Phosphatase 56 U/L (38-126); Anion Gap 3 mmol/L (4-12); Aspartate Amino Transferase 44 U/L (14-36); Bilirubin,Total 1.1 mg/dL (0.2-1.3); Blood Urea Nitrogen 5 mg/dL (7-17); Calcium 8.2 mg/dL (8.4-10.2); Carbon Dioxide 25 mmol/L (22-30); Chloride 103 mmol/L (98-107); Estimated CRCL calculation 118 ml/min; Estimated Glomerular Filt Rate > 60; Glucose 102 mg/dL (65-110); Magnesium 1.8 mg/dL (1.6-2.3); Potassium 3.5 mmol/L (3.4-5.0); Sodium 131 mmol/L (137-145); Total Protein 5.4 g/dL (6.3-8.2)
--- NOTE | 2025-05-10 08:21 | PCPTNOTE ---
RN advised not to see pt this morning due to having a unit of blood. Will continue to follow.
[2025-05-10] MEDS: PANTOPRAZOLE 40 MG TABLET PO (08:45)
[2025-05-10] MEDS: SENNA/DOCUSATE SODIUM TABLET 2 TAB PO (08:45)
[2025-05-10] MEDS: CALCIUM CITRATE 315 MG/VITAMIN D 6.25 MCG (250 UNITS) TAB 1 TABLET PO ×2 (08:45→17:07)
[2025-05-10] MEDS: FERROUS SULFATE 325 MG TABLET PO ×2 (08:45→17:07)
[2025-05-10] MEDS: MULTIVITAMINS THERAPEUTIC TAB (*BKC) 1 TABLET PO (08:45)
[2025-05-10] MEDS: FOLIC ACID 1 MG TABLET PO (08:45)
[2025-05-10] MEDS: SODIUM CHLORIDE 0.9% IV 250 ML 30 ML IV CONT (08:45)
--- NOTE | 2025-05-10 09:32 | P.PNOP_ITS ---
Progress Note: A&P Assessment and Plan (1) Intertrochanteric fracture of right femur: Qualifiers: Encounter type: subsequent encounter Fracture type: closed Fracture alignment: nondisplaced Fracture healing: with routine healing Qualified Code(s): S72.144D - Nondisplaced intertrochanteric fracture of right femur, subsequent encounter for closed fracture with routine healing Code(s): S72.141A - Displaced intertrochanteric fracture of right femur, initial encounter for closed fracture Status: Acute Assessment and Plan: POD #2: INSERTION IT KALIA RIGHT HIP Continue PT/OT. PWB (50%). Walker. HIGH FALL RISK. Continue pain control. Ice Hip. Protect skin. DVT prophylaxis with Lovenox. SCDs. Incentive Spirometry Use reviewed. Monitor Dressing. Change today to Mepilex Silver Dressings. No active drainage. Bowel Regimen. Dispo: [facility] vs[facility] pending progress with PT/OT and medical clearance. (2) Anemia: Code(s): D64.9 - Anemia, unspecified Status: Acute Assessment and Plan: Postoperative anemia. Dressing c/d/i. Hospitalist following. Transfusion currently. Okay to d/c to [facility] vs. SN[facility] once medically stable. Time Spent With Patient Time: Reviewed history, exam, radiographs and current labs with attending MD and covering surgeon, Dr. Hernandez, who agrees with current plan as indicated above. No further recommendations from Dr. Hernandez at this time. Subjective Subjective Date/Time Seen: 05/10/25 09:32 Post Op day: 2 Principal diagnosis: Right Hip Fracture Interval history: POD #2: INSERTION IT KALIA RIGHT HIP Patient doing well. HgB Low today, currently being transfused. Pain well controlled today. Review of Systems Review of Systems: All systems reviewed & are unremarkable except as noted in HPI and below Exam Const: General: comfortable and no acute distress Resp: Effort & Inspection: normal respiratory effort Cardio: Rate: regular rate Rhythm: regular rhythm GI: Inspection: non-distended Skin: General skin exam: normal color Other: Incision right hip c/d/i. Surrounding tissue without redness/warmth. Mild swelling consistent with recent surgery. No drainage. Neuro: Cognition (Neuro): normal cognition Speech: normal speech Extrem: Right lower extremity: normal to inspection, normal capillary refill, hip/thigh Details: tenderness Location: of the hip (Thigh soft ) Location: laterally and anteriorly, swelling Location: at the hip, abnormal ROM (limited consistent with recent surgery ) Details: pain with active ROM during and pain with passive ROM during and other (Incision c/d/i. ); no deformity and no unusual warmth, knee Details: normal to inspection; no tenderness and no swelling, lower leg (Negative Pura's Sign ) Details: normal to inspection and no edema; no tenderness, ankle (+ankle dorsiflexion/plantarflexion) Details: normal to inspection and no edema; no tenderness, no swelling and no ecchymosis and foot Details: normal capillary refill, toes with normal ROM, vascular exam Details: dorsalis pedis pulse present and motor-sensory exam Details: light- touch normal; no tenderness Objective Data Vital Signs Vital Signs: Vital Signs - 24 hr 05/09/25 11:40 05/09/25 12:47 05/09/25 15:40 Temperature 37.1 C 36.8 C Pulse Rate 98 102 H Respiratory Rate 20 22 H Blood Pressure 112/76 119/62 Pulse Oximetry 99 98 100 Oxygen Delivery Room Air 05/09/25 16:00 05/09/25 20:00 05/09/25 21:37 Temperature 36.8 C 36.9 C Pulse Rate 104 H 102 H Respiratory Rate 24 H 18 Blood Pressure 119/61 124/62 Pulse Oximetry 100 98 Oxygen Delivery Room Air 05/10/25 05:15 05/10/25 08:38 05/10/25 08:50 Temperature 37.0 C 36.6 C Pulse Rate 100 99 Respiratory Rate 16 16 Blood Pressure 114/52 L 121/57 L Pulse Oximetry 96 98 Oxygen Delivery Room Air 05/10/25 08:55 Temperature 36.7 C Pulse Rate 100 Respiratory Rate 16 Blood Pressure 131/66 Pulse Oximetry 96 Oxygen Delivery Intake/Output Intake/Output: Intake & Output 05/07/25 05/08/25 05/09/25 05/10/25 23:59 23:59 23:59 23:59 Intake Total 3482.0 3422 890 300 Output Total 1050 2050 1200 Balance 2432.0 1372 -310 300 Meds/Results Medications: Active Medications Generic Name Dose Route Start Last Admin Trade Name Freq PRN Reason Stop Dose Admin Acetaminophen 650 mg 05/08/25 13:55 05/10/25 06:45 Acetaminophen 325 Mg Tablet PO 650 mg Q6HR EMY Administration Calcium Citrate 1 tablet 05/07/25 09:00 05/10/25 08:45 Calcium Citrate 315 Mg/Vitamin D 6.25 Mcg (250 Units) Tab PO 1 tablet BID EMY Administration Diazepam 5 mg 05/08/25 13:55 Diazepam (*Crx) 5 Mg Tablet PO Q8H PRN Muscle Spasm Ferrous Sulfate 325 mg 05/09/25 09:00 05/10/25 08:45 Ferrous Sulfate 325 Mg Tablet PO 325 mg BID EMY Administration Folic Acid 1 mg 05/08/25 09:00 05/10/25 08:45 Folic Acid 1 Mg Tablet PO 1 mg DAILY EMY Administration Hydromorphone HCl 1 mg 05/08/25 13:55 05/08/25 14:32 Hydromorphone Hcl Inj (*Crx) 1 Mg/Ml Syr IV PUSH 1 mg Q2H PRN Administration Breakthrough Pain Rated 7-10 or NPO Hydromorphone HCl 0.5 mg 05/08/25 13:55 Hydromorphone Hcl Inj (*Crx) 1 Mg/Ml Syr IV PUSH Q2H PRN Breakthrough Pain Rated 4-6 or NPO Hydroxyzine Pamoate 50 mg 05/08/25 13:55 Hydroxyzine Pamoate 25 Mg Capsule PO Q4H PRN Itching Sodium Chloride 250 mls @ 30 mls/hr 05/10/25 07:26 05/10/25 08:45 Normal Saline Iv IV CONT 05/10/25 15:45 30 mls/hr .Q8H20M STA Administration Multivitamins Therapeutic 1 tablet 05/07/25 09:00 05/10/25 08:45 Multivitamins Therapeutic Tab (*Bkc) PO 1 tablet DAILY EMY Administration Naloxone HCl 0.1 mg 05/08/25 13:55 Naloxone Hcl 0.4 Mg/Ml Vial IV PUSH Q2M PRN Opiate Reversal Ondansetron HCl 4 mg 05/08/25 13:55 Ondansetron Inj 4 Mg/2 Ml Vial IV PUSH Q4H PRN Nausea And Vomiting Oxycodone/Acetaminophen 1 tablet 05/08/25 13:55 05/09/25 15:08 Oxycodone/Acetaminophen (*Crx) 5-325 Mg Tablet PO 1 tablet Q4H PRN Administration Pain Rated 4-6 Oxycodone/Acetaminophen 1 tab 05/08/25 13:55 05/09/25 08:56 Oxycodone/Acetaminophen (*Crx) 10-325 Mg Tablet PO 1 tab Q6H PRN Administration Pain Rated 7-10 Pantoprazole Sodium 40 mg 05/08/25 09:00 05/10/25 08:45 Pantoprazole 40 Mg Tablet PO 40 mg QAM EMY Administration Polyethylene Glycol 17 gm 05/09/25 09:00 05/10/25 08:46 Polyethylene Glycol 3350 17 Gm Powd.Pack PO Not Given QAM EMY Senna/Docusate Sodium 2 tab 05/08/25 17:00 05/10/25 08:45 Senna/Docusate Sodium Tablet PO 2 tab BID EMY Administration Radiology Results: ITS Impressions Chest X-Ray 05/06/25 13:26 IMPRESSION: 1. No acute cardiopulmonary findings given portable technique. Hip/Pelvis X-Ray 05/06/25 13:26 Impression: Right intertrochanteric fracture Labs Labs: Laboratory Results - last 24 hr 05/07/25 05/10/25 10:46 05:39 WBC 4.7 RBC 2.21 L Hgb 6.8 L* Hct 20.2 L* MCV 91.4 MCH 30.8 MCHC 33.7 RDW 15.6 H Plt Count 79 L MPV 11.1 H % Immature Plt Fraction 6.0 Sodium 131 L Potassium 3.5 Chloride 103 Carbon Dioxide 25 Anion Gap 3 L BUN 5 L Creatinine 0.37 L Estim Creat Clear Calc 118 Estimated GFR > 60 Glucose 102 Calcium 8.2 L Magnesium 1.8 Total Bilirubin 1.1 AST 44 H ALT 14 Alkaline Phosphatase 56 Total Protein 5.4 L Albumin 2.7 L Blood Type B Positive Antibody Screen Negative Crossmatch See Detail
--- NOTE | 2025-05-10 09:57 | P.PNIM_ITS ---
Progress Note: A&P Assessment and Plan (1) Closed displaced intertrochanteric fracture of left femur: Qualifiers: Encounter type: sequela Qualified Code(s): S72.142S - Displaced intertrochanteric fracture of left femur, sequela Code(s): S72.142A - Displaced intertrochanteric fracture of left femur, initial encounter for closed fracture Status: Acute Assessment and Plan: Patient tripped in her bathroom and landed on her right hip on the edge of the shower. She states she was unable to get up to the severe pain and required EMS assistance. Denies hitting her head or neck. Right hip pelvis x-ray revealed right nondisplaced intertrochanteric fracture. * Post-op day 1 * surgical intervention 05/08/2025 * Ortho following * PO oxy and IV hydromorphone for pain management * Lovenox D/C due to anemia and low PLT * Bowel regiment * PT/OT post-op WB status per ortho * Neurovascular checks (2) History of heavy alcohol consumption: Code(s): Z87.898 - Personal history of other specified conditions Status: Chronic Assessment and Plan: In remission. Patient denies current use of alcohol and denies history of alcohol withdrawal. * monitor her symptoms alcohol withdrawal * Continued multi-vitamin * started Folic acid daily (3) Gastroesophageal reflux disease: Qualifiers: Esophagitis presence: with esophagitis Esophagitis bleeding: unspecified whether hemorrhage Qualified Code(s): K21.00 - Gastro-esophageal reflux disease with esophagitis, without bleeding Code(s): K21.9 - Gastro-esophageal reflux disease without esophagitis Status: Acute Assessment and Plan: * Continue PPI (4) Fatty liver, alcoholic: Code(s): K70.0 - Alcoholic fatty liver Status: Acute Assessment and Plan: Patient with HX of fatty liver and elevated enzymes on admission but improving. Patient reports she is in remission from ETOH. She follows with a kit planner outpatient for close monitoring * monitor liver enzymes (5) Iron deficiency anemia: Code(s): D50.9 - Iron deficiency anemia, unspecified Status: Acute Assessment and Plan: Patient reports HX of anemia follows with private duty rn outpatient. She reports recently they discontinued her Ferrous sulfate but she has had iron infusions in the past. * Hgb 9.6 POA dropped to 6.8 post-op * 1 Unit PRBC * F/U h&H * Trend H&H * transfuse PRBC if Hgb <7.0 * Monitor for signs of bleeding * added Ferrous sulfate PO BID * Lovenox D/C * Will need to follow-up with Dr. White outpatient Plan Code Status: Full DVT: SCD's until post op GI: Pantoprazole PT/OT: Post op per ortho Disposition: Patient continues admission to the medical unit for surgical repair of right femur fracture after a fall at home. PT/OT post op for discharge planning likely need [facility]. Time Spent With Patient Time with patient: 15 - 25 minutes Subjective Date/time seen: 05/10/25 09:57 Interval history: Patient is a 64 year old female admitted after fall at home resulting in a intertronchatic fracture of the right femur with plans for surgical intervention 05/08/2025. 05/10/2025: Patient is comfortable in bed reports improvement to pain and reported BM x 2. Catheter was removed and patient is voiding adequately. Hgb 6.8 asymptomatic. Review of Systems Review of Systems: All systems reviewed & are unremarkable except as noted in HPI and below Exam Const: General: comfortable and no acute distress Other: Pleasant female HENMT: Mouth: Yes moist mucous membranes Eyes: General: appearance normal, both eyes and all related structures Sclera: sclerae normal Pupils: Equal, round and reactive pupils present Neck: Neck: supple and no JVD Resp: Effort & Inspection: normal respiratory effort Auscultation: clear to auscultation bilaterally Cardio: Rate: regular rate Rhythm: regular rhythm GI: Auscultation: normal bowel sounds Urinary Catheter: Urinary Catheter: patent and draining and urine clear Skin: General skin exam: normal color and no rashes or lesions noted Wounds: no wounds Neuro: Cranial nerves: Yes Equal, round and reactive pupils present Speech: normal speech Extrem: General: normal exam except as noted Other: Pain with ROM RLE/dressing to upper lateral thigh/hip Psych: Mental Status: mental status grossly normal Affect: normal affect Objective Data Vital Signs Vital Signs: Vital Signs - 24 hr 05/09/25 11:40 05/09/25 12:47 05/09/25 15:40 Temperature 98.7 F 98.2 F Pulse Rate 98 102 H Respiratory Rate 20 22 H Blood Pressure 112/76 119/62 Pulse Oximetry 99 98 100 Oxygen Delivery Room Air 05/09/25 16:00 05/09/25 20:00 05/09/25 21:37 Temperature 98.2 F 98.5 F Pulse Rate 104 H 102 H Respiratory Rate 24 H 18 Blood Pressure 119/61 124/62 Pulse Oximetry 100 98 Oxygen Delivery Room Air 05/10/25 05:15 05/10/25 08:38 05/10/25 08:50 Temperature 98.6 F 98 F Pulse Rate 100 99 Respiratory Rate 16 16 Blood Pressure 114/52 L 121/57 L Pulse Oximetry 96 98 Oxygen Delivery Room Air 05/10/25 08:55 Temperature 98.1 F Pulse Rate 100 Respiratory Rate 16 Blood Pressure 131/66 Pulse Oximetry 96 Oxygen Delivery Intake/Output Intake/Output: Intake & Output 05/07/25 05/08/25 05/09/25 05/10/25 23:59 23:59 23:59 23:59 Intake Total 3482.0 3422 890 658 Output Total 1050 2050 1200 Balance 2432.0 1372 -310 658 Meds/Results Medications: Active Medications Generic Name Dose Route Start Last Admin Trade Name Freq PRN Reason Stop Dose Admin Acetaminophen 650 mg 05/08/25 13:55 05/10/25 06:45 Acetaminophen 325 Mg Tablet PO 650 mg Q6HR EMY Administration Calcium Citrate 1 tablet 05/07/25 09:00 05/10/25 08:45 Calcium Citrate 315 Mg/Vitamin D 6.25 Mcg (250 Units) Tab PO 1 tablet BID EMY Administration Diazepam 5 mg 05/08/25 13:55 Diazepam (*Crx) 5 Mg Tablet PO Q8H PRN Muscle Spasm Ferrous Sulfate 325 mg 05/09/25 09:00 05/10/25 08:45 Ferrous Sulfate 325 Mg Tablet PO 325 mg BID EMY Administration Folic Acid 1 mg 05/08/25 09:00 05/10/25 08:45 Folic Acid 1 Mg Tablet PO 1 mg DAILY EMY Administration Hydromorphone HCl 1 mg 05/08/25 13:55 05/08/25 14:32 Hydromorphone Hcl Inj (*Crx) 1 Mg/Ml Syr IV PUSH 1 mg Q2H PRN Administration Breakthrough Pain Rated 7-10 or NPO Hydromorphone HCl 0.5 mg 05/08/25 13:55 Hydromorphone Hcl Inj (*Crx) 1 Mg/Ml Syr IV PUSH Q2H PRN Breakthrough Pain Rated 4-6 or NPO Hydroxyzine Pamoate 50 mg 05/08/25 13:55 Hydroxyzine Pamoate 25 Mg Capsule PO Q4H PRN Itching Sodium Chloride 250 mls @ 30 mls/hr 05/10/25 07:26 05/10/25 08:45 Normal Saline Iv IV CONT 05/10/25 15:45 30 mls/hr .Q8H20M STA Administration Multivitamins Therapeutic 1 tablet 05/07/25 09:00 05/10/25 08:45 Multivitamins Therapeutic Tab (*Bkc) PO 1 tablet DAILY EMY Administration Naloxone HCl 0.1 mg 05/08/25 13:55 Naloxone Hcl 0.4 Mg/Ml Vial IV PUSH Q2M PRN Opiate Reversal Ondansetron HCl 4 mg 05/08/25 13:55 Ondansetron Inj 4 Mg/2 Ml Vial IV PUSH Q4H PRN Nausea And Vomiting Oxycodone/Acetaminophen 1 tablet 05/08/25 13:55 05/09/25 15:08 Oxycodone/Acetaminophen (*Crx) 5-325 Mg Tablet PO 1 tablet Q4H PRN Administration Pain Rated 4-6 Oxycodone/Acetaminophen 1 tab 05/08/25 13:55 05/09/25 08:56 Oxycodone/Acetaminophen (*Crx) 10-325 Mg Tablet PO 1 tab Q6H PRN Administration Pain Rated 7-10 Pantoprazole Sodium 40 mg 05/08/25 09:00 05/10/25 08:45 Pantoprazole 40 Mg Tablet PO 40 mg QAM EMY Administration Polyethylene Glycol 17 gm 05/09/25 09:00 05/10/25 08:46 Polyethylene Glycol 3350 17 Gm Powd.Pack PO Not Given QAM EMY Senna/Docusate Sodium 2 tab 05/08/25 17:00 05/10/25 08:45 Senna/Docusate Sodium Tablet PO 2 tab BID EMY Administration Radiology Results: ITS Impressions Chest X-Ray 05/06/25 13:26 IMPRESSION: 1. No acute cardiopulmonary findings given portable technique. Hip/Pelvis X-Ray 05/06/25 13:26 Impression: Right intertrochanteric fracture Labs Labs: Laboratory Results - last 24 hr 05/07/25 05/10/25 10:46 05:39 WBC 4.7 RBC 2.21 L Hgb 6.8 L* Hct 20.2 L* MCV 91.4 MCH 30.8 MCHC 33.7 RDW 15.6 H Plt Count 79 L MPV 11.1 H % Immature Plt Fraction 6.0 Sodium 131 L Potassium 3.5 Chloride 103 Carbon Dioxide 25 Anion Gap 3 L BUN 5 L Creatinine 0.37 L Estim Creat Clear Calc 118 Estimated GFR > 60 Glucose 102 Calcium 8.2 L Magnesium 1.8 Total Bilirubin 1.1 AST 44 H ALT 14 Alkaline Phosphatase 56 Total Protein 5.4 L Albumin 2.7 L Blood Type B Positive Antibody Screen Negative Crossmatch See Detail Quality VTE Prophylaxis VTE prophylaxis: mechanical ordered -Patient's previous records reviewed on admission -ER notes reviewed in detail on admission -discussed all findings and current treatment plan with patient/Family/POA -Consultations reviewed for recommendations -Patient's disposition for safe discharge discussed with case sealer -radiology imaging, EKG and test results I have personally reviewed and interpreted unless otherwise specified Dictation performed by [employer] direct speech recognition software, therefore can inspector variants and typographical errors may occur. Hospitalist MIPS Advance Care Plan I have confirmed that the patient's Advanced Care Plan is present, code status is documented, or surrogate decision maker is listed in patient medical record.: Yes Medication Reconciliation I have utilized all available resources to obtain, update and review the patients current medications (includes all prescriptions, OTC, herbals, cannabis, and nutritional supplements).: Yes The patient is not eligible for med reconciliation; the patient is in a emergent medical situation where delaying treatment would jeopardize the patients health.: No
[2025-05-10] MEDS: oxyCODONE/ACETAMINOPHEN (*CRX) 10-325 MG TABLET 1 TAB PO (12:24)
[2025-05-10 14:26] LABS: Hematocrit 25.3 % (37.0-47.0); Hemoglobin 8.5 g/dL (12.0-15.0)
[2025-05-11 05:12] LABS: Hematocrit 23.7 % (37.0-47.0); Hemoglobin 7.8 g/dL (12.0-15.0); Mean Corpuscular HGB Conc 32.9 g/dl (32-36); Mean Corpuscular Hemoglobin 30.2 pg (26-34); Mean Corpuscular Volume 91.9 fl (80-100); Platelet Count Result 113 k/mm3 (150-375); Red Blood Count 2.58 M/mm3 (4.2-5.4); White Blood Count 4.7 K/mm3 (4.5-10.0)
[2025-05-11 05:15] VITALS: BP 126/58; PULSE 86; RESP 16; TEMP 36.1; O2SAT 99
[2025-05-11] MEDS: ACETAMINOPHEN 325 MG TABLET 650 MG PO ×2 (05:18→17:12)
[2025-05-11 05:59] LABS: Alanine Aminotransferase 12 U/L (6-35); Albumin Level 2.8 g/dL (3.5-5.1); Alkaline Phosphatase 71 U/L (38-126); Anion Gap -1 mmol/L (4-12); Aspartate Amino Transferase 29 U/L (14-36); Bilirubin,Total 1.1 mg/dL (0.2-1.3); Blood Urea Nitrogen 7 mg/dL (7-17); Calcium 8.4 mg/dL (8.4-10.2); Carbon Dioxide 32 mmol/L (22-30); Chloride 102 mmol/L (98-107); Estimated CRCL calculation 92 ml/min; Estimated Glomerular Filt Rate > 60; Glucose 98 mg/dL (65-110); Magnesium 1.8 mg/dL (1.6-2.3); Potassium 3.1 mmol/L (3.4-5.0); Sodium 133 mmol/L (137-145); Total Protein 5.6 g/dL (6.3-8.2)
--- NOTE | 2025-05-11 07:42 | P.PNIM_ITS ---
Progress Note: A&P Assessment and Plan (1) Closed displaced intertrochanteric fracture of left femur: Qualifiers: Encounter type: sequela Qualified Code(s): S72.142S - Displaced intertrochanteric fracture of left femur, sequela Code(s): S72.142A - Displaced intertrochanteric fracture of left femur, initial encounter for closed fracture Status: Acute Assessment and Plan: Patient tripped in her bathroom and landed on her right hip on the edge of the shower. She states she was unable to get up to the severe pain and required EMS assistance. Denies hitting her head or neck. Right hip pelvis x-ray revealed right nondisplaced intertrochanteric fracture. * Post-op day 3 * surgical intervention 05/08/2025 * Ortho following * PO oxy and IV hydromorphone for pain management * Lovenox D/C due to anemia and low PLT * Bowel regiment * PT/OT post-op WB status per ortho * Neurovascular checks * patient's insurance denied acute rehab, SNF authorization pending (2) History of heavy alcohol consumption: Code(s): Z87.898 - Personal history of other specified conditions Status: Chronic Assessment and Plan: In remission. Patient denies current use of alcohol and denies history of alcohol withdrawal. * monitor her symptoms alcohol withdrawal * Continued multi-vitamin * Continue Folic acid daily (3) Gastroesophageal reflux disease: Qualifiers: Esophagitis bleeding: unspecified whether hemorrhage Esophagitis presence: with esophagitis Qualified Code(s): K21.00 - Gastro-esophageal reflux disease with esophagitis, without bleeding Code(s): K21.9 - Gastro-esophageal reflux disease without esophagitis Status: Acute Assessment and Plan: * Continue PPI (4) Fatty liver, alcoholic: Code(s): K70.0 - Alcoholic fatty liver Status: Acute Assessment and Plan: Patient with HX of fatty liver and elevated enzymes on admission but improving. Patient reports she is in remission from ETOH. 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 She reports recently they discontinued her Ferrous sulfate but she has had iron infusions in the past. * Hgb 9.6 POA dropped to 6.8 post-op * s/p 1 Unit PRBC on 05/10 * F/U h&H * Trend H&H * transfuse PRBC if Hgb <7.0 * Monitor for signs of bleeding * added Ferrous sulfate PO BID * Lovenox D/C * Will need to follow-up with Dr. White outpatient * Hgb 7.8 today * CBC in AM (6) Hypokalemia: Code(s): E87.6 - Hypokalemia Status: Acute Assessment and Plan: k 3.1 today PO potassium chloride 40 meq ordered x 1 CMP in am mag level in am Plan Code Status: Full DVT: SCD's GI: Pantoprazole PT/OT: Post op per ortho Disposition: Patient continues admission to the medical unit for surgical repair of right femur fracture after a fall at home. PT/OT post op for discharge planning likely need SNF, insurance auth pending Subjective Date/time seen: 05/11/25 07:42 Interval history: Patient seen for a follow up visit. Patient sitting up in chair, in no acute distress. Patient reports pain is controlled with current pain regimen. Orthopedic surgery is following patient. Patient received 1 unit PRBC yesterday for a Hgb 6.8. Hemoglobin today is 7.8. Patient's insurance denied acute rehab, authorization for SNF pending. Patient's potassium 3.1 today, order placed for 40 meq po potassium. Patient participates with rehab and is making slow progress on ambulating. Review of Systems Review of Systems: All systems reviewed & are unremarkable except as noted in HPI and below Exam Const: General: comfortable and no acute distress HENMT: Mouth: Yes moist mucous membranes Eyes: General: appearance normal, both eyes and all related structures Sclera: sclerae normal Pupils: Equal, round and reactive pupils present Neck: Neck: supple and no JVD Resp: Effort & Inspection: normal respiratory effort Auscultation: clear to auscultation bilaterally Cardio: Rate: regular rate Rhythm: regular rhythm GI: Auscultation: normal bowel sounds Skin: General skin exam: normal color and no rashes or lesions noted Wounds: no wounds Neuro: Cranial nerves: Yes Equal, round and reactive pupils present Speech: normal speech Extrem: General: normal exam except as noted Other: Pain with ROM RLE/dressing to upper lateral thigh/hip Psych: Mental Status: mental status grossly normal Affect: normal affect Objective Data Vital Signs Vital Signs: Vital Signs - 24 hr 05/10/25 08:38 05/10/25 08:50 05/10/25 08:55 Temperature 98 F 98.1 F Pulse Rate 99 100 Respiratory Rate 16 16 Blood Pressure 121/57 L 131/66 Pulse Oximetry 98 96 Oxygen Delivery Room Air 05/10/25 09:55 05/10/25 10:55 05/10/25 11:17 Temperature 97.7 F 97.9 F 98.2 F Pulse Rate 99 100 100 Respiratory Rate 16 16 16 Blood Pressure 114/54 L 122/59 L 122/57 L Pulse Oximetry 98 98 98 Oxygen Delivery 05/10/25 14:00 05/10/25 20:01 05/11/25 05:15 Temperature 98.0 F 97.9 F 96.9 F L Pulse Rate 91 95 86 Respiratory Rate 16 18 16 Blood Pressure 130/62 128/59 L 126/58 L Pulse Oximetry 99 100 99 Oxygen Delivery Intake/Output Intake/Output: Intake & Output 05/08/25 05/09/25 05/10/25 05/11/25 23:59 23:59 23:59 23:59 Intake Total 3422 890 2188 400 Output Total 2050 1200 Balance 1372 -310 2188 400 Meds/Results Medications: Active Medications Generic Name Dose Route Start Last Admin Trade Name Freq PRN Reason Stop Dose Admin Acetaminophen 650 mg 05/08/25 13:55 05/11/25 05:18 Acetaminophen 325 Mg Tablet PO 650 mg Q6HR EMY Administration Calcium Citrate 1 tablet 05/07/25 09:00 05/10/25 17:07 Calcium Citrate 315 Mg/Vitamin D 6.25 Mcg (250 Units) Tab PO 1 tablet BID EMY Administration Diazepam 5 mg 05/08/25 13:55 Diazepam (*Crx) 5 Mg Tablet PO Q8H PRN Muscle Spasm Ferrous Sulfate 325 mg 05/09/25 09:00 05/10/25 17:07 Ferrous Sulfate 325 Mg Tablet PO 325 mg BID EMY Administration Folic Acid 1 mg 05/08/25 09:00 05/10/25 08:45 Folic Acid 1 Mg Tablet PO 1 mg DAILY EMY Administration Hydromorphone HCl 1 mg 05/08/25 13:55 05/08/25 14:32 Hydromorphone Hcl Inj (*Crx) 1 Mg/Ml Syr IV PUSH 1 mg Q2H PRN Administration Breakthrough Pain Rated 7-10 or NPO Hydromorphone HCl 0.5 mg 05/08/25 13:55 Hydromorphone Hcl Inj (*Crx) 1 Mg/Ml Syr IV PUSH Q2H PRN Breakthrough Pain Rated 4-6 or NPO Hydroxyzine Pamoate 50 mg 05/08/25 13:55 Hydroxyzine Pamoate 25 Mg Capsule PO Q4H PRN Itching Multivitamins Therapeutic 1 tablet 05/07/25 09:00 05/10/25 08:45 Multivitamins Therapeutic Tab (*Bkc) PO 1 tablet DAILY EMY Administration Naloxone HCl 0.1 mg 05/08/25 13:55 Naloxone Hcl 0.4 Mg/Ml Vial IV PUSH Q2M PRN Opiate Reversal Ondansetron HCl 4 mg 05/08/25 13:55 Ondansetron Inj 4 Mg/2 Ml Vial IV PUSH Q4H PRN Nausea And Vomiting Oxycodone/Acetaminophen 1 tablet 05/08/25 13:55 05/09/25 15:08 Oxycodone/Acetaminophen (*Crx) 5-325 Mg Tablet PO 1 tablet Q4H PRN Administration Pain Rated 4-6 Oxycodone/Acetaminophen 1 tab 05/08/25 13:55 05/10/25 12:24 Oxycodone/Acetaminophen (*Crx) 10-325 Mg Tablet PO 1 tab Q6H PRN Administration Pain Rated 7-10 Pantoprazole Sodium 40 mg 05/08/25 09:00 05/10/25 08:45 Pantoprazole 40 Mg Tablet PO 40 mg QAM EMY Administration Polyethylene Glycol 17 gm 05/09/25 09:00 05/10/25 08:46 Polyethylene Glycol 3350 17 Gm Powd.Pack PO Not Given QAM EMY Senna/Docusate Sodium 2 tab 05/08/25 17:00 05/10/25 17:13 Senna/Docusate Sodium Tablet PO Not Given BID [facility] Radiology Results: ITS Impressions Chest X-Ray 05/06/25 13:26 IMPRESSION: 1. No acute cardiopulmonary findings given portable technique. Hip/Pelvis X-Ray 05/06/25 13:26 Impression: Right intertrochanteric fracture Labs Labs: Laboratory Results - last 24 hr 05/07/25 05/10/25 05/10/25 10:46 05:39 13:47 WBC RBC Hgb 8.5 L Hct 25.3 L MCV MCH MCHC RDW Plt Count MPV Sodium 131 L Potassium 3.5 Chloride 103 Carbon Dioxide 25 Anion Gap 3 L BUN 5 L Creatinine 0.37 L Estim Creat Clear Calc 118 Estimated GFR > 60 Glucose 102 Calcium 8.2 L Magnesium 1.8 Total Bilirubin 1.1 AST 44 H ALT 14 Alkaline Phosphatase 56 Total Protein 5.4 L Albumin 2.7 L Blood Type B Positive Antibody Screen Negative Crossmatch See Detail 05/11/25 05/11/25 04:33 04:34 WBC 4.7 RBC 2.58 L Hgb 7.8 L Hct 23.7 L MCV 91.9 MCH 30.2 MCHC 32.9 RDW 15.6 H Plt Count 113 L MPV 10.0 Sodium 133 L Potassium 3.1 L Chloride 102 Carbon Dioxide 32 H Anion Gap -1 L BUN 7 Creatinine 0.49 L Estim Creat Clear Calc 92 Estimated GFR > 60 Glucose 98 Calcium 8.4 Magnesium 1.8 Total Bilirubin 1.1 AST 29 ALT 12 Alkaline Phosphatase 71 Total Protein 5.6 L Albumin 2.8 L Blood Type Antibody Screen Crossmatch Quality VTE Prophylaxis VTE prophylaxis: mechanical ordered
[2025-05-11] MEDS: POTASSIUM CHLORIDE 20 MEQ ER TABLET 40 MEQ PO (08:36)
[2025-05-11] MEDS: FERROUS SULFATE 325 MG TABLET PO ×2 (08:37→17:12)
[2025-05-11] MEDS: oxyCODONE/ACETAMINOPHEN (*CRX) 10-325 MG TABLET 1 TAB PO ×2 (08:37→23:26)
[2025-05-11] MEDS: PANTOPRAZOLE 40 MG TABLET PO (08:37)
[2025-05-11] MEDS: SENNA/DOCUSATE SODIUM TABLET 2 TAB PO ×2 (08:37→17:12)
[2025-05-11] MEDS: MULTIVITAMINS THERAPEUTIC TAB (*BKC) 1 TABLET PO (08:37)
[2025-05-11] MEDS: FOLIC ACID 1 MG TABLET PO (08:37)
[2025-05-11] MEDS: CALCIUM CITRATE 315 MG/VITAMIN D 6.25 MCG (250 UNITS) TAB 1 TABLET PO ×2 (08:37→17:12)
[2025-05-11 16:00] VITALS: BP 145/76; PULSE 86; RESP 16; TEMP 36.7; O2SAT 100
[2025-05-11 20:08] VITALS: BP 112/62; PULSE 99; RESP 16; TEMP 36.9; O2SAT 99
[2025-05-12 05:26] LABS: Hematocrit 22.4 % (37.0-47.0); Hemoglobin 7.5 g/dL (12.0-15.0); Mean Corpuscular HGB Conc 33.5 g/dl (32-36); Mean Corpuscular Hemoglobin 30.5 pg (26-34); Mean Corpuscular Volume 91.1 fl (80-100); Platelet Count Result 147 k/mm3 (150-375); Red Blood Count 2.46 M/mm3 (4.2-5.4); White Blood Count 5.0 K/mm3 (4.5-10.0)
[2025-05-12 05:58] LABS: Alanine Aminotransferase 12 U/L (6-35); Albumin Level 2.8 g/dL (3.5-5.1); Alkaline Phosphatase 73 U/L (38-126); Anion Gap -2 mmol/L (4-12); Aspartate Amino Transferase 31 U/L (14-36); Bilirubin,Total 1.1 mg/dL (0.2-1.3); Blood Urea Nitrogen 9 mg/dL (7-17); Calcium 8.4 mg/dL (8.4-10.2); Carbon Dioxide 33 mmol/L (22-30); Chloride 101 mmol/L (98-107); Estimated CRCL calculation 102 ml/min; Estimated Glomerular Filt Rate > 60; Glucose 92 mg/dL (65-110); Magnesium 1.7 mg/dL (1.6-2.3); Potassium 3.7 mmol/L (3.4-5.0); Sodium 132 mmol/L (137-145); Total Protein 5.5 g/dL (6.3-8.2)
[2025-05-12] MEDS: ACETAMINOPHEN 325 MG TABLET 650 MG PO ×3 (06:26→16:36)
[2025-05-12 08:00] VITALS: BP 128/85; PULSE 93; RESP 20; TEMP 36.7; O2SAT 99
[2025-05-12] MEDS: PANTOPRAZOLE 40 MG TABLET PO (08:45)
[2025-05-12] MEDS: FERROUS SULFATE 325 MG TABLET PO ×2 (08:45→16:36)
[2025-05-12] MEDS: CALCIUM CITRATE 315 MG/VITAMIN D 6.25 MCG (250 UNITS) TAB 1 TABLET PO ×2 (08:45→16:36)
[2025-05-12] MEDS: MULTIVITAMINS THERAPEUTIC TAB (*BKC) 1 TABLET PO (08:45)
[2025-05-12] MEDS: FOLIC ACID 1 MG TABLET PO (08:45)
--- NOTE | 2025-05-12 12:10 | P.PNIM_ITS ---
Progress Note: A&P Assessment and Plan (1) Closed displaced intertrochanteric fracture of left femur: Qualifiers: Encounter type: sequela Qualified Code(s): S72.142S - Displaced intertrochanteric fracture of left femur, sequela Code(s): S72.142A - Displaced intertrochanteric fracture of left femur, initial encounter for closed fracture Status: Acute Assessment and Plan: Patient tripped in her bathroom and landed on her right hip on the edge of the shower. She states she was unable to get up to the severe pain and required EMS assistance. Denies hitting her head or neck. Right hip pelvis x-ray revealed right nondisplaced intertrochanteric fracture. * Post-op day 3 * surgical intervention 05/08/2025 * Ortho following * PO oxy and IV hydromorphone for pain management * Lovenox D/C due to anemia and low PLT, restarted * Bowel regiment * PT/OT post-op WB status per ortho * Neurovascular checks * patient's insurance denied acute rehab, SNF authorization pending * patient with more lower extremity swelling, right > left, check venous doppler's and give dose of IV furosemide (2) History of heavy alcohol consumption: Code(s): Z87.898 - Personal history of other specified conditions Status: Chronic Assessment and Plan: In remission. Patient denies current use of alcohol and denies history of alcohol withdrawal. * monitor her symptoms alcohol withdrawal * Continued multi-vitamin * Continue Folic acid daily (3) Gastroesophageal reflux disease: Qualifiers: Esophagitis bleeding: unspecified whether hemorrhage Esophagitis presence: with esophagitis Qualified Code(s): K21.00 - Gastro-esophageal reflux disease with esophagitis, without bleeding Code(s): K21.9 - Gastro-esophageal reflux disease without esophagitis Status: Acute Assessment and Plan: * Continue PPI (4) Fatty liver, alcoholic: Code(s): K70.0 - Alcoholic fatty liver Status: Acute Assessment and Plan: Patient with HX of fatty liver and elevated enzymes on admission but improving. Patient reports she is in remission from ETOH. She follows with a surveillance camera technician outpatient for close monitoring * monitor liver enzymes (5) Iron deficiency anemia: Code(s): D50.9 - Iron deficiency anemia, unspecified Status: Acute Assessment and Plan: Patient reports HX of anemia follows with mud mill tender outpatient. She reports recently they discontinued her Ferrous sulfate but she has had iron infusions in the past. * Hgb 9.6 POA dropped to 6.8 post-op * s/p 1 Unit PRBC on 05/10 * F/U h&H * Trend H&H * transfuse PRBC if Hgb <7.0 * Monitor for signs of bleeding * added Ferrous sulfate PO BID * Lovenox D/C, now restarted 05/13 * Will need to follow-up with Dr. White outpatient * Hgb 7.5 today * CBC in AM (6) Hypokalemia: Code(s): E87.6 - Hypokalemia Status: Acute Assessment and Plan: s/p replacement improved CMP in am mag level in am Plan Code Status: Full DVT: SCD's , restart Lovenox 05/13 GI: Pantoprazole PT/OT: Post op per ortho Disposition: Patient continues admission to the medical unit for surgical repair of right femur fracture after a fall at home. PT/OT post op for discharge planning likely need SNF, insurance auth pending Subjective Date/time seen: 05/12/25 12:10 Interval history: Patient seen for a follow up visit. Patient lying in bed, in no acute distress. Patient reports pain is controlled with current pain medications. Patient is making progress with therapy. Patient reports she is ambulating to the bathroom with a walker. Patient with more edema to her lower extremities, right greater than left. Order IV furosemide 20 mg x 1 and check venous doppler or bilateral lower extremities. Patient's hemoglobin stable at 7.5 today. Restart lovenox 40 mg daily for DVT prophylaxis. Monitor for any signs or symptoms of bleeding. Review of Systems Review of Systems: All systems reviewed & are unremarkable except as noted in HPI and below Exam Const: General: comfortable and no acute distress HENMT: Mouth: Yes moist mucous membranes Eyes: General: appearance normal, both eyes and all related structures Sclera: sclerae normal Pupils: Equal, round and reactive pupils present Neck: Neck: supple and no JVD Resp: Effort & Inspection: normal respiratory effort Auscultation: clear to auscultation bilaterally Cardio: Rate: regular rate Rhythm: regular rhythm GI: Auscultation: normal bowel sounds Skin: General skin exam: normal color and no rashes or lesions noted Wounds: no wounds Neuro: Cranial nerves: Yes Equal, round and reactive pupils present Speech: normal speech Extrem: General: normal exam except as noted Other: 2+ edema to RLE, 1+ edema to LLE Psych: Mental Status: mental status grossly normal Affect: normal affect Objective Data Vital Signs Vital Signs: Vital Signs - 24 hr 05/11/25 16:00 05/11/25 20:00 05/11/25 20:08 Temperature 98.0 F 98.5 F Pulse Rate 86 99 Respiratory Rate 16 16 Blood Pressure 145/76 H 112/62 Pulse Oximetry 100 99 Oxygen Delivery Room Air 05/12/25 08:00 Temperature 98.0 F Pulse Rate 93 Respiratory Rate 20 Blood Pressure 128/85 Pulse Oximetry 99 Oxygen Delivery Intake/Output Intake/Output: Intake & Output 05/09/25 05/10/25 05/11/25 05/12/25 23:59 23:59 23:59 23:59 Intake Total 890 2265.5 1750 1290 Output Total 1200 Balance -310 2265.5 1750 1290 Meds/Results Medications: Active Medications Generic Name Dose Route Start Last Admin Trade Name Freq PRN Reason Stop Dose Admin Acetaminophen 650 mg 05/08/25 13:55 05/12/25 11:55 Acetaminophen 325 Mg Tablet PO 650 mg Q6HR EMY Administration Calcium Citrate 1 tablet 05/07/25 09:00 05/12/25 08:45 Calcium Citrate 315 Mg/Vitamin D 6.25 Mcg (250 Units) Tab PO 1 tablet BID EMY Administration Diazepam 5 mg 05/08/25 13:55 Diazepam (*Crx) 5 Mg Tablet PO Q8H PRN Muscle Spasm Ferrous Sulfate 325 mg 05/09/25 09:00 05/12/25 08:45 Ferrous Sulfate 325 Mg Tablet PO 325 mg BID EMY Administration Folic Acid 1 mg 05/08/25 09:00 05/12/25 08:45 Folic Acid 1 Mg Tablet PO 1 mg DAILY EMY Administration Hydromorphone HCl 1 mg 05/08/25 13:55 05/08/25 14:32 Hydromorphone Hcl Inj (*Crx) 1 Mg/Ml Syr IV PUSH 1 mg Q2H PRN Administration Breakthrough Pain Rated 7-10 or NPO Hydromorphone HCl 0.5 mg 05/08/25 13:55 Hydromorphone Hcl Inj (*Crx) 1 Mg/Ml Syr IV PUSH Q2H PRN Breakthrough Pain Rated 4-6 or NPO Hydroxyzine Pamoate 50 mg 05/08/25 13:55 Hydroxyzine Pamoate 25 Mg Capsule PO Q4H PRN Itching Multivitamins Therapeutic 1 tablet 05/07/25 09:00 05/12/25 08:45 Multivitamins Therapeutic Tab (*Bkc) PO 1 tablet DAILY EMY Administration Naloxone HCl 0.1 mg 05/08/25 13:55 Naloxone Hcl 0.4 Mg/Ml Vial IV PUSH Q2M PRN Opiate Reversal Ondansetron HCl 4 mg 05/08/25 13:55 Ondansetron Inj 4 Mg/2 Ml Vial IV PUSH Q4H PRN Nausea And Vomiting Oxycodone/Acetaminophen 1 tablet 05/08/25 13:55 05/09/25 15:08 Oxycodone/Acetaminophen (*Crx) 5-325 Mg Tablet PO 1 tablet Q4H PRN Administration Pain Rated 4-6 Oxycodone/Acetaminophen 1 tab 05/08/25 13:55 05/11/25 23:26 Oxycodone/Acetaminophen (*Crx) 10-325 Mg Tablet PO 1 tab Q6H PRN Administration Pain Rated 7-10 Pantoprazole Sodium 40 mg 05/08/25 09:00 05/12/25 08:45 Pantoprazole 40 Mg Tablet PO 40 mg QAM EMY Administration Polyethylene Glycol 17 gm 05/09/25 09:00 05/12/25 08:43 Polyethylene Glycol 3350 17 Gm Powd.Pack PO Not Given QAM EMY Senna/Docusate Sodium 2 tab 05/08/25 17:00 05/12/25 08:43 Senna/Docusate Sodium Tablet PO Not Given BID EMY Radiology Results: ITS Impressions Chest X-Ray 05/06/25 13:26 IMPRESSION: 1. No acute cardiopulmonary findings given portable technique. Hip/Pelvis X-Ray 05/06/25 13:26 Impression: Right intertrochanteric fracture Labs Labs: Laboratory Results - last 24 hr 05/12/25 04:49 WBC 5.0 RBC 2.46 L Hgb 7.5 L Hct 22.4 L MCV 91.1 MCH 30.5 MCHC 33.5 RDW 15.2 H Plt Count 147 L MPV 9.9 Sodium 132 L Potassium 3.7 Chloride 101 Carbon Dioxide 33 H Anion Gap -2 L BUN 9 Creatinine 0.44 L Estim Creat Clear Calc 102 Estimated GFR > 60 Glucose 92 Calcium 8.4 Magnesium 1.7 Total Bilirubin 1.1 AST 31 ALT 12 Alkaline Phosphatase 73 Total Protein 5.5 L Albumin 2.8 L Quality VTE Prophylaxis VTE prophylaxis: mechanical ordered
[2025-05-12] MEDS: ENOXAPARIN 40 MG/0.4 ML SYRINGE SUB-Q (14:42)
[2025-05-12] MEDS: FUROSEMIDE INJ 40 MG/4 ML VIAL 20 MG IV PUSH (14:42)
[2025-05-12] MEDS: oxyCODONE/ACETAMINOPHEN (*CRX) 10-325 MG TABLET 1 TAB PO ×2 (14:57→20:34)
[2025-05-12 15:46] VITALS: BP 122/66; PULSE 85; RESP 16; TEMP 36.9; O2SAT 100
[2025-05-13] MEDS: oxyCODONE/ACETAMINOPHEN (*CRX) 10-325 MG TABLET 1 TAB PO (05:11)
[2025-05-13 06:19] LABS: Hematocrit 25.2 % (37.0-47.0); Hemoglobin 8.2 g/dL (12.0-15.0); Mean Corpuscular HGB Conc 32.5 g/dl (32-36); Mean Corpuscular Hemoglobin 30.3 pg (26-34); Mean Corpuscular Volume 93.0 fl (80-100); Platelet Count Result 213 k/mm3 (150-375); Red Blood Count 2.71 M/mm3 (4.2-5.4); White Blood Count 3.9 K/mm3 (4.5-10.0)
[2025-05-13 06:58] LABS: Alanine Aminotransferase 14 U/L (6-35); Albumin Level 3.1 g/dL (3.5-5.1); Alkaline Phosphatase 88 U/L (38-126); Anion Gap 1 mmol/L (4-12); Aspartate Amino Transferase 30 U/L (14-36); Bilirubin,Total 1.2 mg/dL (0.2-1.3); Blood Urea Nitrogen 10 mg/dL (7-17); Calcium 8.9 mg/dL (8.4-10.2); Carbon Dioxide 33 mmol/L (22-30); Chloride 101 mmol/L (98-107); Estimated CRCL calculation 89 ml/min; Estimated Glomerular Filt Rate > 60; Glucose 100 mg/dL (65-110); Magnesium 1.6 mg/dL (1.6-2.3); Potassium 3.3 mmol/L (3.4-5.0); Sodium 135 mmol/L (137-145); Total Protein 6.1 g/dL (6.3-8.2)
[2025-05-13] MEDS: CALCIUM CITRATE 315 MG/VITAMIN D 6.25 MCG (250 UNITS) TAB 1 TABLET PO ×2 (09:20→17:50)
[2025-05-13] MEDS: MULTIVITAMINS THERAPEUTIC TAB (*BKC) 1 TABLET PO (09:20)
[2025-05-13] MEDS: FOLIC ACID 1 MG TABLET PO (09:20)
[2025-05-13] MEDS: SENNA/DOCUSATE SODIUM TABLET 2 TAB PO ×2 (09:20→17:42)
[2025-05-13] MEDS: PANTOPRAZOLE 40 MG TABLET PO (09:20)
[2025-05-13] MEDS: POTASSIUM CHLORIDE 20 MEQ PACKET (FOR LIQUID) PO (09:20)
[2025-05-13] MEDS: ENOXAPARIN 40 MG/0.4 ML SYRINGE SUB-Q (09:20)
[2025-05-13] MEDS: FERROUS SULFATE 325 MG TABLET PO ×2 (09:20→17:42)
[2025-05-13] MEDS: ACETAMINOPHEN 325 MG TABLET 650 MG PO ×2 (12:19→17:42)
--- NOTE | 2025-05-13 13:22 | PCNWS ---
Weekly nutritional screen. Patient is tolerating current diet with adequate intake. No weight loss reported. No nutritional needs at this time.
[2025-05-13 14:00] VITALS: BP 151/68; PULSE 88; RESP 16; TEMP 37.4; O2SAT 100
--- NOTE | 2025-05-13 14:57 | PM.DS ---
DS: Summary Time Spent with Patient Time attestation: Total time spent providing and/or coordinating discharge services: DS: Data Data Completed and Pending Labs on day of discharge: Labs from last 24 hours 05/13/25 05:48 WBC 3.9 L RBC 2.71 L Hgb 8.2 L Hct 25.2 L MCV 93.0 MCH 30.3 MCHC 32.5 RDW 15.3 H Plt Count 213 MPV 9.7 Sodium 135 L Potassium 3.3 L Chloride 101 Carbon Dioxide 33 H Anion Gap 1 L BUN 10 Creatinine 0.51 L Estim Creat Clear Calc 89 Estimated GFR > 60 Glucose 100 Calcium 8.9 Magnesium 1.6 Total Bilirubin 1.2 AST 30 ALT 14 Alkaline Phosphatase 88 Total Protein 6.1 L Albumin 3.1 L Discharge Plan Discharge Attending physician on discharge: Higinio De Anda Consulting providers: Lisa Cho; Rigo Hernandez Discharging Clinician: Terri Peralta Patient Disposition: SNF Activity: may shower and no driving Wound Care Instructions: follow printed instructions Discharge Instructions: Postoperative Hip Fracture Instructions Dr. Rigo Hernandez [phone] Dressing to be changed daily with an island dressing beginning on post op day #2. May stop dressing changes at post op day #14. [place] to be removed on post op day #14 Weight bearing: Partial Weight Bearing (50%) . You may shower with your dressing but do not submerge in a bath tub. Do not drive or operate machinery until you are released by your surgeon. Do not walk without a walker for any reason until you are released by your surgeon. DVT prophylaxis x28 days post op. Continue to apply ice to the hip intermittently for additional pain relief. Protect your skin with a towel or pillow case. Continue to follow strict hip fracture precautions. Please contact our office with any questions/concerns regarding your hip at [phone]. Follow up appointment instructions indicated below. Patient Language: Citizen Of [place] Stand Alone Forms: General Discharge Information Follow-up/Referrals: Rigo Hernandez MD [Physician, Orthopedics] - 06/23/25 11:15 am Jorge,MD Meera [Primary Care Provider, Family Practice] Referral Note: Follow up with your PCP within 1-2 weeks after discharge from SNF. Discharge Medications: New oxycodone-acetaminophen 5-325 mg Tablet 1 tablet PO Q4H PRN (Reason: pain) Qty: 30 0RF folic acid 1 mg Tablet 1 mg PO DAILY Qty: 30 0RF acetaminophen 325 mg Tablet 650 mg PO Q6HR Qty: 30 0RF sennosides-docusate sodium [Senokot-S] 8.6-50 mg Tablet 2 tab-cap PO BID Qty: 30 0RF polyethylene glycol 3350 [Miralax] 17 gram Powder In Packet 17 g PO QAM Qty: 30 0RF enoxaparin [Lovenox] 40 mg/0.4 mL Syringe 40 mg subcut DAILY 28 Days Qty: 11.2 0RF ferrous sulfate 325 mg (65 mg iron) Tablet,Delayed Release (Dr/Ec) 325 mg PO BID Qty: 60 0RF potassium chloride 20 mEq Packet 20 meq PO DAILY Qty: 30 0RF Continued calcium citrate-vitamin D3 315 mg-5 mcg (200 unit) tablet 1 tablet PO BID Qty: 100 0RF multivitamin with folic acid [Thera] 400 mcg Tablet 1 tablet PO DAILY Qty: 30 0RF Date of admission: 05/06/25 14:04 Primary Care Provider: Jorge,Meera Admitting Provider: José Miguel Almeida Attending physician on admission: José Miguel Almeida Condition: Stable
[2025-05-13 16:06] LABS: Influenza A QL RT-PCR Negative (Negative); Influenza B QL RT-PCR Negative (Negative); RSV RNA, RT-PCR Negative (Negative); SARS-CoV-2 RNA PCR Negative (Negative)
== END 2025-05-13 18:15 | DRG 481 ==
LOC: ANHED 13:36 → ANH3MEDSUR 15:07
PROVIDERS: Nurse Practitioner Adult Health; Nurse Practitioner Family; Orthopaedic Surgery; Admitting Provider Internal Medicine; Emergency Provider Emergency Medicine; PCP Family Medicine; Visit Provider Nurse Practitioner Adult Health
PROC: 0QS634Z Reposition Right Upper Femur with Internal Fixation Device, Percutaneous Approach (ICD-10-PCS; CPT 27245; principal; 2025-05-08 10:00)
DX: S72.144A Nondisplaced intertrochanteric fracture of right femur, initial encounter for closed fracture (principal); D62 Acute posthemorrhagic anemia; K21.9 Gastro-esophageal reflux disease without esophagitis; M85.80 Other specified disorders of bone density and structure, unspecified site; H91.90 Unspecified hearing loss, unspecified ear; M17.12 Unilateral primary osteoarthritis, left knee; K70.0 Alcoholic fatty liver; D50.9 Iron deficiency anemia, unspecified; E87.6 Hypokalemia; K59.00 Constipation, unspecified; F32.A Depression, unspecified; F41.9 Anxiety disorder, unspecified; F10.21 Alcohol dependence, in remission; W01.198A Fall on same level from slipping, tripping and stumbling with subsequent striking against other object, initial encounter; Z87.891 Personal history of nicotine dependence; Z91.81 History of falling; Z11.52 Encounter for screening for COVID-19
CPT/HCPCS: 36415; 36430; 71045; 73502; 80048; 80053; 80061; 83735; 85014; 85018; 85025; 85027; 85055; 85610; 85730; 86850; 86900; 86901; 86923; 87637; 93005; 93970; 96374; 96375; 97110; 97162; 97166; 97530; 97535; 99199; 99285; J0690; A9270; C1713; J1171; J1200; J1650; J1938; J2003; J2405; J2704; J3010; J3290; J7030; J7040; J7050; J7120; P9016